=== PATIENT | male | born 1950 | race Caucasian/White ===

== ENCOUNTER → 2020-08-12 12:37 | Outpatient (BNVA) | payer MEDICARE, OTHER, SELFPAY | PROVIDERS: PCP Internal Medicine; Referring Provider Internal Medicine; Visit Provider Orthopaedic Surgery | DX: M17.11 Unilateral primary osteoarthritis, right knee (principal) | CPT/HCPCS: 99212 ==

== ENCOUNTER → 2020-08-18 10:51 | Outpatient (BNVA) | payer MEDICARE, OTHER, SELFPAY | PROVIDERS: PCP Internal Medicine; Referring Provider Internal Medicine; Visit Provider Hospitalist | DX: J44.9 Chronic obstructive pulmonary disease, unspecified (principal); J96.10 Chronic respiratory failure, unspecified whether with hypoxia or hypercapnia; R40.0 Somnolence; Z79.52 Long term (current) use of systemic steroids; Z99.81 Dependence on supplemental oxygen | CPT/HCPCS: 99212 ==

== ENCOUNTER → 2020-09-29 12:21 | Outpatient (BNVA) | payer MEDICARE, OTHER, SELFPAY | PROVIDERS: Visit Provider Orthopaedic Surgery | DX: M17.11 Unilateral primary osteoarthritis, right knee (principal) | CPT/HCPCS: 20610; 99212; J1040 ==

== ENCOUNTER → 2020-12-01 11:37 | Outpatient (BNVA) | payer MEDICARE, OTHER, SELFPAY | PROVIDERS: PCP Internal Medicine; Visit Provider Urology | CPT/HCPCS: Q3014 ==

== ENCOUNTER → 2020-12-10 10:34 | Outpatient (BNVA) | payer MEDICARE, OTHER, SELFPAY | PROVIDERS: PCP Internal Medicine; Visit Provider Hospitalist | DX: J41.8 Mixed simple and mucopurulent chronic bronchitis (principal); J96.11 Chronic respiratory failure with hypoxia; J98.11 Atelectasis; F17.200 Nicotine dependence, unspecified, uncomplicated; Z79.899 Other long term (current) drug therapy; Z71.6 Tobacco abuse counseling | CPT/HCPCS: 99212 ==

== ENCOUNTER → 2021-01-26 12:37 | Outpatient (BNVA) | payer MEDICARE, OTHER, SELFPAY | PROVIDERS: Visit Provider Orthopaedic Surgery | DX: M17.11 Unilateral primary osteoarthritis, right knee (principal) | CPT/HCPCS: 20610; 99212; J1040 ==

== ENCOUNTER → 2021-01-28 08:45 | Outpatient (BNVA) | payer MEDICARE, OTHER, SELFPAY | PROVIDERS: PCP Internal Medicine; Visit Provider Urology | DX: C61 Malignant neoplasm of prostate (principal) | CPT/HCPCS: 51798; 81002; 99212 ==

== ENCOUNTER → 2021-03-30 12:41 | Outpatient (BNVA) | payer MEDICARE, OTHER, SELFPAY | PROVIDERS: PCP Internal Medicine; Visit Provider Dietitian, Registered | DX: J41.8 Mixed simple and mucopurulent chronic bronchitis (principal); J96.11 Chronic respiratory failure with hypoxia; J98.11 Atelectasis; E11.9 Type 2 diabetes mellitus without complications | CPT/HCPCS: 97802; 99212 ==

== ENCOUNTER → 2021-06-01 10:06 | Outpatient (BNVA) | payer MEDICARE, OTHER, SELFPAY | PROVIDERS: PCP Internal Medicine; Visit Provider Urology | DX: N40.1 Benign prostatic hyperplasia with lower urinary tract symptoms (principal); N13.8 Other obstructive and reflux uropathy; C61 Malignant neoplasm of prostate | CPT/HCPCS: Q3014 ==

== ENCOUNTER → 2021-06-10 10:53 | Outpatient (BNVA) | payer MEDICARE, OTHER, SELFPAY | PROVIDERS: PCP Internal Medicine; Visit Provider Orthopaedic Surgery | DX: M17.11 Unilateral primary osteoarthritis, right knee (principal) | CPT/HCPCS: 20610; 99212; J1100 ==

== ENCOUNTER → 2021-06-30 10:47 | Outpatient (BNVA) | payer MEDICARE, OTHER, SELFPAY | PROVIDERS: PCP Internal Medicine; Visit Provider Hospitalist | DX: J41.8 Mixed simple and mucopurulent chronic bronchitis (principal); J96.11 Chronic respiratory failure with hypoxia; J98.11 Atelectasis; I48.91 Unspecified atrial fibrillation | CPT/HCPCS: 99212 ==

== ENCOUNTER → 2021-08-31 10:58 | Outpatient (BNVA) | payer MEDICARE, OTHER, SELFPAY | PROVIDERS: PCP Internal Medicine; Visit Provider Urology | CPT/HCPCS: Q3014 ==

== ENCOUNTER → 2021-12-29 10:46 | Outpatient (BNVA) | payer MEDICARE, OTHER, SELFPAY | PROVIDERS: PCP Internal Medicine; Visit Provider Hospitalist | DX: J41.8 Mixed simple and mucopurulent chronic bronchitis (principal); J96.11 Chronic respiratory failure with hypoxia; J98.11 Atelectasis; I48.91 Unspecified atrial fibrillation | CPT/HCPCS: 99212 ==

== ENCOUNTER → 2022-03-16 10:30 | Outpatient (BNVA) | payer MEDICARE, OTHER, SELFPAY | PROVIDERS: PCP Internal Medicine; Visit Provider Urology | DX: R79.89 Other specified abnormal findings of blood chemistry (principal) | CPT/HCPCS: 99212 ==

== ENCOUNTER → 2022-04-01 13:26 | Outpatient (BNVA) | payer MEDICARE, OTHER, SELFPAY | PROVIDERS: PCP Internal Medicine; Visit Provider Urology | DX: E34.9 Endocrine disorder, unspecified (principal); C61 Malignant neoplasm of prostate; R79.89 Other specified abnormal findings of blood chemistry | CPT/HCPCS: Q3014 ==

== ENCOUNTER → 2022-04-21 13:39 | Outpatient (BNVA) | payer MEDICARE, OTHER, SELFPAY | PROVIDERS: PCP Internal Medicine; Visit Provider Urology | DX: D35.2 Benign neoplasm of pituitary gland (principal); E22.8 Other hyperfunction of pituitary gland; Z85.46 Personal history of malignant neoplasm of prostate | CPT/HCPCS: Q3014 ==

== ENCOUNTER → 2022-05-04 10:46 | Outpatient (BNVA) | payer MEDICARE, OTHER, SELFPAY | PROVIDERS: PCP Internal Medicine; Visit Provider Hospitalist | DX: J41.8 Mixed simple and mucopurulent chronic bronchitis (principal); J96.11 Chronic respiratory failure with hypoxia; J98.11 Atelectasis; I48.91 Unspecified atrial fibrillation; Z79.52 Long term (current) use of systemic steroids; Z79.899 Other long term (current) drug therapy | CPT/HCPCS: 99212 ==

== ENCOUNTER → 2022-09-30 15:12 | Outpatient (BNVA) | payer MEDICARE, OTHER, SELFPAY | PROVIDERS: PCP Internal Medicine; Visit Provider Hospitalist | DX: J41.8 Mixed simple and mucopurulent chronic bronchitis (principal); J96.11 Chronic respiratory failure with hypoxia; J96.12 Chronic respiratory failure with hypercapnia; J98.11 Atelectasis; I48.91 Unspecified atrial fibrillation | CPT/HCPCS: 99212 ==

== ENCOUNTER → 2022-11-23 11:08 | Outpatient (BNVA) | payer MEDICARE, OTHER, SELFPAY | PROVIDERS: PCP Internal Medicine; Visit Provider Hospitalist | DX: J41.8 Mixed simple and mucopurulent chronic bronchitis (principal); J96.11 Chronic respiratory failure with hypoxia; J96.12 Chronic respiratory failure with hypercapnia; J98.11 Atelectasis; I48.91 Unspecified atrial fibrillation | CPT/HCPCS: Q3014 ==

== ENCOUNTER → 2023-03-06 09:31 | Outpatient (BNVA) | payer MEDICARE, OTHER, SELFPAY | PROVIDERS: PCP Internal Medicine; Visit Provider Hospitalist | DX: J98.11 Atelectasis (principal); J96.11 Chronic respiratory failure with hypoxia; J96.12 Chronic respiratory failure with hypercapnia; J44.9 Chronic obstructive pulmonary disease, unspecified; I48.91 Unspecified atrial fibrillation; Z87.891 Personal history of nicotine dependence; Z99.81 Dependence on supplemental oxygen; Z79.899 Other long term (current) drug therapy | CPT/HCPCS: 99212 ==

== ENCOUNTER 2023-08-30 09:39 | Outpatient (AMB) | payer MEDICARE, OTHER, SELFPAY ==
--- NOTE | 2023-08-30 09:49 | A.OFFVIS_ITS ---
Intake Vital Signs 3 08/30/23 09:53 Height 6 ft 1 in Weight 185 lb BMI 24.4 BP 128/70 Blood Pressure Location Rt brachial Position Sitting Pulse 69 Pulse Oximetry (%) 99 Oxygen Delivery Method Room Air Comment 2.5 Liters Oxygen([facility]) Intake Visit Reasons: COPD Allergies finasteride Allergy (Intermediate, Verified 08/30/23 09:59) Rash and Hives levofloxacin [Levaquin] Allergy (Intermediate, Verified 08/30/23 09:59) Rash and Hives Sulfa (Sulfonamide Antibiotics) Allergy (Intermediate, Verified 08/30/23 09:59) Rash and Hives Biaxin Allergy (Intermediate, Uncoded 08/30/23 09:59) Rash and Hives ivp contrast Allergy (Intermediate, Uncoded 08/30/23 09:59) Rash and Hives FLU Vaccine Adverse Reaction (Severe, Uncoded 08/30/23 09:59) Anaphylaxis HPI HPI Comments 2 History of Present Illness0 Details The patient is a 73-year-old gentleman with known chronic bronchitis, COPD, oxygen dependent. He was in his usual state health until for the last couple weeks when he started developing worsening respiratory symptoms. He started developing increasing wheezing which is audible to his family. Moderate in severity. Also complaining of worsening cough which was congested. However, difficult to expectorate. He has been using Mucinex. Due to his worsening symptoms he was restarted on prednisone. His symptoms did improve in the prednisone was slowly decreased to 2.5 mg. He is still having ongoing respiratory complaints. 09/30/2022 [facility] The patient is currently in halfway. He has had multiple hospitalizations at [facility]. He developed significant respiratory failure requiring BiPAP. His ABG at baseline demonstrated an elevated pCO2 of 51 mmHg consistent with chronic hypercarbic respiratory failure due to his COPD. Patient also had issues with heart required a pacemaker for atrial fibrillation with rapid ventricular response not responsive to medications. He continues uses respiratory medications. Continues to have shortness of breath. His oxygen requirements had gone up to 4 L. The patient is felt that when he is pillow that sometimes he has episodes of shortness of breath and hypoxia. We did decrease the oxygen in the office up to 2 L maintaining a pulse ox above 92%. I did recommend the patient can not decrease the oxygen during the daytime but continue the oxygen at 4 L at nighttime in the meantime. The patient does have hypercarbic respiratory failure due to COPD and therefore carries a poor prognosis for poor outcome in addition to high risk for readmissions to the hospital. For this reason the patient needs to start noninvasive ventilator to improve his gas exchange to improve his prognosis and to decrease hospitalizations. Will go ahead and start the process of getting him an astral noninvasive ventilator for him to use as a trial in a halfway and hopefully soon after that at home. Once the patient starts in the astral we can adjust his oxygen while sleeping. 11/23/2022 the patient is has a telephone visit today. He has been home now for about a week after leaving the halfway. Overall he is doing okay. His is doing over time trying to help him. She did end up with fluid his brother also has been helping him. He is still extremely weak. He cannot walk without any assistance. He is using a walker. He is having issues with taking water pills. The patient has been on diuretics. The patient has been reluctant to use it since he has has to be PN a lot and he has a hard time getting around. He did have a chest x-ray prior to him leaving the halfway and demonstrated increased cardiac size and also some cephalization little mild vascular congestion. Therefore I emphasized to the family that he should be using his Lasix in order to avoid heart failure needing to go back to the hospital. They to come monitor closely for any neck swelling. Also be improved important to monitor his weight. In the meantime the prescription for Lasix was 20 mg 3 times a week. She should consider starting the specially if he looks edematous. The patient also consider taking half the dose if he is concerned about his voiding and also his over diuresis. I did emphasize to the patient and also to the family that taking the diuretics will be important in order for him to continue to stay home safely and avoid congestive heart failure. 03/06/2023 the patient is here for a pulmonary follow-up visit. He is now living at home with his . Still weak she and currently on a wheelchair. He is looking for to starting his to regular physical therapy and strength training. Clinically from a respiratory status the patient is doing better. His cough is improved in his respiratory status is a little bit less labored. Still though he does require the oxygen. Typically requires between 2-3 L of oxygen. Sometimes though, he does increase the oxygen when he feels short of breath even though it may not be related to his oxygen. He does feel like it helps his work of breathing to increase the flow. I advised him not to do so. The meantime she will continue with 2 L at rest and 3 L with activity and sleep. Regarding the prednisone currently on 4 mg of prednisone. He was going to start physical therapy once the patient is doing well he can decrease down to 3 mg daily if possible. He was switched over from Stiolto to Spiriva and CBC needs to be tolerating that well. So therefore continue Spiriva for now. Because of the atrial fibrillation the tremulousness and palpitations he does need to be on Xopenex. [facility]. 08/30/2023 the patient is here for a pulm onary follow-up visit. The patient overall has been doing a little better. He has had a very vent for few months. Multiple hospitalizations at [facility] work heart failure. He has also has had issues with anemia and therefore he was taken off the Eliquis. He is currently being evaluated from a GI point of view. In addition to that he recently did get a flu shot in had a severe reaction where he went to the ER and treated. He has not gotten the RSV vaccine nor day new COVID booster because he is concerned about his recent reaction. I am agreeing with him that he needs to be careful specially as he just had a severe reaction. He is mass cannot were where he goes which is reassuring. He does continue to have wheezing on examination. Needs to increase the budesonide to twice a day. He did have a CT scan of the chest at [facility] back in July and was done to assess his aorta and also to assess for any pulmonary emboli. No evidence of any pulmonary emboli noted although the patient was noted to have 3 pulmonary nodules in the right middle lobe right lower lobe fissure measuring largest nodule at 7 mm. Therefore, will have him get a repeat CT scan in 4 months and a follow-up then. The patient prefers to do this at [facility] since he typically goes to [facility] for his care. [facility] Medical History Atelectasis Chondrocalcinosis of right knee Chronic respiratory failure COPD (chronic obstructive pulmonary disease) Diabetes Elevated PSA Hypertension ROLA (obstructive sleep apnea) Primary osteoarthritis of right knee Prostate cancer Social History Patient Tobacco Use Status: Former Tobacco user Tobacco use type: Cigarette Years Smoked: 20 years Current occupational status: retired Current occupation: Right Handed Review of Systems Const Denies night sweats ENT Denies change in voice, Denies lip swelling, Denies mouth pain, Reports nasal congestion, Reports nasal discharge and Denies tongue swelling Card Denies chest pain and Reports dyspnea on exertion Resp Denies chest congestion, Reports cough, Denies hemoptysis and Reports dyspnea on exertion GI Denies abdominal pain Reports genital pain and Reports flank pain Musc Reports abnormal gait, Reports arthralgias, Reports joint swelling and Reports muscle weakness Neuro Denies Neuro-related abnormal movements and Reports abnormal gait Psych Denies no additional complaints Fabián/Lymph Denies easy bleeding and Denies lymphadenopathy Aller/Immun Denies lip swelling and Denies tongue swelling Physical Exam Vital Signs: Last Vital Signs Pulse 69 08/30/23 09:53 BP 128/70 08/30/23 09:53 Pulse Ox 99 08/30/23 09:53 Oxygen Delivery Method Room Air 08/30/23 09:53 BMI result Body Mass Index 24.4 Const General: cooperative and alert Orientation/consciousness: patient oriented x3 Limitations: physical limitations HEENT Head: Yes normal to inspection Ears: hearing grossly normal bilaterally Eyes General: appearance normal, both eyes and all related structures Neck Neck: Yes normal visual inspection Chest Chest palpation & inspection: normal inspection of the chest Resp Effort & Inspection: normal respiratory effort and able to speak in complete sentences Auscultation: no crackles, no rales, wheezes and diminished lung sounds Cardio Rate: tachycardic Rhythm: abnormal rhythm Heart sounds: S1 normal heart sound present and S2 normal heart sound present GI Palpation (GI): Soft to palpation and nontender Auscultation: normal bowel sounds Skin General skin exam: rashes and/or lesions noted Neuro General: patient oriented x3 Results Reviewed Results Reviewed: Assessment & Plan Assessment & Plan (1) COPD (chronic obstructive pulmonary disease): Code(s): J44.9 - Chronic obstructive pulmonary disease, unspecified Qualifiers: COPD type: chronic bronchitis Chronic bronchitis type: mixed simple and mucopurulent Qualified Code(s): J41.8 - Mixed simple and mucopurulent chronic bronchitis (2) Chronic respiratory failure: Code(s): J96.10 - Chronic respiratory failure, unspecified whether with hypoxia or hypercapnia (3) Atelectasis: Code(s): J98.11 - Atelectasis Plan continue Duoneb QID Budesonide BID MIGUEL as needed, can only tolerate Xopenex due to tachycardia and tremors consider NIV to improve gas exchange, improve prognosis and decrease hospitalizations. not ready at this time continue prednisone 3-4mg daily continue Daliresp 250 mcg daily stopped Stiolto daily continue Spiriva oxygen supplementation 2L at rest, 3L with activity Follow-up 4 months Orders: Orders 2 CT chest wo IV con 4 Months R91.1 - Solitary pulmonary nodule Coding Level of Care Code Est Pt Level 4 (48569) Diagnoses Mixed simple and mucopurulent chronic bronchitis J41.8 COPD type: chronic bronchitis Chronic bronchitis type: mixed simple and mucopurulent Chronic respiratory failure J96.10 Atelectasis J98.11 Time Spent (min) 17
[2023-08-30 09:53] VITALS: BP 128/70; PULSE 69; O2SAT 99; BMI 24.4
== END 2023-08-30 10:14 | disposition home or self-care (01) ==
PROVIDERS: PCP Internal Medicine; Visit Provider Hospitalist
DX: J41.8 Mixed simple and mucopurulent chronic bronchitis (principal); J96.10 Chronic respiratory failure, unspecified whether with hypoxia or hypercapnia; J98.11 Atelectasis
CPT/HCPCS: 99214

== ENCOUNTER → 2023-08-30 09:39 | Outpatient (BNVA) | payer MEDICARE, OTHER, SELFPAY | PROVIDERS: PCP Internal Medicine; Visit Provider Hospitalist | DX: J41.8 Mixed simple and mucopurulent chronic bronchitis (principal); J96.10 Chronic respiratory failure, unspecified whether with hypoxia or hypercapnia; J98.11 Atelectasis | CPT/HCPCS: 99212 ==

== ENCOUNTER 2024-01-22 10:38 | Outpatient (AMB) | payer MEDICARE, OTHER, SELFPAY ==
--- NOTE | 2024-01-22 10:48 | A.OFFVIS_ITS ---
Vital Signs 01/22/24 10:49 Height 6 ft 1 in Weight 187 lb 6.287 oz BMI 24.7 BP 126/62 Blood Pressure Location Rt brachial Position Sitting Pulse 71 Pulse Source Pulse Oximeter Pulse Oximetry (%) 99 Oxygen Delivery Method Room Air Intake Visit Reasons: COPD [employer] Professor Required: No Decal Decorator: Decal Decorator offered & declined Allergies finasteride Allergy (Intermediate, Verified 01/22/24 10:53) Rash and Hives levofloxacin [Levaquin] Allergy (Intermediate, Verified 01/22/24 10:53) Rash and Hives Sulfa (Sulfonamide Antibiotics) Allergy (Intermediate, Verified 01/22/24 10:53) Rash and Hives Biaxin Allergy (Intermediate, Uncoded 01/22/24 10:53) Rash and Hives ivp contrast Allergy (Intermediate, Uncoded 01/22/24 10:53) Rash and Hives flu shot (senior) Allergy (Uncoded 01/22/24 10:53) hives FLU Vaccine Adverse Reaction (Severe, Uncoded 01/22/24 10:53) Anaphylaxis Medication List - Last Reconciled 01/22/24 by Andra Lomeli LPN budesonide (Pulmicort) 0.5 mg (2 mL) inhalation DAILY 90 days carisoprodol (Soma) 350 mg PO BEDTIME cholecalciferol (vitamin D3) 25 mcg PO DAILY cyanocobalamin (vitamin B-12) 1,000 mcg PO DAILY dutasteride (Avodart) 0.5 mg PO DAILY 90 days ferrous sulfate 325 mg PO DAILY furosemide 20 mg PO DAILY gabapentin mg PO hydrocortisone 2.5% appl topical insulin glargine (Lantus U-100 Insulin) 26 units subcut QPM levalbuterol HCl 1.25 mg (3 mL) inhalation BID 90 days levalbuterol tartrate 45 mcg/actuation (Xopenex HFA) 2 puffs inhalation Q6H PRN 30 days magnesium 250 mg PO DAILY metformin 500 mg PO DAILY montelukast 10 mg PO DAILY 90 days nebulizers As directed oxycodone mg PO oxycodone-acetaminophen 10-325 mg (Endocet) 1 tab PO TID PRN Oxygen Home Use As directed pantoprazole 40 mg PO QAM prednisone 4 mg (4 x 1 mg) PO DAILY 90 days roflumilast (Daliresp) 250 mcg PO DAILY 30 days sennosides (senna) 8.6 mg PO DAILY tamsulosin 0.4 mg PO DAILY 90 days tiotropium bromide 2.5 mcg/actuation (Spiriva Respimat) 2 puffs inhalation DAILY 90 days HPI Comments Details: The patient is a 73-year-old gentleman with known chronic bronchitis, COPD, oxygen dependent. He was in his usual state health until for the last couple weeks when he started developing worsening respiratory symptoms. He started developing increasing wheezing which is audible to his family. Moderate in severity. Also complaining of worsening cough which was congested. However, difficult to expectorate. He has been using Mucinex. Due to his worsening symptoms he was restarted on prednisone. His symptoms did improve in the prednisone was slowly decreased to 2.5 mg. He is still having ongoing respirato ry complaints. 09/30/2022 the patient is here for hospital follow-up visit. The patient is currently in [facility]. He has had multiple hospitalizations at [facility]. He developed significant respiratory failure requiring BiPAP. His ABG at baseline demonstrated an elevated pCO2 of 51 mmHg consistent with chronic hypercarbic respiratory failure due to his COPD. Patient also had issues with heart required a pacemaker for atrial fibrillation with rapid ventricular response not responsive to medications. He continues uses respiratory medications. Continues to have shortness of breath. His oxygen requirements had gone up to 4 L. The patient is felt that when he is pillow that sometimes he has episodes of shortness of breath and hypoxia. We did decrease the oxygen in the office up to 2 L maintaining a pulse ox above 92%. I did recommend the patient can not decrease the oxygen during the daytime but continue the oxygen at 4 L at nighttime in the meantime. The patient does have hypercarbic respiratory failure due to COPD and therefore carries a poor prognosis for poor outcome in addition to high risk for readmissions to the hospital. For this reason the patient needs to start noninvasive ventilator to improve his gas exchange to improve his prognosis and to decrease hospitalizations. Will go ahead and start the process of getting him an astral noninvasive ventilator for him to use as a trial in a [facility] and hopefully soon after that at home. Once the patient starts in the astral we can adjust his oxygen while sleeping. 11/23/2022 the patient is has a telephone visit today. He has been home now for about a week after leaving the [facility]. Overall he is doing okay. His is doing over time trying to help him. She did end up with fluid his brother also has been helping him. He is still extremely weak. He cannot walk without any assistance. He is using a walker. He is having issues with taking water pills. The patient has been on diuretics. The patient has been reluctant to use it since he has has to be PN a lot and he has a hard time getting around. He did have a chest x-ray prior to him leaving the [facility] and demonstrated increased cardiac size and also some cephalization little mild vascular congestion. Therefore I emphasized to the family that he should be using his Lasix in order to avoid heart failure needing to go back to the hospital. They to come monitor closely for any neck swelling. Also be improved important to monitor his weight. In the meantime the prescription for Lasix was 20 mg 3 times a week. She should consider starting the specially if he looks edematous. The patient also consider taking half the dose if he is concerned about his voiding and also his over diuresis. I did emphasize to the patient and also to the family that taking the diuretics will be important in order for him to continue to stay home safely and avoid congestive heart failure. 03/06/2023 the patient is here for a pulmonary follow-up visit. He is now living at home with his . Still weak she and currently on a wheelchair. He is looking for to starting his to regular physical therapy and strength training. Clinically from a respiratory status the patient is doing better. His cough is improved in his respiratory status is a little bit less labored. Still though he does require the oxygen. Typically requires between 2-3 L of oxygen. Sometimes though, he does increase the oxygen when he feels short of breath even though it may not be related to his oxygen. He does feel like it helps his work of breathing to increase the flow. I advised him not to do so. The meantime she will continue with 2 L at rest and 3 L with activity and sleep. Regarding the prednisone currently on 4 mg of prednisone. He was going to start physical therapy once the patient is doing well he can decrease down to 3 mg daily if possible. He was switched over from Stiolto to Spiriva and CBC nee ds to be tolerating that well. So therefore continue Spiriva for now. Because of the atrial fibrillation the tremulousness and palpitations he does need to be on Xopenex. [facility]. 08/30/2023 the patient is here for a pulmonary follow-up visit. The patient overall has been doing a little better. He has had a very vent for few months. Multiple hospitalizations at [facility] work heart failure. He has also has had issues with anemia and therefore he was taken off the Eliquis. He is currently being evaluated from a GI point of view. In addition to that he recently did get a flu shot in had a severe reaction where he went to the ER and treated. He has not gotten the RSV vaccine nor day new COVID booster because he is concerne d about his recent reaction. I am agreeing with him that he needs to be careful specially as he just had a severe reaction. He is mass cannot were where he goes which is reassuring. He does continue to have wheezing on examination. Needs to increase the budesonide to twice a day. He did have a CT scan of the chest at [facility] back in July and was done to assess his aorta and also to assess for any pulmonary emboli. No evidence of any pulmonary emboli noted although the patient was noted to have 3 pulmonary nodules in the right middle lobe right lower lobe fissure measuring largest nodule at 7 mm. Therefore, will have him get a repeat CT scan in 4 months and a follow-up then. The patient prefers to do this at [facility] since he typically goes to [facility] for his care. 01/22/2024 the patient is here for a pulmonary follow-up visit. Overall the patient has been doing fairly well. Unfortunately he did developed COVID-19 and had to be admitted to the hospital [facility] briefly. He was able to be discharged and has been doing well on the same amount of oxygen. He continues to have issues with his weight however. Has lost about 100 lb. We did talk about weaning him off the Daliresp to see if this will help with his weight gain. He also had a CT scan of the chest at [facility] which I personally reviewed myself with the patient and his . It appears that the 9 mm pulmonary nodule that was concerning has resolved which is reassuring. He has other pulmonary nodules that appear to be stable. He still has the persistent elevation of the left hemidiaphragm due to atelectasis. He is wondering about a portable oxygen concentrator. He is going to have a [facility]xim[facility] in the coming months. [facility] Medical History Atelectasis Chondrocalcinosis of right knee Chronic respiratory failure COPD (chronic obstructive pulmonary disease) Diabetes Elevated PSA Hypertension ROLA (obstructive sleep apnea) Primary osteoarthritis of right knee Prostate cancer Social History (Updated 01/22/24 @ 10:55 by Adnra Lomeli LPN) Patient Tobacco Use Status: Former Tobacco user Tobacco use type: Cigarette Years Smoked: 20 years Current occupational status: retired Current occupation: Right Handed Review of Systems Const Denies night sweats and Reports weight loss ENT Denies change in voice, Denies lip swelling, Denies mouth pain, Reports nasal congestion, Reports nasal discharge and Denies tongue swelling Card Denies chest pain and Reports dyspnea on exertion Resp Denies chest congestion, Reports cough, Denies hemoptysis and Reports dyspnea on exertion GI Denies abdominal pain Reports genital pain and Reports flank pain Musc Reports abnormal gait, Reports arthralgias, Reports joint swelling and Reports muscle weakness Neuro Denies Neuro-related abnormal movements and Reports abnormal gait Psych Denies no additional complaints Fabián/Lymph Denies easy bleeding and Denies lymphadenopathy Aller/Immun Denies lip swelling and Denies tongue swelling Physical Exam Vital Signs: Last Vital Signs Pulse 71 01/22/24 10:49 BP 126/62 01/22/24 10:49 Pulse Ox 99 01/22/24 10:49 Oxygen Delivery Method Room Air 01/22/24 10:49 BMI result Body Mass Index 24.7 Const General: cooperative and alert Orientation/consciousness: patient oriented x3 Limitations: physical limitations HEENT Head: Yes normal to inspection Ears: hearing grossly normal bilaterally Eyes General: appearance normal, both eyes and all related structures Neck Neck: Yes normal visual inspection Chest Chest palpation & inspection: normal inspection of the chest Resp Effort & Inspection: normal respiratory effort Auscultation: no crackles, no rales, no wheezes and diminished lung sounds Cardio Rate: tachycardic Rhythm: abnormal rhythm Heart sounds: S1 normal heart sound present and S2 normal heart sound present GI Palpation (GI): Soft to palpation and nontender Auscultation: normal bowel sounds Skin General skin exam: rashes and/or lesions noted Neuro General: patient oriented x3 Assessment & Plan Assessment & Plan (1) COPD (chronic obstructive pulmonary disease): Code(s): J44.9 - Chronic obstructive pulmonary disease, unspecified Category: Medical Qualifiers: COPD type: chronic bronchitis Chronic bronchitis type: mixed simple and mucopurulent Qualified Code(s): J41.8 - Mixed simple and mucopurulent chronic bronchitis (2) Chronic respiratory failure: Code(s): J96.10 - Chronic respiratory failure, unspecified whether with hypoxia or hypercapnia Category: Medical Qualifiers: Respiratory failure complication: hypoxia and hypercapnia Qualified Code(s): J96.11 - Chronic respiratory failure with hypoxia; J96.12 - Chronic respiratory failure with hypercapnia; J96.12 - Chronic respiratory failure with hypercapnia (3) Atelectasis: Code(s): J98.11 - Atelectasis Category: Medical Plan continue Duoneb QID Budesonide BID MIGUEL as needed, can only tolerate Xopenex due to tachycardia and tremors continue prednisone 3-4mg daily continue Daliresp 250 mcg daily stopped Stiolto daily continue Spiriva oxygen supplementation 2L at rest, 3L with activity. conserving device [facility] Follow-up 6 months Medications: Refilled prednisone 4 mg (4 x 1 mg) PO DAILY 360 tabs 3RF 90 days tiotropium bromide 2.5 mcg/actuation (Spiriva Respimat) 2 puffs inhalation DAILY 3 ea 3RF 90 days levalbuterol HCl 1.25 mg (3 mL) inhalation BID 540 mL 3RF 90 days J44.9 - Chronic obstructive pulmonary disease, unspecified budesonide (Pulmicort) 0.5 mg (2 mL) inhalation DAILY 180 mL 3RF 90 days J41.8 - Mixed simple and mucopurulent chronic bronchitis Coding Level of Care Code Est Pt Level 4 (38617) Diagnoses Mixed simple and mucopurulent chronic bronchitis J41.8 COPD type: chronic bronchitis Chronic bronchitis type: mixed simple and mucopurulent Chronic respiratory failure with hypoxia and hypercapnia J96.11; J96.12; J96.12 Respiratory failure complication: hypoxia and hypercapnia Atelectasis J98.11 Time Spent (min) 18
[2024-01-22 10:49] VITALS: BP 126/62; PULSE 71; O2SAT 99; BMI 24.7
== END 2024-01-22 11:14 | disposition home or self-care (01) ==
PROVIDERS: PCP Internal Medicine; Visit Provider Hospitalist
DX: J41.8 Mixed simple and mucopurulent chronic bronchitis (principal); J96.11 Chronic respiratory failure with hypoxia; J96.12 Chronic respiratory failure with hypercapnia; J98.11 Atelectasis
CPT/HCPCS: 99214

== ENCOUNTER → 2024-01-22 10:38 | Outpatient (BNVA) | payer MEDICARE, OTHER, SELFPAY | PROVIDERS: PCP Internal Medicine; Visit Provider Hospitalist | DX: J41.8 Mixed simple and mucopurulent chronic bronchitis (principal); J96.11 Chronic respiratory failure with hypoxia; J96.12 Chronic respiratory failure with hypercapnia; J98.11 Atelectasis; Z79.899 Other long term (current) drug therapy | CPT/HCPCS: 99212 ==

== ENCOUNTER 2024-06-12 10:39 | Outpatient (AMB) | payer MEDICARE, OTHER, SELFPAY ==
--- NOTE | 2024-06-12 10:52 | MHC.OFFVIS ---
Vital Signs 06/12/24 10:56 Height 6 ft 1 in Weight 183 lb BMI 24.1 BP 124/70 Blood Pressure Location Lt brachial Position Sitting Pulse 69 Pulse Source Pulse Oximeter Pulse Oximetry (%) 98 Oxygen Delivery Method Room Air Comment 1-2 Liters Oxygen(Community) Intake Visit Reasons: COPD Marketing Compliance Manager Required: No Allergies finasteride Allergy (Intermediate, Verified 06/12/24 11:00) Rash and Hives levofloxacin [Levaquin] Allergy (Intermediate, Verified 06/12/24 11:00) Rash and Hives Sulfa (Sulfonamide Antibiotics) Allergy (Intermediate, Verified 06/12/24 11:00) Rash and Hives Biaxin Allergy (Intermediate, Uncoded 06/12/24 11:00) Rash and Hives ivp contrast Allergy (Intermediate, Uncoded 06/12/24 11:00) Rash and Hives flu shot (senior) Allergy (Uncoded 06/12/24 11:00) hives FLU Vaccine Adverse Reaction (Severe, Uncoded 06/12/24 11:00) Anaphylaxis HPI Comments Details: The patient is a 74-year-old gentleman with known chronic bronchitis, COPD, oxygen dependent. He was in his usual state health until for the last couple weeks when he started developing worsening respiratory symptoms. He started developing increasing wheezing which is audible to his family. Moderate in severity. Also complaining of worsening cough which was congested. However, difficult to expectorate. He has been using Mucinex. Due to his worsening symptoms he was restarted on prednisone. His symptoms did improve in the prednisone was slowly decreased to 2.5 mg. He is still having ongoing respiratory complaints. 09/30/2022 the patient is here for hospital follow-up visit. The patient is currently in half-way. He has had multiple hospitalizations at [facility]. He developed significant respiratory failure requiring BiPAP. His ABG at baseline demonstrated an elevated pCO2 of 51 mmHg consistent with chronic hypercarbic respiratory failure due to his COPD. Patient also had issues with heart required a pacemaker for atrial fibrillation with rapid ventricular response not responsive to medications. He continues uses respiratory medications. Continues to have shortness of breath. His oxygen requirements had gone up to 4 L. The patient is felt that when he is pillow that sometimes he has episodes of shortness of breath and hypoxia. We did decrease the oxygen in the office up to 2 L maintaining a pulse ox above 92%. I did recommend the patient can not decrease the oxygen during the daytime but continue the oxygen at 4 L at nighttime in the meantime. The patient does have hypercarbic respiratory failure due to COPD and therefore carries a poor prognosis for poor outcome in addition to high risk for readmissions to the hospital. For this reason the patient needs to start noninvasive ventilator to improve his gas exchange to improve his prognosis and to decrease hospitalizations. Will go ahead and start the process of getting him an astral noninvasive ventilator for him to use as a trial in a half-way and hopefully soon after that at home. Once the patient starts in the astral we can adjust his oxygen while sleeping. 11/23/2022 the patient is has a telephone visit today. He has been home now for about a week after leaving the half-way. Overall he is doing okay. His is doing over time trying to help him. She did end up with fluid his brother also has been helping him. He is still extremely weak. He cannot walk without any assistance. He is using a walker. He is having issues with taking water pills. The patient has been on diuretics. The patient has been reluctant to use it since he has has to be PN a lot and he has a hard time getting around. He did have a chest x-ray prior to him leaving the half-way and demonstrated increased cardiac size and also some cephalization little mild vascular congestion. Therefore I emphasized to the family that he should be using his Lasix in order to avoid heart failure needing to go back to the hospital. They to come monitor closely for any neck swelling. Also be improved important to monitor his weight. In the meantime the prescription for Lasix was 20 mg 3 times a week. She should consider starting the specially if he looks edematous. The patient also consider taking half the dose if he is concerned about his voiding and also his over diuresis. I did emphasize to the patient and also to the family that taking the diuretics will be important in order for him to continue to stay home safely and avoid congestive heart failure. 03/06/2023 the patient is here for a pulmonary follow-up visit. He is now living at home with his . Still weak she and currently on a wheelchair. He is looking for to starting his to regular physical therapy and strength training. Clinically from a respiratory status the patient is doing better. His cough is improved in his respiratory status is a little bit less labored. Still though he does require the oxygen. Typically requires between 2-3 L of oxygen. Sometimes though, he does increase the oxygen when he feels short of breath even though it may not be related to his oxygen. He does feel like it helps his work of breathing to increase the flow. I advised him not to do so. The meantime she will continue with 2 L at rest and 3 L with activity and sleep. Regarding the prednisone currently on 4 mg of prednisone. He was going to start physical therapy once the patient is doing well he can decrease down to 3 mg daily if possible. He was switched over from Stiolto to Spiriva and CBC needs to be tolerating that well. So therefore continue Spiriva for now. Because of the atrial fibrillation the tremulousness and palpitations he does need to be on Xopenex. [facility]. 08/30/2023 the patient is here for a pulmonary follow-up visit. The patient overall has been doing a little better. He has had a very vent for few months. Multiple hospitalizations at [facility] work heart failure. He has also has had issues with anemia and therefore he was taken off the Eliquis. He is currently being evaluated from a GI point of view. In addition to that he recently did get a flu shot in had a severe reaction where he went to the ER and treated. He has not gotten the RSV vaccine nor day new COVID booster because he is concerned about his recent reaction. I am agreeing with him that he needs to be careful specially as he just had a severe reaction. He is mass cannot were where he goes which is reassuring. He does continue to have wheezing on examination. Needs to increase the budesonide to twice a day. He did have a CT scan of the chest at [facility] back in July and was done to assess his aorta and also to assess for any pulmonary emboli. No evidence of any pulmonary emboli noted although the patient was noted to have 3 pulmonary nodules in the right middle lobe right lower lobe fissure measuring largest nodule at 7 mm. Therefore, will have him get a repeat CT scan in 4 months and a follow-up then. The patient prefers to do this at [facility] since he typically goes to [facility] for his care. 01/22/2024 the patient is here for a pulmonary follow-up visit. Overall the patient has been doing fairly well. Unfortunately he did developed COVID-19 and had to be admitted to the hospital [facility] briefly. He was able to be discharged and has been doing well on the same amount of oxygen. He continues to have issues with his weight however. Has lost about 100 lb. We did talk about weaning him off the Daliresp to see if this will help with his weight gain. He also had a CT scan of the chest at [facility] which I personally reviewed myself with the patient and his . It appears that the 9 mm pulmonary nodule that was concerning has resolved which is reassuring. He has other pulmonary nodules that appear to be stable. He still has the persistent elevation of the left hemidiaphragm due to atelectasis. He is wondering about a portable oxygen concentrator. He is going to have a [facility] in the coming months. 06/12/2024 the patient is here for a pulmonary follow-up visit. He continues to have issues with chest congestion and cough. He has also had more wheezing. We did go over his Medication is not using them as prescribed. Therefore we did had taken. If the patient continues to have wheezing shortness of breath and congestion afterwards will go ahead and start him on some doxycycline. In the meantime he also has some hoarseness. He does have an ENT appointment. He is taking budesonide and that can ultimately resulting hoarseness. Right now we decrease it to once a day. He is wondering about a bronchoscopy for therapeutic cleaning. Although with his cardiac history would be safe to undergo any elective semi invasive procedures at this time. [facility] Medical History Atelectasis Chondrocalcinosis of right knee Chronic respiratory failure COPD (chronic obstructive pulmonary disease) Diabetes Elevated PSA Hypertension ROLA (obstructive sleep apnea) Primary osteoarthritis of right knee Prostate cancer Social History (Updated 01/22/24 @ 10:55 by Andra Lomeli LPN) Patient Tobacco Use Status: Former Tobacco user Tobacco use type: Cigarette Years Smoked: 20 years Current occupational status: retired Current occupation: Right Handed Review of Systems Const Denies night sweats and Reports weight loss ENT Denies change in voice, Denies lip swelling, Denies mouth pain, Reports nasal congestion, Reports nasal discharge and Denies tongue swelling Card Denies chest pain and Reports dyspnea on exertion Resp Denies chest congestion, Reports cough, Denies hemoptysis and Reports dyspnea on exertion GI Denies abdominal pain Reports genital pain and Reports flank pain Musc Reports abnormal gait, Reports arthralgias, Reports joint swelling and Reports muscle weakness Neuro Denies Neuro-related abnormal movements and Reports abnormal gait Psych Denies no additional complaints Fabián/Lymph Denies easy bleeding and Denies lymphadenopathy Aller/Immun Denies lip swelling and Denies tongue swelling Physical Exam Vital Signs: Last Vital Signs Pulse 69 06/12/24 10:56 BP 124/70 06/12/24 10:56 Pulse Ox 98 06/12/24 10:56 Oxygen Delivery Method Room Air 06/12/24 10:56 BMI result Body Mass Index 24.1 Const General: cooperative and alert Orientation/consciousness: patient oriented x3 Limitations: physical limitations HEENT Head: Yes normal to inspection Ears: hearing grossly normal bilaterally Eyes General: appearance normal, both eyes and all related structures Neck Neck: Yes normal visual inspection Chest Chest palpation & inspection: normal inspection of the chest Resp Effort & Inspection: normal respiratory effort Auscultation: no crackles, no rales, no wheezes and diminished lung sounds Cardio Rate: tachycardic Rhythm: abnormal rhythm Heart sounds: S1 normal heart sound present and S2 normal heart sound present GI Palpation (GI): Soft to palpation and nontender Auscultation: normal bowel sounds Skin General skin exam: rashes and/or lesions noted Neuro General: patient oriented x3 Assessment & Plan Assessment & Plan (1) COPD (chronic obstructive pulmonary disease): Code(s): J44.9 - Chronic obstructive pulmonary disease, unspecified Category: Medical Qualifiers: COPD type: chronic bronchitis Chronic bronchitis type: mixed simple and mucopurulent Qualified Code(s): J41.8 - Mixed simple and mucopurulent chronic bronchitis (2) Chronic respiratory failure: Code(s): J96.10 - Chronic respiratory failure, unspecified whether with hypoxia or hypercapnia Category: Medical Qualifiers: Respiratory failure complication: hypoxia and hypercapnia Qualified Code(s): J96.11 - Chronic respiratory failure with hypoxia; J96.12 - Chronic respiratory failure with hypercapnia; J96.12 - Chronic respiratory failure with hypercapnia (3) Atelectasis: Code(s): J98.11 - Atelectasis Category: Medical Plan stopped Duoneb QID Xopenex neb BID Budesonide daily MIGUEL as needed, can only tolerate Xopenex due to tachycardia and tremors continue prednisone 3-4mg daily continue Daliresp 250 mcg daily continue Spiriva continue singulair oxygen supplementation 2L at rest, 3L with activity. conserving device [facility] Follow[facility] 6 months Medications: New doxycycline hyclate 100 mg PO BID 28 caps 0RF 14 days Refilled montelukast 10 mg PO DAILY 90 tabs 3RF 90 days Coding Level of Care Code Est Pt Level 4 (00037) Complex EM visit Add On G2211 Diagnoses Mixed simple and mucopurulent chronic bronchitis J41.8 COPD type: chronic bronchitis Chronic bronchitis type: mixed simple and mucopurulent Chronic respiratory failure with hypoxia and hypercapnia J96.11; J96.12; J96.12 Respiratory failure complication: hypoxia and hypercapnia Atelectasis J98.11 Time Spent (min) 20
[2024-06-12 10:56] VITALS: BP 124/70; PULSE 69; O2SAT 98; BMI 24.1
== END 2024-06-12 11:29 | disposition home or self-care (01) ==
PROVIDERS: PCP Internal Medicine; Visit Provider Hospitalist
DX: J41.8 Mixed simple and mucopurulent chronic bronchitis (principal); J96.11 Chronic respiratory failure with hypoxia; J96.12 Chronic respiratory failure with hypercapnia; J98.11 Atelectasis
CPT/HCPCS: 99214; G2211

== ENCOUNTER → 2024-06-12 10:39 | Outpatient (BNVA) | payer MEDICARE, OTHER, SELFPAY | PROVIDERS: PCP Internal Medicine; Visit Provider Hospitalist | DX: J41.8 Mixed simple and mucopurulent chronic bronchitis (principal); J98.11 Atelectasis; J96.11 Chronic respiratory failure with hypoxia; J96.12 Chronic respiratory failure with hypercapnia; Z99.81 Dependence on supplemental oxygen | CPT/HCPCS: 99212 ==

== ENCOUNTER 2024-06-28 10:59 | Outpatient (AMB) | payer MEDICARE, OTHER, SELFPAY ==
--- NOTE | 2024-06-28 11:32 | A.OFFVIS_ITS ---
Intake Visit Reasons: Prostate Ca-PSA(Elevated)last seen 2021 Intake Note: Patient is Present for Follow Up PSA Urology Medication: Tamsulosin, Dutasteride Antibiotic Allergies: Sulfa, Levofloxacin, Blood Thinners: None Recent PSA: 04/29/2024- 22.9 Sample Maker Required: No Accompanied by: Self / Same As Patient Allergies finasteride Allergy (Intermediate, Verified 06/28/24 11:34) Rash and Hives levofloxacin [Levaquin] Allergy (Intermediate, Verified 06/28/24 11:34) Rash and Hives Sulfa (Sulfonamide Antibiotics) Allergy (Intermediate, Verified 06/28/24 11:34) Rash and Hives Biaxin Allergy (Intermediate, Uncoded 06/28/24 11:34) Rash and Hives ivp contrast Allergy (Intermediate, Uncoded 06/28/24 11:34) Rash and Hives flu shot (senior) Allergy (Uncoded 06/28/24 11:34) hives FLU Vaccine Adverse Reaction (Severe, Uncoded 06/28/24 11:34) Anaphylaxis HPI Comments Details: Mr Gunter is a very pleasant . They are a patient of Dr Collins. They are seen in the office today for the following urologic conditions. - prostate cancer - BPH with nocturia Combination dutasteride and tamsulosin PSA 05/18 22.9 Persistent high FSH and high testosterone MRI shows no joanne mass Gonadotroph adenoma is known to be difficult to recognize because they do not cause clinical syndrome and have variable expression - recommend guideline is for LH, FSH, alpha and beta subunit testing. LH beta subunit testing not available at [facility] Referred to Endocrinology Department at [facility] - Dr Avila Prostate cancer: Second biopsy negative Prostate cancer was diagnosed 05/[address] Gomes. Diagnosis was reached by needle biopsy, for elevated PSA, PSA at diagnosis 6.6 , size at TRUS 45cc Feb 2018 , needle biopsy, for elevated PSA, PSA at diagnosis 16.5. The Poli grade is 3+3 = 6 1/12 cores 10% - February 2018 HGPIN 1/12 cores - no cancer on directed cores - May 2020 - no cancer seen TNM Classification of Malignant Tumours (TNM) T1c. The D'Heidy (NCCN) risk category is Low Risk (PSA< 10, Gl < 7, T1c). Initial therapy included Primary treatment, Observation, 5AR - Side effect with finasteride - sore testicles - tolerates dutasteride Recent labs included a PSA (prostate-specific antigen) April 2011 3.3, August 2012 5.4, January 2013 5.5, January 2014 6.9, June 2016 12.9 (unsure if on 5AR), Sep 2016 13.28 February 2017 13.5 on 5AR 01/10 , a PSA (prostate-specific antigen) 16.2, 09/11 16 02/10 18.4, 04/12 20.6, 09/12 28.3 04/13 28 - 11/15 27.8, 05/15 33, 09/14 27, 03/16 35 T 800, 04/15 T 750 FSH 18 Recent imaging included an MRI (magnetic resonance imaging) April 2015 prostate volume 36 cc, area of hypointensity and peripheral zone of the left base without abnormal enhancement kinetics. No evidence of capsular invasion or lymphadenopathy 04/10 MRI (magnetic resonance imaging) prostate volume 34 cc. Peripheral zone left basal focal region Pi-RADS 3. No definitive change since 2014. 03/13 Bone Scan negative 09/12 MRI (magnetic resonance imaging) 2.5cm left anterior transition at base - increase in size - 09/14 Bone Scan NAD [facility] Medical History Diabetes Chronic respiratory failure COPD (chronic obstructive pulmonary disease) Hypertension Chondrocalcinosis of right knee Primary osteoarthritis of right knee ROLA (obstructive sleep apnea) Atelectasis Prostate cancer Elevated PSA Social History Patient Tobacco Use Status: Former Tobacco user Tobacco use type: Cigarette Years Smoked: 20 years Current occupational status: retired Current occupation: Right Handed Review of Systems Const Denies chills and Denies fever(s) Card Reports no additional complaints and Denies syncope Resp Denies cough GI Denies abdominal pain and Denies heartburn Reports as per HPI and Denies change in libido Neuro Denies syncope Psych Denies change in libido Endo Denies change in libido Physical Exam Const General: cooperative, healthy appearing, comfortable and no acute distress Orientation/consciousness: patient oriented x3 HEENT Face and sinus: Yes normal facial exam Mouth: moist mucous membranes Neck Neck: Yes normal visual inspection, Yes full ROM and Yes trachea midline Chest Chest palpation & inspection: normal inspection of the chest Resp Effort & Inspection: normal respiratory effort, able to speak in complete se ntences and no respiratory distress GI Inspection: Yes normal to inspection Back/Spine/Pelvis Cervical Spine: normal cervical lordosis Thoracic/Lumbar Spine: thoracic and lumbar spine normal to inspection Skin General skin exam: no rashes or lesions noted Neuro General: patient oriented x3, gait normal, tone normal and moves all extremities Extrem General: Yes normal to inspection and Yes capillary refill normal Assessment & Plan Assessment & Plan (1) Prostate cancer: Comment: low volume, high PSA Code(s): C61 - Malignant neoplasm of prostate Category: Medical (2) BPH w urinary obs/LUTS: Code(s): N40.1 - Benign prostatic hyperplasia with lower urinary tract symptoms; N13.8 - Other obstructive and reflux uropathy Category: Medical (3) Weak urinary stream: Code(s): R39.12 - Poor urinary stream Category: Medical Plan Trial dutasteride Medications: Refilled dutasteride (Avodart) 0.5 mg PO DAILY 90 caps 3RF 90 days C61 - Malignant neoplasm of prostate tamsulosin 0.4 mg PO DAILY 90 caps 3RF 90 days N40.1 - Benign prostatic hyperplasia with lower urinary tract symptoms, N13.8 - Other obstructive and reflux uropathy Patient Instructions: Imaging studies, laboratory and physical exam results were discussed and reviewed in detail. No major barriers to patient understanding were identified. An opportunity to ask questions regarding the treatment plan was provided. All questions were answered. The patient expressed understanding and agreement with the above treatment plan. The patient is aware they should contact our office by phone for worsening of their current condition or the appearance of new urologic symptoms. Compliance is encouraged with any medications and followup testing that is ordered. It is a privilege to participate in the urologic care of your patient. If you have any questions or concerns regarding treatment for the above conditions, or other urologic issues, please do not hesitate to contact me. The office telephone contact is [phone]. This note is constructed using voice recognition software. While every effort has been made to ensure accuracy funeral pre arrangement specialist errors may have been included. Yours sincerely, Dr Rommel Gomes MD, [facility] - Urology Providers of Expert, Compassionate Care for the Genitourinary System Coding Level of Care Code Est Pt Level 3 (62505) Diagnoses Prostate cancer C61 BPH w urinary obs/LUTS N40.1; N13.8 Weak urinary stream R39.12
== END 2024-06-28 12:50 | disposition home or self-care (01) ==
PROVIDERS: PCP Internal Medicine; Visit Provider Urology
DX: C61 Malignant neoplasm of prostate (principal); N40.1 Benign prostatic hyperplasia with lower urinary tract symptoms; N13.8 Other obstructive and reflux uropathy; R39.12 Poor urinary stream
CPT/HCPCS: 99213

== ENCOUNTER → 2024-06-28 10:59 | Outpatient (BNVA) | payer MEDICARE, OTHER, SELFPAY | PROVIDERS: PCP Internal Medicine; Visit Provider Urology | DX: N40.1 Benign prostatic hyperplasia with lower urinary tract symptoms (principal); R35.1 Nocturia; Z85.46 Personal history of malignant neoplasm of prostate; Z79.899 Other long term (current) drug therapy | CPT/HCPCS: 99212 ==

== ENCOUNTER 2024-12-13 11:37 | Outpatient (AMB) | payer MEDICARE, OTHER, SELFPAY ==
--- NOTE | 2024-12-13 11:38 | A.OFFVIS_ITS ---
Vital Signs 12/13/24 11:39 Height 6 ft 1 in Weight 184 lb 1.376 oz BMI 24.3 BP 100/62 Blood Pressure Location Lt brachial Position Standing Pulse 70 Pulse Source Pulse Oximeter Pulse Oximetry (%) 99 Oxygen Delivery Method Nasal Cannula Oxygen Flow Rate 2 Intake Visit Reasons: COPD Allergies finasteride Allergy (Intermediate, Verified 06/28/24 11:34) Rash and Hives levofloxacin [Levaquin] Allergy (Intermediate, Verified 06/28/24 11:34) Rash and Hives Sulfa (Sulfonamide Antibiotics) Allergy (Intermediate, Verified 06/28/24 11:34) Rash and Hives Biaxin Allergy (Intermediate, Uncoded 06/28/24 11:34) Rash and Hives ivp contrast Allergy (Intermediate, Uncoded 06/28/24 11:34) Rash and Hives flu shot (senior) Allergy (Uncoded 06/28/24 11:34) hives FLU Vaccine Adverse Reaction (Severe, Uncoded 06/28/24 11:34) Anaphylaxis HPI Comments Details: The patient is a 74-year-old gentleman with known chronic bronchitis, COPD, oxygen dependent. He was in his usual state health until for the last couple weeks when he started developing worsening respiratory symptoms. He started developing increasing wheezing which is audible to his family. Moderate in severity. Also complaining of worsening cough which was congested. However, difficult to expectorate. He has been using Mucinex. Due to his worsening symptoms he was restarted on prednisone. His symptoms did improve in the prednisone was slowly decreased to 2.5 mg. He is still having ongoing respiratory complaints. 09/30/2022 the patient is here for hospital follow-up visit. The patient is currently in senior care. He has had multiple hospitalizations at [facility]. He developed significant respiratory failure requiring BiPAP. His ABG at baseline demonstrated an elevated pCO2 of 51 mmHg consistent with chronic hypercarbic respiratory failure due to his COPD. Patient also had issues with heart required a pacemaker for atrial fibrillation with rapid ventricular response not responsive to medications. He continues uses respiratory medications. Continues to have shortness of breath. His oxygen requirements had gone up to 4 L. The patient is felt that when he is pillow that sometimes he has episodes of shortness of breath and hypoxia. We did decrease the oxygen in the office up to 2 L maintaining a pulse ox above 92%. I did recommend the patient can not decrease the oxygen during the daytime but continue the oxygen at 4 L at nighttime in the meantime. The patient does have hypercarbic respiratory failure due to COPD and therefore carries a poor prognosis for poor outcome in addition to high risk for readmissions to the hospital. For this reason the patient needs to start noninvasive ventilator to improve his gas exchange to improve his prognosis and to decrease hospitalizations. Will go ahead and start the process of getting him an astral noninvasive ventilator for him to use as a trial in a senior care and hopefully soon after that at home. Once the patient starts in the astral we can adjust his oxygen while sleeping. 11/23/2022 the patient is has a telephone visit today. He has been home now for about a week after leaving the senior care. Overall he is doing okay. His is doing over time trying to help him. She did end up with fluid his brother also has been helping him. He is still extremely weak. He cannot walk without any assistance. He is using a walker. He is having issues with taking water pills. The patient has been on diuretics. The patient has been reluctant to use it since he has has to be PN a lot and he has a hard time getting around. He did have a chest x-ray prior to him leaving the senior care and demonstrated increased cardiac size and also some cephalization little mild vascular congestion. Therefore I emphasized to the family that he should be using his Lasix in order to avoid heart failure needing to go [facility]. They to come monitor closely for any neck swelling. Also be improved important to monitor his weight. In the meantime the prescription for Lasix was 20 mg 3 times a week. She should consider starting the specially if he looks edematous. The patient also consider taking half the dose if he is concerned about his voiding and also his over diuresis. I did emphasize to the patient and also to the family that taking the diuretics will be important in order for him to continue to stay home safely and avoid congestive heart failure. 03/06/2023 the patient is here for a pulmonary follow-up visit. He is now living at home with his . Still weak she and currently on a wheelchair. He is looking for to starting his to regular physical therapy and strength training. Clinically from a respiratory status the patient is doing better. His cough is improved in his respiratory status is a little bit less labored. Still though he does require the oxygen. Typically requires between 2-3 L of oxygen. Sometimes though, he does increase the oxygen when he feels short of breath even though it may not be related to his oxygen. He does feel like it helps his work of breathing to increase the flow. I advised him not to do so. The meantime she will continue with 2 L at rest and 3 L with activity and sleep. Regarding the prednisone currently on 4 mg of prednisone. He was going to start physical therapy once the patient is doing well he can decrease down to 3 mg daily if possible. He was switched over from Stiolto to Spiriva and CBC needs to be tolerating that well. So therefore continue Spiriva for now. Because of the atrial fibrillation the tremulousness and palpitations he does need to be on Xopenex. [facility]. 08/30/2023 the patient is here for a pulmonary follow-up visit. The patient overall has been doing a little better. He has had a very vent for few months. Multiple hospitalizations at [facility] work heart failure. He has also has had issues with anemia and therefore he was taken off the Eliquis. He is currently being evaluated from a GI point of view. In addition to that he recently did get a flu shot in had a severe reaction where he went to the ER and treated. He has not gotten the RSV vaccine nor day new COVID booster because he is concerned about his recent reaction. I am agreeing with him that he needs to be careful specially as he just had a severe reaction. He is mass cannot were where he goes which is reassuring. He does continue to have wheezing on examination. Needs to increase the budesonide to twice a day. He did have a CT scan of the chest at [facility] back in July and was done to assess his aorta and also to assess for any pulmonary emboli. No evidence of any pulmonary emboli noted although the patient was noted to have 3 pulmonary nodules in the right middle lobe right lower lobe fissure measuring largest nodule at 7 mm. Therefore, will have him get a repeat CT scan in 4 months and a follow-up then. The patient prefers to do this at [facility] since he typically goes to [facility] for his care. 01/22/2024 the patient is here for a pulmonary follow-up visit. Overall the patient has been doing fairly well. Unfortunately he did developed COVID-19 and had to be admitted to the [facility] briefly. He was able to be di scharged and has been doing well on the same amount of oxygen. He continues to have issues with his weight however. Has lost about 100 lb. We did talk about weaning him off the Daliresp to see if this will help with his weight gain. He also had a CT scan of the chest at [facility] which I personally reviewed myself with the patient and his . It appears that the 9 mm pulmonary nodule that was concerning has resolved which is reassuring. He has other pulmonary nodules that appear to be stable. He still has the persistent elevation of the left hemidiaphragm due to atelectasis. He is wondering about a portable oxygen concentrator. He is going to have a [facility] in the coming months. 06/12/2024 the patient is here for a pulmonary follow-up visit. He continues to have issues with chest congestion and cough. He has also had more wheezing. We did go over his Medication is not using them as prescribed. Therefore we did had taken. If the patient continues to have wheezing shortness of breath and congestion afterwards will go ahead and start him on some doxycycline. In the meantime he also has some hoarseness. He does have an ENT appointment. He is taking budesonide and that can ultimately resulting hoarseness. Right now we decrease it to once a day. He is wondering about a bronchoscopy for therapeutic cleaning. Although with his cardiac history would be safe to undergo any elective semi invasive procedures at this time. 12/13/2024 the patient is here for a pulmonary follow-up visit. Overall he is doing well. Continues on 3 mg of prednisone. The patient also complains about his hoarseness. He did follow-up with ENT and was felt to be related to his decreased muscle strength and expiratory effort as decrease in therefore not getting enough vibrations of the vocal cords. Patient was given incentive spirometry to work on his deep breathing exercises. He may also benefit from pulmonary rehabilitation but is also did difficult because of the travel and also his overall muscle weakness. He has had significant weight loss. In the meantime he continues with respiratory therapy with good effect. He is wonderin g about a bronchoscopy but at this point I do not believe that is going to be beneficial for him. Will plan to repeat the CT scan of the chest. He has had pulmonary nodules in his last CT scan was done at [facility]. He prefers to do it there which will go ahead and request. His last CT scan we did personally review he does have some atelectasis and some pulmonary nodules. Although the largest nodule that was being followed of 9 mm did subside. Will follow-up with the other smaller nodules. The patient will return in 3-4 months if he has any issues prior to that he will call for an earlier assessment. He is going to try to wean down the prednisone down to 2 mg by then. [facility] Medical History (Updated 12/13/24 @ 12:04 by Jason Collazo MD) Pulmonary nodules Diabetes Chronic respiratory failure COPD (chronic obstructive pulmonary disease) Hypertension Chondrocalcinosis of right knee Primary osteoarthritis of right knee ROLA (obstructive sleep apnea) Atelectasis Prostate cancer Elevated PSA Social History Patient Tobacco Use Status: Former Tobacco user Tobacco use type: Cigarette Years Smoked: 20 years Current occupational status: retired Current occupation: Right Handed Review of Systems Const Denies night sweats and Reports weight loss ENT Denies change in voice, Denies lip swelling, Denies mouth pain, Reports nasal congestion, Reports nasal discharge and Denies tongue swelling Card Denies chest pain and Reports dyspnea on exertion Resp Denies chest congestion, Reports cough, Denies hemoptysis and Reports dyspnea on exertion GI Denies abdominal pain Reports genital pain and Reports flank pain Musc Reports abnormal gait, Reports arthralgias, Reports joint swelling and Reports muscle weakness Neuro Denies Neuro-related abnormal movements and Reports abnormal gait Psych Denies no additional complaints Fabián/Lymph Denies easy bleeding and Denies lymphadenopathy Aller/Immun Denies lip swelling and Denies tongue swelling Physical Exam Vital Signs: Last Vital Signs Pulse 70 12/13/24 11:39 BP 100/62 12/13/24 11:39 Pulse Ox 99 12/13/24 11:39 Oxygen Delivery Method Nasal Cannula 12/13/24 11:39 Oxygen Flow Rate 2 12/13/24 11:39 BMI result Body Mass Index 24.3 Const General: cooperative and alert Orientation/consciousness: patient oriented x3 Limitations: physical limitations HEENT Head: Yes normal to inspection Ears: hearing grossly normal bilaterally Eyes General: appearance normal, both eyes and all related structures Neck Neck: Yes normal visual inspection Chest Chest palpation & inspection: normal inspection of the chest Resp Effort & Inspection: normal respiratory effort Auscultation: no crackles, no rales, no wheezes and diminished lung sounds Cardio Rate: tachycardic Rhythm: abnormal rhythm Heart sounds: S1 normal heart sound present and S2 normal heart sound present GI Palpation (GI): Soft to palpation and nontender Auscultation: normal bowel sounds Skin General skin exam: rashes and/or lesions noted Neuro General: patient oriented x3 Assessment & Plan Assessment & Plan (1) Pulmonary nodules: Code(s): R91.8 - Other nonspecific abnormal finding of lung field Category: Medical (2) COPD (chronic obstructive pulmonary disease): Code(s): J44.9 - Chronic obstructive pulmonary disease, unspecified Category: Medical Qualifiers: COPD type: chronic bronchitis Chronic bronchitis type: mixed simple and mucopurulent Qualified Code(s): J41.8 - Mixed simple and mucopurulent chronic bronchitis (3) Chronic respiratory failure: Code(s): J96.10 - Chronic respiratory failure, unspecified whether with hypoxia or hypercapnia Category: Medical Qualifiers: Respiratory failure complication: hypoxia and hypercapnia Qualified Code(s): J96.11 - Chronic respiratory failure with hypoxia; J96.12 - Chronic respiratory failure with hypercapnia; J96.12 - Chronic respiratory failure with hypercapnia (4) Atelectasis: Code(s): J98.11 - Atelectasis Category: Medical Plan Xopenex neb BID Budesonide daily MIGUEL as needed, can only tolerate Xopenex due to tachycardia and tremors continue prednisone 3-4mg daily continue Daliresp 250 mcg daily continue Spiriva continue singulair oxygen supplementation 2L at rest, 3L with activity. conserving device [facility] with acapella valve and ISS CT chest Follow-up 3-4 months Orders: Orders CT chest wo IV con 4 Weeks R91.8 - Other nonspecific abnormal finding of lung field Coding Level of Care Code Est Pt Level 4 (17677) Complex EM visit Add On G2211 Diagnoses Pulmonary nodules R91.8 Mixed simple and mucopurulent chronic bronchitis J41.8 COPD type: chronic bronchitis Chronic bronchitis type: mixed simple and mucopurulent Chronic respiratory failure with hypoxia and hypercapnia J96.11; J96.12; J96.12 Respiratory failure complication: hypoxia and hypercapnia Atelectasis J98.11 Time Spent (min) 18
[2024-12-13 11:39] VITALS: BP 100/62; PULSE 70; O2SAT 99; BMI 24.3
--- OUTSIDE RECORDS SUMMARY | 2024-12-13 14:14 | XMS_ITS | Encounter Summary ---
Author Organization [employer] Address [address] [facility] [address] [place] [address] Care Team Providers Care Dispute Coordinator Name Role Phone Shweta Collins MD Primary Care Provider [phone] Encounter Details Date Type Department Care Team (Late st Contact Info) Description 10/13/2023 Orders Only [facility] MEDICAL [address] [place] [address] Shweta Collins MD [address] [place] [address] Iron deficiency anemia, unspecified iron deficiency anemia type; Hyponatremia Social History Tobacco Use Types Packs/Day Years Used Date Smoking Tobacco: Never Assessed Housing Stability Answer Date Recorded What is your housing situation today? I have [place] 07/14/[address] you li ve. Do you have problems with any of the following? None of the above 07/14/2023 Food Insecurity Answer Date Recorded Within the past 12 months, y ou worried that your food would run out before you got money to buy more: Never True 07/14/2023 Within the past 12 months,th e food you bought just didn't last and you didn't have enough money to get more: Never True Transportation Answer Date Recorded In the past 12 months, has l ack of transportation kept you from medical appts, meetings, work or from getting things needed for daily living? No 07/14/2023 Utilities Answer Date Recorded In the past 12 months, has t he electric, gas, oil or water company threatened to shut off services in your home? No 07/14/2023 Sex and Gender Information Value Date Recorded Sex Assigned at Male 11/25/2022 12:48 PM EST Legal Sex Male 8:36 PM EDT Gender Identity Male 11/25/2022 12:48 PM EST Sexual Orientation Straight 11/25/2022 12 :48 PM EST documented as of this encounter Plan of Treatment Upcoming Encounters Date Type Department Care Team (Late st Contact Info) Description 02/11/2025 12:00 PM EDT Office Visit [facility] MEDICAL [address] [place] [address] Shweta Collins MD [address] [place] [address] documented as of this encounter Visit Diagnoses Diagnosis Iron deficiency anemia, unspecified iron deficiency anemia type Hyponatremia Hyposmolality and/or hyponatremia documented in this encounter Care Teams Dispute Coordinator Relationship Specialty Start Date End Date Shweta Collins MD [address] [place] [address] PCP - General Internal Medicine 11/30/22December Debo Registered Nurse Case Management 07/17/23 documented as of this encounter
--- OUTSIDE RECORDS SUMMARY | 2024-12-13 14:14 | XMS_ITS | Encounter Summary ---
Author Organization [employer] Address [address] [facility] [address] [place] [address] Care Team Providers Care Commercial Loan Specialist Name Role Phone Shweta Collins MD Primary Care Provider [phone] Encounter Details Date Type Department Care Team (Late st Contact Info) Description 08/18/2023 Orders Only [facility] MEDICAL [address] [place] [address] Shweta Collins MD [address] [place] [address] Iron deficiency anemia, unspecified iron deficiency anemia [...] Description 02/11/2025 12:00 PM EDT Office Visit [facility] MEDICAL [address] [place] [address] Shweta Collins MD [address] [place] [address] documented as of this encounter Visit Diagnoses Diagnosis Iron deficiency anemia, unspecified iron deficiency anemia type Hyponatremia Hyposmolality and/or hyponatremia documented in this encounter Care Teams Commercial Loan Specialist Relationship Specialty Start Date End Date Shweta Collins MD [address] [place] [address] PCP - General Internal Medicine 11/30/22December Debo Registered Nurse Case Management 07/17/23 documented as of this encounter
--- OUTSIDE RECORDS SUMMARY | 2024-12-13 14:14 | XMS_ITS | Encounter Summary ---
Author Organization [employer] Address [address] [facility] [address] [place] [address] Care Team Providers Care Assistant Food Service Director Name Role Phone Shweta Collins MD Primary Care Provider [phone] Encounter Details Date Type Department Care Team (Late st Contact Info) Description 09/15/2023 Orders Only [facility] MEDICAL [address] [place] [address] Shweta Collins MD [address] [place] [address] Iron deficiency anemia, unspecified iron deficiency anemia [...] 02/11/2025 12:00 PM EDT Office Visit [facility] MEDICAL [address] [place] [address] Shweta Collins MD [address] [place] [address] documented as of this encounter Visit Diagnoses Diagnosis Iron deficiency anemia, unspecified iron deficiency anemia type Hyponatremia Hyposmolality and/or hyponatremia documented in this encounter Care Teams Assistant Food Service Director Relationship Specialty Start Date End Date Shweta Collins MD [address] [place] [address] PCP - General Internal Medicine 11/30/22December Debo Registered Nurse Case Management 07/17/23 documented as of this encounter
--- OUTSIDE RECORDS SUMMARY | 2024-12-13 14:14 | XMS_ITS | Encounter Summary ---
Author Organization [facility] Address [address] [place] [address] Care Team Providers Care Avionics Repair Technician Name Role Phone Shweta Collins MD Primary Care Provider [phone] Encounter Details Date Type Department Care Team (Late st Contact Info) Description 12/04/2024 8:05 AM EDT Ancillary Procedure [facility] Cardiology [facility] [address] [facility] [address] [place] [id number] Social History Tobacco Use Types Packs/Day Years Used Date Smoking Tobacco: Former Smokeless Tobacco: Never Alcohol Use Standard Drinks/Week Comments Not Currently 0 (1 standard drink = 0.6 oz pur e alcohol) Sex and Gender Information Value Date Recorded Sex Assigned at Not on file Legal Sex Male 7:19 AM EST Gender Identity Not on file Sexual Orientation Not on file documented as of this encounter Plan of Treatment Upcoming Encounters Date Type Department Care Team (Late st Contact Info) Description 01/17/2025 10:20 AM EDT Office Visit [facility] Cardiology [facility] [address] [place] [address] [address] [place] [address] Bridger Farooq MD [address] [place] [address] [address] [place] [address] 09/22/2025 11:00 AM EST Ancillary Procedure [facility] Cardiology [facility] [address] [facility] [address] [place] [address] documented as of this encounter Procedures Procedure Name Priority Date/Time Associated Diagnosis Comments CARDIAC DEVICE CHECK- REMOTE- MURJ Routine 12/04/2024 8:03 AM EDT documented in this encounter Results * Cardiac device check - Remote- MURJ (12/04/2024 8:03 AM EDT) Date Time Interrogation Session [id number] CV DEVICE CHECK Type Interrogation Session RemoteScheduled CV DEVICE CHECK Implantable Pulse Generator Soft Work Wrapper Layer And Examiner BIO CV DEVICE CHECK Implantable Pulse Generator Type IPG CV DEVICE CHECK Implantable Pulse Generator Model Edora 8 SR-T CV DEVICE CHECK Implantable Pulse Generator Serial Number [id number] CV DEVICE CHECK Implantable Pulse Generator Implant Date 20220728 CV DEVICE CHECK Battery Remaining Percentage 75.00 CV DEVICE CHECK Battery Status Middle of Service CV DEVICE CHECK Alvarez Statistic RV Percent Paced 100.00 CV DEVICE CHECK Lead Channel Sensing Intrinsic Amplitude 10.300 CV DEVICE CHECK Lead Channel Impedance Value 390 CV DEVICE CHECK Lead Channel Pacing Threshold Amplitude 0.800 CV DEVICE CHECK Lead Channel Pacing Threshold Pulse Width 0.4 CV DEVICE CHECK Lead Channel RV Pacing Threshold Date 2024-11-28 CV DEVICE CHECK Lead Channel Setting Pacing Amplitude 2.000 CV DEVICE CHECK Lead Channel Setting Pacing Pulse Width 0.4 CV DEVICE CHECK Alvarez Setting Mode (NBG Code) VVIR CV DEVICE CHECK Alvarez Setting Lower Rate Limit 70 CV DEVICE CHECK Alvarez Setting Maximum Sensor Rate 120 CV DEVICE CHECK Date of Service 2024-12-09 CV DEVICE CHECK Anatomical Region Laterality Modality Device Interroga tion 11/28/2024 12:2 5 AM EST Impressions 12/04/2024 8:00 AM EDT Normal Remote: No Events * Normal Device Function * Alerts or events: None * Battery: Battery is at 75%, * Sensing, impedance and thresholds reviewed * Programmed parameters reviewed * Presenting rhythm SOFTWARE CONFIGURATION ANALYST 60's * Heart Rate Histograms reviewed * No significant changes noted Narrative Procedure Note Emil Bee MD - 12/04/2024 IMPRESSION: Normal Remote: No Events * Normal Device Function * Alerts or events: None * Battery: Battery is at 75%, * Sensing, impedance and thresholds reviewed * Programmed parameters reviewed * Presenting rhythm SOFTWARE CONFIGURATION ANALYST 60's * Heart Rate Histograms reviewed * No significant changes noted Emil Bee MD CV IMPLANTABLE CARDIAC DEV ICE PROCEDURES Final Result documented in this encounter Visit Diagnoses Not on filedocumented in this encounter Care Teams Avionics Repair Technician Relationship Specialty Start Date End Date Shweta Collins MD [address] [place] [address] PCP - General Internal Medicine 09/05/17 documented as of this encounter
--- OUTSIDE RECORDS SUMMARY | 2024-12-13 14:14 | XMS_ITS | Encounter Summary ---
Author Organization [employer] Address [address] [place] [address] Care Team Providers Care Hostel Manager Name Role Phone Shweta Collins MD Primary Care Provider [phone] Encounter Details Date Type Department Care Team (Late st Contact Info) Description 08/10/2023 Orders Only [facility] MEDICAL [address] [place] [address] Provider, MD Juwan Social History Tobacco Use Types Packs/Day Years [...] Description 02/11/2025 12:00 PM EDT Office Visit [facility] MEDICAL [address] [place] [address] Shweta Collins MD [address] [place] [address] documented as of this encounter Procedures Procedure Name Priority Date/Time Associated Diagnosis Comments B TYPE NATRIURETIC PEPTIDE (BNP) Routine 08/07/2023 documented in this encounter Results * B Type Natriuretic Peptide (BNP) (08/07/2023) Blood Venous blood specimen / Unknown us Historical Provider LAB BLOOD ORDERABLES Cynthia l Result documented in this encounter Visit Diagnoses Not on filedocumented in this encounter Care Teams Hostel Manager Relationship Specialty Start Date End Date Shweta Collins MD [address] [place] [address] PCP - General Internal Medicine 11/30/22December Debo Registered Nurse Case Management 07/17/23 documented as of this encounter
--- OUTSIDE RECORDS SUMMARY | 2024-12-13 14:14 | XMS_ITS | Encounter Summary ---
Author Organization [employer] Address [address] [facility] [address]t [place] [address] Care Team Providers Care Manager Behavior Name Role Phone Shweta Collins MD Primary Care Provider Encounter Details Date Type Department Care Team (Late st Contact Info) Description 09/01/[address] [facility] MEDICAL [address] [place] [address] Shweta Collins MD [address] [place] [address] Iron deficiency anemia, unspecified iron deficiency anemia [...] PM EDT Office Visit [facility] MEDICAL [address] [place] [address] Shweta Collins MD [address] [place] [address] documented as of this encounter Procedures Procedure Name Priority Date/Time Associated Diagnosis Comments CBC Routine 09/01/2023 11:25 AM EST Iron deficiency anemia, unspecified iron deficiency anemia type BASIC METABOLIC PANEL Routine 09/01/2023 11:25 AM EST Iron deficiency anemia, unspecified iron deficiency anemia type documented in this encounter Results * (ABNORMAL) Basic Metabolic Panel (09/01/2023 11:25 AM EST) Glucose 208(H) (70-99) MG/DL [facility] BUN 6(L) (8-23) MG/DL [facility] Creatinine, Serum 0.4(L) (0.7-1.2) MG/DL [facility] Sodium 133 (133-145) MMOL/L [facility] Potassium 4.1 (3.6-5.2) MMOL/L [facility] Chloride 93(L) (98-107) MMOL/L [facility] Bicarbonate 31(H) (22-29) MMOL/L [facility] Anion Gap 9 (4-17) [facility] Calcium 9.7 (8.6-10.5) MG/DL [facility] eGFR Creatinine 111 ML/MIN/1.7 3 M2 [facility] Comment: Creatinine based estimated glomerular filtration (eGFR) in adults is calculated using the [employer] recommended 2020 CKD-EPI equation. Estimates GFR from serum creatinine, age and sex. Testing performed or reported by [facility], a Service of [facility], [address] [place] [address] Luis Ayers MD, Railcar Switchman [facility]# [id number] 09/01/2023 11:2 5 AM EST 09/01/2023 11:35 AM EST Shweta Collins MD LAB BLOOD ORDERABLES Final Resul t [facility] [address] [place] [address] * (ABNORMAL) CBC (09/01/2023 11:25 AM EST) WBC 8.5 (4.0-11.0) K/MM3 [facility] RBC 4.04(L) (4.70-6.10 ) M/MM3 [facility] HGB 9.3(L) (13.7-17.1 ) GM/DL [facility] HCT 30.9(L) (40.5-50.0 ) % [facility] MCV 76.5(L) (80.0-94.0 ) FL [facility] MCH 23.0(L) (27.0-34.0 ) PG [facility] McHC 30.1(L) (33.0-37.0 ) g/dL [facility] PLT 402 (150-460) K/MM3 [facility] RDW-SD 47.6(H) (<47.0) FL [facility] MPV 10.0 (9.4-12.4) FL [facility] Automated NRBC 0.0 #/100 WBC'S [facility] ABS NRBC 0.0 K/MM3 [facility] Comment: Testing performed or reported by [facility], a Service of [facility], [address] [place] [address] Luis Ayers MD, Rail[employer] Switchman [facility]# [id number] 09/01/2023 11:2 5 AM EST 09/01/2023 11:35 AM EST Shweta Collins MD LAB BLOOD ORDERABLES Final Resul t [facility] [address] [place], [place] [id number] documented in this encounter Visit Diagnoses Diagnosis Iron deficiency anemia, unspecified iron deficiency anemia type Hyponatremia Hyposmolality and/or hyponatremia documented in this encounter Care Teams Manager Behavior Relationship Specialty Start Date End Date Shweta Collins MD [address] [place] [address] PCP - General Internal Medicine 11/30/22December Debo Registered Nurse Case Management 07/17/23 documented as of this encounter
--- OUTSIDE RECORDS SUMMARY | 2024-12-13 14:14 | XMS_ITS | Encounter Summary ---
Author Organization [employer] Address [address] [facility] [address]t [place] [address] Care Team Providers Care Brownfield Redevelopment Specialist Name Role Phone Shweta Collins MD Primary Care Provider [phone] Encounter Details Date Type Department Care Team (Late st Contact Info) Description 09/29/2023 Orders Only [facility] MEDICAL [address] [place] [address] Shweta Collins MD [address] [place] [address] Iron deficiency anemia, unspecified iron deficiency anemia [...] Description 02/11/2025 12:00 PM EDT Office Visit [facility] MEDICAL [address] [place] [address] Shweta Collins MD [address] [place] [address] documented as of this encounter Visit Diagnoses Diagnosis Iron deficiency anemia, unspecified iron deficiency anemia type Hyponatremia Hyposmolality and/or hyponatremia documented in this encounter Care Teams [employer] Redevelopment Specialist Relationship Specialty Start Date End Date Shweta Collins MD [address] [place] [address] PCP - General Internal Medicine 11/30/22December Debo Registered Nurse Case Management 07/17/23 documented as of this encounter
--- OUTSIDE RECORDS SUMMARY | 2024-12-13 14:15 | XMS_ITS | Encounter Summary ---
Author Organization [employer] [facility] Address [address] [place] [address] 7t [place] [address] Care Team Providers Care Horse Doctor Name Role Phone Shweta Collins MD Primary Care Provider [phone] Reason for Visit * Reason Onset Date Comments Med Refill 11/18/2024 CSA RX REFILLS O N OXY, OXY-APAP Encounter Details Date Type Department Care Team (Late st Contact Info) Description 11/18/2024 Refill [place] [facility] MEDICAL [address] [place] [address] Shweta Collins MD [address] [place] [address] Radicular syndrome of upper limbs Social History Tobacco Use Types Packs/Day Years [...] off services in your home? No 07/14/2023 Depression Answer Date Recorded Patient Health Questionnaire-2 Score 0 10/27/2023 Sex and Gender Information Value Date Recorded Sex Assigned at Male 11/25/2022 12:48 PM EST Legal Sex Male 8:36 PM EDT Gender Identity Male 11/25/2022 12:48 PM EST Sexual Orientation Straight 11/25/2022 12 :48 PM EST documented as of this encounter Miscellaneous Notes * Telephone Encounter - JIMY Armstrong - 11/18/2024 8:20 AM EST [facility] Last fill Date: 10/25/24 [facility] sold Date: 10/28/24 Last OV: 10/21/24 Next OV: 11/18/24 Last UTOX: 02/02/24 CSA Date: 02/02/24 DNF Date: REFILL DUE DATE 11/25/24 documented in this encounter Plan of Treatment Upcoming Encounters Date Type Department Care Team (Late st Contact Info) Description 02/11/2025 12:00 PM EDT Office Visit [facility] MEDICAL [address] [place] [address] Shweta Collins MD [address] [place] [address] documented as of this encounter Visit Diagnoses Diagnosis Radicular syndrome of upper limbs Brachial neuritis or radiculitis nos documented in this encounter Care Teams Horse Doctor Relationship Specialty Start Date End Date Shweta Collins MD [address] [place] [address] PCP - General Internal Medicine 11/30/22December Debo Registered Nurse Case Management 07/17/23 documented as of this encounter
--- OUTSIDE RECORDS SUMMARY | 2024-12-13 14:15 | XMS_ITS | Encounter Summary ---
Author Organization [employer] Address [address] [facility] [address]t [place] [address] Care Team Providers Care Rock Room Worker Name Role Phone Shweta Collins MD Primary Care Provider [phone] Encounter Details Date Type Department Care Team (Late st Contact Info) Description 12/08/2023 Orders Only [facility] MEDICAL [address] [place] [address] Shweta Collins MD [address] [place] [address] Iron deficiency anemia, unspecified iron deficiency anemia [...] Description 02/11/2025 12:00 PM EDT Office Visit [facility] MEDICAL [address] [place] [address] Shweta Collins MD [address] [place] [address] documented as of this encounter Visit Diagnoses Diagnosis Iron deficiency anemia, unspecified iron deficiency anemia type Hyponatremia Hyposmolality and/or hyponatremia documented in this encounter Care Teams Rock Room Worker Relationship Specialty Start Date End Date Shweta Collins MD [address] [place] [address] PCP - General Internal Medicine 11/30/22December Debo Registered Nurse Case Management 07/17/23 documented as of this encounter
--- OUTSIDE RECORDS SUMMARY | 2024-12-13 14:15 | XMS_ITS | Clinical Summary ---
Author Organization [employer] Address [address] [place] [address] [address] [place] [address] Care Team Providers Care Development Mgr Name Role Phone Shweta Collins MD Primary Care Provider [phone] Allergies Active Allergy Reactions Criticality Noted Date Comments Clarithromycin Rash Low 10/18/2016 Other reaction(s): hives Finasteride Other 10/21/2016 Other reaction(s): scrodum pain Abdominal pain Other reaction(s): severe scrotum pain Influenza Vaccines Hives 08/08/2023 Other reaction(s): urticaria No angioedema, resolved with IV steroids High dose Iodine 09/14/2021 Levofloxacin 10/18/2016 Other reaction(s): Other (See Comments), weakness in limbs numbness Sulfamethoxazole-Trimethoprim Swelling 2016 Other reaction(s): leg cramps Trimethoprim 09/14/2021 Medications predniSONE (Deltasone) 0.5 mg split tablet 4 mg in the morning. Active budesonide (Pulmicort) 0.5 MG/2ML nebulizer solution Inhale 0.5 mg in the morning. Active magnesium 250 MG tablet 2-3 tablets daily Active betamethasone dipropionate 0.05 % cream Apply topically. 02/09/20 13 Active cholecalciferol (Vitamin D-3) 25 MCG (1000 UT) tablet Take by mouth. 06/27/20 22 Active doxycycline (Monodox) 100 MG capsule PRN 12/21/19 23 Active fluocinonide (Lidex) 0.05 % cream as directed Externally once daily to affected area 02/09/20 13 Active levalbuterol (Xopenex) 1.25 MG/0.5ML nebulizer solution as directed Inhalation 12/07/19 19 Active montelukast (Singulair) 10 MG tablet Take 10 mg by mouth at bedtime. Active nystatin (Mycostatin) 823261 UNIT/ML suspension Place 600,000 Units into mouth between cheek and gum. 08/25/20 22 Active sennosides (Senokot) 8.6 MG tablet 2 tablets in the morning. 11/14/19 18 Active Sertaconazole Nitrate (Ertaczo) 2 % cream 1 application in the morning and 1 application in the evening. 09/02/20 16 Active Cyanocobalamin (Vitamin B 12) 100 MCG lozenge Take 1,000 mcg by mouth. PRN Active levalbuterol (Xopenex) 45 MCG/ACT inhaler Inhale. Acti ve tiotropium (Spiriva Respimat) 2.5 MCG/ACT inhaler Inhale 2 puffs at bedtime. Active Syringe, Disposable, 1 ML misc as directed, with lantus, nightly 02/23/20 12 Active hydrocortisone 2.5 % cream Apply 1 application topically in the morning. 450 g 2 04/25/20 23 Active ketoconazole (NIZOral) 2 % creamIndication s:Pressure injury of skin of buttock, unspecified injury stage, unspecified laterality Apply 1 application topically 2 times daily. 60 g 1 08/22/20 23 Active ammonium lactate (Lac-Hydrin) 12 % lotion APPLY SMALL AMOUNT TOPICALLY AT BEDTIME FOR DRY IRRITATED SKIN 01/15/20 24 Active tamsulosin (Flomax) 0.4 MG 24 hr capsule Take 1 capsule (0.4 mg) by mouth Once per day. 90 capsule 3 02/02/20 24 2024 Active dutasteride (Avodart) 0.5 MG capsule Take 1 capsule (0.5 mg) by mouth Once per day. At bedtime 90 capsule 3 02/02/20 24 2024 Active furosemide (Lasix) 20 MG tablet Take 1 tablet (20 mg) by mouth Once per day. 90 tablet 3 02/02/20 24 2024 Active levalbuterol (Xopenex) 0.31 MG/3ML nebulizer solution Inhale. 05/03/20 24 Active ferrous sulfate 325 (65 Fe) MG tablet Take 325 mg by mouth Once per day. Active lidocaine (Lidoderm) 5 % patch 03/11/20 Active insulin glargine (Lantus) 100 UNIT/ML injection Inject 10 Units under the skin at bedtime. 10 mL 3 03/25/20 24 2024 Active pantoprazole (ProtoNix) 40 MG EC tabletIndicatio ns:Type 2 diabetes mellitus treated without insulin ([facility]) Take 1 tablet (40 mg) by mouth before breakfast. Do not crush, chew, or split. 90 tablet 3 05/17/20 24 2024 Active lactulose (Chronulac) 10 GM/15ML solutionIndicat ions:Drug-induc ed constipation Take 15 mL (10 g) by mouth if needed in the morning and at bedtime (constipation) . 480 mL 08/19/20 24 2024 Active metFORMIN (Glucophage) 500 MG tabletIndicatio ns:Type 2 diabetes mellitus treated without insulin ([facility]) Take 1 tablet (500 mg) by mouth 2 times daily. 180 tablet 3 08/19/20 24 2024 Active silver sulfADIAZINE (Silvadene) 1 % creamIndication s:Open wound of scalp, unspecified open wound type, subsequent encounter Apply topically Once per day. 60 g 2 08/19/20 Active Accu-Chek FastClix Lancets miscIndications :Type 2 diabetes mellitus treated without insulin ([facility]) 1 Lancet 3 times daily. 100 each 08/20/20 24 2024 Active glucose blood test stripIndication s:Type 2 diabetes mellitus treated without insulin ([facility]) 1 each by Other route 3 times daily. 100 each 08/20/20 24 2024 Active Insulin Aspart (NovoLOG) 100 UNIT/ML solutionIndicat ions:Type 2 diabetes mellitus treated without insulin ([facility]) Inject 0.1 mL (10 Units) as directed 3 times daily. 300 mL 11 09/05/20 Active gabapentin (Neurontin) 600 MG tabletIndicatio ns:Chronic pain following surgery or procedure Take 1 tablet (600 mg) by mouth 4 times daily. 120 tablet 3 10/21/19 Active carisoprodol (Soma) 350 MG tabletIndicatio ns:Chronic pain following surgery or procedure Take 1 tablet (350 mg) by mouth if needed in the morning, at noon, and at bedtime for muscle spasms. 90 tablet 3 10/21/19 25 2024 Active oxyCODONE (Roxicodone) 15 MG immediate release tabletIndicatio ns:Radicular syndrome of upper limbs Take 1 tablet (15 mg) by mouth 2 times daily. 60 tablet 11/24/19 25 2024 Active oxyCODONE-aceta minophen (Percocet) 10-325 MG tabletIndicatio ns:Radicular syndrome of upper limbs Take 1 tablet by mouth every 8 (eight) hours if needed for severe pain. 90 tablet 11/24/19 25 2024 Active oxyCODONE (Roxicodone) 15 MG immediate release tabletIndicatio ns:Radicular syndrome of upper limbs Take 1 tablet (15 mg) by mouth 2 times daily. 60 tablet 10/22/19 25 2024 Discontinued(R eorder (will not trigger notification to Pharmacy)) oxyCODONE-aceta minophen (Percocet) 10-325 MG tabletIndicatio ns:Radicular syndrome of upper limbs Take 1 tablet by mouth every 8 (eight) hours if needed for severe pain. 90 tablet 10/22/19 25 2024 Discontinued(R eorder (will not trigger notification to Pharmacy)) Active Problems Problem Noted Date Diagnosed Date Chronic hypoxemic respiratory failure 03/25/2024 Chronic systolic congestive heart failure 2023 Type 2 diabetes mellitus wit h diabetic peripheral angiopathy without gangrene, with long-term current use of insulin 03/25/2024 Asthma 11/28/2022 PTSD (post-traumatic stress disorder) 11/28/2022 Pressure injury of left buttock, stage 1 023 Primary insomnia 11/28/2022 Prostate cancer 11/28/2022 Radicular syndrome of upper limbs 11/28/2022 Spinal stenosis 11/28/2022 Squamous cell carcinoma in situ 11/28/2022 S/P placement of cardiac pacemaker 09/07/2022 Overview (11/28/2022): Last Assessment & Plan: Patient will continue with routine device checks in the device clinic. Type 2 diabetes mellitus treated without insulin 08/08/2022 Chronic pain following surgery or procedure 07/26 Overview (08/07/2023): Failed back surgery Side effects to oxycontin Stabilized at [facility], then weaned down from 160 morphine equivalents to current dosing Hyperlipidemia 09/14/2021 Overview (11/28/2022): Last Assessment & Plan: Continue with pravastatin. I have reviewed with the patient the importance of a heart healthy lifestyle which includes eating a low-fat low-salt diet, getting regular exercise, maintaining a healthy weight, not smoking, and following up with routine medical care. Paroxysmal atrial fibrillation 09/14/2021 Overview (11/28/2022): Last Assessment & Plan: Patient has a history of paroxysmal atrial fibrillation status post pacemaker. Continue on Eliquis as prescribed. Denies bleeding or prolonged bruising. Currently he is not on any rate controlling medical therapies. We will continue to monitor his device and if necessary we will consider adding medical therapy for rate control. Hypersensitivity pneumonitis 08/29/2018 Restrictive lung disease 08/29/2018 Hypertension 08/19/2017 Overview (11/28/2022): Last Assessment & Plan: Pressure is well controlled with reading of 102/66 today. Per report patient has been discontinued on lisinopril and diltiazem due to low blood pressures at rehab. He has a follow-up appointment with nephrology next month. Lung nodule 08/19/2017 Psoriasis 08/19/2017 Asbestosis 07/17/2017 Chronic obstructive pulmonary disease 07/17/2017 Encounters Date Type Department Care Team Description 12/06/2024 Population Health Risk Score [facility] (C3) Department [address] [id number] Provider, Population Health [facility] 11/18/2024 12:00 PM EST Telemedicine [address] [address] Shweta Collins MD Chronic pain following surgery or procedure (Primary Dx); Spinal stenosis, unspecified spinal region; Radicular syndrome of upper limbs; Type 2 diabetes mellitus with diabetic peripheral angiopathy without gangrene, with long-term current use of insulin ([facility]); Physical deconditioning; Severe persistent asthma, unspecified whether complicated; Diabetic polyneuropathy associated with type 2 diabetes mellitus ([facility]) 11/18/2024 Travel 11/18/[address] [address] Shweta Collins MD Radicular syndrome of upper limbs 10/21/2024 10:00 AM EST [address] [address] Shweta Collins MD Type 2 diabetes mellitus treated without insulin ([facility]) (Primary Dx); Chronic pain following surgery or procedure; Primary hypertension; Vitamin D deficiency 10/21/[address] [address] Shweta Collins MD Radicular syndrome of upper limbs 09/17/[address] [address] Shweta Collins MD Radicular syndrome of upper limbs from Last 3 Months Immunizations Name Administration Dates Next Due Influenza High-dose Quadriva lent Preservative Free 06/17/2020 Influenza Quadrivalent Adjuvanted 07/28/2023,,06/09/2021 Influenza, IIV3, injectable 06/09/2022,0 06/09/2021,06/17/2020,07/18,08/01/2017,08/04/2016,07/03/2015 ,06/25/2015,07/04/2013 Influenza, Split (incl. celestine fied surface antigen) 08/09/2012,06/27/2011,07/15/2010 Influenza, Unspecified 08/04/2016,06/25/2015 Influenza, trivalent, adjuvanted 07/29/2019,06/26 Moderna Covid-19 Vaccine 12+ 11/23/2020,10/25/19 21 Pneumococcal Conjugate PCV 13 06/20/2016 Pneumococcal Polysaccharide PPSV23 08/12/2019,,08/07/2008 SARS-CoV-2, Unspecified 06/24/2022 TD (adult), 2 Lf tetanus tox oid, preservative free, adsorbed 01/21/2021 Td (adult), unspecified 09/25/2014,09/25/2013 Tdap 08/07/2008 Zoster, Recombinant 05/05/2020,08/30/2019 Zoster, live 08/25/2015,03/17/2015 Social History Tobacco Use Types Packs/Day Years Used Date Smoking Tobacco: Never Assessed Housing Stability Answer Date Recorded What is your housing situation today? I have kwan vines 07/14/[address] you [...] Orientation Straight 11/25/2022 12 :48 PM EST Last Filed Vital Signs Vital Sign Reading Time Taken Comments Blood Pressure 116/88 05/17/2024 11:40 AM EDT Pulse 72 05/17/2024 11:40 AM EDT Temperature 36.6 ??C (97.9 ??F) 05/17/2024 11:40 AM E DT Respiratory Rate 16 05/17/2024 11:40 AM EDT Oxygen Saturation 98% 05/17/2024 11:40 AM EDT Inhaled Oxygen Concentration - - Weight 84.4 kg (186 lb) 05/17/2024 11:40 AM EDT Height 185.4 cm (6' 1 ) 02/02/2024 11:22 AM EDT Body Mass Index 24.54 02/02/2024 11:22 AM EDT Plan of Treatment Upcoming Encounters Date Type Department Care Team (Late st Contact Info) Description 02/11/2025 12:00 PM EDT Office Visit [facility] [address] [place] [address] Shweta Collins MD [address] [place], [place] [id number] Health Maintenance Due Date Last Done Comments Diabetes: Foot Exam 1958 Eye Exam 1958 Alcohol/Substance Use Screening 1960 Tobacco Screening 1960 Hepatitis C Screening 1966 Diabetes: Urine Protein Screening 02/15/2023 02/15/2022, 03/19/2020 Lipid Panel 02/15/2023 02/15/2022, 01/24, 05/08/2021, Additional history exists RSV Patients and Patients Aged 60 years or older (1 - 1-dose 75+ series) 2023 COVID-19 Vaccine ( season) 2024 06/24/2022, 07/02/2021, 11/23/2020, Additional history exists Influenza Vaccine (#1) 2024 3, 06/09/2022, 06/09/2022, Additional history exists Depression Screening 10/27/2024 10/27/2023, 10/27/19 24 SDOH Screening 10/27/2024 10/27/2023 Diabetes: Hemoglobin A1C 02/17/2025 025, 06/26/2024, 05/17/2024, Additional history exists DTaP/Tdap/Td Vaccines (5 - Td or Tdap) 01/21/2031 01/21/2021, 09/25/2014, 09/25/2013, Additional history exists Colonoscopy Discontinued 07/15/2009 Colorectal Cancer Screening Discontinued Pneumococcal Vaccine: 50+ Years Completed 08/12/2019, 06/20/2016, 07/04/2013, Additional history exists Zoster Vaccines Completed 05/05/2020, 02/2019, 08/25/2015, Additional history exists CT Colonography Discontinued FIT DNA/Cologuard Discontinued FIT Discontinued FOBT Discontinued HIB Vaccines Aged Out No longer eligi ble based on patient's age to complete this topic HPV Vaccines Aged Out No longer eligi ble based on patient's age to complete this topic Hepatitis A Vaccines Aged Out No long er eligible based on patient's age to complete this topic Hepatitis B Vaccines Aged Out No long er eligible based on patient's age to complete this topic IPV Vaccines Aged Out No longer eligi ble based on patient's age to complete this topic Meningococcal Vaccine Aged Out No jordon janet eligible based on patient's age to complete this topic RSV under 20 months Aged Out No longe r eligible based on patient's age to complete this topic Rotavirus Vaccines Aged Out No longer eligible based on patient's age to complete this topic Sigmoidoscopy Discontinued Procedures Procedure Name Priority Date/Time Associated Diagnosis Comments CBC WITH AUTO DIFFERENTIAL Routine 11/20/2024 10:44 AM EST HEMOGLOBIN A1C Routine 11/20/2024 10:44 AM EST Type 2 diabetes mellitus treated without insulin ([facility]) MAGNESIUM Routine 11/20/2024 10:44 AM EST Type 2 diabetes mellitus treated without insulin (CMS/HCC) VITAMIN B12 Routine 11/20/2024 10:44 AM EST Type 2 diabetes mellitus treated without insulin ([facility]) VITAMIN D 25 HYDROXY Routine 11/20/2024 10:44 AM EST Type 2 diabetes mellitus treated without insulin ([facility]) Vitamin D deficiency ALBUMIN, RANDOM URINE W/CREATININE Routine 02/15/2022 10:28 AM EDT LIPID PANEL, STANDARD Routine 02/15/2022 COLONOSCOPY Routine 07/15/2009 12:00 AM EDT from Last 3 Months or Most Recently Relevant to Health Maintenance Results * (ABNORMAL) CBC auto differential (11/20/2024 10:44 AM EST) Pathologist [facility] White Blood Cell Count 11.4(H) 3.4 - 10.8 x10E3/uL [facility] Red Blood Cell Count 4.48 4.14 - 5.80 x10E6/uL [facility] Hemoglobin 12.8(L) 13.0 - 17.7 g/dL [facility] Hematocrit 39.5 37.5 - 51.0 % [facility] 1 MCV 88 79 - 97 fL [facility] MCH 28.6 26.6 - 33.0 pg [facility] 1 MCHC 32.4 31.5 - 35.7 g/dL [facility] 1 RDW 13.7 11.6 - 15.4 % [facility] 1 Platelet Count 350 150 - 450 x10E3/uL [facility] 1 Neutrophils 66 Not Estab. % [facility] 1 Lymphocytes 19 Not Estab. % [facility] 1 Monocytes 13 Not Estab. % [facility] 1 Eosinophils 1 Not Estab. % [facility] 1 Basophils 0 Not Estab. % [facility] 1 Absolute Neutrophils 7.5(H) 1.4 - 7.0 x10E3/uL [facility] 1 Absolute Lymphocytes 2.2 0.7 - 3.1 x10E3/uL [facility] 1 Absolute Monocytes 1.5(H) 0.1 - 0.9 x10E3/uL [facility] 1 Absolute Eosinophils 0.1 0.0 - 0.4 x10E3/uL [facility] 1 Absolute Basophils 0.1 0.0 - 0.2 x10E3/uL [facility] 1 Immature Granulocytes 1 Not Estab. % [facility] 1 Immature Grans (Abs) 0.1 0.0 - 0.1 x10E3/uL [facility] 1 11/20/2024 10:4 4 AM EST 11/20/2024 Narrative [facility] - 11/21/2024 6:05 AM EST Performed at: ??01 - [facility] [address] ??[id number] Flute Teacher: Doris Michelle MD, Phone: ??[phone] Shweta Collins MD LAB BLOOD ORDERABLES Final Resul t Performing Organization Address [facility] de Phone Number [facility] * Vitamin D 25 hydroxy [id number] (11/20/2024 10:44 AM EST) Vitamin D, 25-OH, Total 46.0 30.0 - 100.0 ng/mL [facility] Comment: Vitamin D deficiency has been defined by the [place] of Medicine and an Endocrine Society practice guideline as a level of serum 25-OH vitamin D less than 20 ng/mL (1,2). The Endocrine Society went on to further define vitamin D insufficiency as a level between 21 and 29 ng/mL (2). 1. IOM ([place] of [employer]). 2010. Dietary reference ?? intakes for calcium and D. [place]: The ?? National Academies Press. 2. Lou MF, [place], Jaspreet STOKES, et al. ?? Evaluation, treatment, and prevention of vitamin D ?? deficiency: an Endocrine Society clinical practice ?? guideline. JCEM. 2010; 96(7):1911-30. Blood Venous blood specimen / Unknown 11/20/2024 10:44 AM EST 11/20/2024 Narrative [facility] - 11/21/2024 6:05 AM EST Performed at: ??01 - [facility] [address] ??[id number] Flute Teacher: Doris Michelle MD, Phone: ??[phone] Shweta Collins MD LAB BLOOD ORDERABLES Final Resul t Performing Organization Address [facility] Co de Phone Number [facility] * Magnesium (11/20/2024 10:44 AM EST) Magnesium 1.6 1.6 - 2.3 mg/dL [facility] Blood Venous blood specimen / Unknown 11/20/2024 10:44 AM EST 11/20/2024 Narrative [facility] 1 - 11/21/2024 8:06 AM EST Performed at: ??01 - [facility] [address] ??[id number] Flute Teacher: Doris Michelle MD, Phone: ??[phone] Shweta Collins MD LAB BLOOD ORDERABLES Final Resul t Performing Organization Address [facility] de Phone Number [facility] * (ABNORMAL) Hemoglobin A1c (11/20/2024 10:44 AM EST) Hemoglobin A1c 7.4(H) 4.8 - 5.6 % [facility] Comment: ? Prediabetes: 5.7 - 6.4 ? Diabetes: >6.4 ? Glycemic control for adults with diabetes: <7.0 Blood Venous blood specimen / Unknown 11/20/2024 10:44 AM EST 11/20/2024 Narrative [facility] - 11/21/2024 6:05 AM EST Performed at: ??01 - [facility] [address] ??[id number] Flute Teacher: Doris Michelle MD, Phone: ??[phone] Shweta Collins MD LAB BLOOD ORDERABLES Final Resul t Performing Organization Address [facility] de Phone Number [facility] * Vitamin B12 (11/20/2024 10:44 AM EST) Vitamin B12 708 232 - 1,245 pg/mL [facility] 1 Blood Venous blood specimen / Unknown 11/20/2024 10:44 AM EST 11/20/2024 Narrative [facility] 1 - 11/21/2024 6:05 AM EST Performed at: ??01 - [facility] [address] ??[id number] Flute Teacher: Doris Michelle MD, Phone: ??[phone] Shweta Collins MD LAB BLOOD ORDERABLES Final Resul t Performing Organization Address City/[facility]/ZIP Co de Phone Number [facility] * -Microalbumin, Urine (02/15/2022 10:28 AM EDT) Microalbumin Urine <12.0 (<20) MG/L [facility] Comment: The urine microalbumin test is designed to monitor renal function. When screening for Bence Baig proteinuria, urine electrophoresis is recommended. Microalb/Creat Ratio Unable to calculate (0-20) [facility] Creatinine, Urine 28.6 MG/DL [facility] 02/15/2022 10:2 8 AM EDT Shweta Collins MD LAB URINE ORDERABLES Final Resul t Performing Organization Address [facility] Co de Phone Number [facility] [address] * Lipid Panel, Standard (02/15/2022) Triglycerides 75 40 - 160 mg/dL Cholesterol 149 0 - 200 mg/dL HDL Cholesterol 52 35 - 70 mg/dL LDL Cholesterol 82 mg/dL Blood Venous blood specimen / Unknown Historical Provider LAB BLOOD ORDERABLES Cynthia l Result * COLONOSCOPY: JARED FRANCO MD (07/15/2009 12:00 AM EDT) Anatomical Region Laterality Modality Endoscopy 07/15/2009 Narrative 07/15/2009 12:00 AM EDT Refer to [facility]ove[facility] for result details [facility] Procedure: COLONOSCOPY: JARED FRANCO MD Procedure Note Provider, MD Juwan - 01/19/2023 Refer to [facility] for result details [facility] Procedure: COLONOSCOPY: JARED FRANCO MD Historical Provider ENDOSCOPY PROCEDURE ORDER LINDY Final Result from Last 3 Months or Most Recently Relevant to Health Maintenance Insurance MEDICARE [facility] Care Teams Development Mgr Relationship Specialty Start Date End Date Shweta Collins MD [address] [place] [id number] PCP - General Internal Medicine 11/30/22December Debo Registered Nurse Case Management 07/17/23
--- OUTSIDE RECORDS SUMMARY | 2024-12-13 14:15 | XMS_ITS | Clinical Summary ---
Author Organization [address] [place] [address] Address [address] [place] [address] Phone Care Team Providers Care Personal Care Aide Name Role Phone Shweta Collins MD Primary Care Provider [phone] Allergies Active Allergy Reactions Criticality Noted Date Comments Clarithromycin 10/18/2016 Finasteride 10/21/2016 Influenza Virus Vaccines Hives 08/08/2023 High dose Iodine 09/14/2021 Levofloxacin 10/18/2016 Sulfamethoxazole-Trimethoprim 2016 Trimethoprim 09/14/2021 Medications budesonide (PULMICORT) 0.5 mg/2 mL nebulizer solution Take 0.5 mg by nebulization daily. Active carisoprodoL (SOMA) 350 mg tablet Take 1 Tablet by mouth 2 times daily. Active dutasteride (AVODART) 0.5 mg capsule Take 0.5 mg by mouth daily. Active ferrous sulfate 325 mg (65 mg elemental iron) tablet Take 1 Tablet by mouth daily. Active furosemide (LASIX) 20 mg tablet Take 1 Tablet by mouth daily. Active gabapentin (NEURONTIN) 600 mg tablet Take 1 Tablet by mouth 2 times daily. Active insulin aspart (NovoLOG U-100 Insulin aspart) 100 unit/mL injection Inject into the skin 3 times daily (before meals). Sliding scale Active insulin glargine (LANTUS) 100 unit/mL injection Inject 10 Units into the skin at bedtime. Sliding scale Active levalbuterol (XOPENEX) 1.25 mg/3 mL nebulizer solution Take 1 Ampule by nebulization every 4 hours as needed for Wheezing or Shortness of Breath for up to 30 days. 9 Active LEVALBUTEROL HCL INHL Inhale 40 mcg into the lungs daily as needed. Active magnesium 250 mg tablet 2-3 tablets daily Active metFORMIN (GLUCOPHAGE) 500 mg tablet Take 500 mg by mouth 2 times daily (with meals). Active montelukast (SINGULAIR) 10 mg tablet Take 10 mg by mouth at bedtime. Active oxyCODONE (ROXICODONE) 15 mg immediate release tablet Take 15 mg by mouth every 4 hours as needed. Active oxyCODONE-aceta minophen (PERCOCET) 10-325 mg per tablet Take 1 Tablet by mouth every 4 hours as needed. Active pantoprazole (PROTONIX) 20 mg EC tablet Take 2 Tablets by mouth daily. Active predniSONE (DELTASONE) 1 mg tablet Take 3 Tablets by mouth daily. Active roflumilast (DALIRESP) 500 mcg tablet 250 mcg every other day. Active senna (SENOKOT) 8.6 mg tablet Take by mouth 2 times daily. 8 Active tamsulosin (FLOMAX) 0.4 mg 24 hr capsule Take 0.4 mg by mouth daily. Take 30 mins after same meal every day. Active tiotropium-olod ateroL (STIOLTO RESPIMAT) 2.5-2.5 mcg/actuation mist inhaler Inhale 2 Puffs into the lungs daily Active cholecalciferol (VITAMIN D-3) 25 mcg (1,000 unit) capsule Take by mouth daily as needed. Active mupirocin (BACTROBAN) 2 % ointmentIndicat ions:wounds Apply topically 3 (three) times a day. 60 g 1 4 Active Active Problems Problem Noted Date Diagnosed Date Diabetes with ulcer of leg 09/04/2024 Venous ulcer of right leg 09/04/2024 Venous ulcer of left leg 09/04/2024 Open scalp wound 09/04/2024 Chronic hypoxemic respiratory failure 08/03/2023 Diastolic heart failure 03/13/2023 Overview (08/08/2024): Last Assessment & Plan: Patient has history of CHF in the past and has required IV diuretics for CHF exacerbations during hospitalizations over the past year. At this time he remains stable on furosemide 20 mg once a day. He denies any clinical symptoms of worsening heart failure and he appears euvolemic. His last echocardiogram showed LVEF of 60 to 70%. Patient advised to seek emergency medical attention by calling 911 if they were to develop severe dyspnea, chest pain that did not resolve with rest or nitroglycerin, or if they were to faint. I've asked the patient to call if they develop worsening symptoms of heart failure such as increased shortness of breath, new or worsening cough, increased swelling in the legs or ankles, or weight gain of more than 2 pounds in one day or 4 pounds in one week. Orthostatic hypotension 09/07/2022 Overview (08/08/2024): Last Assessment & Plan: Has history of orthostatic hypotension in the past. He has been stable on his present dose of midodrine. He is no longer complaining of lightheadedness or dizziness. Hyperlipidemia 09/14/2021 Overview (08/08/2024): Last Assessment & Plan: Patient was on statin in the past however this was discontinued due to elevated liver function testing. He remains off of statin at this time. Paroxysmal atrial fibrillation 09/14/2021 Overview (08/08/2024): Last Assessment & Plan: Patient is history of paroxysmal atrial fibrillation status post AV sakina ablation and pacemaker placement. He was on Eliquis in the past for anticoagulation however he developed significant anemia requiring blood transfusions. He underwent evaluation with gastroenterology and no obvious bleeding was ever identified. He was started on iron supplementation and his most recent hemoglobin and hematocrit have improved slightly to 10.8 and 35.2. Patient was taken off of anticoagulation because of these issues. We once again had a long discussion regarding anticoagulation and reducing risk of stroke versus introducing a risk of possible recurrent bleeding. Ultimately we discussed that since he is stable now we should keep him off of Eliquis as this may reintroduce issues with bleeding again. Patient[facility] provider felt the same way and has stopped prescribing Eliquis for the patient. We will continue to monitor him closely and reevaluate at each office visit. Hypersensitivity pneumonitis 08/29/2018 Restrictive lung disease 08/29/2018 Depression 08/19/2017 Diabetes mellitus type 2, uncomplicated 08/19/20 17 Hypertension 08/19/2017 Overview (08/08/2024): Last Assessment & Plan: Patient's blood pressure is well-controlled with a reading today 138/70. Lung nodule 08/19/2017 Psoriasis 08/19/2017 Asbestosis 07/17/2017 Chronic obstructive pulmonary disease 07/17/2017 Encounters Date Type Department Care Team Description 12/04/2024 8:05 AM EDT Ancillary Procedure [facility] [address] [place] [address] 09/24/2024 10:15 AM EST Office Visit [facility] [address] [place] [id number] Devika Corea, SAFETY AND OCCUPATIONAL HEALTH MANAGER Open wound of scalp, unspecified open wound type, subsequent encounter (Primary Dx); Venous ulcer of right leg (CMS/HCC); Venous ulcer of left leg (CMS/HCC) from Last 3 Months Surgical History Surgery Date Site/Laterality Comments HERNIA REPAIR PROCEDURE: HISTORICAL HERNIA REPAIR/ING Medical History Medical History Date Comments Lung nodule 08/19/2017 DX:Lung nodule Depression 08/19/2017 DX:Depression Hypertension 08/19/2017 DX:Hypertension Diabetes mellitus type 2, uncomplicated 08/19/2017 DX:Diabetes mellitus type 2, uncomplicated (HCC) Psoriasis 08/19/2017 DX:Psoriasis History of gastric ulcer 08/19/2017 DX:Hist ory of gastric ulcer Asbestosis (CMS/HCC) 07/17/2017 DX:Asbestos is (HCC) Chronic obstructive pulmonar y disease (CMS/HCC) 07/17/2017 DX:Chronic obstructive pulmo nary disease (HCC) Hypokalemia DX:Hypokalemia Hypomagnesemia DX:Hypomagnesemi a Chronic anemia DX:Chronic anemi a GERD without esophagitis DX:GERD without esophagitis Overactive bladder DX:Overactive bladder Social History Tobacco Use Types Packs/Day Years Used Date Smoking Tobacco: Former Smokeless Tobacco: Never Alcohol Use Standard Drinks/Week Comments Not Currently 0 (1 standard drink = 0.6 oz pur e alcohol) Sex and Gender Information Value Date Recorded Sex Assigned at Not on file Legal Sex Male 7:19 AM EST Gender Identity Not on file Sexual Orientation Not on file Obstetrics History Last Filed Vital Signs Vital Sign Reading Time Taken Comments Blood Pressure 124/63 09/24/2024 10:33 AM EST Pulse 69 09/24/2024 10:33 AM EST Temperature 36.8 ??C (98.3 ??F) 09/24/2024 10:[address] Respiratory Rate 16 09/24/2024 10:33 AM EST Oxygen Saturation 96% 09/24/2024 10:33 AM EST Inhaled Oxygen Concentration - - Weight 82.3 kg (181 lb 8 oz) 09/04/2024 9:35 AM EST Height 182.9 cm (6') 09/04/2024 9:35 AM EST Body Mass Index 24.62 09/04/2024 9:35 AM EST Plan of Treatment Upcoming Encounters Date Type Department Care Team (Late st Contact Info) Description 01/17/2025 10:20 AM EDT Office Visit [facility] [address] [place] [phone] Bridger Farooq MD [address] [place] [address] [address]IVE [address] [place] [address] 09/22/2025 11:00 AM EST Ancillary Procedure [facility] [address] [facility] [address] [place] [id number] Health Maintenance Due Date Last Done Comments Diabetes: Annual Foot Exam 1960 Diabetes: Annual Retina Eye Exam 1960 Diabetes: Annual GFR (Glomerular Filtration Rate) 11/03/2018 11/03/2017, 11/02/2017, 11/01/2017, Additional history exists Depression Screening 09/03/2022 Hepatitis C Screening 09/03/2022 Medicare Annual Wellness Visit 09/03/2022 Social Influencers of Health Screening 09/03/2022 Hypertension/CHF/CAD Annual BMP Blood Test 09/04/2022 11/03/2017, 11/02/2017, 11/01/2017, Additional history exists Diabetes: Annual Urine Albumin-Creatinine Ratio (uACR) 09/07/2022 RSV Immunization Patients 60+ Years Old (1 - 1-dose 75+ series) 2023 COVID-19 Vaccine ( season) 2024 06/24/2022, 07/02/2021, 11/23/2020, Additional history exists Influenza Vaccine (#1) 2024 , 06/09/2022, 06/09/2021, Additional history exists Diabetes: Blood Sugar Control Test (HGBA1C) 05/20/2025 11/20/2024, 06/26/2024, 05/17/2024 Falls Risk Assessment 09/11/2025 09/11/2024 Cholesterol Screening (Lipid Panel) 02/15/2027 02/15/2022 DTaP,Tdap,and Td Vaccines (5 - Td or Tdap) 01/21/2031 01/21/2021, 09/25/2014, 09/25/2013, Additional history exists Pneumococcal Vaccine: 50+ Years Completed 08/12/2019, 06/20/2016, 07/04/2013, Additional history exists Zoster Vaccines Completed 05/05/2020, 02/2019, 08/25/2015, Additional history exists HIB Vaccines Aged Out No longer eligi [...] on patient's age to complete this topic MMR Vaccines Aged Out No longer eligi ble based on patient's age to complete this topic Meningococcal ACWY Vaccine Aged Out N o longer eligible based on patient's age to complete this topic Meningococcal B Vacine Aged Out No lo nger eligible based on patient's age to complete this topic RSV Immunization Patients Under 20 months Aged Out No longer eligible based on patient's age to complete this topic Varicella Vaccines Aged Out No longer eligible based on patient's age to complete this topic Medical Devices Implanted Type Area Waiter/Waitress Device Identifier Shelf Expiration Date Model / Serial / Lot [id number] Cris 8 Sr-T [id number] Implanted:11/2021 (Quantity not on file) Cardiac Pacemaker [employer] EDORA 8 SR-T / [id number] / Procedures Procedure Name Priority Date/Time Associated Diagnosis Comments CARDIAC DEVICE CHECK- REMOTE- MURJ Routine 12/04/2024 8:03 AM EDT from Last 3 Months Results * Cardiac device check - Remote- MURJ (12/04/2024 8:03 AM EDT) Date Time Interrogation Session [id number] CV DEVICE CHECK Type Interrogation Session RemoteScheduled CV DEVICE CHECK Implantable Pulse Generator Waiter/Waitress BIO CV DEVICE CHECK Implantable Pulse Generator Type IPG CV DEVICE CHECK Implantable Pulse Generator Model Edora 8 SR-T CV DEVICE CHECK Implantable Pulse Generator Serial Number [id number] CV DEVICE CHECK Implantable Pulse Generator Implant [...] * Programmed parameters reviewed * Presenting rhythm ANTHROPOLOGY DEPARTMENT CHAIR 60's * Heart Rate Histograms reviewed * No significant changes noted Narrative Procedure Note Emil Bee MD - 12/04/2024 IMPRESSION: Normal Remote: No Events * Normal Device Function * Alerts or events: None * Battery: Battery is at 75%, * Sensing, impedance and thresholds reviewed * Programmed parameters reviewed * Presenting rhythm ANTHROPOLOGY DEPARTMENT CHAIR 60's * Heart Rate Histograms reviewed * No significant changes noted Emil Bee MD CV IMPLANTABLE CARDIAC DEV ICE PROCEDURES Final Result from Last 3 Months Insurance MEDICARE [facility] Care Teams Personal Care Aide Relationship Specialty Start Date End Date Shweta Collins MD [address] [place] [address] PCP - General Internal Medicine 09/05/17
--- OUTSIDE RECORDS SUMMARY | 2024-12-13 14:15 | XMS_ITS | Continuity of Care Document ---
Author Organization [facility] Address [address] [place] [address] Phone [phone] Care Team Providers Care Inspector Timers Name Role Phone Shweta Collins M.D. Care Team Information Receive r [phone] Problems Active Problems Provider Date Essential hypertension Zeb Akins M.D. O nset: 04/26/2023 Carcinoma of prostate Zeb Akins M.D. On set: 04/26/2023 Diabetes mellitus Zeb Akins M.D. Onset: 04/26/2023 Asbestosis eZb Akins M.D. Onset: 0 04/26/2023 Social History Type Date Description Comments Sex Unknown Lives With Spouse ETOH Use Occasionally consumes alcoho l Tobacco Use Start: Unknown End: Unknown Patient is a former smoker Quit 1988 Smoking Status Reviewed: 04/26/23 Patient is a former smoker Quit 1988 Allergies and adverse reactions Active Allergies Criticality Reaction Severity Comments Date Biaxin Unable to assess criticality 06/27/2022 Levaquin Unable to assess criticality 06/27/2022 Bactrim Unable to assess criticality 06/27/2022 Finasteride Unable to assess criticality 06/27/2022 Medications Active Medications SIG Qnty Indications Order ing Provider Date Bfxytt295Xfzn/ML Solution inject 15 units subcutaneously once daily Zeb Akins M.D. 04/26/2023 Dfanfnwz511abr Tablets 1 tab by mouth every day Zeb Akins M.D. 04/26/2023 Vitamin [id number] Tablets 1 by mouth every day Zeb Akins M.D. 04/26/2023 Albuterol Sulfate2.5mg/0.5ML Nebulizer Zeb Akins M.D. 04/26/2023 Spiriva Respimat2.5mcg/Act Aerosol take 1 puff daily as needed Zeb Akins M.D. 04/26/2023 Budesonide0.5mg/2M L Suspension inhale contents of 1 vial daily via nebulizer Zeb Akins M.D. 04/26/2023 Aoysflj117Ozih/ML Solution use sliding scale as directed 70ml Zeb Akins M.D. 04/26/2023 Tamsulosin HCL0.4mg Capsules 1 cap by mouth every night 90caps Zeb Akins M.D. 06/27/2022 Vitamin D (Cholecalciferol)2 5mcg (1000 Ut) Tablets 1 by mouth every day Zeb Akins M.D. 06/27/2022 Vpfx498wv Tablets 1 tab two-three daily Zeb Akins M.D. 06/27/2022 Gpnphhnf62-259zi Tablets 3 tabs per day 300tabs Zeb Akins M.D. 06/27/2022 Oxycodone QTF26ov Tablets take 2 tablets daily 280tabs Zeb Akins M.D. 06/27/2022 Avodart0.5mg Capsules 1 tab by mouth every night Zeb Akins M.D. 06/27/2022 Tsxtyslscx4cu Tablets 4 tabs by mouth every day Zeb Akins M.D. 06/27/2022 Giaqjbh1qd Tablets 1 by mouth twice a day Zeb Akins M.D. 06/27/2022 Rzeenircdq706mk Tablets 2-3 tablets daily Zeb Akins M.D. 06/27/2022 Metformin WEZ873ey Tablets take 1 tablet by mouth twice a day Zeb Akins M.D. 06/27/2022 Gdacivvga09bh Tablets 1 by mouth every day Zeb Akins M.D. 06/27/2022 Pravastatin Ychpxp41ic Tablets 1 tab daily Zeb Akins M.D. 06/27/2022 Yoxdoibujn87mm Tablets Take 1 Tablet By Mouth Every Day In The Morning Shweta Collins M.D. Vital Signs Date Vital Result Comment 04/26/2023 11:06am Height 73 inches 6'1 Weight 196.00 lb BMI (Body Mass Index) 25.9 kg/m2 Results Test Acquired Date Facility Test Result H/L Range Note Free Testosterone 04/26/[address] [facility] Testosterone, Total, LC/MS 697.4 1 Percent Free Testosterone 1.41 Low 2 Free Testosterone, Equilibrium 9.83 3 Testosterone 04/26/[address] [facility] Testosterone 771 ng/dL (280-800 ) SHBG 04/26/[address] [facility] SHBG 149.0 nmol/L High (19-76) FSH 04/26/[address] [facility] FSH 37.3 MIU/ML High (1.5-12. 4) 4 LH 04/26/[address] [facility] LH 17.9 MIU/ML High (1.5-12. 4) 5 Prolactin 04/26/[address] [facility] Prolactin 26.0 NG/ML High (4.0-15. 2) Complete Abc With Diff 04/26/[address] [facility] WBC 8.0 K/MM3 (4.0-11. 0) RBC 3.84 M/MM3 Low (4.70-6. 10) HGB 8.3 GM/DL Low (13.7-17 .1) HCT 28.2 % Low (40.5-50 .0) MCV 73.4 FL Low (80.0-94 .0) MCH 21.6 pg Low (27.0-34 .0) MCHC 29.4 g/dL Low (33.0-37 .0) PLT 335 K/MM3 (150-460 ) RDW-SD 50.6 FL High (<47.0) MPV 10.3 FL (9.4-12. 4) Automated NRBC 0.0 #/100WBC'S Abs. NRBC 0.0 K/MM3 Neut # 5.0 K/MM3 (1.3-7.0 ) Lymph # 1.4 K/MM3 (0.8-3.1 ) [place]# 1.4 K/MM3 High (0.4-1.3 ) Eo # 0.1 K/MM3 (0.0-0.4 ) Baso # 0.1 K/MM3 (0.0-0.1 ) Abs. Imm Gran 0.0 K/MM3 Neut 62.1 % (44-76) Lymph 17.9 % (15-43) Monocyte 17.7 % High (4.5-10. 5) Eo 1.5 % (0-6) Baso 0.6 % (0-2) Imm Gran 0.2 % Free T4 06/27/[address] [facility] Free T4 1.41 ng/dL (0.70-1. 80) TSH 06/27/[address] [facility] TSH 3.98 uIU/mL (0.4-4.2 ) Prolactin 06/27/[address] [facility] Prolactin 30.4 NG/ML High (4.0-15. 2) FSH 06/27/[address] [facility] FSH 18.8 MIU/ML High (1.5-12. 4) 6 LH 06/27/[address] [facility] LH 9.4 MIU/ML (1.5-12. 4) 7 Testosterone,[place] e & Total (Males > 15Yr) 06/27/[address] [facility] Testosterone 1056 ng/dL High (280-800 ) SHBG 122.0 nmol/L High (19-76) Free Testosterone, Estimated 8.96 ng/dL (3.7-14. 7) [place] C 06/27/[address] [facility] [place] C 66 NG/ML 8 Z Score SEE COMMENT 9 1 Reference range: 264 .0 to 916.0 Unit: ng/dL (NOTE) This [facility] LC/MS-MS method is currently certified by the CDC Hormone Standardization Program (HoSt). Adult male reference interval is based on a population of healthy nonobese males (BMI <30) between 19 and 39 years old. Antonieta et.al. JCEM 2017,102;9170-3658. PMID: 88685039. This test was developed and its performance characteristics determined by [facility]. It has not been cleared or approved by the Food and Drug Administration. 2 Reference range: 1.5 0 to 4.20 Unit: % 3 Reference range: 5.0 0 to 21.00 Unit: ng/dL Test performed at [address] [address] 4 Reference Range: Follicular: 3.5-12.5 mIU/mL Ovulation: 4.7-21.5 mIU/mL Luteal: 1.7-7.7 mIU/mL Postmenopausal: 25.8-134.8 mIU/mL 5 Reference Range: Follicular: 2.4-12.6 mIU/mL Ovulation: 14.0-95.6 mIU/mL Luteal: 1.0-11.4 mIU/mL Postmenopausal: 7.7-58.5 mIU/mL 6 Reference Range: Follicular: 3.5-12.5 mIU/mL Ovulation: 4.7-21.5 mIU/mL Luteal: 1.7-7.7 mIU/mL Postmenopausal: 25.8-134.8 mIU/mL 7 Reference Range: Follicular: 2.4-12.6 mIU/mL Ovulation: 14.0-95.6 mIU/mL Luteal: 1.0-11.4 mIU/mL Postmenopausal: 7.7-58.5 mIU/mL 8 Reference range: 53 to 222 9 Reference range: NEG 2.0 to +2.0 Unit: S.D. (NOTE) RESULT:-1.5 Test performed at [address] [address] Medical Devices Description No Information Available Encounters Type Date Location Provider Dx Diagnosis Office Visit 04/26/2023 10:45a Main Office Zeb Akins M.D. R89.1 Abnormal level of hormones in specimens from oth org/tiss C61 Malignant neoplasm o f prostate I10 Essential (primary) hypertension Assessments Date Code Description Provider 04/26/2023 R89.1 Abnormal level o f hormones in specimens from other organs, systems and tissues Zeb Akins M.D. 04/26/2023 C61 Malignant neoplasm of prosta te Zeb Akins M.D. 04/26/2023 I10 Essential (primary) hyperten maura Zeb Akins M.D. Plan of Treatment 04/26/2023 - Zeb Akins M.D.* R89.1 Abnormal level of hormones in specimens from other organs, systems and tissues * C61 Malignant neoplasm of prostate * I10 Essential (primary) hypertension * Functional Status Description No Information Available Mental Status Description No Information Available Referrals Description No Information Available
--- OUTSIDE RECORDS SUMMARY | 2024-12-13 14:15 | XMS_ITS | Encounter Summary ---
Author Organization [employer] Address [address] [facility] [address] [place] [address] Care Team Providers Care Gravure Press Operator Name Role Phone Shweta Collins MD Primary Care Provider [phone] Encounter Details Date Type Department Care Team (Late st Contact Info) Description 01/05/2024 Orders Only [facility] MED[facility] [address] [place] [address] Shweta Collins MD [address] [place] [address] Iron deficiency anemia, unspecified iron deficiency anemia [...] PM EDT Office Visit [facility] [address] [place] [address] Shweta Collins MD [address] [place] [address] documented as of this encounter Visit Diagnoses Diagnosis Iron deficiency anemia, unspecified iron deficiency anemia type Hyponatremia Hyposmolality and/or hyponatremia documented in this encounter Care Teams Gravure Press Operator Relationship Specialty Start Date End Date Shweta Collins MD [address] [place] [address] PCP - General Internal Medicine 11/30/22December [place] Registered Nurse Case Management 07/17/23 documented as of this encounter
--- OUTSIDE RECORDS SUMMARY | 2024-12-13 14:15 | XMS_ITS | Encounter Summary ---
Author Organization [employer] Address [address] [facility] [address] [place] [address] Care Team Providers Care Field Underwriter Name Role Phone Shweta Collins MD Primary Care Provider [phone] Encounter Details Date Type Department Care Team (Late st Contact Info) Description 11/24/2023 Orders Only [facility] MED[facility] [address] [place], [place] [phone] Shweta Collins MD [address] [place] [address] Iron deficiency anemia, unspecified iron deficiency anemia type Social History Tobacco Use Types Packs/Day Years [...] Office Visit [facility] [address] [place] [address] Shweta Collins MD [address] [place] [address] documented as of this encounter Visit Diagnoses Diagnosis Iron deficiency anemia, unspecified iron deficiency anemia type documented in this encounter Care Teams Field Underwriter Relationship Specialty Start Date End Date Shweta Collins MD [address] [place] [address] PCP - General Internal Medicine 11/30/22December Debo Registered Nurse Case Management 07/17/23 documented as of this encounter
--- OUTSIDE RECORDS SUMMARY | 2024-12-13 14:15 | XMS_ITS | Encounter Summary ---
Author Organization [employer] Address [address] [facility] 7 [place] [address] Care Team Providers Care Payroll Lead Name Role Phone Shweta Collins MD Primary Care Provider [phone] Encounter Details Date Type Department Care Team (Latest Contact Info) Description 11/18/2024 12:00 PM EST Telemedicine [facility] MEDICAL [address] [place] [address] Shweta Collins MD [address] [place] [address] Chronic pain following surgery or procedure (Primary Dx); Spinal stenosis, unspecified spinal region; Radicular syndrome of upper limbs; Type 2 diabetes mellitus with diabetic peripheral angiopathy without gangrene, with long-term current use of insulin (CMS/[facility]); Physical deconditioning; Severe persistent asthma, unspecified whether complicated; Diabetic polyneuropathy associated with type 2 diabetes mellitus ([facility]/HCC) Social History Tobacco Use Types Packs/Day Years [...] PM EST documented as of this encounter Progress Notes * Shweta Collins MD - 11/18/2024 12:00 PM EST Subjective Patient ID: Nicky Gunter is a 74 y.o. male who presents for No chief complaint on file.. HPI --back pain: continues on percocet/oxycodone which he finds helpful; denies side effects to medications. Will be seeing Dr. Monk to get shots in the SI joint. Seeing Uriel for PT still for back; uriele is having him see a corporate trainer as well. neck. Is walking much better, getting strength back. did just get another injection in his cervicalspine, the shot helped. Never had numbess or weakness, but just had agonizing pain in his neck. Just got a shot this morning. Has had prior neck surgery. Got an SI injection that really really helped. Needs a walk-in shower, cannot get in the tub anymore. Can't get in even with help; seeing occupational therapist and she agrees he is unable to get into the tub for a shower. Toilet has bars already. Has tried a transfer bench but unable to do it in current bathroom. Has neruopathy, weakness. Just able to do sponge baths right now. Review of Systems Kiln Labourer: seeing her for lesion on scalp, it is pre-cancerous Objective Patient is alert and oriented, lying in bed, oxygen in place, appears chronically ill Head normo-cephalic, face symmetric Speech clear, no audible wheezing No respiratory distress, speaking full sentences Affect normal Assessment/Plan Diagnoses and all orders for this visit: Chronic pain following surgery or procedure Comments: letter written, pt would defintiely benefit from a walk-in shower. Spinal stenosis, unspecified spinal region Radicular syndrome of upper limbs Type 2 diabetes mellitus with diabetic peripheral angiopathy without gangrene, with long-term current use of insulin (CMS/HCC) Physical deconditioning Severe persistent asthma, unspecified whether complicated Diabetic polyneuropathy associated with type 2 diabetes mellitus (CMS/HCC) documented in this encounter Plan of Treatment Upcoming Encounters Date Type Department Care Team (Late st Contact Info) Description 02/11/2025 12:00 PM EDT Office Visit [facility] MEDICAL [address] [place] [address] Shweta Collins MD [address] [place] [address] documented as of this encounter Visit Diagnoses Diagnosis Chronic pain following surgery or procedure- Primary Other chronic postoperative pain Spinal stenosis, unspecified spinal region Radicular syndrome of upper limbs Brachial neuritis or radiculitis nos Type 2 diabetes mellitus with diabetic peripheral angiopathy without gangrene, with long-term current use of insulin (CMS/HCC) Physical deconditioning Muscular wasting and disuse atrophy, not elsewhere classified Severe persistent asthma, unspecified whether complicated Diabetic polyneuropathy associated with type 2 diabetes mellitus (CMS/HCC) documented in this encounter Care Teams Payroll Lead Relationship Specialty Start Date End Date Shweta Collins MD [address] [place] [address] PCP - General Internal Medicine 11/30/22December Debo Registered Nurse Case Management 07/17/23 documented as of this encounter
--- OUTSIDE RECORDS SUMMARY | 2024-12-13 14:15 | XMS_ITS | Clinical Summary ---
Author Organization [facility] Address [address] [place] [address] Phone Care Team Providers Care Airfield Operations Specialist Name Role Phone Unavailable Primary Care Provider Unavailabl e Social History Tobacco Use Types Packs/Day Years Used Date Smoking Tobacco: Never Assessed Sex and Gender Information Value Date Recorded Sex Assigned at Not on file Legal Sex Male 8:58 AM EDT Gender Identity Not on file Sexual Orientation Not on file Plan of Treatment Health Maintenance Due Date Last Done Comments Diabetes: Hemoglobin A1C 07/28/2022 Diabetes: Ophthalmology Exam 07/28/2022 Diabetes: Pedal Pulse Checked 07/28/2022 Diabetes: Sensory Foot Exam 07/28/2022 Diabetes: Visual Foot Exam 07/28/2022 Influenza Vaccine (#1) 2024 2, 06/09/2021, 07/29/2019, Additional history exists Pneumococcal Vaccine: 65+ Years Completed 08/12/2019, 06/20/2016 Hepatitis B Vaccine Aged Out No longe r eligible based on patient's age to complete this topic Insurance MEDICARE [facility] [place] [address] MEDICARE [facility]
--- OUTSIDE RECORDS SUMMARY | 2024-12-13 14:15 | XMS_ITS ---
Author Name [facility] Organization Unknown History of Medication Use Medication Directions Dispensed Refills Start Date End Date [facility] insulin aspart (NovoLOG U-100 Insulin aspart) 100 unit/mL injection Inject into the skin 3 times daily (before meals). Sliding scale active pantoprazole (PROTONIX) 20 mg EC tablet Take 2 Tablets by mouth daily. active metFORMIN (GLUCOPHAGE) 500 mg tablet Take 500 mg by mouth 2 times daily (with meals). active carisoprodoL (SOMA) 350 mg tablet Take 1 Tablet by mouth 2 times daily. active ferrous sulfate 325 mg (65 mg elemental iron) tablet Take 1 Tablet by mouth daily. active cholecalciferol (VITAMIN D-3) 25 mcg (1,000 unit) capsule Take by mouth daily as needed. active montelukast (SINGULAIR) 10 mg tablet Take 10 mg by mouth at bedtime. active Problems Problem Status Onset Date Problem Type Date of Resolution Source Hypersensitivity pneumonitis active 2018-08-29 [facility] [facility] Lung nodule active 2017-08-[address] [facility] [facility] Open wound of scalp, unspecified open wound type, subsequent encounter active EncounterDiagnosisAct [facility] Chronic hypoxemic respiratory failure active 2023-08-03 ProblemAct [facility] Venous ulcer of left leg active 2024-09-04 ProblemAct [facility] Chronic obstructive pulmonary disease active 2017-07-17 [facility] Restrictive lung disease active 2018-08-29 ProblemAct [facility] Venous ulcer of right leg active 2024-09-04 ProblemAct [facility] Encounter for adjustment or management of cardiac device active EncounterDiagnosisAct [facility] Diabetes with ulcer of leg active 2024-09-04 ProblemAct [facility] Paroxysmal atrial fibrillation active 2021-09-14 ProblemAct [facility] Diabetes mellitus type 2, uncomplicated active 2017-08-19 [facility]Act [facility] Depression active 2017-08-19 [facility]Act [facility] Open scalp wound active 2024-09-04 ProblemAct [facility] Asbestosis active 2017-07-17 [facility]Act [facility] Hyperlipidemia active 2021-09-14 [facility]Act [facility] Psoriasis active 2017-08-19 ProblemAct [facility] Diastolic heart failure active 2023-03-13 ProblemAct [facility] Hypertension active 2017-08-19 [facility]Act [facility] Orthostatic hypotension active 2022-09-07 ProblemAct [facility] Encounters Encounter Type Encounter Reason Primary Diagnosis Location Date Ambulatory Wound Care Unspecified open wound of scalp, subsequent encounter [facility] 09/24/2024 Ambulatory Wound Care Type 2 diabetes mellitus with other skin ulcer [facility] 09/11/2024 Ambulatory Wound Care Type 2 diabetes mellitus without complications [facility] 09/04/2024 Care Team Organization Name Specialty Phone Email Start Date End Da te [facility] 09/06/2024 [facility] 09/04/2024
--- OUTSIDE RECORDS SUMMARY | 2024-12-13 14:15 | XMS_ITS | Clinical Summary ---
Author Organization [facility] Address [address] [place] [address] Care Team Providers Care School Supervisor Name Role Phone Shweta Collins MD Primary Care Provider [phone] Allergies Active Allergy Reactions Criticality Noted Date Comments Sulfamethoxazole-Trimetho prim Swelling 02/10/2017 Clarithromycin Rash Low 02/10/2017 Finasteride Other (See Comments) 02/10/2017 Abdominal pain Levofloxacin Other (See Comments) 04/07/2017 numbness Medications Medication Sig Dispensed Refills Start Date End Date Status montelukast (SINGULAIR) 10 MG tablet Take 10 mg by mouth every night at bedtime. 0 Active metFORMIN (GLUCOPHAGE) tablet 500 mg Take 500 mg by mouth 2 (two) times a day with meals. 0 Active lisinopril (PRINIVIL,ZESTRIL) tablet 5 mg Take 5 mg by mouth daily. 0 Active tamsulosin (FLOMAX) 0.4 MG CAPS Take 0.4 mg by mouth daily. 0 Active gabapentin (NEURONTIN) 400 MG capsule Take 600 mg by mouth 4 (four) times a day. 0 Active dutasteride (AVODART) 0.5 MG capsule Take 0.5 mg by mouth daily. 0 Active Roflumilast (DALIRESP PO) Take 500 mg by mouth. 0 Active benzoyl peroxide 10 % gel Apply topically daily. 0 Active insulin glargine (LANTUS) injection 100 units/mL Inject 70 Units under the skin every night at bedtime. 0 Active Insulin Aspart (NOVOLOG FLEXPEN SC) Inject 10 Units under the skin 2 (two) times a day before breakfast and dinner. 0 Active albuterol (ACCUNEB) 1.25 MG/3ML nebulizer solution Take 2.5 ampules by nebulization 2 (two) times a day. 0 Active budesonide (RHINOCORT AQUA) 32 MCG/ACT nasal spray spray or apply 1 spray inside Nose daily. 0 Active budesonide (PULMICORT) 0.5 MG/2ML nebulizer solution Take 0.5 mg by nebulization daily. 0 Active Tiotropium Dresser-Olodaterol (STIOLTO RESPIMAT) 2.5-2.5 MCG/ACT AERS Inhale 2.5 mcg into the lungs every night at bedtime. 0 Active Magnesium 250 MG TABS Take 1 tablet by mouth daily. 0 Active calcium citrate-vitamin D (CITRACAL+D) 315-200 MG-UNIT per tablet Take 1 tablet by mouth daily. 0 Active betamethasone dipropionate (DIPROSONE) 0.05 % cream Apply 1 application topically daily as needed. 0 Active ketoconazole (NIZORAL) 2 % cream Apply 1 application topically daily. 0 Active fluocinonide (LIDEX) 0.05 % cream Apply topically 2 (two) times a day. 0 Active hydrocortisone 2.5 % cream Apply 1 application topically daily. 0 Active fentaNYL (DURAGESIC) 25 MCG/HR Place 1 patch onto the skin every third day. 5 patch 0 11/03/2017 Active oxyCODONE (ROXICODONE) 5 MG immediate release tablet Take 1-2 tablets (5-10 mg total) by mouth every 4 (four) hours as needed. 60 tablet 0 11/03/2017 Active methocarbamol (ROBAXIN) 750 MG tablet Take 1 tablet (750 mg total) by mouth 4 (four) times a day as needed. 45 tablet 0 11/03/2017 Active senna (SENOKOT) 8.6 MG tablet Take 1 tablet by mouth 2 (two) times a day. 60 tablet 0 11/03/2017 Active apixaban (ELIQUIS) 5 MG TABS tablet Take 1 tablet by mouth. 0 Active dilTIAZem (DILACOR XR) 120 MG 24 hr capsule Take 1 capsule by mouth. 0 Active Active Problems Problem Noted Date Diagnosed Date Status post cervical spinal fusion 11/16/2017 Social History Tobacco Use Types Packs/Day Years Used Date Smoking Tobacco: Former Cigarettes 0.3 20 Q uit: 1988 Smokeless Tobacco: Never Alcohol Use Standard Drinks/Week Comments No 0 (1 standard drink = 0.6 oz pur e alcohol) Sex and Gender Information Value Date Recorded Sex Assigned at Male 01/02/2019 11:36 AM EDT Gender Identity Not on file Sexual Orientation Not on file Job Start Date Occupation Industry Not on file Not on file Not on file Last Filed Vital Signs Vital Sign Reading Time Taken Comments Blood Pressure 125/63 09/23/2022 2:00 PM EST Pulse 69 09/23/2022 2:00 PM EST Temperature 36.1 ??C (96.9 ??F) 09/23/2022 2:00 PM ES T Respiratory Rate 16 09/23/2022 2:00 PM EST Oxygen Saturation 95% 11/03/2017 8:43 AM EST Inhaled Oxygen Concentration - - Weight 119.7 kg (264 lb) 01/04/2019 11:04 AM EDT Height 185.4 cm (6' 1 ) 11/16/2017 10:49 AM EST Body Mass Index 34.83 11/16/2017 10:49 AM EST Plan of Treatment Health Maintenance Due Date Last Done Comments Hepatitis C Screening 1950 COVID-19 Vaccine (#1) 1948 Depression Screening 1960 Preventative Health Evaluation 1966 DTap / Tdap / Td (1 - Tdap) 1967 Shingrix-Zoster Vaccine (1 of 2) 1998 Fall Risk Assessment 2013 Pneumococcal Vaccine (1 of 1 - PCV) 2013 RSV Adult > 60+ Yrs or Pregn ant (1 - 1-dose 75+ series) 2023 Influenza Vaccine (#1) 2024 Hepatitis B Vaccines Aged Out No long er eligible based on patient's age to complete this topic RSV Ped < 20 months Aged Out No longe r eligible based on patient's age to complete this topic Medical Devices Implanted Type Area Cleaning Machine Operator Device Identifier Shelf Expiration Date Model / Serial / Lot Sponge Surgiflo 8ml Hemostatic Matrix Absorbable Latex Free - [id number] - [id number] Implanted:Qty: 1 on 10/30/2017 by Saad Andujar MD at [facility] [place] [facility] Hemostatic Agent Anterior: Spine Cervical [employer] 03/24/2019 [id number] / / [id number] Sponge Surgiflo 8ml Hemostatic Matrix Absorbable Latex Free - [id number] - [id number] Implanted:Qty: 2 on 10/30/2017 by Saad Andujar MD at [facility] [place] and [facility] Hemostatic Agent Posterior: Spine Cervical [employer] 04/24/2019 2991 / / [id number] Spacer Cervical [employer] 9mm Cortical Cancellous Freeze [facility] - [id number] - [id number] Implanted:Qty: 1 on 10/30/2017 by Saad Andujar MD at [facility] [place] and [facility] Anterior: Spine Cervical [employer] 01/11/2021 [id number] / [id number] / Screw 14mm Self Drilling - [id number] - [id number] Implanted:Qty: 4 on 10/30/2017 by Saad Andujar MD at [facility] [place] and [facility] Anterior: Spine Cervical [employer] 161.014 / / Plate 20mm Xtend Bone [facility] - [id number] - [id number] Implanted:Qty: 1 on 10/30/2017 by Saad Andujar MD at [facility] [place] and [facility] Anterior: Spine Cervical [employer] 161.120 / / Plate Canopy Shelf 7mm - [id number] - [id number] Implanted:Qty: 3 on 10/30/2017 by Saad Andujar MD at [facility] [place] and [facility] Posterior: Spine Cervical [employer] 1102.401 / / Screw Self-Tapping Laminoplasty 2.6mmx6.0mm - [id number] - [id number] Implanted:Qty: 12 on 10/30/2017 by Saad Andujar MD at [facility] [place] and Med Posterior: Spine Cervical [employer] 136.706 / / Advance Directives For more information, please contact: [phone] Documents on File Type Date Recorded Patient Appeals Analyst Expl anation Advance Directive and Living Will 01/02/2019 11:32 AM Latest Code Status on File Code Status Date Activated Date Inactivated Comments Full Code 10/30/2017 4:01 PM 11/03/2017 10:56 PM This c ode status was ascertained in the following way: per living will or healthcare instructions . Care Teams School Supervisor Relationship Specialty Start Date End Date Shweta Collins MD [address] [place] [address] PCP - General Internal Medicine 02/10/17
--- OUTSIDE RECORDS SUMMARY | 2024-12-13 14:15 | XMS_ITS | Encounter Summary ---
Author Organization [employer] Address [address] [place] [address] Care Team Providers Care Paradi Tender Name Role Phone Shweta Collins MD Primary Care Provider Encounter Details Date Type Department Care Team (Latest Contact Info) Description 11/18/2024 Travel Social History Tobacco Use Types Packs/Day Years [...] Description 02/11/2025 12:00 PM EDT Office Visit [facility] MEDICAL [address] [place] [address] Shweta Collins MD [address] [place] [address] documented as of this encounter Visit Diagnoses Not on filedocumented in this encounter Care Teams Paradi Tender Relationship Specialty Start Date End Date Shweta Collins MD [address] [place] [address] PCP - General Internal Medicine 11/30/22December Debo Registered Nurse Case Management 07/17/23 documented as of this encounter
--- OUTSIDE RECORDS SUMMARY | 2024-12-13 14:15 | XMS_ITS | Encounter Summary ---
Author Organization [employer] Address [address] [facility] 7t [place] [address] Care Team Providers Care Circuit Tester Name Role Phone Shweta Collins MD Primary Care Provider [phone] Encounter Details Date Type Department Care Team ([facility] st Contact Info) Description 12/06/2024 Population Health Risk Score [facility] () Department [address] [id number] Provider, Population Health Generic Social History Tobacco Use Types Packs/Day Years [...] Description 02/11/2025 12:00 PM EDT Office Visit [facility] MEDICAL [address] [place] [address] Shweta Collins MD [address] [place] [address] documented as of this encounter Visit Diagnoses Not on filedocumented in this encounter Care Teams Circuit Tester Relationship Specialty Start Date End Date Shweta Collins MD [address] [place] [address] PCP - General Internal Medicine 11/30/22December Debo Registered Nurse Case Management 07/17/23 documented as of this encounter
--- OUTSIDE RECORDS SUMMARY | 2024-12-13 14:15 | XMS_ITS | Encounter Summary ---
Author Organization [employer] Address [address] [facility] 7t [place] [address] Care Team Providers Care Case Finishing Machine Adjuster Name Role Phone Shweta Collins MD Primary Care Provider [phone] Encounter Details Date Type Department Care Team (Late st Contact Info) Description 12/22/2023 Orders Only [facility] MEDICAL [address] [place] [address] Shweta Collins MD [address] [place] [address] Iron deficiency anemia, unspecified iron deficiency anemia [...] Description 02/11/2025 12:00 PM EDT Office Visit [facility] MEDICAL [address] [place] [address] Shweta Collins MD [address] [place] [address] documented as of this encounter Visit Diagnoses Diagnosis Iron deficiency anemia, unspecified iron deficiency anemia type Hyponatremia Hyposmolality and/or hyponatremia documented in this encounter Care Teams Case Finishing Machine Adjuster Relationship Specialty Start Date End Date Shweta Collins MD [address] [place] [address] PCP - General Internal Medicine 11/30/22December Debo Registered Nurse Case Management 07/17/23 documented as of this encounter
--- OUTSIDE RECORDS SUMMARY | 2024-12-13 14:15 | XMS_ITS | Encounter Summary ---
Author Organization [employer] Address [address] [facility] [address] [place] [address] Care Team Providers Care Pellet Press Operator Name Role Phone Shweta Collins MD Primary Care Provider [phone] Reason for Visit * Reason Onset Date Comments fever, change in MS 11/14/2023 Encounter Details Date Type Department Care Team (Late st Contact Info) Description 11/14/2023 Telephone [facility] MEDICAL [address] [place] [address] Guera Garcia RN fever, change in [place] Social History Tobacco Use Types Packs/Day Years [...] encounter Miscellaneous Notes * Telephone Encounter - Guera Garcia RN - 11/14/2023 12:11 PM EST returned from mammogram today to find pt with temp of 101.5, not responding to questions or prompts, lethargic. Yesterday had PT for pain in head and neck. Had tooth extraction 15 days ago. thinks pt may have over-taken pain meds. Advised ED via ambulance. said she will call for ambulance. Pt is going to [facility]. Facesheet, meds and problem list faxed to [facility] ED. Attempted to call expect in 3 times, no answer after lengthy holds. Pt's Brittany asked that PCP be informed urgently of event. Sending TE to PCP Dr. Collins. documented in this encounter Plan of Treatment Upcoming Encounters Date Type Department Care Team (Late st Contact Info) Description 02/11/2025 12:00 PM EDT Office Visit [facility] MEDICAL [address] [place] [address] Shweta Collins MD [address] [place] [address] documented as of this encounter Visit Diagnoses Not on filedocumented in this encounter Care Teams Pellet Press Operator Relationship Specialty Start Date End Date Shweta Collins MD [address] [place] [address] PCP - General Internal Medicine 11/30/22December Debo Registered Nurse Case Management 07/17/23 documented as of this encounter
--- OUTSIDE RECORDS SUMMARY | 2024-12-13 14:15 | XMS_ITS | Clinical Summary ---
Author Organization [facility] Address [address] [place] [address] Care Team Providers Care Gamma Operator Name Role Phone Unavailable Primary Care Provider Unavailabl e Source Comments Please note that some or all of the patient's information could have additional privacy protections. State laws allow health care providers to render certain types of treatment to minors without parental consent. Please do not assume that this information can be shared solely by obtaining just the consent of the patient's parent/guardian. Please determine if all or part of the patient's care was rendered without parent/guardian involvement. And, if so, obtain the minor's consent prior to disclosure.[facility] Social History Tobacco Use Types Packs/Day Years Used Date Smoking Tobacco: Never Assessed Sex and Gender Information Value Date Recorded Sex Assigned at Not on file Legal Sex Male 2:27 AM EST Gender Identity Not on file Sexual Orientation Not on file Plan of Treatment Not on file
--- OUTSIDE RECORDS SUMMARY | 2024-12-13 14:15 | XMS_ITS | Data Portability ---
Author Organization [place] - [facility], Allergy Address [address] [address] Assessment Encounter Date Assessment Date Assessment LastModified by Organization Details LastModified Time 10/02/2024 10/02/2024 Fiberoptic laryngoscopy shows a normal vocal cord movement with no paralysis. There are no polyps, nodules, tumors present. There is no evidence of thrush. Discussed I suspect his vocal changes are more related to his breath support which is weakened by his COPD. Offered referral to voice therapy which was declined at this time [email or web address] Not available 10/02/2024 11:01:12 Plan of Treatment Reminders Order Date Submit Date Provider Last Modified By Organization Details Last Modified Time Details Appointments None record ed. Lab None record ed. Referral None record ed. Procedures None record ed. Surgeries None record ed. Imaging None record ed. Medication Orders None record ed. Patient TargetsNo targets recorded. Patient InstructionsNo instructions recorded. Reason for Referral None Reported. 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; Note: Date Diagnosed : 06/15/2016 11:15 AM (J38.1) Not Available [facility] 4 02:43:54 Difficult y speaking Active 2015 Hoarsenes s; Note: Date Diagnosed : 6 5:17 PM (784.49) Not Available [facility] 4 02:43:56 Follow-up visit Active 2016 Medical surveilla nce following completed treatment ; Note: Date Diagnosed : 11/09/2016 11:43 AM (Z09) Not Available [facility] 4 02:43:48 Chronic obstructi ve pulmonary disease 66061433 Active 2015 Chronic obstructi ve pulmonary disease, unspecifi ed; Note: Date Diagnosed : 06/15/2016 11:15 AM (J44.9) Not Available [facility] 4 02:43:47 Chronic hoarsenes s 65463314765 05 Active 2024 ABDI SIMON MD [address] [place] [address], [place], [address] , [facility] 5 11:00:25 Problem Notes None recorded. Procedures Surgical History Date Name Laterality Status Provider Name and Address Organization Details Recorded Time 10/02/2024 FOL_DP completed BADI SIMON MD [address] [place] [address], [place], [address], [facility] 10/01/2024 13:14:56 Imaging Results None recorded. Procedure Notes None recorded. Medical Equipment None Reported. Allergies Allergen ID Allergen Name Allergen Category Reaction Reaction Severity Criticality Documentation Date Start Date Code Code System Note Provider Name and Address Organization Details Recorded Time 60360 dutasteri de Not available other Not available Not available 02/06/2024 89786 0 RxNorm React ion: unkno wn, unspe cifie d;; Not Available [facility] 4 00:54:40 70979 Bactrim medicatio n other Not available Not available 02/06/2024 14249 9 RxNorm React ion: unkno wn, unspe cifie d;; Not Available [facility] 4 00:54:41 44491 Biaxin medicatio n other Not available Not available 02/06/2024 35020 9 RxNorm React ion: unkno wn, unspe cifie d;; Not Available [facility] 4 00:54:44 02147 Levaquin medicatio n other Not available Not available 02/06/2024 55794 2 RxNorm React ion: unkno wn, unspe cifie d;; Not Available [facility] 00:54:47 Medications Name Sig Start Date Stop Date Status Note LastModified by Organization Details LastModified Time carisopro dol 350 mg tablet TAKE 1 TABLET BY MOUTH IF NEEDED IN THE MORNING, AT NOON, AND AT BEDTIME FOR MUSCLE SPASMS. active Not Available Not Available No t Available amoxicill in 500 mg capsule TAKE 4 CAPSULES (2,000 MG) BY MOUTH 1 TIME FOR 1 DOSE 1 HOUR PRIOR TO PROCEDUR E active Not Available Not Available No t Available budesonid e 32 mcg/actua tion nasal spray 10/02 completed Medicati on ID: [id number] B rand Name: budesoni de Send Method: E-Prescr ibed Sub s Allowed: subs OK Medic ationGen ericName : budesoni de Not Available Not Available Not Available metformin 500 mg tablet 2015 active Medicati on ID: [id number] D uration Value: 90 Brand Name: metformi n Send Method: E-Prescr ibed Sub s Allowed: subs OK Speci al Instruct ion: TAKE 1 TABLET BY MOUTH TWICE A DAY Medi cationGe nericNam e: metformi n Not Available Not Available Not Available prednison e 10 mg tablet 10/02 completed Not Available Not Available Not Available gabapenti n 600 mg tablet TAKE 1 TABLET BY MOUTH FOUR TIMES A DAY active Not Available Not Available No t Available doxycycli ne hyclate 100 mg capsule 10/02 completed Not Available Not Available Not Available oxycodone 15 mg tablet TAKE 1 TABLET BY MOUTH TWICE A DAY active Not Available Not Available No t Available tamsulosi n 0.4 mg capsule 2015 active Medicati on ID: [id number] B rand Name: tamsulos in Send Method: E-Prescr ibed Sub s Allowed: subs OK Medic ationGen ericName : tamsulos in Not Available Not Available Not Available prednison e 1 mg tablet active Not Available Not Available Not Available pantopraz ole 40 mg tablet,de layed release Take 1 tablet every day by oral route. active Not Available Not Available No t Available lisinopri l 10 mg tablet 10/02 completed Medicati on ID: [id number] D uration Value: 90 Brand Name: lisinopr il Send Method: E-Prescr ibed Sub s Allowed: subs OK Speci al Instruct ion: TAKE 1 TAB ONCE A DAY ORALLY 90 Medic atmarvaGen ericName : lisinopr il Not Available Not Available Not Available lidocaine 5 % topical patch APPLY 1 PATCH BY TOPICAL ROUTE ONCE DAILY (MAY WEAR UP TO 12HOURS. ) 10/02 completed Not Available Not Available Not Available oxycodone 5 mg capsule 1 capsule by mouth 10/02 completed Medicati on ID: [id number] D uration Value: 7 Brand Name: oxycodon e Send Method: E-Prescr ibed Sub s Allowed: subs OK Medic ationGen ericName : oxycodon e Not Available Not Available Not Available metoprolo l tartrate 50 mg tablet 10/02 completed Medicati on ID: [id number] D uration Value: 90 Brand Name: metoprol ol tartrate Send Method: E-Prescr ibed Sub s Allowed: subs OK Speci al Instruct ion: TAKE 1 TABLET BY MOUTH EVERY DAY Medi cationGe nericNam e: metoprol ol tartrate Not Available Not Available Not Available monteluka st 10 mg tablet Take 1 tablet every day by oral route. active Not Available Not Available No t Available mupirocin 2 % topical ointment 10/02 completed Not Available Not Available Not Available furosemid e 20 mg tablet Take 1 tablet every day by oral route. active Not Available Not Available No t Available oxycodone -acetamin ophen 5 mg-325 mg/5 mL oral solution 10/02 completed Medicati on ID: [id number] B rand Name: oxycodon e-acetam inophen Send Method: E-Prescr ibed Sub s Allowed: subs OK Medic ationGen ericName : oxycodon e-acetam inophen Not Available Not Available Not Available Novolog U-100 Insulin aspart 100 unit/mL subcutane ous solution 2015 active Medicati on ID: [id number] D uration Value: 90 Brand Name: Novolog Send Method: E-Prescr ibed Sub s Allowed: subs OK Speci al Instruct ion: DIRECTED , INJECT 10 UNITS 3 TIMES DAILY SUBCUTAN EOUS Med icationG enericNa me: Novolog Not Available Not Available Not Available dutasteri de 0.5 mg capsule Take 1 capsule every day by oral route. active Not Available Not Available No t Available Endocet 10 mg-325 mg tablet Take 1 tablet every 6 hours by oral route. active Not Available Not Available No t Available levalbute rol HFA 45 mcg/actua tion aerosol inhaler Inhale 2 puffs every 6 hours by inhalati on route. active Not Available Not Available No t Available albuterol 2 puff 10/02 completed Medicati on ID: [id number] D uration Value: 14 Brand Name: albutero l Send Method: E-Prescr ibed Sub s Allowed: subs OK Medic ationGen ericName : albutero l Not Available Not Available Not Available Soma 10/02 completed Medicati on ID: [id number] B rand Name: soma Sen d Method: E-Prescr ibed Sub s Allowed: subs OK Medic ationGen ericName : soma Not Available Not Available Not Available gabapenti n 10/02 completed Medicati on ID: [id number] B rand Name: gabapent in Send Method: E-Prescr ibed Sub s Allowed: subs OK Speci al Instruct ion: Take 1 tab TID for one week. Each week add an addition al 2 tabs per day until a dose of 2700mg daily (900mg TID) is reached. Medicat ionGener icName: gabapent in Not Available Not Available Not Available Brovana 15 mcg/2 mL solution for nebulizat ion 10/02 completed Medicati on ID: [id number] B rand Name: Brovana Send Method: E-Prescr ibed Sub s Allowed: subs OK Medic ationGen ericName : Brovana Not Available Not Available Not Available Lantus Solostar U-100 Insulin 100 unit/mL (3 mL) subcutane ous pen 2015 active Medicati on ID: [id number] B rand Name: Lantus Solostar Send Method: E-Prescr ibed Sub s Allowed: subs OK Medic ationGen ericName : Lant Solostar Not Available Not Available Not Available Daliresp 500 mcg tablet 2015 active Medicati on ID: [id number] B rand Name: Daliresp Send Method: E-Prescr ibed Sub s Allowed: subs OK Medic ationGen ericName : Daliresp Not Available Not Available Not Available Flonase Allergy Relief 50 mcg/actua tion nasal spray,shaun pension Lowman 2 spray into both nostrils once a day as directed 10/02 completed Medicati on ID: [id number] D uration Value: 30 Prescri bed By Name: Alen Espinoza MD Brand Name: Flonase Allergy Relief S end Method: E-Prescr ibed Sub s Allowed: subs OK Medic ationGen ericName : Flonase Allergy Relief Not Available Not Available Not Available Spiriva Respimat 1.25 mcg/actua tion solution for inhalatio n 2015 active Medicati on ID: [id number] B rand Name: Spiriva Respimat Send Method: E-Prescr ibed Sub s Allowed: subs OK Medic ationGen ericName : Spiriva Respimat Not Available Not Available Not Available ketoconaz ole (bulk) 100 % crystals 10/02 completed Medicati on ID: [id number] B rand Name: ketocona zole (bulk) S end Method: E-Prescr ibed Sub s Allowed: subs OK Medic ationGen ericName : ketocona zole (bulk) Not Available Not Available Not Available Vitals Date Recorded Body height Body mass index (BMI) Body weight Provider Name and Address Organization Details Last Updated DateTime 10/02/2024 185.42 cm 23.6 kg/m2 75074.03 g Rosaline Allen [place] - [facility] 10/02/2024 10:42:03 Social History None recorded. Functional Status None recorded. Mental Status None recorded. Family History Nothing Reported. Medical History Condition Response Cancer Y Anemia Y Migraines Y Arthritis Y Anxiety Y Depression Y Past Encounters Encounter ID Performer Location Encounter Start Date Encounter Closed Date Diagnosis/Indication Diagnosis SNOMED-CT Code Diagnosis ICD10 Code Diagnosis Note [id number] ABDI SIMON MD [facility] [address] [place] [address] 10/02/2024 10:14:25 10/02/2024 11:41:04 Chronic hoarseness 3420406801 105 R49.0 Chronic ob structive pulmonary disease 96732288 J44.9 Health Concerns Section Related Observation LastModified by Organization Detai ls LastModified Time None Recorded Concern Status LastModified by Organization Details LastModified Time None Recorded Advance Directives Directive None Recorded Payers Encounter Date Sequence Insurance Name Policy Number Policy Carrasco Covered Member ID Carrasco Member ID Guarantor Name 10/02/2024 2 [facility] IN[facility] - [facility] [id number] 2 Nicky Gunter [id number] Nicky Gunter 10/02/2024 1 MEDICARE [place]: [facility] [employer] Nicky Gunter [id number] Nicky Gunter Notes Date Note Type Note Provider Name and Address Organization Details Recorded Time 10/02/2024 text/html hoarseonset arou nd June recent CVAon breathing treatment daily - rinses mouth diligently pmhx - COPD, afib, pacemakercervical fusion, right anterior and posterior approach 10/07/2016 Espinoza - micro laryngoscopy with excision right vocal cord lesion, benign ABDI SIMON MD [address] [place] [address], [place], [address], [place] - [facility] 10/02/2024 11:01:40
--- OUTSIDE RECORDS SUMMARY | 2024-12-13 14:15 | XMS_ITS | Encounter Summary ---
Author Organization [employer] [facility] Address [address] [place] [address] 7 [place] [address] Care Team Providers Care Coagulating Bath Operator Name Role Phone Shweta Collins MD Primary Care Provider [phone] Encounter Details Date Type Department Care Team (Late st Contact Info) Description 12/30/2022 Orders Only [facility] MEDICAL [address] [place] [address] Provider, Historical, Social History Tobacco Use Types Packs/Day Years [...] 02/11/2025 12:00 PM EDT Office Visit [facility] MEDICAL [address] [place] [address] Shweta Collins MD [address] [place] [address] documented as of this encounter Procedures Procedure Name Priority Date/Time Associated Diagnosis Comments CBC AND DIFFERENTIAL - WAM A ND NON-WAM Routine 12/27/2022 documented in this encounter Results * CBC and differential (12/27/2022) Blood Venous blood specimen / Unknown us Historical Provider LAB BLOOD ORDERABLES Cynthia l Result documented in this encounter Visit Diagnoses Not on filedocumented in this encounter Care Teams Coagulating Bath Operator Relationship Specialty Start Date End Date Shweta Collins MD [address] [place] [address] PCP - General Internal Medicine 11/30/22December Debo Registered Nurse Case Management 07/17/23 documented as of this encounter
--- OUTSIDE RECORDS SUMMARY | 2024-12-13 14:15 | XMS_ITS | Encounter Summary ---
Author Organization [employer] Address [address] [facility] 7t [place] [address] Care Team Providers Care Stud Beef Cattle Farmer Name Role Phone Shweta Collins MD Primary Care Provider [phone] Encounter Details Date Type Department Care Team (Late st Contact Info) Description 11/10/2023 Orders Only [facility] MEDICAL [address] [place] [address] Shweta Collins MD [address] [place] [address] Iron deficiency anemia, unspecified iron deficiency anemia [...] [facility] MEDICAL [address] [place] [address] Shweta Collins MD [address] [place] [address] documented as of this encounter Visit Diagnoses Diagnosis Iron deficiency anemia, unspecified iron deficiency anemia type Hyponatremia Hyposmolality and/or hyponatremia documented in this encounter Care Teams Stud Beef Cattle Farmer Relationship Specialty Start Date End Date Shweta Collins MD [address] [place] [address] PCP - General Internal Medicine 11/30/22December Debo Registered Nurse Case Management 07/17/23 documented as of this encounter
--- OUTSIDE RECORDS SUMMARY | 2024-12-13 14:15 | XMS_ITS | Encounter Summary ---
Author Organization [employer] Address [address] [facility] 7t [place] [address] Care Team Providers Care Correctional Counselor Name Role Phone Shweta Collins MD Primary Care Provider Encounter Details Date Type Department Care Team (Late st Contact Info) Description 01/19/2024 Orders Only [facility] MEDICAL [address] [place] [address] Shweta Collins MD [address] [place] [address] Iron deficiency anemia, unspecified iron deficiency anemia [...] Description 02/11/2025 12:00 PM EDT Office Visit [facility] MEDICAL [address] [place] [address] Shweta Collins MD [address] [place] [address] documented as of this encounter Visit Diagnoses Diagnosis Iron deficiency anemia, unspecified iron deficiency anemia type Hyponatremia Hyposmolality and/or hyponatremia documented in this encounter Care Teams Correctional Counselor Relationship Specialty Start Date End Date Shweta Collins MD [address] [place] [address] PCP - General Internal Medicine 11/30/22December Debo Registered Nurse Case Management 07/17/23 documented as of this encounter
== END 2024-12-13 12:08 | disposition home or self-care (01) ==
LOC: HO.HPS 11:38
PROVIDERS: PCP Internal Medicine; Visit Provider Hospitalist
DX: R91.8 Other nonspecific abnormal finding of lung field (principal); J41.8 Mixed simple and mucopurulent chronic bronchitis; J96.11 Chronic respiratory failure with hypoxia; J96.12 Chronic respiratory failure with hypercapnia; J98.11 Atelectasis
CPT/HCPCS: 99214; G2211

== ENCOUNTER → 2024-12-13 11:37 | Outpatient (BNVA) | payer MEDICARE, OTHER, SELFPAY | PROVIDERS: PCP Internal Medicine; Visit Provider Hospitalist | DX: J41.8 Mixed simple and mucopurulent chronic bronchitis (principal); R91.8 Other nonspecific abnormal finding of lung field; J96.11 Chronic respiratory failure with hypoxia; J96.12 Chronic respiratory failure with hypercapnia; J98.11 Atelectasis | CPT/HCPCS: 99212 ==

== ENCOUNTER → 2024-12-31 10:29 | Outpatient (BNVA) | payer MEDICARE, OTHER, SELFPAY | PROVIDERS: PCP Internal Medicine; Visit Provider Urology | DX: N40.1 Benign prostatic hyperplasia with lower urinary tract symptoms (principal); N13.8 Other obstructive and reflux uropathy; C61 Malignant neoplasm of prostate | CPT/HCPCS: 99212 ==

== ENCOUNTER 2024-12-31 10:54 | Outpatient (AMB) | payer MEDICARE, OTHER, SELFPAY ==
--- NOTE | 2024-12-31 10:29 | MHC.OFFVIS ---
Intake Visit Reasons: 6 month follow up/ PSA(psa?) Intake Note: Patient is present for 6M/PSA Urology Medication:TAMSULOSIN,DUTASTERIDE Antibiotic Allergy:LEVOFLOXACIN,SULFA Blood Thinner:NONE Technical Support Assistant Required: No Allergies finasteride Allergy (Intermediate, Verified 12/31/24 10:31) Rash and Hives levofloxacin [Levaquin] Allergy (Intermediate, Verified 12/31/24 10:31) Rash and Hives Sulfa (Sulfonamide Antibiotics) Allergy (Intermediate, Verified 12/31/24 10:31) Rash and Hives Biaxin Allergy (Intermediate, Uncoded 12/31/24 10:31) Rash and Hives ivp contrast Allergy (Intermediate, Uncoded 12/31/24 10:31) Rash and Hives flu shot (senior) Allergy (Uncoded 12/31/24 10:31) hives FLU Vaccine Adverse Reaction (Severe, Uncoded 12/31/24 10:31) Anaphylaxis HPI Comments Details: Mr Gunter is a very pleasant . They are a patient of Dr Collins. They are seen in the office today for the following urologic conditions. - prostate cancer - BPH with nocturia PSA continuing to rise rapidly Combination dutasteride and tamsulosin PSA 05/18 22.9, 12/17 [address] scan in order to check for metastatic disease Persistent high FSH and high testosterone Prior MRI shows no joanne mass Prostate cancer: Second biopsy negative Prostate cancer was diagnosed 05/[address] Gomes. Diagnosis was reached by needle biopsy, for elevated PSA, PSA at diagnosis 6.6 , size at TRUS 45cc Feb 2018 , needle biopsy, for elevated PSA, PSA at diagnosis 16.5. The Poli grade is 3+3 = 6 1/12 cores 10% - February 2018 HGPIN /12 cores - no cancer on directed cores - May 2020 - no cancer seen TNM Classification of Malignant Tumours (TNM) T1c. The D'Heidy (NCCN) risk category is Low Risk (PSA< 10, Gl < 7, T1c). Initial therapy included Primary treatment, Observation, 5AR - Side effect with finasteride - sore testicles - tolerates dutasteride Recent labs included a PSA (prostate-specific antigen) April 2011 3.3, August 2012 5.4, January 2013 5.5, January 2014 6.9, June 2016 12.9 (unsure if on 5AR), Sep 2016 13.28 February 2017 13.5 on 5AR 01/10 , a PSA (prostate-specific antigen) 16.2, 09/11 16 02/10 18.4, 04/12 20.6, 09/12 28.3 04/13 28 - 11/15 27.8, 05/15 33, 09/14 27, 03/16 35 T 800, 04/15 T 750 FSH 18 Recent imaging included an MRI (magnetic resonance imaging) April 2015 prostate volume 36 cc, area of hypointensity and peripheral zone of the left base without abnormal enhancement kinetics. No evidence of capsular invasion or lymphadenopathy 04/10 MRI (magnetic resonance imaging) prostate volume 34 cc. Peripheral zone left basal focal region Pi-RADS 3. No definitive change since 2014. 03/13 Bone Scan negative 09/12 MRI (magnetic resonance imaging) 2.5cm left anterior transition at base - increase in size - 09/14 Bone Scan NAD [facility] Medical History (Updated 12/13/24 @ 12:04 by Jason Collazo MD) Pulmonary nodules Diabetes Chronic respiratory failure COPD (chronic obstructive pulmonary disease) Hypertension Chondrocalcinosis of right knee Primary osteoarthritis of right knee ROLA (obstructive sleep apnea) Atelectasis Prostate cancer Elevated PSA Social History Patient Tobacco Use Status: Former Tobacco user Tobacco use type: Cigarette Years Smoked: 20 years Current occupational status: retired Current occupation: Right Handed Review of Systems Const Denies chills and Denies fever(s) Card Reports no additional complaints and Denies syncope Resp Denies cough GI Denies abdominal pain and Denies heartburn Reports as per HPI and Denies change in libido Neuro Denies syncope Psych Denies change in libido Endo Denies change in libido Physical Exam Const General: cooperative, healthy appearing, comfortable and no acute distress Orientation/consciousness: patient oriented x3 HEENT Face and sinus: Yes normal facial exam Mouth: moist mucous membranes Neck Neck: Yes normal visual inspection, Yes full ROM and Yes trachea midline Chest Chest palpation & inspection: normal inspection of the chest Resp Effort & Inspection: normal respiratory effort, able to speak in complete sentences and no respiratory distress GI Inspection: Yes normal to inspection Back/Spine/Pelvis Cervical Spine: normal cervical lordosis Thoracic/Lumbar Spine: thoracic and lumbar spine normal to inspection Skin General skin exam: no rashes or lesions noted Neuro General: patient oriented x3, gait normal, tone normal and moves all extremities Extrem General: Yes normal to inspection and Yes capillary refill normal Assessment & Plan Assessment & Plan (1) Prostate cancer: Comment: low volume, high PSA Code(s): C61 - Malignant neoplasm of prostate Category: Medical (2) BPH w urinary obs/LUTS: Code(s): N40.1 - Benign prostatic hyperplasia with lower urinary tract symptoms; N13.8 - Other obstructive and reflux uropathy Category: Medical Plan Total body imaging PET-CT Orders: Orders PET CT fusion skull to thigh 12/31/24 C61 - Malignant neoplasm of prostate Patient Instructions: This note is constructed using voice recognition software. While every effort has been made to ensure accuracy threading machine operator errors may have been included. Imaging studies, laboratory and physical exam results were discussed and reviewed in detail. No major barriers to patient understanding were identified. An opportunity to ask questions regarding the treatment plan was provided. All questions were answered. The patient expressed understanding and agreement with the above treatment plan. The patient is aware they should contact our office by phone for worsening of their current condition or the appearance of new urologic symptoms. Compliance is encouraged with any medications and followup testing that is ordered. It is a privilege to participate in the urologic care of your patient. If you have any questions or concerns regarding treatment for the above conditions, or other urologic issues, please do not hesitate to contact me. The office telephone contact is [phone]. Sincerely, Dr Rommel Gomes MD, [facility] - Urology Compassionate Specialist Care for the Genitourinary System Coding Level of Care Code Est Pt Level 4 (22022) Complex EM visit Add On G2211 Diagnoses Prostate cancer C61 BPH w urinary obs/LUTS N40.1; N13.8
--- OUTSIDE RECORDS SUMMARY | 2024-12-31 12:32 | XMS_ITS | Encounter Summary ---
Author Organization [employer] Address [address] [facility] 7t [place] [address] Care Team Providers Care Bee Robber Name Role Phone Shweta Collins MD Primary Care Provider [phone] Encounter Details Date Type Department Care Team (Late st Contact Info) Description 09/29/2023 Orders Only [facility] MEDICAL [address] [place], [place] [id number] Shweta Collins MD [address] [place] [address] Iron deficiency anemia, unspecified iron deficiency anemia [...] Description 02/11/2025 12:00 PM EDT Office Visit [facility] MEDICAL [address] [place] [address] Shweta Collins MD [address] [place] [address] documented as of this encounter Visit Diagnoses Diagnosis Iron deficiency anemia, unspecified iron deficiency anemia type Hyponatremia Hyposmolality and/or hyponatremia documented in this encounter Care Teams Bee Robber Relationship Specialty Start Date End Date Shweta Collins MD [address] [place] [address] PCP - General Internal Medicine 11/30/22December Debo Registered Nurse Case Management 07/17/23 documented as of this encounter
--- OUTSIDE RECORDS SUMMARY | 2024-12-31 12:32 | XMS_ITS | Encounter Summary ---
Author Organization [facility] Address [address] [place] [address] Care Team Providers Care Echo Vascular Technologist Name Role Phone Shweta Collins MD Primary Care Provider Unavailab Brenden Bay MD Unavailable Unavailable Collette Jones NP Unavailable [phone] Encounter Details Date Type Department Care Team Description 06/22/[facility] [address] [place] [address] Social History Tobacco Use Types Packs/Day Years Used Date Smoking Tobacco: Former Smokeless Tobacco: Never Alcohol Use Standard Drinks/Week Comments Not Currently 0 (1 standard drink = 0.6 oz pur e alcohol) Sex Assigned at Date Recorded Not on file Job Start Date Occupation Industry Not on file Not on file Not on file documented as of this encounter Plan of Treatment Not on file documented as of this encounter Procedures Procedure Name Priority Date/Time Associated Diagnosis Comments OUTSIDE PLAIN FILM Routine 06/22/2023 documented in this encounter Results * OUTSIDE PLAIN FILM (06/22/2023) Provider Abstract RADIOLOGY documented in this encounter Visit Diagnoses Not on filedocumented in this encounter Care Teams Echo Vascular Technologist Relationship Specialty Start Date End Date Shweta Collins MD PCP - General Internal Medicine 09/05/17 Brenden Curry MD Director Cpg Cardiovascular Disease 04/05/21 Collette Jones NP Nurse Practitioner Cardiology 04/05/21 documented as of this encounter
--- OUTSIDE RECORDS SUMMARY | 2024-12-31 12:32 | XMS_ITS | Encounter Summary ---
Author Organization [employer] Address [address] [facility] 7t [place] [address] Care Team Providers Care Gear Shaver Set Up Operator Name Role Phone Shweta Collins MD Primary Care Provider Encounter Details Date Type Department Care Team (Late st Contact Info) Description 08/18/2023 Orders Only [facility] MEDICAL [address] [place] [address] Shweta Collins MD [address] [place] [address] Iron deficiency anemia, unspecified iron deficiency anemia [...] Description 02/11/2025 12:00 PM EDT Office Visit [facility] MEDICAL [address] [place] [address] Shweta Collins MD [address] [place] [address] documented as of this encounter Visit Diagnoses Diagnosis Iron deficiency anemia, unspecified iron deficiency anemia type Hyponatremia Hyposmolality and/or hyponatremia documented in this encounter Care Teams Gear Shaver Set Up Operator Relationship Specialty Start Date End Date Shweta Collins MD [address] [place] [address] PCP - General Internal Medicine 11/30/22December Debo Registered Nurse Case Management 07/17/23 documented as of this encounter
--- OUTSIDE RECORDS SUMMARY | 2024-12-31 12:32 | XMS_ITS | Encounter Summary ---
Author Organization [employer] Address [address] [facility] [address] 7[address] [place] [address] Care Team Providers Care Tooling Supervisor Name Role Phone Shweta Collins MD Primary Care Provider Encounter Details Date Type Department Care Team (Late st Contact Info) Description 08/10/[address] [facility] MEDICAL [address] [place] [address] Provider, MD Juwan Social History Tobacco Use [...] 02/11/2025 12:00 PM EDT Office Visit [facility] MEDICAL [address] [place] [address] Shweta Collins MD [address] [place] [address] documented as of this encounter Procedures Procedure Name Priority Date/Time Associated Diagnosis Comments B TYPE NATRIURETIC PEPTIDE (BNP) Routine 08/07/2023 documented in this encounter Results * B Type Natriuretic Peptide (BNP) (08/07/2023) Blood Venous blood specimen / Unknown us Historical Provider LAB BLOOD ORDERABLES Cynthia l Result documented in this encounter Visit Diagnoses Not on filedocumented in this encounter Care Teams Tooling Supervisor Relationship Specialty Start Date End Date Shweta Collins MD [address] [place] [address] PCP - General Internal Medicine 11/30/22December Debo Registered Nurse Case Management 07/17/23 documented as of this encounter
--- OUTSIDE RECORDS SUMMARY | 2024-12-31 12:32 | XMS_ITS | Encounter Summary ---
Author Organization [employer] Address [address] [facility] 7t [place] [address] Care Team Providers Care Personal Lines Sales Rep Name Role Phone Shweta Collins MD Primary Care Provider [phone] Encounter Details Date Type Department Care Team (Late st Contact Info) Description 10/13/[address] [facility] MEDICAL [address] [place] [address] Shweta Collins MD [address] [place] [address] Iron deficiency anemia, unspecified iron deficiency anemia [...] 12:00 PM EDT Office Visit [facility] MEDICAL [address] [place] [address] Shweta Collins MD [address] [place] [address] documented as of this encounter Visit Diagnoses Diagnosis Iron deficiency anemia, unspecified iron deficiency anemia type Hyponatremia Hyposmolality and/or hyponatremia documented in this encounter Care Teams Personal Lines Sales Rep Relationship Specialty Start Date End Date Shweta Collins MD [address] [place] [address] PCP - General Internal Medicine 11/30/22December Debo Registered Nurse Case Management 07/17/23 documented as of this encounter
--- OUTSIDE RECORDS SUMMARY | 2024-12-31 12:32 | XMS_ITS | Encounter Summary ---
Author Organization [employer] Address [address] [facility] 7t [place] [address] Care Team Providers Care Precast Concrete Ironworker Name Role Phone Shweta Collins MD Primary Care Provider Encounter Details Date Type Department Care Team (Late st Contact Info) Description 09/01/2023 Orders Only [facility] MEDICAL [address] [place] [address] Shweta Collins MD [address] [place] [address] Iron deficiency anemia, unspecified iron deficiency anemia [...] 02/11/2025 12:00 PM EDT Office Visit Nay[facility] MEDICAL [address] [place] [address] Shweta Collins MD [address] [place] [address] documented as of this encounter Procedures Procedure Name Priority Date/Time Associated Diagnosis Comments CBC Routine 09/01/2023 11:25 AM EST Iron deficiency anemia, unspecified iron deficiency anemia type BASIC METABOLIC PANEL Routine 09/01/2023 11:25 AM EST Iron deficiency anemia, unspecified iron deficiency anemia type documented in this encounter Results * (ABNORMAL) Basic Metabolic Panel (09/01/2023 11:25 AM EST) Glucose 208(H) (70-99) MG/DL [facility] BUN 6(L) (8-23) MG/DL [facility] Creatinine, Serum 0.4(L) (0.7-1.2) MG/DL [facility] Sodium 133 (133-145) MMOL/L [facility] Potassium 4.1 (3.6-5.2) MMOL/L [facility] Chloride 93(L) (98-107) MMOL/L [facility] Bicarbonate 31(H) (22-29) MMOL/L [facility] Anion Gap 9 (4-17) [facility] Calcium 9.7 (8.6-10.5) MG/DL [facility] eGFR Creatinine 111 ML/MIN/1.7 3 M2 [facility] Comment: Creatinine based estimated glomerular filtration (eGFR) in adults is calculated using the National Kid[employer] recommended 2020 CKD-EPI equation. Estimates GFR from serum creatinine, age and sex. Testing performed or reported by [facility], a Service of [facility], [address] [place] [address] Luis Ayers MD, Senior Software Qa Analyst [facility]# [id number] 09/01/2023 11:2 5 AM EST 09/01/2023 11:35 AM EST Shweta Collins MD LAB BLOOD ORDERABLES Final Resul t [facility] [address] [place] [address] * (ABNORMAL) CBC (09/01/2023 11:25 AM EST) WBC 8.5 (4.0-11.0) K/MM3 [facility] RBC 4.04(L) (4.70-6.10 ) M/MM3 [facility] HGB 9.3(L) (13.7-17.1 ) GM/DL [facility] HCT 30.9(L) (40.5-50.0 ) % [facility] MCV 76.5(L) (80.0-94.0 ) FL [facility] MCH 23.0(L) (27.0-34.0 ) PG [facility] McHC 30.1(L) (33.0-37.0 ) g/dL [facility] PLT 402 (150-460) K/MM3 [facility] RDW-SD 47.6(H) (<47.0) FL [facility] MPV 10.0 (9.4-12.4) FL [facility] Automated NRBC 0.0 #/100 WBC'S [facility] ABS NRBC 0.0 K/MM3 [facility] Comment: Testing performed or reported by [facility], a Service of [facility], [address] [place] [address] Luis Ayers MD, Senior Software Qa Analyst [facility]# [id number] 09/01/2023 11:2 5 AM EST 09/01/2023 11:35 AM EST Shweta Collins MD LAB BLOOD ORDERABLES Final Resul t [facility] [address] [place], [place] [id number] documented in this encounter Visit Diagnoses Diagnosis Iron deficiency anemia, unspecified iron deficiency anemia type Hyponatremia Hyposmolality and/or hyponatremia documented in this encounter Care Teams Precast Concrete Ironworker Relationship Specialty Start Date End Date Shweta Collins MD [address] [place] [address] PCP - General Internal Medicine 11/30/22December Debo Registered Nurse Case Management 07/17/23 documented as of this encounter
--- OUTSIDE RECORDS SUMMARY | 2024-12-31 12:32 | XMS_ITS | Encounter Summary ---
Author Organization [facility] Address [address] [place] [address] Care Team Providers Care Counseling Program Leader Name Role Phone Shweta Collins MD Primary Care Provider Unavailab Brenden Bay MD Unavailable Unavailable Collette Jones NP Unavailable [phone] Encounter Details Date Type Department Care Team Description 11/14/2022 [facility] Medical Records [address] [place] [address] Elder, [place] Social History Tobacco Use Types Packs/Day Years Used Date Smoking Tobacco: Former Smokeless Tobacco: Never Alcohol Use Standard Drinks/Week Comments Not Currently 0 (1 standard drink = 0.6 oz pur e alcohol) rarely Sex Assigned at Date Recorded Not on file Job Start Date Occupation Industry Not on file Not on file Not on file documented as of this encounter Plan of Treatment Not on file documented as of this encounter Procedures Procedure Name Priority Date/Time Associated Diagnosis Comments OUTSIDE LAB Routine 11/14/2022 OUTSIDE LAB Routine 11/14/2022 documented in this encounter Results * OUTSIDE LAB (11/14/2022) Provider Abstract LAB * OUTSIDE LAB (11/14/2022) Provider Abstract LAB documented in this encounter Visit Diagnoses Not on filedocumented in this encounter Care Teams Counseling Program Leader Relationship Specialty Start Date End Date Shweta Collins MD PCP - General Internal Medicine 09/05/17 Brenden Curry MD Dentist Cardiovascular Disease 04/05/21 Collette oJnes NP Nurse Practitioner Cardiology 04/05/21 documented as of this encounter
--- OUTSIDE RECORDS SUMMARY | 2024-12-31 12:32 | XMS_ITS | Encounter Summary ---
Author Organization [email or web address] Address [address] [facility] 7t [place] [address] Care Team Providers Care Wheel Setter Name Role Phone Shweta Collins MD Primary Care Provider [phone] Encounter Details Date Type Department Care Team (Late st Contact Info) Description 09/15/[address] [facility] MEDICAL [address] [place] [address] Shweta Collins MD [address] [place] [address] Iron deficiency anemia, unspecified iron deficiency anemia [...] 12:00 PM EDT Office Visit [facility] MEDICAL [address] [place] [address] Shweta Collins MD [address] [place] [address] documented as of this encounter Visit Diagnoses Diagnosis Iron deficiency anemia, unspecified iron deficiency anemia type Hyponatremia Hyposmolality and/or hyponatremia documented in this encounter Care Teams Wheel Setter Relationship Specialty Start Date End Date Shweta Collins MD [address] [place] [address] PCP - General Internal Medicine 11/30/22December Debo Registered Nurse Case Management 07/17/23 documented as of this encounter
--- OUTSIDE RECORDS SUMMARY | 2024-12-31 12:33 | XMS_ITS | Encounter Summary ---
Author Organization [employer] Address [address] [facility] 7t [place] [address] Care Team Providers Care Access Services Assistant Name Role Phone Shweta Collins MD Primary Care Provider [phone] Encounter Details Date Type Department Care Team (Late st Contact Info) Description 01/19/2024 Orders Only [facility] MEDICAL [address] [place], [place] [id number] Shweta Collins MD [address] [place] [address] Iron deficiency anemia, unspecified iron deficiency anemia [...] Description 02/11/2025 12:00 PM EDT Office Visit [facility] MEDICAL [address] [place] [address] Shweta Collins MD [address] [place] [address] documented as of this encounter Visit Diagnoses Diagnosis Iron deficiency anemia, unspecified iron deficiency anemia type Hyponatremia Hyposmolality and/or hyponatremia documented in this encounter Care Teams Access Services Assistant Relationship Specialty Start Date End Date Shweta Collins MD [address] [place] [address] PCP - General Internal Medicine 11/30/22December Debo Registered Nurse Case Management 07/17/23 documented as of this encounter
--- OUTSIDE RECORDS SUMMARY | 2024-12-31 12:33 | XMS_ITS | Encounter Summary ---
Author Organization [facility] Address [address] [place] [address] Care Team Providers Care Vamper Name Role Phone Shweta Collins MD Primary Care Provider Unavailab Brenden Bay MD Unavailable Unavailable Collette Jones NP Unavailable [phone] Reason for Visit * Reason Onset Date Comments medication problems 04/22/2019 prednisone Encounter Details Date Type Department Care Team Description 04/22/2019 Telephone Pulmonology - [address] [place] [address] Jason Collazo MD medication problems (prednisone) Social History Tobacco Use Types Packs/Day Years Used Date Smoking Tobacco: Former Smokeless Tobacco: Never Alcohol Use Standard Drinks/Week Comments No 0 (1 standard drink = 0.6 oz pur e alcohol) Sex Assigned at Date Recorded Not on file Job Start Date Occupation Industry Not on file Not on file Not on file documented as of this encounter Miscellaneous Notes * Telephone Encounter - Yu Graff M.A. - 04/23/2019 9:49 AM EDT Please advise. * Telephone Encounter - Darya Santa - 04/23/2019 9:31 AM EDT Patient will be in the area this morning and would like to diamond picker the script for the Prednisone 5 mg See note below * Telephone Encounter - Kath Claire M.A. - 04/22/2019 2:41 PM EDT Pt's states because the Rx for Prednisone 5mg states 2 daily for 30 days, they filled it as Prednisone 10mg once daily. She is requesting a new rx be made with the tapering schedule because per Dr Jackson, the pt should be weaning off. documented in this encounter Plan of Treatment Not on file documented as of this encounter Visit Diagnoses Not on filedocumented in this encounter Care Teams Vamper Relationship Specialty Start Date End Date Shweta Collins MD PCP - General Internal Medicine 09/05/17 Brenden Curry MD Terminal Operator Cardiovascular Disease 04/05/21 Collette Jones NP Nurse Practitioner Cardiology 04/05/21 documented as of this encounter
--- OUTSIDE RECORDS SUMMARY | 2024-12-31 12:33 | XMS_ITS | Encounter Summary ---
Author Organization [employer] Address [address] [facility] 7t [place] [address] Care Team Providers Care Bus Inspector Name Role Phone Shweta Collins MD Primary Care Provider [phone] Encounter Details Date Type Department Care Team (Late st Contact Info) Description 12/08/2023 Orders Only [facility] MEDICAL [address] [place], [place] [phone] Shweta Collins MD [address] [place] [address] Iron deficiency anemia, unspecified iron deficiency anemia [...] Description 02/11/2025 12:00 PM EDT Office Visit [facility] MEDICAL [address] [place] [address] Shweta Collins MD [address] [place] [address] documented as of this encounter Visit Diagnoses Diagnosis Iron deficiency anemia, unspecified iron deficiency anemia type Hyponatremia Hyposmolality and/or hyponatremia documented in this encounter Care Teams Bus Inspector Relationship Specialty Start Date End Date Shweta Collins MD [address] [place] [address] PCP - General Internal Medicine 11/30/22December Debo Registered Nurse Case Management 07/17/23 documented as of this encounter
--- OUTSIDE RECORDS SUMMARY | 2024-12-31 12:33 | XMS_ITS | Clinical Summary ---
Author Organization [facility] Address [address] [place] [address] Phone Care Team Providers Care Molecular Biologist Name Role Phone Unavailable Primary Care Provider [...] Diabetes: Visual Foot Exam 07/28/2022 Influenza Vaccine (Season Ended) 2025 06/09/2022, 06/09/2021, 07/29/2019, Additional history exists Pneumococcal Vaccine: 65+ Years Completed 08/12/2019, 06/20/2016 Hepatitis B Vaccine Aged Out No longe r eligible based on patient's age to complete this topic Insurance MEDICARE [facility] [place] [id number] MEDICARE [facility]
--- OUTSIDE RECORDS SUMMARY | 2024-12-31 12:33 | XMS_ITS | Encounter Summary ---
Author Organization [facility] Address [address] [place] [address] Care Team Providers Care Management Coordinator Name Role Phone Shweta Collins MD Primary Care Provider Unavailab Brenden Bay MD Unavailable Unavailable Collette Jones NP Unavailable [phone] Reason for Visit * Reason Onset Date Comments other 09/27/2023 Capsule endoscoo y Encounter Details Date Type Department Care Team Description 09/27/2023 Telephone Cardio PVC [facility] [address] [place] [address] Brenden Curry MD other (Capsule endoscooy ) Social History Tobacco Use Types Packs/Day Years [...] encounter Miscellaneous Notes * Telephone Encounter - Felicity Jj - 09/27/2023 12:17 PM EST Called [facility] and was told very low likelihood for interference so it is safe for patient to have this test. Called Brittany and advised. * Telephone Encounter - Aric Marcum - 09/27/2023 11:15 AM EST Brittany pt`s spouse called. Nicky is having a capsule endoscopy On 09/28/2022 with 'Dr. Wallis . Will this interfere the pacer that Nicky has ? With the signals? Please call Brittany at Or [phone] aricdoulgas documented in this encounter Plan of Treatment Not on file documented as of this encounter Visit Diagnoses Not on filedocumented in this encounter Care Teams Management Coordinator Relationship Specialty Start Date End Date Shweta Collins MD PCP - General Internal Medicine 09/05/17 Brenden Curry MD Entrepreneurial Finance Professor Cardiovascular Disease 04/05/21 Collette Jones NP Nurse Practitioner Cardiology 04/05/21 documented as of this encounter
--- OUTSIDE RECORDS SUMMARY | 2024-12-31 12:33 | XMS_ITS | Encounter Summary ---
Author Organization [facility] Address [address] [place] [address] Care Team Providers Care Finished Yarn Examiner Name Role Phone Shweta Collins MD Primary Care Provider Unavailab Brenden Bay MD Unavailable Unavailable Collette Jones CONDOMINIUM MANAGER Unavailable Reason for Visit * Reason Comments Remote Device Check Encounter Details Date Type Department Care Team Description 09/08/2022 Remote Device Check Cardio PVC POC [address] [facility] [address] [place] [address] Emil Bee MD [address] [place] [address] Social History Tobacco Use Types Packs/Day Years Used Date Smoking Tobacco: Former Smokeless Tobacco: Never Alcohol Use Standard Drinks/Week Comments Not Currently 0 (1 standard drink = 0.6 oz pur e alcohol) rarely Sex Assigned at Date Recorded Not on file Job Start Date Occupation Industry Not on file Not on file Not on file COVID-19 Exposure Response Date Recorded In the last 10 days, have yo u been in contact with someone who was confirmed or suspected to have Coronavirus/COVID-19? No / Unsure 09/07/2022 1:29 PM EST documented as of this encounter Plan of Treatment Not on file documented as of this encounter Visit Diagnoses Not on filedocumented in this encounter Care Teams Finished Yarn Examiner Relationship Specialty Start Date End Date Shweta Collins MD PCP - General Internal Medicine 09/05/17 Brenden Curry MD Furniture Cleaner Cardiovascular Disease 04/05/21 Collette Jones NP Nurse Practitioner Cardiology 04/05/21 documented as of this encounter
--- OUTSIDE RECORDS SUMMARY | 2024-12-31 12:33 | XMS_ITS | Clinical Summary ---
Author Organization [address] [place] [address] Address [address] [place] [address] Phone Care Team Providers Care Airline Pilot/First Officer Name Role Phone Shweta Collins MD Primary Care Provider [phone] Allergies Active Allergy Reactions Criticality Noted Date [...] Encounters Date Type Department Care Team Description 12/27/2024 8:40 PM EDT Ancillary Procedure [facility] [address] [place] [address] 12/04/2024 8:05 AM EDT Ancillary Procedure [facility] - [address] [place] [address] from Last 3 Months Surgical History Surgery Date Site/Laterality Comments HERNIA REPAIR PROCEDURE: HISTORICAL HERNIA REPAIR/ING Medical History Medical History Date Comments Lung nodule 08/19/2017 DX:Lung nodule Depression 08/19/2017 DX:Depression Hypertension 08/19/2017 DX:Hypertension Diabetes mellitus type 2, uncomplicated 08/19/2017 DX:Diabetes mellitus type 2, uncomplicated (HCC) Psoriasis 08/19/2017 DX:Psoriasis History of gastric ulcer 08/19/2017 DX:Hist ory of gastric ulcer Asbestosis ([facility]/HCC) 07/17/2017 DX:Asbestos is (HCC) Chronic obstructive pulmonar y disease ([facility]/HCC) 07/17/2017 DX:Chronic obstructive pulmo nary disease (HCC) [...] Description 01/17/2025 10:20 AM EDT Office Visit [facility] - [facility] [address] [place] [address] Dr [address] [place] [phone] Bridger Farooq MD [address] [place] [address] [address] [place] [address] 09/22/2025 11:00 AM EST Ancillary Procedure [facility] [address] [facility] [address] [place] [phone] Health Maintenance Due Date Last Done Comments [...] Urine Albumin-Creatinine Ratio (uACR) 09/07/2022 RSV Immunization Adult Patients (1 - 1-dose 75+ series) 2023 COVID-19 Vaccine ( season) 2024 06/24/2022, 07/02/2021, 11/23/2020, Additional history exists Diabetes: Blood Sugar Control Test (HGBA1C) 05/20/2025 11/20/2024, 06/26/2024, 05/17/2024 Influenza Vaccine (Season Ended) 2025 07/28/2023, 06/09/2022, 06/09/2021, Additional history exists Falls Risk Assessment 09/11/2025 09/11/2024 Cholesterol Screening [...] age to complete this topic Meningococcal B Vaccine Aged Out No l onger eligible based on patient's age to complete this topic RSV Immunization Patients Under 20 months Aged Out No longer eligible based on patient's age to complete this topic Varicella Vaccines Aged Out No longer eligible based on patient's age to complete this topic Medical Devices Implanted Type Area Population Geneticist Device Identifier Shelf Expiration Date Model / Serial / Lot Christelle-Venkatesh Edora 8 Sr-T [id number] Implanted:11/2021 (Quantity not on file) Cardiac Pacemaker [employer] EDORA 8 SR-T / [id number] / Procedures Procedure Name Priority Date/Time Associated Diagnosis Comments CARDIAC DEVICE CHECK- REMOTE- MURJ Routine 12/27/2024 8:38 PM EDT CARDIAC DEVICE CHECK- REMOTE- MURJ Routine 12/04/2024 8:03 AM EDT from Last 3 Months Results * Cardiac device check - Remote- MURJ (12/27/2024 8:38 PM EDT) Only the most recent of2 resultswithin the time period is included. Date Time Interrogation Session [id number] CV DEVICE CHECK Type Interrogation Session RemoteScheduled CV DEVICE CHECK Implantable Pulse Generator Population Geneticist BIO CV DEVICE CHECK Implantable Pulse Generator Type IPG CV DEVICE CHECK Implantable Pulse Generator Model Edora 8 SR-T CV DEVICE CHECK Implantable Pulse Generator Serial Number [id number] CV DEVICE CHECK Implantable Pulse Generator Implant Date [id number] CV DEVICE CHECK Battery Remaining Percentage 80.00 CV DEVICE CHECK Battery Status Middle of Service CV DEVICE CHECK Alvarez Statistic RV Percent Paced 100.00 CV DEVICE CHECK Lead Channel Sensing Intrinsic Amplitude 9.300 CV DEVICE CHECK Lead Channel Impedance Value 332 CV DEVICE CHECK Lead Channel RV Pacing Threshold Date 2024-05-30 CV DEVICE CHECK Lead Channel Setting Pacing Amplitude 3.000 CV DEVICE CHECK Lead Channel Setting Pacing Pulse Width 0.4 CV DEVICE CHECK Alvarez Setting Mode (NBG Code) VVIR CV DEVICE CHECK Alvarez Setting Lower Rate Limit 70 CV DEVICE CHECK Alvarez Setting Maximum Sensor Rate 120 CV DEVICE CHECK Date of Service 2024-06-09 CV DEVICE CHECK Anatomical Region Laterality Modality Device Interroga tion 05/30/2024 12:1 4 AM EDT Impressions 06/04/2024 3:38 PM EDT Normal Remote: No Events * Normal Device Function * Alerts or events: None * Battery: Battery is at 80%, * Sensing, impedance and thresholds reviewed * Programmed parameters reviewed * Presenting rhythm reviewed * Heart Rate Histograms reviewed * No significant changes noted Narrative Procedure Note Emil Bee MD - 12/27/2024 IMPRESSION: Normal Remote: No Events * Normal Device Function * Alerts or events: None * Battery: Battery is at 80%, * Sensing, impedance and thresholds reviewed * Programmed parameters reviewed * Presenting rhythm reviewed * Heart Rate Histograms reviewed * No significant changes noted us Emil Bee MD CV IMPLANTABLE CARDIAC DEV ICE PROCEDURES Final Result from Last 3 Months Insurance MEDICARE [facility] Care Teams Airline Pilot/First Officer Relationship Specialty Start Date End Date Shweta Collins MD [address] [place] [address] PCP - General Internal Medicine 09/05/17
--- OUTSIDE RECORDS SUMMARY | 2024-12-31 12:33 | XMS_ITS | Encounter Summary ---
Author Organization [facility] Address [address] [place] [address] Care Team Providers Care Tiler Name Role Phone Shweta Collins MD Primary Care Provider Unavailab Brenden Bay MD Unavailable Unavailable Collette Jones NP Unavailable [phone] Encounter Details Date Type Department Care Team Description 12/11/2018 Rn Discharge Report Medical Records [address] [place] [address] Brenden Curry MD Social History Tobacco Use Types Packs/Day Years [...] on filedocumented in this encounter Care Teams Tiler Relationship Specialty Start Date End Date Shweta Collins MD PCP - General Internal Medicine 09/05/17 Brenden Curry MD Oil And Gas Recruiter Cardiovascular Disease 04/05/21 Collette Jones NP Nurse Practitioner Cardiology 04/05/21 documented as of this encounter
--- OUTSIDE RECORDS SUMMARY | 2024-12-31 12:33 | XMS_ITS | Encounter Summary ---
Author Organization [facility] Address [address] [place] [address] Care Team Providers Care Cosmetician Apprentice Name Role Phone Shweta Collins MD Primary Care Provider Unavailab Brenden Bay MD Unavailable Unavailable Collette Jones NP Unavailable [phone] Encounter Details Date Type Department Care Team Description 08/08/2023 Release of Information Medical Records [address] [place] [id number] [place] [address] Social History Tobacco Use Types Packs/Day Years [...] suspected to have Coronavirus/COVID-19? No / Unsure 08/08/2023 9:22 AM EST documented as of this encounter Plan of Treatment Not on file documented as of this encounter Visit Diagnoses Not on filedocumented in this encounter Care Teams Cosmetician Apprentice Relationship Specialty Start Date End Date Shweta Collins MD PCP - General Internal Medicine 09/05/17 Brenden Curry MD Lumber Cutter Cardiovascular Disease 04/05/21 Collette Jones NP Nurse Practitioner Cardiology 04/05/21 documented as of this encounter
--- OUTSIDE RECORDS SUMMARY | 2024-12-31 12:33 | XMS_ITS | Encounter Summary ---
Author Organization [employer] Address [address] [facility] 7[address] [place] [address] Care Team Providers Care Staff Therapist Name Role Phone Shweta Collins MD Primary Care Provider [phone] Encounter Details Date Type Department Care Team (Late st Contact Info) Description 12/22/2023 Orders Only [facility] [address] [place], [place] [phone] Shweta Collins MD [address] [place] [address] Iron deficiency anemia, unspecified iron deficiency anemia [...] 02/11/2025 12:00 PM EDT Office Visit [facility] [address] [place] [address] Shweta Collins MD [address] [place] [address] documented as of this encounter Visit Diagnoses Diagnosis Iron deficiency anemia, unspecified iron deficiency anemia type Hyponatremia Hyposmolality and/or hyponatremia documented in this encounter Care Teams Staff Therapist Relationship Specialty Start Date End Date Shweta Collins MD [address] [place] [address] PCP - General Internal Medicine 11/30/22December Debo Registered Nurse Case Management 07/17/23 documented as of this encounter
--- OUTSIDE RECORDS SUMMARY | 2024-12-31 12:33 | XMS_ITS | Encounter Summary ---
Author Organization [facility] Address [address] [place] [address] Care Team Providers Care Control Equipment Electrician Name Role Phone Shweta Collins MD Primary Care Provider Unavailab Brenden Bay MD Unavailable Unavailable Collette Jones NP Unavailable [phone] Encounter Details Date Type Department Care Team Description 09/12/2017 Release of Information Medical Records [address] [place] [address] Abstract, Provider Social History Tobacco Use Types Packs/Day Years Used Date Smoking Tobacco: Former Sex Assigned at Date Recorded Not on file Job Start Date Occupation Industry Not on file Not on file Not on file documented as of this encounter Plan of Treatment Not on file documented as of this encounter Visit Diagnoses Not on filedocumented in this encounter Care Teams Control Equipment Electrician Relationship Specialty Start Date End Date Shweta Collins MD PCP - General Internal Medicine 09/05/17 Brenden Curry MD De Icer Installer Cardiovascular Disease 04/05/21 Collette Jones NP Nurse Practitioner Cardiology 04/05/21 documented as of this encounter
--- OUTSIDE RECORDS SUMMARY | 2024-12-31 12:33 | XMS_ITS | Encounter Summary ---
Author Organization [facility] Address [address] [place] [address] Care Team Providers Care Alarm Operator Name Role Phone Shweta Collins MD Primary Care Provider Unavailab Brenden Bay MD Unavailable Unavailable Collette Jones NP Unavailable [phone] Encounter Details Date Type Department Care Team Description 04/23/2019 Orders Only Pulmonology - [address] [place] [address] Jason Collazo MD Social History Tobacco Use Types Packs/Day [...] on filedocumented in this encounter Care Teams Alarm Operator Relationship Specialty Start Date End Date Shweta Collins MD PCP - General Internal Medicine 09/05/17 Brenden Curry MD Browning Processor Cardiovascular Disease 04/05/21 Collette Jones NP Nurse Practitioner Cardiology 04/05/21 documented as of this encounter
--- OUTSIDE RECORDS SUMMARY | 2024-12-31 12:33 | XMS_ITS | Encounter Summary ---
Author Organization [facility] Address [address] [place] [address] Care Team Providers Care Wall Attendant Name Role Phone Shweta Collins MD Primary Care Provider Unavailab Brenden Bay MD Unavailable Unavailable Collette Jones NP Unavailable [phone] Encounter Details Date Type Department Care Team Description 08/30/2022 Fastener Sewing Machine Operator Report Medical Records [address] [place] [address] Keshia Sepulveda Social History Tobacco Use Types Packs/Day Years Used Date Smoking Tobacco: Former Smokeless Tobacco: Never Alcohol Use Standard Drinks/Week Comments Yes 0 (1 standard drink = 0.6 oz pur e alcohol) rarely Sex Assigned at Date Recorded Not on file Job Start Date Occupation Industry Not on file Not on file Not on file COVID-19 Exposure Response Date Recorded In the last 10 days, have yo u been in contact with someone who was confirmed or suspected to have Coronavirus/COVID-19? No / Unsure 09/02/2022 10:05 AM EST documented as of this encounter Plan of Treatment Not on file documented as of this encounter Visit Diagnoses Not on filedocumented in this encounter Care Teams Wall Attendant Relationship Specialty Start Date End Date Shweta Collins MD PCP - General Internal Medicine 09/05/17 Brenden Curry MD Assembler Trim Cardiovascular Disease 04/05/21 Collette Jones NP Nurse Practitioner Cardiology 04/05/21 documented as of this encounter
--- OUTSIDE RECORDS SUMMARY | 2024-12-31 12:33 | XMS_ITS | Clinical Summary ---
Author Organization [facility] Address [address] [place] [address] Care Team Providers Care Trailer Chief Name Role Phone Unavailable Primary Care Provider [...] so, obtain the minor's consent prior to disclosure.[facility] Social History Tobacco Use Types Packs/Day Years Used Date Smoking Tobacco: Never Assessed Sex and Gender Information Value Date Recorded Sex Assigned at Not on file Legal Sex Male 2:27 AM EST Gender Identity Not on file Sexual Orientation Not on file Plan of Treatment Not on file
--- OUTSIDE RECORDS SUMMARY | 2024-12-31 12:33 | XMS_ITS | Encounter Summary ---
Author Organization [facility] Address [address] [place] [address] Care Team Providers Care [place] Guide Name Role Phone Shweta Collins MD Primary Care Provider Unavailab Brenden Bay MD Unavailable Unavailable Collette Jones NP Unavailable [phone] Reason for Visit * Reason Onset Date Comments Medication 12/04/2018 Encounter Details Date Type Department Care Team Description 12/04/2018 Telephone Pulmonology - [address] [place] [address] Jason Collazo MD Medication Social History Tobacco Use Types Packs/Day Years [...] Telephone Encounter - Yu Graff M.A. - 12/10/2018 1:48 PM EDT Faxed [place] * Telephone Encounter - Jason Collazo MD - 12/10/2018 12:52 PM EDT The message was from the [place], should be faxed to the [place]. Please see below message * Telephone Encounter - Yu Graff M.A. - 12/10/2018 12:10 PM EDT Medication and oV note faxed to [facility]. * Telephone Encounter - Jason Collazo MD - 12/09/2018 7:35 PM EDT Ok printed, please fax * Telephone Encounter - Kath Claire M.A. - 12/07/2018 1:28 PM EDT L[place]am from the [place] is calling to check on status. She needs a new rx for the Albuterol Nebulizer solution instead of the Xopenex because that is not available at there pharm. If it is ok please fax to: [phone]. If any questions please call: [phone] * Telephone Encounter - Jason Collazo MD - 12/04/2018 4:37 PM EDT ok * Telephone Encounter - Yu Graff M.A. - 12/04/2018 3:23 PM EDT See below * Telephone Encounter - Lorena Nieto - 12/04/2018 2:36 PM EDT Patient was prescribed Xopenex and the pharmacy does not have this. They said they can give him Albuterol solution. documented in this encounter Plan of Treatment Not on file documented as of this encounter Visit Diagnoses Not on filedocumented in this encounter Care Teams [place] Guide Relationship Specialty Start Date End Date Shweta Collins MD PCP - General Internal Medicine 09/05/17 Brenden Curry MD Electrical Power Station Technician Cardiovascular Disease 04/05/21 Collette Jones NP Nurse Practitioner Cardiology 04/05/21 documented as of this encounter
--- OUTSIDE RECORDS SUMMARY | 2024-12-31 12:33 | XMS_ITS | Clinical Summary ---
Author Organization [facility] Address [address] [place] [address] Care Team Providers Care Compilation Clerk Name Role Phone Shweta Collins MD Primary Care Provider Allergies Active Allergy Reactions Criticality Noted Date [...] mg by nebulization daily. 0 Active Tiotropium [place]-Olodaterol (STIOLTO RESPIMAT) 2.5-2.5 MCG/ACT AERS Inhale 2.5 [...] this topic Medical Devices Implanted Type Area Job Recruiter Device Identifier Shelf Expiration Date Model / Serial / Lot Sponge Surgiflo 8ml Hemostatic Matrix Absorbable Latex Free - [id number] - [id number] Implanted:Qty: 1 on 10/30/2017 by Saad Andujar MD at [facility] Hemostatic Agent Anterior: Spine Cervical [employer] 03/24/2019 2991 / / [id number] Sponge Surgiflo 8ml Hemostatic Matrix Absorbable Latex Free - [id number] - [id number] Implanted:Qty: 2 on 10/30/2017 by Saad Andujar MD at [facility] and [facility] Hemostatic Agent Posterior: Spine Cervical [employer] 04/24/2019 2991 / / [id number] Spacer Cervical Allofuse 9mm Cortical Cancellous Freeze [facility] - [id number] - [id number] Implanted:Qty: 1 on 10/30/2017 by Saad Andujar MD at [facility] and [facility] Anterior: Spine Cervical [employer] 01/11/2021 [id number] / [id number] / Screw 14mm Self Drilling - 964114 - [id number] Implanted:Qty: 4 on 10/30/2017 by Saad Andujar MD at [facility] and [facility] Anterior: Spine Cervical [employer] 161.014 / / Plate 20mm Xtend Bone [facility] - [id number] - [id number] Implanted:Qty: 1 on 10/30/2017 by Saad Andujar MD at [facility] and [facility] Anterior: Spine Cervical [employer] 161.120 / / Plate Canopy Shelf 7mm - 869693 - [id number] Implanted:Qty: 3 on 10/30/2017 by Saad Andujar MD at [facility] and [facility] Posterior: Spine Cervical [employer] 1102.401 / / Screw Self-Tapping Laminoplasty 2.6mmx6.0mm - [id number] - [id number] Implanted:Qty: 12 on 10/30/2017 by Saad Andujar MD at [facility] Posterior: Spine Cervical [employer] 136.706 / / Advance Directives For more information, please contact: [phone] Documents on File Type Date Recorded Patient Sausage Grinder Expl anation Advance Directive and Living Will 01/02/2019 11:32 AM Latest Code Status on File Code Status Date Activated Date Inactivated Comments Full Code 10/30/2017 4:01 PM 11/03/2017 10:56 PM This c ode status was ascertained in the following way: per living will or healthcare instructions . Care Teams Compilation Clerk Relationship Specialty Start Date End Date Shweta Collins MD [address] [place] [address] PCP - General Internal Medicine 02/10/17
--- OUTSIDE RECORDS SUMMARY | 2024-12-31 12:33 | XMS_ITS | Encounter Summary ---
Author Organization [employer] Address [address] [facility] [address] 7[address] [place] [address] Care Team Providers Care Internet Marketing Director Name Role Phone Shweta Collins MD Primary Care Provider Reason for Visit * Reason Onset Date Comments fever, change in MS 11/14/2023 Encounter Details Date Type Department Care Team (Late st Contact Info) Description 11/14/2023 Telephone [facility] [address] [place] [address] Guera Garcia RN fever, change in MS [...] call for ambulance. Pt is going to [facility]. Facesheet, meds and problem list faxed to [facility] ED. Attempted to call expect in 3 times, no answer after lengthy holds. Pt's Brittany asked that PCP be informed urgently of event. Sending TE to PCP Dr. Collins. documented in this encounter Plan of Treatment Upcoming Encounters Date Type Department Care Team (Late st Contact Info) Description 02/11/2025 12:00 PM EDT Office Visit [facility] MEDICAL [address] [place] [address] Shweta Collins MD [address] [place] [address] documented as of this encounter Visit Diagnoses Not on filedocumented in this encounter Care Teams Internet Marketing Director Relationship Specialty Start Date End Date Shweta Collins MD [address] [place] [address] PCP - General Internal Medicine 11/30/22December Debo Registered Nurse Case Management 07/17/23 documented as of this encounter
--- OUTSIDE RECORDS SUMMARY | 2024-12-31 12:33 | XMS_ITS | Encounter Summary ---
Author Organization [employer] Address [address] [facility] 7t [place] [address] Care Team Providers Care Recreational Facilities Motel Manager Name Role Phone Shweta Collins MD Primary Care Provider [phone] Encounter Details Date Type Department Care Team (Late st Contact Info) Description 11/10/2023 Orders Only [facility] MEDICAL [address] [place] [address] Shweta Collins MD [address] [place] [address] Iron deficiency anemia, unspecified iron deficiency anemia [...] Description 02/11/2025 12:00 PM EDT Office Visit [facility] MEDICAL [address] [place] [address] Shweta Collins MD [address] [place] [address] documented as of this encounter Visit Diagnoses Diagnosis Iron deficiency anemia, unspecified iron deficiency anemia type Hyponatremia Hyposmolality and/or hyponatremia documented in this encounter Care Teams Recreational Facilities Motel Manager Relationship Specialty Start Date End Date Shweta Collins MD [address] [place] [address] PCP - General Internal Medicine 11/30/22December Debo Registered Nurse Case Management 07/17/23 documented as of this encounter
--- OUTSIDE RECORDS SUMMARY | 2024-12-31 12:33 | XMS_ITS | Encounter Summary ---
Author Organization [employer] Address [address] [facility] 7t [place] [address] Care Team Providers Care Vehicle Detailer Name Role Phone Shweta Collins MD Primary Care Provider Encounter Details Date Type Department Care Team (Late st Contact Info) Description 11/24/2023 Orders Only [facility] [address] [place], [place] [phone] Shweta Collins MD [address] [place] [address] Iron deficiency anemia, unspecified iron deficiency anemia [...] 02/11/2025 12:00 PM EDT Office Visit [facility] MED[facility] [address] [place] [address] Shweta Collins MD [address] [place] [address] documented as of this encounter Visit Diagnoses Diagnosis Iron deficiency anemia, unspecified iron deficiency anemia type documented in this encounter Care Teams Vehicle Detailer Relationship Specialty Start Date End Date Shweta Collins MD [address] [place] [address] PCP - General Internal Medicine 11/30/22December Debo Registered Nurse Case Management 07/17/23 documented as of this encounter
--- OUTSIDE RECORDS SUMMARY | 2024-12-31 12:33 | XMS_ITS | Clinical Summary ---
Author Organization [facility] Address [address] [place] [address] Care Team Providers Care Wind Field Manager Name Role Phone Shweta Collins MD Primary Care Provider Unavailab Brenden Bay MD Unavailable Unavailable Collette Jones NP Unavailable [phone] Allergies Active Allergy Reactions Severity Noted Date Comments Na Wyrhbbtr-Yjhxzohjnhdrjfdm-Yfuugfgnqzx m 08/08/2023 Clarithromycin 10/18/2016 Finasteride 10/21/2016 Influenza Vaccines Hives/Urticaria 08/08/2023 High dose Iodine 09/14/2021 Levofloxacin 10/18/2016 Sulfamethoxazole-Trimethoprim 2016 Trimethoprim 09/14/2021 Medications Medication Sig Dispensed Refills Start Date End Date Status dutasteride (AVODART) 0.5 MG capsule Take 0.5 mg by mouth daily. 0 Active budesonide (PULMICORT) 0.5 MG/2ML nebulizer solution Take 0.5 mg by nebulization daily. 0 Active Roflumilast 500 MCG Tab 250 mcg every other day. 0 Active tamsulosin (FLOMAX) 0.4 MG 24 hr capsule Take 0.4 mg by mouth daily. Take 30 mins after same meal every day. 0 Active gabapentin (NEURONTIN) 600 MG tablet Take 1 Tablet by mouth 2 times daily. 0 Active insulin glargine (LANTUS) 100 UNIT/ML injection Inject 10 Units into the skin at bedtime. Sliding scale 0 Active metformin (GLUCOPHAGE) 500 MG tablet Take 500 mg by mouth 2 times daily (with meals). 0 Active insulin aspart (NOVOLOG) 100 UNIT/ML injection Inject into the skin 3 times daily (before meals). Sliding scale 0 Active oxycodone (ROXICODONE) 15 MG immediate release tablet Take 15 mg by mouth every 4 hours as needed. 0 Active montelukast (SINGULAIR) 10 MG tablet Take 10 mg by mouth at bedtime. 0 Active carisoprodol (SOMA) 350 MG tablet Take 1 Tablet by mouth 2 times daily. 0 Active Vitamin D, Cholecalciferol, 1000 UNITS Tab Take by mouth daily as needed. 0 Active levalbuterol (XOPENEX) 1.25 MG/3ML nebulizer solution Take 1 Ampule by nebulization every 4 hours as needed for Wheezing or Shortness of Breath for up to 30 days. 100 Ampule 11 11/28/2018 Active predniSONE (DELTASONE) 1 MG tablet Take 3 Tablets by mouth daily. 0 Active Sennosides (Senna) 8.6 MG Tab Take by mouth 2 times daily. 0 Active Magnesium 250 MG Tab 2-3 tablets daily 0 Active oxycodone-acetamin ophen (PERCOCET) 10-325 MG per tablet Take 1 Tablet by mouth every 4 hours as needed. 0 Active Oxygen Historical (HISTORICAL OXYGEN) Inhale into the lungs. 4 liters cont 0 Active furosemide (LASIX) 20 MG tablet Take 1 Tablet by mouth daily. 0 Active ferrous sulfate 325 (65 Fe) MG tablet Take 1 Tablet by mouth daily. 0 Active Tiotropium [place] Monohydrate 2.5 MCG/ACT Aero Soln Inhale 2 Puffs into the lungs daily. 0 Active LEVALBUTEROL HCL IN Inhale 40 mcg into the lungs daily as needed. 0 Active pantoprazole (PROTONIX) 20 MG tablet Take 2 Tablets by mouth daily. 0 Active Active Problems Problem Noted Date Chronic hypoxemic respiratory failure Diastolic heart failure 03/13/2023 Last Assessment & Plan: Patient has history [...] pounds in one week. Orthostatic hypotension 09/07/2022 Last Assessment & Plan: Has history of orthostatic hypotension in the past. He has been stable on his present dose of midodrine. He is no longer complaining of lightheadedness or dizziness. S/P placement of cardiac pacemaker 09/07 Last Assessment & Plan: We will continue with remote monitoring and routine visits to our device clinic. Hyperlipidemia 09/14/2021 Last Assessment & Plan: Patient was on statin in the past however this was discontinued due to elevated liver function testing. He remains off of statin at this time. Paroxysmal atrial fibrillation Last Assessment & Plan: Patient is history [...] closely and reevaluate at each office visit. Restrictive lung disease 08/29/2018 Hypersensitivity pneumonitis 08/29/2018 Lung nodule 08/19/2017 Depression 08/19/2017 Hypertension 08/19/2017 Last Assessment & Plan: Patient's blood pressure is well-controlled with a reading today 138/70. Diabetes mellitus type 2, uncomplicated 08/19/2017 Psoriasis 08/19/2017 History of gastric ulcer 08/19/2017 Asbestosis 07/17/2017 Chronic obstructive pulmonary disease Social History Tobacco Use Types Packs/Day Years Used Date Smoking Tobacco: Former Smokeless Tobacco: Never Tobacco Cessation:Counseling Given: No Alcohol Use Standard Drinks/Week Comments Not Currently 0 (1 standard drink = 0.6 oz pur e alcohol) Sex Assigned at Date Recorded Not on file Job Start Date Occupation Industry Not on file Not on file Not on file Last Filed Vital Signs Vital Sign Reading Time Taken Comments Blood Pressure 138/70 02/14/2024 1:57 PM EDT Pulse 70 02/14/2024 1:57 PM EDT Temperature - - Respiratory Rate 16 04/12/2019 10:59 AM EDT Oxygen Saturation 98% 02/14/2024 1:57 PM EDT 2 liter of O@ Inhaled Oxygen Concentration - - Weight 85.3 kg (188 lb) 02/14/2024 1:57 PM EDT Height 185.4 cm (6' 1 ) 02/14/2024 1:57 PM EDT Body Mass Index 24.8 02/14/2024 1:57 PM EDT Plan of Treatment Health Maintenance Due Date Last Done Comments DEPRESSION SCREEN 1960 DIABETES/HEART DISEASE: DEVIN AL CHOLESTEROL (LDL) 1966 DIABETES: ANNUAL EYE EXAM 1966 DIABETES: ANNUAL FOOT EXAM 1966 DIABETES: ANNUAL URINE PROTE IN TEST (MICROALBUMIN) 1966 DIABETES: BLOOD SUGAR CONTRO L TEST (HGBA1C) 1966 HEPATITIS C SCREENING 1966 DTAP/TDAP/TD (1 - Tdap) 1967 SHINGLES VACCINE (1 of 2) 1998 FALL RISK ASSESSMENT 2013 Covid-19 Vaccine ( season) 2024 07/02/2021, 11/23/2020, 10/25/2020 INFLUENZA (Season Ended) 2025 PNEUMOCOCCAL VACCINE Completed 08/12/2019, 06/20/20 16 Care Teams Wind Field Manager Relationship Specialty Start Date End Date Shweta Collins MD PCP - General Internal Medicine 09/05/17 Brenden Curry MD Science Instructor Cardiovascular Disease 04/05/21 Collette Jones NP Nurse Practitioner Cardiology 04/05/21
--- OUTSIDE RECORDS SUMMARY | 2024-12-31 12:33 | XMS_ITS | Continuity of Care Document ---
Author Organization [facility] Address [address] [place] [address] Phone [phone] Care Team Providers Care Application Security Consultant Name Role Phone Shweta Collins M.D. Care Team Information Receive r [phone] Problems Active Problems Provider Date Essential hypertension Zeb Akins M.D. O nset: 04/26/2023 Carcinoma of prostate Zeb Akins M.D. On set: 04/26/2023 Diabetes mellitus Zeb Akins M.D. Onset: 04/26/2023 Asbestosis Zeb Akins M.D. Onset: 0 04/26/2023 Social History [...] SIG Qnty Indications Order ing Provider Date Lpinrr021Oecd/ML Solution inject 15 units subcutaneously once daily Zeb Akins M.D. 04/26/2023 [id number] Tablets 1 tab by mouth every day Zeb Akins M.D. 04/26/2023 Vitamin [id number]-[id number] Tablets 1 by mouth every day Zeb Akins M.D. 04/26/2023 Albuterol Sulfate2.5mg/0.5ML Nebulizer Zeb Akins M.D. 04/26/2023 Spiriva Respimat2.5mcg/Act Aerosol take 1 puff daily as needed Zeb Akins M.D. 04/26/2023 Budesonide0.5mg/2M L Suspension inhale contents of 1 vial daily via nebulizer Zeb Akins M.D. 04/26/2023 Wagynqo858Mcrc/ML Solution use sliding scale as directed 70ml Zeb Akins M.D. 04/26/2023 Tamsulosin HCL0.4mg Capsules 1 cap by mouth every night 90caps Zeb Akins M.D. 06/27/2022 Vitamin D (Cholecalciferol)2 5mcg (1000 Ut) Tablets 1 by mouth every day Zeb Akins M.D. 06/27/2022 Xlju668fh Tablets 1 tab two-three daily Zeb Akins M.D. 06/27/2022 Fiueipko02-509pf Tablets 3 tabs per day 300tabs Zeb Akins M.D. 06/27/2022 Oxycodone YQJ69tw Tablets take 2 tablets daily 280tabs Zeb Akins M.D. 06/27/2022 Avodart0.5mg Capsules 1 tab by mouth every night Zeb Akins M.D. 06/27/2022 Immhmyolmt5ih Tablets 4 tabs by mouth every day Zeb Akins M.D. 06/27/2022 Mmjdxzn3kd Tablets 1 by mouth twice a day Zeb Akins M.D. 06/27/2022 Kcrubsvvay725zh Tablets 2-3 tablets daily Zeb Akins M.D. 06/27/2022 Metformin INP880uu Tablets take 1 tablet by mouth twice a day Zeb Akins M.D. 06/27/2022 Dccsazlix66jp Tablets 1 by mouth every day Zeb Akins M.D. 06/27/2022 Pravastatin Yyvxdc08vh Tablets 1 tab daily Zeb Akins M.D. 06/27/2022 Rkvucuuoat10sn Tablets Take 1 Tablet By Mouth Every Day In The Morning Shweta Collins M.D. Vital Signs Date Vital Result Comment 04/26/2023 11:06am Height 73 inches 6'1 Weight 196.00 lb BMI (Body Mass Index) 25.9 kg/m2 Results Test Acquired Date Facility Test Result H/L Range Note Free Testosterone 04/26/2023 [facility] Testosterone, Total, LC/MS 697.4 1 Percent Free Testosterone 1.41 Low 2 Free Testosterone, Equilibrium 9.83 3 Testosterone 04/26/2023 [facility] Testosterone 771 ng/dL (280-800 ) SHBG 04/26/2023 [facility] SHBG 149.0 nmol/L High (19-76) FSH 04/26/2023 [facility] FSH 37.3 MIU/ML High (1.5-12. 4) 4 LH 04/26/2023 [facility] LH 17.9 MIU/ML High (1.5-12. 4) 5 Prolactin 04/26/2023 [facility] Prolactin 26.0 NG/ML High (4.0-15. 2) Complete Abc With Diff 04/26/2023 [facility] WBC 8.0 K/MM3 (4.0-11. 0) [...] ) Lymph # 1.4 K/MM3 (0.8-3.1 ) [place]# 1.4 K/MM3 High (0.4-1.3 ) Eo # 0.1 K/MM3 (0.0-0.4 ) Baso # 0.1 K/MM3 (0.0-0.1 ) Abs. Imm Gran 0.0 K/MM3 Neut 62.1 % (44-76) Lymph 17.9 % (15-43) Monocyte 17.7 % High (4.5-10. 5) Eo 1.5 % (0-6) Baso 0.6 % (0-2) Imm Gran 0.2 % Free T4 06/27/2022 [facility] Free T4 1.41 ng/dL (0.70-1. 80) TSH 06/27/2022 [facility] TSH 3.98 uIU/mL (0.4-4.2 ) Prolactin 06/27/2022 [facility] Prolactin 30.4 NG/ML High (4.0-15. 2) FSH 06/27/2022 [facility] FSH 18.8 MIU/ML High (1.5-12. 4) 6 LH 06/27/2022 [facility] LH 9.4 MIU/ML (1.5-12. 4) 7 Testosterone,[place] e & Total (Males > 15Yr) 06/27/2022 [facility] Testosterone 1056 ng/dL High (280-800 ) SHBG 122.0 nmol/L High (19-76) Free Testosterone, Estimated 8.96 ng/dL (3.7-14. 7) [place] C 06/27/2022 [facility] [place] C 66 NG/ML 8 Z Score SEE COMMENT 9 1 Reference range: 264 .0 to 916.0 Unit: ng/dL (NOTE) This [facility] LC/MS-MS method is currently certified by the CDC Hormone Standardization Program (HoSt). Adult male reference interval is based on a population of healthy nonobese males (BMI <30) between 19 and 39 years old. Antonieta et.al. JCEM 2017,102;5016-4845. PMID: 96041756. This test was developed and its performance characteristics determined by [facility]. It has not been cleared or approved by the Food and Drug Administration. 2 Reference range: 1.5 0 to 4.20 Unit: % 3 Reference range: 5.0 0 to 21.00 Unit: ng/dL Test performed at [address] [address] 4 Reference Range: Follicular: 3.5-12.5 mIU/mL Ovulation: [...] Unit: S.D. (NOTE) RESULT:-1.5 Test performed at [address] [address] Medical Devices Description No Information Available Encounters [...]
--- OUTSIDE RECORDS SUMMARY | 2024-12-31 12:33 | XMS_ITS | Encounter Summary ---
Author Organization [facility] Address [address] [place] [address] Care Team Providers Care Sparmaker Name Role Phone Shweta Collins MD Primary Care Provider Unavailab Brenden Bay MD Unavailable Unavailable Collette Jones NP Unavailable [phone] Encounter Details Date Type Department Care Team Description 01/03/2024 [facility] Medical Records [address] [place] [id number] Abstract, Provider Social History Tobacco Use Types [...] Date/Time Associated Diagnosis Comments OUTSIDE LAB Routine 01/03/2024 documented in this encounter Results * OUTSIDE LAB (01/03/2024) Provider Default LAB documented in this encounter Visit Diagnoses Not on filedocumented in this encounter Care Teams Sparmaker Relationship Specialty Start Date End Date Shweta Collins MD PCP - General Internal Medicine 09/05/17 Brenden Curry MD Flight Surveyor Cardiovascular Disease 04/05/21 Collette Jones NP Nurse Practitioner Cardiology 04/05/21 documented as of this encounter
--- OUTSIDE RECORDS SUMMARY | 2024-12-31 12:33 | XMS_ITS | Encounter Summary ---
Author Organization [facility] Address [address] [place] [address] Care Team Providers Care Document Management Technician Name Role Phone Shweta Collins MD Primary Care Provider [phone] Encounter Details Date Type Department Care Team (Late st Contact Info) Description 12/27/2024 8:40 PM EDT Ancillary Procedure [facility] Cardiology [facility] [address] [facility] [address] [place] [id number] Social History Tobacco Use Types Packs/Day Years [...] Description 01/17/2025 10:20 AM EDT Office Visit [facility] Cardiology [facility] [address] [place] [address] [address] [place] [address] Bridger Farooq MD [address] [place] [address] [address]IVE [address] [place] [address] 09/22/2025 11:00 AM EST Ancillary Procedure [facility] Cardiology [facility] [address] [facility] [address] [place] [address] documented as of this encounter Procedures Procedure Name Priority Date/Time Associated Diagnosis Comments CARDIAC DEVICE CHECK- REMOTE- MURJ Routine 12/27/2024 8:38 PM EDT documented in this encounter Results * Cardiac device check - Remote- MURJ (12/27/2024 8:38 PM EDT) Date Time Interrogation Session [id number] CV DEVICE CHECK Type Interrogation Session RemoteScheduled CV DEVICE CHECK Implantable Pulse Generator Student Development Advisor BIO CV DEVICE CHECK Implantable Pulse Generator Type IPG CV DEVICE CHECK Implantable Pulse Generator Model Edora 8 SR-T CV DEVICE CHECK Implantable Pulse Generator Serial Number [id number] CV DEVICE CHECK Implantable Pulse Generator Implant [...] Lower Rate Limit 70 CV DEVICE CHECK Avlarez Setting Maximum Sensor Rate 120 CV DEVICE [...] on filedocumented in this encounter Care Teams Document Management Technician Relationship Specialty Start Date End Date Shweta Collins MD [address] [place] [address] PCP - General Internal Medicine 09/05/17 documented as of this encounter
--- OUTSIDE RECORDS SUMMARY | 2024-12-31 12:33 | XMS_ITS | Encounter Summary ---
Author Organization [facility] Address [address] [place] [address] Care Team Providers Care Subway Train Driver Name Role Phone Shweta Collins MD Primary Care Provider Unavailab Brenden Bay MD Unavailable Unavailable Collette Jones NP Unavailable [phone] Encounter Details Date Type Department Care Team Description 09/02/2022 [facility] Medical Records [address] [place] [id number] Abstract, Provider Social History Tobacco Use Types [...] Recorded In the last 10 days, have archana u been in contact with someone who was confirmed or suspected to have Coronavirus/COVID-19? No / Unsure 09/02/2022 10:05 AM EST documented as of this encounter Plan of Treatment Not on file documented as of this encounter Procedures Procedure Name Priority Date/Time Associated Diagnosis Comments OUTSIDE LAB Routine 09/02/2022 documented in this encounter Results * OUTSIDE LAB (09/02/2022) Provider Default LAB documented in this encounter Visit Diagnoses Not on filedocumented in this encounter Care Teams Subway Train Driver Relationship Specialty Start Date End Date Shweta Collins MD PCP - General Internal Medicine 09/05/17 Brenden Curry MD Sand [employer] Gravel Plant Operator Cardiovascular Disease 04/05/21 Collette Jones NP Nurse Practitioner Cardiology 04/05/21 documented as of this encounter
--- OUTSIDE RECORDS SUMMARY | 2024-12-31 12:33 | XMS_ITS | Encounter Summary ---
Author Organization [employer] Address [address] [place] [address] Care Team Providers Care Associate Professor Of Biblical Studies Name Role Phone Shweta Collins MD Primary Care Provider [phone] Encounter Details Date Type Department Care Team (Late st Contact Info) Description 01/05/2024 Orders Only [facility] MEDICAL [address] [place], [place] [id number] Shweta Collins MD [address] [place] [address] Iron deficiency anemia, unspecified iron deficiency anemia [...] Description 02/11/2025 12:00 PM EDT Office Visit [facility] MED[facility] [address] [place] [address] Shweta Collins MD [address] [place] [address] documented as of this encounter Visit Diagnoses Diagnosis Iron deficiency anemia, unspecified iron deficiency anemia type Hyponatremia Hyposmolality and/or hyponatremia documented in this encounter Care Teams Associate Professor Of Biblical Studies Relationship Specialty Start Date End Date Shweta Collins MD [address] [place] [address] PCP - General Internal Medicine 11/30/22December Debo Registered Nurse Case Management 07/17/23 documented as of this encounter
--- OUTSIDE RECORDS SUMMARY | 2024-12-31 12:33 | XMS_ITS | Encounter Summary ---
Author Organization [facility] Address [address] [place] [address] Care Team Providers Care Glue Mixer Name Role Phone Shweta Collins MD Primary Care Provider Unavailab Brenden Bay MD Unavailable Unavailable Collette Jones NP Unavailable [phone] Encounter Details Date Type Department Care Team Description 12/10/2018 [facility] Medical Records [address] [place] [address] Abstract, Provider Social History Tobacco Use Types [...] Name Priority Date/Time Associated Diagnosis Comments OUTSIDE EKG Routine 12/10/2018 documented in this encounter Results * OUTSIDE EKG (12/10/2018) Provider Abstract CARDIOLOGY documented in this encounter Visit Diagnoses Not on filedocumented in this encounter Care Teams Glue Mixer Relationship Specialty Start Date End Date Shweta Collins MD PCP - General Internal Medicine 09/05/17 Brenden Curry MD Tribal Council Member Cardiovascular Disease 04/05/21 Collette Jones NP Nurse Practitioner Cardiology 04/05/21 documented as of this encounter
--- OUTSIDE RECORDS SUMMARY | 2024-12-31 12:34 | XMS_ITS | Clinical Summary ---
Author Organization [employer] Address [address] [place] [address] 7[address] [place] [address] Care Team Providers Care Reading Assistant Name Role Phone Shweta Collins MD Primary Care Provider [phone] Allergies Active Allergy Reactions Criticality Noted Date [...] by mouth at bedtime. Active nystatin (Mycostatin) 593788 UNIT/ML suspension Place 600,000 Units into mouth [...] ns:Type 2 diabetes mellitus treated without insulin ([facility]) Take 1 tablet (40 mg) by mouth [...] ns:Type 2 diabetes mellitus treated without insulin ([facility]) Take 1 tablet (500 mg) by mouth 2 times daily. 180 tablet 3 08/19/20 24 2024 Active silver sulfADIAZINE (Silvadene) 1 % creamIndication s:Open wound of scalp, unspecified open wound type, subsequent encounter Apply topically Once per day. 60 g 2 08/19/20 Active Accu-Chek FastClix Lancets miscIndications :Type 2 diabetes mellitus treated without insulin ([facility]) 1 Lancet 3 times daily. 100 each 08/20/20 24 2024 Active glucose blood test stripIndication s:Type 2 diabetes mellitus treated without insulin ([facility]) 1 each by Other route 3 times daily. 100 each 08/20/20 24 2024 Active Insulin Aspart (NovoLOG) 100 UNIT/ML solutionIndicat ions:Type 2 diabetes mellitus treated without insulin ([facility]) Inject 0.1 mL (10 Units) as directed [...] by mouth 2 times daily. 60 tablet 12/21/19 25 2024 Active oxyCODONE-aceta minophen (Percocet) 10-325 MG tabletIndicatio ns:Radicular syndrome of upper limbs Take 1 tablet by mouth every 8 (eight) hours if needed for severe pain. 90 tablet 12/21/19 25 2024 Active oxyCODONE (Roxicodone) 15 MG immediate release tabletIndicatio ns:Radicular syndrome of upper limbs Take 1 tablet (15 mg) by mouth 2 times daily. 60 tablet 11/24/19 25 2024 Discontinued(R eorder (will not trigger notification to Pharmacy)) oxyCODONE-aceta minophen (Percocet) 10-325 MG tabletIndicatio ns:Radicular syndrome of upper limbs Take 1 tablet by mouth every 8 (eight) hours if needed for severe pain. 90 tablet 11/24/19 25 2024 Discontinued(R eorder (will not trigger [...] surgery Side effects to oxycontin Stabilized at [facility], then weaned down from 160 morphine [...] Encounters Date Type Department Care Team Description 12/16/2024 Han Tyler [facility] [address] [place] [address] Shweta Collins MD Radicular syndrome of upper limbs 12/06/2024 Population Health Risk Score [facility] () Department [address] [place] [id number] Provider, Population Health Generic 11/18/2024 12:00 PM EST Telemedicine [facility] MED[facility] [address] [place] [address] Shweta Collins MD Chronic pain following surgery or procedure (Primary Dx); Spinal stenosis, unspecified spinal region; Radicular syndrome of upper limbs; Type 2 diabetes mellitus with diabetic peripheral angiopathy without gangrene, with long-term current use of insulin ([facility]); Physical deconditioning; Severe persistent asthma, unspecified whether complicated; Diabetic polyneuropathy associated with type 2 diabetes mellitus (CMS/HCC) 11/18/2024 Travel 11/18/[address] [address] Shweta Collins MD Radicular syndrome of upper limbs 10/21/2024 10:00 AM EST Telemedicine [address] [address] Shweta Collins MD Type 2 diabetes mellitus treated without insulin ([facility]) (Primary Dx); Chronic pain following surgery or procedure; Primary hypertension; Vitamin D deficiency 10/21/[address] [address] Shweta Collins MD Radicular syndrome of upper [...] 02/11/2025 12:00 PM EDT Office Visit Nayeli [facility] [address] [place] [address] Shweta Collins MD [address] [place], [place] [id number] Health Maintenance Due Date Last Done Comments [...] Type 2 diabetes mellitus treated without insulin ([facility]/HCC) MAGNESIUM Routine 11/20/2024 10:44 AM EST Type 2 diabetes mellitus treated without insulin (CMS/HCC) VITAMIN B12 Routine 11/20/2024 10:44 AM EST Type 2 diabetes mellitus treated without insulin ([facility]) VITAMIN D 25 HYDROXY Routine 11/20/2024 10:44 AM EST Type 2 diabetes mellitus treated without insulin ([facility]) Vitamin D deficiency ALBUMIN, RANDOM URINE W/CREATININE Routine 02/15/2022 10:28 AM EDT LIPID PANEL, STANDARD Routine 02/15/2022 COLONOSCOPY Routine 07/15/2009 12:00 AM EDT from Last 3 Months or Most Recently Relevant to Health Maintenance Results * (ABNORMAL) CBC auto differential (11/20/2024 10:44 AM EST) Pathologist [facility] White Blood Cell Count 11.4(H) 3.4 - [...] AM EST Performed at: ??01 - [facility] [address] ??[id number] Enterprise Infrastructure Architect: Doris Michelle MD, Phone: ??[phone] Shweta Collins MD LAB BLOOD ORDERABLES Final Resul t Performing Organization Address [facility] de Phone Number [facility] 1 * Vitamin D 25 hydroxy 528226 (11/20/2024 10:44 AM EST) Vitamin D, 25-OH, Total 46.0 30.0 - 100.0 ng/mL [facility] 1 Comment: Vitamin D deficiency has been defined by the [place] of Medicine and an Endocrine Society practice guideline as a level of serum 25-OH vitamin D less than 20 ng/mL (1,2). The Endocrine Society went on to further define vitamin D insufficiency as a level between 21 and 29 ng/mL (2). 1. IOM ([place] of Medicine). 2010. Dietary reference ?? intakes for calcium and D. [place]: The ?? National Academies Press. 2. Lou MF, [place], Jaspreet STOKES, et al. ?? Evaluation, treatment, and prevention of vitamin D ?? deficiency: an Endocrine Society clinical practice ?? guideline. JCEM. 2010; 96(7):1911-30. Blood Venous blood specimen / Unknown 11/20/2024 10:44 AM EST 11/20/2024 Narrative [facility] 1 - 11/21/2024 6:05 AM EST Performed at: ??01 - [facility] [address] ??[id number] Enterprise Infrastructure Architect: Doris Michelle MD, Phone: ??[phone] Shweta Collins MD LAB BLOOD ORDERABLES Final Resul t Performing Organization Address [facility] Co de Phone Number [facility] 1 * Magnesium (11/20/2024 10:44 AM EST) Magnesium 1.6 1.6 - 2.3 mg/dL [facility] 1 Blood Venous blood specimen / Unknown 11/20/2024 10:44 AM EST 11/20/2024 Narrative [facility] 1 - 11/21/2024 8:06 AM EST Performed at: ??01 - [facility] [address] ??[id number] Enterprise Infrastructure Architect: Doris Michelle MD, Phone: ??[phone] Shweta Collins MD LAB BLOOD ORDERABLES Final Resul t Performing Organization Address [facility] de Phone Number [facility] 1 * (ABNORMAL) Hemoglobin A1c (11/20/2024 10:44 AM EST) Hemoglobin A1c 7.4(H) 4.8 - 5.6 % [facility] 1 Comment: ? Prediabetes: 5.7 - 6.4 ? Diabetes: >6.4 ? Glycemic control for adults with diabetes: <7.0 Blood Venous blood specimen / Unknown 11/20/2024 10:44 AM EST 11/20/2024 Narrative [facility] 1 - 11/21/2024 6:05 AM EST Performed at: ??01 - [facility] [address] ??[id number] Enterprise Infrastructure Architect: Doris Michelle MD, Phone: ??[phone] Shweta Collins MD LAB BLOOD ORDERABLES Final Resul t Performing Organization Address [facility] de Phone Number [facility] 1 * Vitamin B12 (11/20/2024 10:44 AM EST) Vitamin B12 708 232 - 1,245 pg/mL [facility] 1 Blood Venous blood specimen / Unknown 11/20/2024 10:44 AM EST 11/20/2024 Narrative [facility] 1 - 11/21/2024 6:05 AM EST Performed at: ??01 - [facility] [address] ??[id number] Enterprise Infrastructure Architect: Doris Michelle MD, Phone: ??[phone] Shweta Collins MD LAB BLOOD ORDERABLES Final Resul t Performing Organization Address City/[facility]/ZIP Co de Phone Number [facility] 1 * -Microalbumin, Urine (02/15/2022 10:28 AM EDT) Microalbumin Urine <12.0 (<20) MG/L [facility] Comment: The urine microalbumin test is designed to monitor renal function. When screening for Bence Baig proteinuria, urine electrophoresis is recommended. Microalb/Creat Ratio Unable to calculate (0-20) [facility] Creatinine, Urine 28.6 MG/DL [facility] 02/15/2022 10:2 8 AM EDT Shweta Collins MD LAB URINE ORDERABLES Final Resul t Performing Organization Address [facility] Co de Phone Number [facility] [address] * Lipid Panel, Standard (02/15/2022) Triglycerides [...] Recently Relevant to Health Maintenance Insurance [place] [id number] [facility] Care Teams Reading Assistant Relationship Specialty Start Date End Date Shweta Collins MD [address] [place] [address] PCP - General Internal Medicine 11/30/22December [place]bo Registered Nurse Case Management 07/17/23
--- OUTSIDE RECORDS SUMMARY | 2024-12-31 12:34 | XMS_ITS | Encounter Summary ---
Author Organization [employer] [facility] Address [address] [place] [address] 7 [place] [address] Care Team Providers Care Solar Sales Manager Name Role Phone Shweta Collins MD Primary Care Provider [phone] Encounter Details Date Type Department Care Team (Late st Contact Info) Description 12/30/2022 Orders Only [facility] MED[facility] [address] [place] [address] Provider, Historical, Social History Tobacco Use Types [...] Description 02/11/2025 12:00 PM EDT Office Visit [facility] [address] [place] [address] Shweta Colilns MD [address] [place] [address] documented as of this encounter Procedures Procedure Name Priority Date/Time Associated Diagnosis Comments CBC AND DIFFERENTIAL - WAM A ND NON-WAM Routine 12/27/2022 documented in this encounter Results * CBC and differential (12/27/2022) Blood Venous blood specimen / Unknown us Historical Provider LAB BLOOD ORDERABLES Cynthia l Result documented in this encounter Visit Diagnoses Not on filedocumented in this encounter Care Teams Solar Sales Manager Relationship Specialty Start Date End Date Shweta Collins MD [address] [place] [address] PCP - General Internal Medicine 11/30/22December Debo Registered Nurse Case Management 07/17/23 documented as of this encounter
--- OUTSIDE RECORDS SUMMARY | 2024-12-31 12:34 | XMS_ITS | Data Portability ---
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; Note: Date Diagnosed : 06/15/2016 11:15 AM (J38.1) Not Available [facility] 4 02:43:54 Difficult y speaking Active 2015 Hoarsenes s; Note: Date Diagnosed : 6 5:17 PM (784.49) Not Available [facility] 4 02:43:56 Follow-up visit Active 2016 Medical surveilla nce following completed treatment ; Note: Date Diagnosed : 11/09/2016 11:43 AM (Z09) Not Available [facility] 4 02:43:48 Chronic obstructi ve pulmonary disease 57162304 Active 2015 Chronic obstructi ve pulmonary disease, unspecifi ed; Note: Date Diagnosed : 06/15/2016 11:15 AM (J44.9) Not Available [facility] 4 02:43:47 Chronic hoarsenes s 89489800221 05 Active 2024 ABDI SIMON MD [address] [place] [address], [place], [address] , [facility] 5 11:00:25 Problem Notes None recorded. Procedures Surgical History Date Name Laterality Status Provider Name and Address Organization Details Recorded Time 10/02/2024 FOL_DP completed ABDI SIMON MD [address] [place] [address], [place], [address], [facility] 10/01/2024 13:14:56 Imaging Results None recorded. Procedure Notes None recorded. Medical Equipment None Reported. Allergies Allergen ID Allergen Name Allergen Category Reaction Reaction Severity Criticality Documentation Date Start Date Code Code System Note Provider Name and Address Organization Details Recorded Time 07338 dutasteri de Not available other Not available Not available 02/06/2024 63414 0 RxNorm React ion: unkno wn, unspe cifie d;; Not Available [facility] 4 00:54:40 99653 Bactrim medicatio n other Not available Not available 02/06/2024 84215 9 RxNorm React ion: unkno wn, unspe cifie d;; Not Available [facility] 4 00:54:41 08840 Biaxin medicatio n other Not available Not available 02/06/2024 58035 9 RxNorm React ion: unkno wn, unspe cifie d;; Not Available [facility] 4 00:54:44 91460 Levaquin medicatio n other Not available Not available 02/06/2024 32993 2 RxNorm React ion: unkno wn, unspe cifie d;; Not Available [facility] 00:54:47 Medications Name Sig Start Date Stop [...] nasal spray 10/02 completed Medicati on ID: [id number] B rand Name: budesoni de Send Method: E-Prescr ibed Sub s Allowed: subs OK Medic ationGen ericName : budesoni de Not Available Not Available Not Available metformin 500 mg tablet 2015 active Medicati on ID: 638334 D uration Value: 90 Brand Name: metformi [...] mg capsule 2015 active Medicati on ID: 009512 B rand Name: tamsulos in Send Method: [...] mg tablet 10/02 completed Medicati on ID: 959218 D uration Value: 90 Brand Name: lisinopr [...] by mouth 10/02 completed Medicati on ID: 913160 D uration Value: 7 Brand Name: oxycodon e Send Method: E-Prescr ibed Sub s Allowed: subs OK Medic ationGen ericName : oxycodon e Not Available Not Available Not Available metoprolo l tartrate 50 mg tablet 10/02 completed Medicati on ID: 508903 D uration Value: 90 Brand Name: metoprol [...] oral solution 10/02 completed Medicati on ID: [id number] B rand Name: oxycodon e-acetam inophen Send Method: E-Prescr ibed Sub s Allowed: subs OK Medic ationGen ericName : oxycodon e-acetam inophen Not Available Not Available Not Available Novolog U-100 Insulin aspart 100 unit/mL subcutane ous solution 2015 active Medicati on ID: [id number] D uration Value: 90 Brand Name: Novolog [...] 2 puff 10/02 completed Medicati on ID: [id number] D uration Value: 14 Brand Name: albutero l Send Method: E-Prescr ibed Sub s Allowed: subs OK Medic ationGen ericName : albutero l Not Available Not Available Not Available Soma 10/02 completed Medicati on ID: 192550 B rand Name: soma Sen d Method: E-Prescr ibed Sub s Allowed: subs OK Medic ationGen ericName : soma Not Available Not Available Not Available gabapenti n 10/02 completed Medicati on ID: 765731 B rand Name: gabapent in Send Method: [...] nebulizat ion 10/02 completed Medicati on ID: 215919 B rand Name: Brovana Send Method: E-Prescr ibed Sub s Allowed: subs OK Medic ationGen ericName : Brovana Not Available Not Available Not Available Lantus Solostar U-100 Insulin 100 unit/mL (3 mL) subcutane ous pen 2015 active Medicati on ID: [id number] B rand Name: Lantus Solostar Send Method: E-Prescr ibed Sub s Allowed: subs OK Medic ationGen ericName : Lant Solostar Not Available Not Available Not Available Daliresp 500 mcg tablet 2015 active Medicati on ID: 413375 B rand Name: Daliresp Send Method: E-Prescr ibed Sub s Allowed: subs OK Medic ationGen ericName : Daliresp Not Available Not Available Not Available Flonase Allergy Relief 50 mcg/actua tion nasal spray,shaun pension [place] 2 spray into both nostrils once a day as directed 10/02 completed Medicati on ID: [id number] D uration Value: 30 Prescri bed By Name: Alen Espinoza MD Brand Name: Flonase Allergy Relief S end Method: E-Prescr ibed Sub s Allowed: subs OK Medic ationGen ericName : Flonase Allergy Relief Not Available Not Available Not Available Spiriva Respimat 1.25 mcg/actua tion solution for inhalatio n 2015 active Medicati on ID: [id number] B rand Name: Spiriva Respimat Send Method: E-Prescr ibed Sub s Allowed: subs OK Medic ationGen ericName : Spiriva Respimat Not Available Not Available Not Available ketoconaz ole (bulk) 100 % crystals 10/02 completed Medicati on ID: [id number] B rand Name: ketocona zole (bulk) S end Method: E-Prescr ibed Sub s Allowed: subs OK Medic ationGen ericName : ketocona zole (bulk) Not Available Not Available Not Available Vitals Date Recorded Body height Body mass index (BMI) Body weight Provider Name and Address Organization Details Last Updated DateTime 10/02/2024 185.42 cm 23.6 kg/m2 60980.03 g Rosaline Allen [place] [facility] 10/02/2024 10:42:03 Social History None recorded. Functional Status None recorded. Mental Status None recorded. Family History Nothing Reported. Medical History Condition Response Cancer Y Anemia Y Migraines Y Arthritis Y Anxiety Y Depression Y Past Encounters Encounter ID Performer Location Encounter Start Date Encounter Closed Date Diagnosis/Indication Diagnosis SNOMED-CT Code Diagnosis ICD10 Code Diagnosis Note [id number] ABDI SIMON MD [facility] [address] [place] [address] 10/02/2024 10:14:25 10/02/2024 11:41:04 Chronic hoarseness 2799348228 105 R49.0 Chronic ob structive pulmonary disease 00007579 J44.9 Health Concerns Section Related Observation LastModified by Organization Detai ls LastModified Time None Recorded Concern Status LastModified by Organization Details LastModified Time None Recorded Advance Directives Directive None Recorded Payers Encounter Date Sequence Insurance Name Policy Number Policy Carrasco Covered Member ID Carrasco Member ID Guarantor Name 10/02/2024 2 [facility] [employer] [facility] [id number] 2 Nicky Gunter [id number] Nicky Gunter 10/02/2024 1 MEDICARE B-LA: [facility] Nicky Gunter [id number] Nicky Gunter Notes Date Note Type Note Provider Name and Address Organization Details Recorded Time 10/02/2024 text/html hoarseonset arou nd June recent CVAon breathing treatment daily - rinses mouth diligently pmhx - COPD, afib, pacemakercervical fusion, right anterior and posterior approach 10/07/2016 Espionza - micro laryngoscopy with excision right vocal cord lesion, benign ABDI SIMON MD [address] [place] [address], [place], [address], [place] [facility] 10/02/2024 11:01:40
--- OUTSIDE RECORDS SUMMARY | 2024-12-31 13:15 | XMS_ITS | Encounter Summary ---
Author Organization [facility] Address [address] [place] [address] Care Team Providers Care Black Powder Glazing Operator Name Role Phone Shweta Collins MD Primary Care Provider Unavailab Brenden Bay MD Unavailable Unavailable Collette Jones NP Unavailable [phone] Encounter Details Date Type Department Care Team Description 06/22/2023 [facility] Medical Records [address] [place] [id number] Social History Tobacco Use Types Packs/Day Years [...] on filedocumented in this encounter Care Teams Black Powder Glazing Operator Relationship Specialty Start Date End Date Shweta Collins MD PCP - General Internal Medicine 09/05/17 Brenden Curry MD Business And Marketing Teacher Cardiovascular Disease 04/05/21 Clolette Jones NP Nurse Practitioner Cardiology 04/05/21 documented as of this encounter
--- OUTSIDE RECORDS SUMMARY | 2024-12-31 13:15 | XMS_ITS | Encounter Summary ---
Author Organization [employer] Address [address] [facility] 7t [place] [address] Care Team Providers Care Summer Clerk Name Role Phone Shweta Collins MD Primary Care Provider [phone] Encounter Details Date Type Department Care Team (Late st Contact Info) Description 09/01/2023 Orders Only [facility] MEDICAL [address] [place] [address] Shweta Collins MD [address] [place] [address] Iron deficiency anemia, unspecified iron deficiency anemia [...] 02/11/2025 12:00 PM EDT Office Visit Nayeli [facility] MED[facility] [address] [place] [address] Shweta Collins MD [address] [place] [address] documented as of this encounter Procedures Procedure Name Priority Date/Time Associated Diagnosis Comments CBC Routine 09/01/2023 11:25 AM EST Iron deficiency anemia, unspecified iron deficiency anemia type BASIC METABOLIC PANEL Routine 09/01/2023 11:25 AM EST Iron deficiency anemia, unspecified iron deficiency anemia type documented in this encounter Results * (ABNORMAL) Basic Metabolic Panel (09/01/2023 11:25 AM EST) Glucose 208(H) (70-99) MG/DL [facility] BUN 6(L) (8-23) MG/DL [facility] Creatinine, Serum 0.4(L) (0.7-1.2) MG/DL [facility] Sodium 133 (133-145) MMOL/L [facility] Potassium 4.1 (3.6-5.2) MMOL/L [facility] Chloride 93(L) (98-107) MMOL/L [facility] Bicarbonate 31(H) (22-29) MMOL/L [facility] Anion Gap 9 (4-17) [facility] Calcium 9.7 (8.6-10.5) MG/DL [facility] eGFR Creatinine 111 ML/MIN/1.7 3 M2 [facility] Comment: Creatinine based estimated glomerular filtration (eGFR) in adults is calculated using the National Kidney Foundation recommended 2020 CKD-EPI equation. Estimates GFR from serum creatinine, age and sex. Testing performed or reported by [facility], a Service of [facility], [address] [place] [address] Luis Ayers MD, Waste And Batting Waste Chopper [facility]# [id number] 09/01/2023 11:2 5 AM EST 09/01/2023 11:35 AM EST Shweta Collins MD LAB BLOOD ORDERABLES Final Resul t [facility] [address] [place] [address] * (ABNORMAL) CBC (09/01/2023 11:25 AM EST) WBC 8.5 (4.0-11.0) K/MM3 [facility] RBC 4.04(L) (4.70-6.10 ) M/MM3 [facility] HGB 9.3(L) (13.7-17.1 ) GM/DL [facility] HCT 30.9(L) (40.5-50.0 ) % [facility] MCV 76.5(L) (80.0-94.0 ) FL [facility] MCH 23.0(L) (27.0-34.0 ) PG [facility] McHC 30.1(L) (33.0-37.0 ) g/dL [facility] PLT 402 (150-460) K/MM3 [facility] RDW-SD 47.6(H) (<47.0) FL [facility] MPV 10.0 (9.4-12.4) FL [facility] Automated NRBC 0.0 #/100 WBC'S [facility] ABS NRBC 0.0 K/MM3 [facility] Comment: Testing performed or reported by [facility], a Service of [facility], [address] [place] [address] Luis Ayers MD, Waste And Batting Waste Chopper [facility]# [id number] 09/01/2023 11:2 5 AM EST 09/01/2023 11:35 AM EST Shweta Collins MD LAB BLOOD ORDERABLES Final Resul t [facility] [address] [place], [place] [id number] documented in this encounter Visit Diagnoses Diagnosis Iron deficiency anemia, unspecified iron deficiency anemia type Hyponatremia Hyposmolality and/or hyponatremia documented in this encounter Care Teams Summer Clerk Relationship Specialty Start Date End Date Shweta Collins MD [address] [place] [address] PCP - General Internal Medicine 11/30/22December Debo Registered Nurse Case Management 07/17/23 documented as of this encounter
--- OUTSIDE RECORDS SUMMARY | 2024-12-31 13:15 | XMS_ITS | Encounter Summary ---
Author Organization [facility] Address [address] [place] [address] Care Team Providers Care Sweatband Flanger Name Role Phone Shweta Collins MD Primary Care Provider Unavailab Brenden Bay MD Unavailable Unavailable Collette Jones NP Unavailable [phone] Encounter Details Date Type Department Care Team Description 07/31/2023 Hospital Medical Records [address] [place] [address] Social History Tobacco Use Types Packs/Day Years [...] Date/Time Associated Diagnosis Comments OUTSIDE LAB Routine 08/01/2023 OUTSIDE EKG Routine 07/31/[address] Routine 07/31/[address] Routine 07/31/2023 OUTSIDE PLAIN FILM Routine 07/31/2023 documented in this encounter Results * OUTSIDE LAB (08/01/2023) Provider Abstract LAB * OUTSIDE CT (07/31/2023) Provider Abstract RADIOLOGY * OUTSIDE PLAIN FILM (07/31/2023) Provider Abstract RADIOLOGY * OUTSIDE CT (07/31/2023) Provider Abstract RADIOLOGY * OUTSIDE EKG (07/31/2023) Provider Abstract CARDIOLOGY documented in this encounter Visit Diagnoses Not on filedocumented in this encounter Care Teams Sweatband Flanger Relationship Specialty Start Date End Date Shweta Collins MD PCP - General Internal Medicine 09/05/17 Brenden Curry MD Hand Heel Seat Fitter Cardiovascular Disease 04/05/21 Collette Jones NP Nurse Practitioner Cardiology 04/05/21 documented as of this encounter
--- OUTSIDE RECORDS SUMMARY | 2024-12-31 13:16 | XMS_ITS | Encounter Summary ---
Author Organization [employer] Address 75 [facility] 7t [place] [address] Care Team Providers Care Supervisor Keymodule Assembly Name Role Phone Shweta Collins MD Primary Care Provider [phone] Encounter Details Date Type Department Care Team (Late st Contact Info) Description 09/15/2023 Orders Only [facility] MEDICAL [address] [place] [address] Shweta Collins MD [address] [place] [address] Iron deficiency anemia, unspecified iron deficiency anemia type; Hyponatremia Social History Tobacco Use Types Packs/Day Years Used Date Smoking Tobacco: Never Assessed Housing Stability Answer Date Recorded What is your housing situation today? I have [place] 07/14/[address] you [...] Visit [facility] MEDICAL [address] [place] [address] Shweta Collins MD [address] [place] [address] documented as of this encounter Visit Diagnoses Diagnosis Iron deficiency anemia, unspecified iron deficiency anemia type Hyponatremia Hyposmolality and/or hyponatremia documented in this encounter Care Teams Supervisor Keymodule Assembly Relationship Specialty Start Date End Date Shweta Collins MD [address] [place] [address] PCP - General Internal Medicine 11/30/22December Debo Registered Nurse Case Management 07/17/23 documented as of this encounter
--- OUTSIDE RECORDS SUMMARY | 2024-12-31 13:16 | XMS_ITS | Encounter Summary ---
Author Organization [employer] Address [address] [facility] 7t [place] [address] Care Team Providers Care Software Licensing Analyst Name Role Phone Shweta Collins MD Primary Care Provider [phone] Encounter Details Date Type Department Care Team (Late st Contact Info) Description 08/18/2023 Orders Only [facility] MEDICAL [address] [place] [address] Shweta Collins MD [address] [place] [address] Iron deficiency anemia, unspecified iron deficiency anemia [...] Description 02/11/2025 12:00 PM EDT Office Visit [facility] MEDICAL [address] [place] [address] Shweta Collins MD [address] [place] [address] documented as of this encounter Visit Diagnoses Diagnosis Iron deficiency anemia, unspecified iron deficiency anemia type Hyponatremia Hyposmolality and/or hyponatremia documented in this encounter Care Teams Software Licensing Analyst Relationship Specialty Start Date End Date Shweta Collins MD [address] [place] [address] PCP - General Internal Medicine 11/30/22December Debo Registered Nurse Case Management 07/17/23 documented as of this encounter
--- OUTSIDE RECORDS SUMMARY | 2024-12-31 13:16 | XMS_ITS | Encounter Summary ---
Author Organization [facility] Address [address] [place] [address] Care Team Providers Care Customer Engagement Analyst Name Role Phone Community, Pcp Primary Care Provider Shweta Goddard MD Primary Care Provider Brenden Reese MD Unavailable Unavailable Collette Jones NP Unavailable [phone] Encounter Details Date Type Department Care Team Description 08/15/2017 Transfer Records Medical Records [address] [place] [address] Abstract, Provider Social History Tobacco Use Types Packs/Day Years Used Date Smoking Tobacco: Never Assessed Sex Assigned at Date Recorded Not on file Job Start Date Occupation Industry Not on file Not on file Not on file documented as of this encounter Plan of Treatment Not on file documented as of this encounter Visit Diagnoses Not on filedocumented in this encounter Care Teams Customer Engagement Analyst Relationship Specialty Start Date End Date [facility], Pcp PCP - General Internal Medicine 08/30/17 09/04/17 Shweta Collins MD PCP - General Internal Medicine 09/05/17 Brenden Curry MD Semiconductor Wafers Etcher Stripper Cardiovascular Disease 04/05/21 Collette Jones NP Nurse Practitioner Cardiology 04/05/21 documented as of this encounter
--- OUTSIDE RECORDS SUMMARY | 2024-12-31 13:16 | XMS_ITS | Encounter Summary ---
Author Organization [facility] Address [address] [place] [address] Care Team Providers Care Associate Professor Of Art Name Role Phone Shweta Collins MD Primary Care Provider Unavailab Brenden Bay MD Unavailable Unavailable Collette Jones NP Unavailable [phone] Encounter Details Date Type Department Care Team Description 12/13/2022 [facility] Medical Records [address] [place] [address] Social History Tobacco Use Types Packs/Day Years [...] Date/Time Associated Diagnosis Comments OUTSIDE LAB Routine 12/21/2022 OUTSIDE VASCULAR STUDY Routine 12/13/2022 OUTSIDE EKG Routine 12/13/2022 OUTSIDE PLAIN FILM Routine 12/13/2022 documented in this encounter Results * OUTSIDE LAB (12/21/2022) Provider Abstract LAB * OUTSIDE PLAIN FILM (12/13/2022) Provider Abstract RADIOLOGY * OUTSIDE VASCULAR STUDY (12/13/2022) Provider Abstract CARDIOLOGY * OUTSIDE EKG (12/13/2022) Provider Abstract CARDIOLOGY documented in this encounter Visit Diagnoses Not on filedocumented in this encounter Care Teams Associate Professor Of Art Relationship Specialty Start Date End Date Shweta Collins MD PCP - General Internal Medicine 09/05/17 Brenden Curry MD Underwriting Specialist Cardiovascular Disease 04/05/21 Collette Jones NP Nurse Practitioner Cardiology 04/05/21 documented as of this encounter
--- OUTSIDE RECORDS SUMMARY | 2024-12-31 13:16 | XMS_ITS | Encounter Summary ---
Author Organization [employer] Address [address] [facility] 7t [place] [address] Care Team Providers Care Capital Campaign Fundraiser Name Role Phone Shweta Collins MD Primary Care Provider [phone] Encounter Details Date Type Department Care Team (Late st Contact Info) Description 12/08/2023 Orders Only [facility] MEDICAL [address] [place], [place] [phone] Shweta Collins MD [address] [place] [address] Iron deficiency anemia, unspecified iron deficiency anemia [...] Description 02/11/2025 12:00 PM EDT Office Visit [facility] MEDICAL [address] [place] [address] Shweta Collins MD [address] [place] [address] documented as of this encounter Visit Diagnoses Diagnosis Iron deficiency anemia, unspecified iron deficiency anemia type Hyponatremia Hyposmolality and/or hyponatremia documented in this encounter Care Teams Capital Campaign Fundraiser Relationship Specialty Start Date End Date Shweta Collins MD [address] [place] [address] PCP - General Internal Medicine 11/30/22December Debo Registered Nurse Case Management 07/17/23 documented as of this encounter
--- OUTSIDE RECORDS SUMMARY | 2024-12-31 13:16 | XMS_ITS | Clinical Summary ---
Author Organization [facility] Address [address] [place] [address] Phone Care Team Providers Care Steam Gigger Name Role Phone Unavailable Primary Care Provider [...] complete this topic Insurance MEDICARE [facility] [place] [address] MEDICARE [facility]
--- OUTSIDE RECORDS SUMMARY | 2024-12-31 13:16 | XMS_ITS | Encounter Summary ---
Author Organization [facility] Address [address] [place] [address] Care Team Providers Care Jewel Setter Name Role Phone Shweta Collins MD Primary Care Provider [phone] Encounter Details Date Type Department Care Team (Late st Contact Info) Description 12/27/2024 8:40 PM EDT Ancillary Procedure [facility] Cardiology [facility] [address] [facility] [address] [place] [id number] Social History Tobacco Use Types Packs/Day Years [...] Description 01/17/2025 10:20 AM EDT Office Visit [facility] Cardiology [facility] [address] [place] [address] [address] [place] [address] Bridger Farooq MD [address] [place] [address] [address]IVE [address] [place] [address] 09/22/2025 11:00 AM EST Ancillary Procedure [facility] Cardiology [facility] [address] [facility] [address] [place] [address] documented as of this encounter Procedures Procedure Name Priority Date/Time Associated Diagnosis Comments CARDIAC DEVICE CHECK- REMOTE- MURJ Routine 12/27/2024 8:38 PM EDT documented in this encounter Results * Cardiac device check - Remote- MURJ (12/27/2024 8:38 PM EDT) Date Time Interrogation Session [id number] CV DEVICE CHECK Type Interrogation Session RemoteScheduled CV DEVICE CHECK Implantable Pulse Generator Director Global Sales BIO CV DEVICE CHECK Implantable Pulse Generator Type IPG CV DEVICE CHECK Implantable Pulse Generator Model Edora 8 SR-T CV DEVICE CHECK Implantable Pulse Generator Serial Number [id number] CV DEVICE CHECK Implantable Pulse Generator Implant [...] on filedocumented in this encounter Care Teams Jewel Setter Relationship Specialty Start Date End Date Shweta Collins MD [address] [place] [address] PCP - General Internal Medicine 09/05/17 documented as of this encounter
--- OUTSIDE RECORDS SUMMARY | 2024-12-31 13:16 | XMS_ITS | Encounter Summary ---
Author Organization [employer] Address 75 [facility] 7t [place] [address] Care Team Providers Care Chart Snatcher Name Role Phone Shweta Collins MD Primary Care Provider [phone] Encounter Details Date Type Department Care Team (Late st Contact Info) Description 11/24/2023 Orders Only [facility] MEDICAL [address] [place], [place] [phone] Shweta Collins MD [address] [place] [address] Iron deficiency anemia, unspecified iron deficiency anemia [...] PM EDT Office Visit [facility] MEDICAL [address] [place] [address] Shweta Collins MD [address] [place] [address] documented as of this encounter Visit Diagnoses Diagnosis Iron deficiency anemia, unspecified iron deficiency anemia type documented in this encounter Care Teams Chart Snatcher Relationship Specialty Start Date End Date Shweta Collins MD [address] [place] [address] PCP - General Internal Medicine 11/30/22December Debo Registered Nurse Case Management 07/17/23 documented as of this encounter
--- OUTSIDE RECORDS SUMMARY | 2024-12-31 13:16 | XMS_ITS | Encounter Summary ---
Author Organization [facility] Address [address] [place] [address] Care Team Providers Care Confectionery Laboratory Manager Name Role Phone Shweta Collins MD Primary Care Provider Unavailab Brenden Bay MD Unavailable Unavailable Collette Jones NP Unavailable Encounter Details Date Type Department Care Team Description 09/08/2017 Transfer Records Medical Records [address] [place] [address] Abstract, Provider Social History Tobacco Use Types Packs/Day Years Used Date Smoking Tobacco: Former Sex Assigned at Date Recorded Not on file Job Start Date Occupation Industry Not on file Not on file Not on file documented as of this encounter Plan of Treatment Not on file documented as of this encounter Visit Diagnoses Not on filedocumented in this encounter Care Teams Confectionery Laboratory Manager Relationship Specialty Start Date End Date Shweta Collins MD PCP - General Internal Medicine 09/05/17 Brenden Curry MD Kitchenwhere Maker Cardiovascular Disease 04/05/21 Collette Jones NP Nurse Practitioner Cardiology 04/05/21 documented as of this encounter
--- OUTSIDE RECORDS SUMMARY | 2024-12-31 13:16 | XMS_ITS | Encounter Summary ---
Author Organization [facility] Address [address] [place] [address] Care Team Providers Care Sericulture Teacher Name Role Phone Shweta Collins MD Primary Care Provider Unavailab Brenden Bay MD Unavailable Unavailable Collette Jones NP Unavailable [phone] Encounter Details Date Type Department Care Team Description 11/14/2022 [facility] Medical Records [address] [place] [address] Elder, [place] Social History Tobacco Use Types [...] on filedocumented in this encounter Care Teams Sericulture Teacher Relationship Specialty Start Date End Date Shweta Collins MD PCP - General Internal Medicine 09/05/17 Brenden Curry MD Special Education Science Teacher Cardiovascular Disease 04/05/21 Collette Jones NP Nurse Practitioner Cardiology 04/05/21 documented as of this encounter
--- OUTSIDE RECORDS SUMMARY | 2024-12-31 13:16 | XMS_ITS | Encounter Summary ---
Author Organization [employer] Address 75 [facility] 7t [place] [address] Care Team Providers Care Duralumin Metalworker Name Role Phone Shweta Collins MD Primary Care Provider [phone] Encounter Details Date Type Department Care Team (Late st Contact Info) Description 01/05/2024 Orders Only [facility] MEDICAL [address] [place], [place] [phone] Shweta Collins MD [address] [place] [address] Iron deficiency anemia, unspecified iron deficiency anemia [...] Description 02/11/2025 12:00 PM EDT Office Visit [facility] MEDICAL [address] [place] [address] Shweta Collins MD [address] [place] [address] documented as of this encounter Visit Diagnoses Diagnosis Iron deficiency anemia, unspecified iron deficiency anemia type Hyponatremia Hyposmolality and/or hyponatremia documented in this encounter Care Teams Duralumin Metalworker Relationship Specialty Start Date End Date Shweta Collins MD [address] [place] [address] PCP - General Internal Medicine 11/30/22December Debo Registered Nurse Case Management 07/17/23 documented as of this encounter
--- OUTSIDE RECORDS SUMMARY | 2024-12-31 13:16 | XMS_ITS | Encounter Summary ---
Author Organization [facility] Address [address] [place] [address] Care Team Providers Care Cardiac Cath Lab Technologist Name Role Phone Shweta Collins MD Primary Care Provider Unavailab Brenden Bay MD Unavailable Unavailable Collette Jones NP Unavailable [phone] Encounter Details Date Type Department Care Team Description 09/12/2017 Release of Information Medical Records [address] [place] [address] Abstract, Provider Social History Tobacco Use Types Packs/Day Years Used Date Smoking Tobacco: Former Sex Assigned at Date Recorded Not on file Job Start Date Occupation Industry Not on file Not on file Not on file documented as of this encounter Plan of Treatment Not on file documented as of this encounter Visit Diagnoses Not on filedocumented in this encounter Care Teams Cardiac Cath Lab Technologist Relationship Specialty Start Date End Date Shweta Collins MD PCP - General Internal Medicine 09/05/17 Brenden Curry MD Senior Hadoop Developer Cardiovascular Disease 04/05/21 Collette Jones NP Nurse Practitioner Cardiology 04/05/21 documented as of this encounter
--- OUTSIDE RECORDS SUMMARY | 2024-12-31 13:16 | XMS_ITS | Encounter Summary ---
Author Organization [facility] Address [address] [place] [address] Care Team Providers Care Contact Manager Name Role Phone Shweta Collins MD Primary Care Provider Unavailab Brenden Bay MD Unavailable Unavailable Collette Jones NP Unavailable [phone] Encounter Details Date Type Department Care Team Description 01/03/2024 [facility] Medical Records [address] [place] [address] Abstract, Provider Social History Tobacco Use Types [...] on filedocumented in this encounter Care Teams Contact Manager Relationship Specialty Start Date End Date Shweta Collins MD PCP - General Internal Medicine 09/05/17 Brenden Curry MD Strapper Operator Cardiovascular Disease 04/05/21 Collette Jones NP Nurse Practitioner Cardiology 04/05/21 documented as of this encounter
--- OUTSIDE RECORDS SUMMARY | 2024-12-31 13:16 | XMS_ITS | Encounter Summary ---
Author Organization [employer] Address [address] [facility] [address] 7t [place] [address] Care Team Providers Care Assistant Department Manager Name Role Phone Shweta Collins MD Primary Care Provider [phone] Encounter Details Date Type Department Care Team (Late st Contact Info) Description 08/10/[address] [facility] MEDICAL [address] [place] [address] Provider, MD Juwan Social History Tobacco Use [...] 02/11/2025 12:00 PM EDT Office Visit [facility] MEDICAL [address] [place] [address] Shweta Collins MD [address] [place] [address] documented as of this encounter Procedures Procedure Name Priority Date/Time Associated Diagnosis Comments B TYPE NATRIURETIC PEPTIDE (BNP) Routine 08/07/2023 documented in this encounter Results * B Type Natriuretic Peptide (BNP) (08/07/2023) Blood Venous blood specimen / Unknown us Historical Provider LAB BLOOD ORDERABLES Cynthia l Result documented in this encounter Visit Diagnoses Not on filedocumented in this encounter Care Teams Assistant Department Manager Relationship Specialty Start Date End Date Shweta Collins MD [address] [place] [address] PCP - General Internal Medicine 11/30/22December Debo Registered Nurse Case Management 07/17/23 documented as of this encounter
--- OUTSIDE RECORDS SUMMARY | 2024-12-31 13:16 | XMS_ITS | Encounter Summary ---
Author Organization [employer] Address [address] [facility] 7t [place] [address] Care Team Providers Care Aviation Program Manager Name Role Phone Shweta Collins MD Primary Care Provider [phone] Encounter Details Date Type Department Care Team (Late st Contact Info) Description 10/13/2023 Orders Only [facility] MEDICAL [address] [place] [address] Shweta Collins MD [address] [place] [address] Iron deficiency anemia, unspecified iron deficiency anemia [...] Description 02/11/2025 12:00 PM EDT Office Visit [facility] MEDICAL [address] [place] [address] Shweta Collins MD [address] [place] [address] documented as of this encounter Visit Diagnoses Diagnosis Iron deficiency anemia, unspecified iron deficiency anemia type Hyponatremia Hyposmolality and/or hyponatremia documented in this encounter Care Teams Aviation Program Manager Relationship Specialty Start Date End Date Shweta Collins MD [address] [place] [address] PCP - General Internal Medicine 11/30/22December Debo Registered Nurse Case Management 07/17/23 documented as of this encounter
--- OUTSIDE RECORDS SUMMARY | 2024-12-31 13:16 | XMS_ITS | Encounter Summary ---
Author Organization [employer] Address [address] [facility] 7t [place] [address] Care Team Providers Care Ornamental Iron Erector Name Role Phone Shweta Collins MD Primary Care Provider [phone] Encounter Details Date Type Department Care Team (Late st Contact Info) Description 12/22/2023 Orders Only [facility] MEDICAL [address] [place], [place] [phone] Shweta Collins MD [address] [place] [address] Iron deficiency anemia, unspecified iron deficiency anemia [...] [facility] MEDICAL [address] [place] [address] Shweta Collins MD [address] [place] [address] documented as of this encounter Visit Diagnoses Diagnosis Iron deficiency anemia, unspecified iron deficiency anemia type Hyponatremia Hyposmolality and/or hyponatremia documented in this encounter Care Teams Ornamental Iron Erector Relationship Specialty Start Date End Date Shweta Collins MD [address] [place] [address] PCP - General Internal Medicine 11/30/22December Debo Registered Nurse Case Management 07/17/23 documented as of this encounter
--- OUTSIDE RECORDS SUMMARY | 2024-12-31 13:16 | XMS_ITS | Encounter Summary ---
Author Organization [facility] Address [address] [place] [address] Care Team Providers Care Deputy Clerk Of Court Name Role Phone Shweta Collins MD Primary Care Provider Unavailab Brenden Bay MD Unavailable Unavailable Collette Jones NP Unavailable [phone] Reason for Visit * Reason Comments Remote Device Check Encounter Details Date Type Department Care Team Description 11/08/2022 Remote Device Check Cardio PVC POC [address] [facility] [address] [place] [address] Emil Bee MD [address] [place] [address] Social History Tobacco Use Types Packs/Day Years [...] on filedocumented in this encounter Care Teams Deputy Clerk Of Court Relationship Specialty Start Date End Date Shweta Collins MD PCP - General Internal Medicine 09/05/17 Brenden Curry MD Database Development Project Manager Cardiovascular Disease 04/05/21 Collette Jones NP Nurse Practitioner Cardiology 04/05/21 documented as of this encounter
--- OUTSIDE RECORDS SUMMARY | 2024-12-31 13:16 | XMS_ITS | Encounter Summary ---
Author Organization [employer] Address [address] [facility] [address] 7t [place] [address] Care Team Providers Care Carpet Cleaning Technician Name Role Phone Shweta Collins MD Primary Care Provider [phone] Reason for Visit * Reason Onset Date Comments fever, change in MS 11/14/2023 Encounter Details Date Type Department Care Team (Late st Contact Info) Description 11/14/2023 Telephone [place] [facility] MEDICAL [address] [place] [address] Guera Garcia RN fever, change in MS [...] call for ambulance. Pt is going to [facility]. Facesheet, meds and problem list faxed to [facility] ED. Attempted to call expect in 3 times, no answer after lengthy holds. Pt's Brittany asked that PCP be informed urgently of event. Sending TE to PCP Dr. Collins. documented in this encounter Plan of Treatment Upcoming Encounters Date Type Department Care Team (Late st Contact Info) Description 02/11/2025 12:00 PM EDT Office Visit [facility] MEDICAL [address] [place] [address] Shweta Collins MD [address] [place] [place] [address] documented as of this encounter Visit Diagnoses Not on filedocumented in this encounter Care Teams Carpet Cleaning Technician Relationship Specialty Start Date End Date Shweta Collins MD [address] [place] [place] [address] PCP - General Internal Medicine 11/30/22December Debo Registered Nurse Case Management 07/17/23 documented as of this encounter
--- OUTSIDE RECORDS SUMMARY | 2024-12-31 13:16 | XMS_ITS | Encounter Summary ---
Author Organization [facility] Address [address] [place] [address] Care Team Providers Care Marketing Rotation Associate Name Role Phone Shweta Collins MD Primary Care Provider Unavailab Brenden Bay MD Unavailable Unavailable Collette Jones NP Unavailable [phone] Reason for Visit * Reason Onset Date Comments other 09/27/2023 Capsule endoscoo y Encounter Details Date Type Department Care Team Description 09/27/2023 Telephone Cardio P[facility] [address] [place] [address] Brenden Curry MD other (Capsule [...] Jj - 09/27/2023 12:17 PM EST Called [employer] and was told very low likelihood for [...] the signals? Please call Brittany at [place] [phone] aricdouglas documented in this encounter Plan of Treatment Not on file documented as of this encounter Visit Diagnoses Not on filedocumented in this encounter Care Teams Marketing Rotation Associate Relationship Specialty Start Date End Date Shweta Collins MD PCP - General Internal Medicine 09/05/17 Brenden Curry MD Reconciling Clerk Cardiovascular Disease 04/05/21 Collette Jones NP Nurse Practitioner Cardiology 04/05/21 documented as of this encounter
--- OUTSIDE RECORDS SUMMARY | 2024-12-31 13:16 | XMS_ITS | Clinical Summary ---
Author Organization [address] [place] [address] Address [address] [place] [address] Phone Care Team Providers Care Well Reactivator Operator Name Role Phone Shweta Collins MD Primary Care Provider [phone] Allergies Active Allergy Reactions Criticality Noted Date [...] Description 12/27/2024 8:40 PM EDT Ancillary Procedure [facility] [address] [place] [address] 12/04/2024 8:05 AM EDT Ancillary Procedure [facility] - [address] [place] [address] from Last 3 Months Surgical History Surgery Date Site/Laterality Comments HERNIA REPAIR PROCEDURE: HISTORICAL HERNIA REPAIR/ING Medical History Medical History Date Comments Lung nodule 08/19/2017 DX:Lung nodule Depression 08/19/2017 DX:Depression Hypertension 08/19/2017 DX:Hypertension Diabetes mellitus type 2, uncomplicated 08/19/2017 DX:Diabetes mellitus type 2, uncomplicated (HCC) Psoriasis 08/19/2017 DX:Psoriasis History of gastric ulcer 08/19/2017 DX:Hist ory of gastric ulcer Asbestosis ([facility]/HCC) 07/17/2017 DX:Asbestos is (HCC) Chronic obstructive pulmonar y disease ([facility]/HCC) 07/17/2017 DX:Chronic obstructive pulmo nary disease (HCC) [...] Description 01/17/2025 10:20 AM EDT Office Visit [facility] [address] [place] [address] [address] [place] [address] Bridger Farooq MD [address] [place] [address] [address] [place] [address] 09/22/2025 11:00 AM EST Ancillary Procedure [facility] [address] [facility] [address] [place] [address] Health Maintenance Due Date Last Done Comments [...] this topic Medical Devices Implanted Type Area Tariff Inspector Device Identifier Shelf Expiration Date Model / Serial / Lot Christelle-Venkatesh Edora 8 Sr-T [id number] Implanted:11/2021 (Quantity not on file) Cardiac Pacemaker [employer] EDORA 8 SR-T / [id number] / Procedures Procedure Name Priority Date/Time Associated Diagnosis Comments CARDIAC DEVICE CHECK- REMOTE- MURJ Routine 12/27/2024 8:38 PM EDT CARDIAC DEVICE CHECK- REMOTE- MURJ Routine 12/04/2024 8:03 AM EDT from Last 3 Months Results * Cardiac device check - Remote- MURJ (12/27/2024 8:38 PM EDT) Only the most recent of2 resultswithin the time period is included. Date Time Interrogation Session [id number] CV DEVICE CHECK Type Interrogation Session RemoteScheduled CV DEVICE CHECK Implantable Pulse Generator Tariff Inspector BIO CV DEVICE CHECK Implantable Pulse Generator Type IPG CV DEVICE CHECK Implantable Pulse Generator Model Edora 8 SR-T CV DEVICE CHECK Implantable Pulse Generator Serial Number [id number] CV DEVICE CHECK Implantable Pulse Generator Implant [...] Result from Last 3 Months Insurance MEDICARE [facility] Care Teams Well Reactivator Operator Relationship Specialty Start Date End Date Shweta Collins MD [address] [place] [address] PCP - General Internal Medicine 09/05/17
--- OUTSIDE RECORDS SUMMARY | 2024-12-31 13:16 | XMS_ITS | Encounter Summary ---
Author Organization [employer] Address [address] [facility] 7t [place] [address] Care Team Providers Care Supervisor Malt House Name Role Phone Shweta Collins MD Primary Care Provider [phone] Encounter Details Date Type Department Care Team (Late st Contact Info) Description 11/10/2023 Orders Only [facility] MEDICAL [address] [place] [address] Shweta Collins MD [address] [place] [address] Iron deficiency anemia, unspecified iron deficiency anemia [...] EDT Office Visit [facility] MEDICAL [address] [place] [address] Shweta Collins MD [address] [place] [address] documented as of this encounter Visit Diagnoses Diagnosis Iron deficiency anemia, unspecified iron deficiency anemia type Hyponatremia Hyposmolality and/or hyponatremia documented in this encounter Care Teams Supervisor Malt House Relationship Specialty Start Date End Date Shweta Collins MD [address] [place] [address] PCP - General Internal Medicine 11/30/22December Debo Registered Nurse Case Management 07/17/23 documented as of this encounter
--- OUTSIDE RECORDS SUMMARY | 2024-12-31 13:16 | XMS_ITS | Clinical Summary ---
Author Organization [facility] Address [address] [place] [address] Care Team Providers Care Social Media Director Name Role Phone Unavailable Primary Care Provider [...] so, obtain the minor's consent prior to disclosure.[facility] Social History Tobacco Use Types Packs/Day Years Used Date Smoking Tobacco: Never Assessed Sex and Gender Information Value Date Recorded Sex Assigned at Not on file Legal Sex Male 2:27 AM EST Gender Identity Not on file Sexual Orientation Not on file Plan of Treatment Not on file
--- OUTSIDE RECORDS SUMMARY | 2024-12-31 13:16 | XMS_ITS | Continuity of Care Document ---
Author Organization [facility] Address [address] [facility] [address] [place] [address] Phone [phone] Care Team Providers Care Sleeping Car Porter Name Role Phone Shweta Collins M.D. Care Team Information Receive r [phone] Problems Active Problems Provider Date Essential hypertension [...] SIG Qnty Indications Order ing Provider Date Usvcrd347Axjq/ML Solution inject 15 units subcutaneously once daily Zeb Akins M.D. 04/26/2023 Lhcyldjv309uaw Tablets 1 tab by mouth every day Zeb Akins M.D. 04/26/2023 Vitamin B-452043ous Tablets 1 by mouth every day Zeb Akins M.D. 04/26/2023 Albuterol Sulfate2.5mg/0.5ML Nebulizer Zeb Akins M.D. 04/26/2023 Spiriva Respimat2.5mcg/Act Aerosol take 1 puff daily as needed Zeb Akins M.D. 04/26/2023 Budesonide0.5mg/2M L Suspension inhale contents of 1 vial daily via nebulizer Zeb Akins M.D. 04/26/2023 Pdzxyoh956Qkez/ML Solution use sliding scale as directed 70ml Zeb Akins M.D. 04/26/2023 Tamsulosin HCL0.4mg Capsules 1 cap by mouth every night 90caps Zeb Akins M.D. 06/27/2022 Vitamin D (Cholecalciferol)2 5mcg (1000 Ut) Tablets 1 by mouth every day Zeb Akins M.D. 06/27/2022 Jaau413ey Tablets 1 tab two-three daily Zeb Akins M.D. 06/27/2022 Sqptxtet80-379dl Tablets 3 tabs per day 300tabs Zeb Akins M.D. 06/27/2022 Oxycodone CJF58md Tablets take 2 tablets daily 280tabs Zeb Akins M.D. 06/27/2022 Avodart0.5mg Capsules 1 tab by mouth every night Zeb Akins M.D. 06/27/2022 Avtsbetdeq0yo Tablets 4 tabs by mouth every day Zeb Akins M.D. 06/27/2022 Pnplbuu8pb Tablets 1 by mouth twice a day Zeb Akins M.D. 06/27/2022 Bxfmrrebpj622xi Tablets 2-3 tablets daily Zeb Akins M.D. 06/27/2022 Metformin ZFZ177bq Tablets take 1 tablet by mouth twice a day Zeb Akins M.D. 06/27/2022 Adnpjqlpr81xq Tablets 1 by mouth every day Zeb Akins M.D. 06/27/2022 Pravastatin Othypu40om Tablets 1 tab daily Zeb Akins M.D. 06/27/2022 Rtefpccias69ll Tablets Take 1 Tablet By Mouth Every Day In The Morning Shweta Collins M.D. Vital Signs Date Vital Result Comment 04/26/2023 11:06am Height 73 inches 6'1 Weight 196.00 lb BMI (Body Mass Index) 25.9 kg/m2 Results Test Acquired Date Facility Test Result H/L Range Note Free Testosterone 04/26/2023 [facility] Testosterone, Total, LC/MS 697.4 1 Percent Free Testosterone 1.41 Low 2 Free Testosterone, Equilibrium 9.83 3 Testosterone 04/26/2023 [facility] Testosterone 771 ng/dL (280-800 ) SHBG 04/26/2023 [facility] SHBG 149.0 nmol/L High (19-76) FSH 04/26/2023 [facility] FSH 37.3 MIU/ML High (1.5-12. 4) 4 LH 04/26/2023 [facility] LH 17.9 MIU/ML High (1.5-12. 4) 5 Prolactin 04/26/2023 [facility] Prolactin 26.0 NG/ML High (4.0-15. 2) Complete Abc With Diff 04/26/2023 [facility] WBC 8.0 K/MM3 (4.0-11. [...] ) Lymph # 1.4 K/MM3 (0.8-3.1 ) Crenshaw# 1.4 K/MM3 High (0.4-1.3 ) Eo # 0.1 K/MM3 (0.0-0.4 ) Baso # 0.1 K/MM3 (0.0-0.1 ) Abs. Imm Gran 0.0 K/MM3 Neut 62.1 % (44-76) Lymph 17.9 % (15-43) Monocyte 17.7 % High (4.5-10. 5) Eo 1.5 % (0-6) Baso 0.6 % (0-2) Imm Gran 0.2 % Free T4 06/27/2022 [facility] Free T4 1.41 ng/dL (0.70-1. 80) TSH 06/27/2022 [facility] TSH 3.98 uIU/mL (0.4-4.2 ) Prolactin 06/27/2022 [facility] Prolactin 30.4 NG/ML High (4.0-15. 2) FSH 06/27/2022 [facility] FSH 18.8 MIU/ML High (1.5-12. 4) 6 LH 06/27/2022 [facility] LH 9.4 MIU/ML (1.5-12. 4) 7 Testosterone,[place] e & Total (Males > 15Yr) 06/27/2022 [facility] Testosterone 1056 ng/dL High (280-800 ) SHBG 122.0 nmol/L High (19-76) Free Testosterone, Estimated 8.96 ng/dL (3.7-14. 7) [place] C 06/27/2022 [facility] [place] C 66 NG/ML 8 Z Score SEE COMMENT 9 1 Reference range: 264 .0 to 916.0 Unit: ng/dL (NOTE) This [facility] LC/MS-MS method is currently certified by the CDC Hormone Standardization Program (HoSt). Adult male reference interval is based on a population of healthy nonobese males (BMI <30) between 19 and 39 years old. Antonieta et.al. JCEM 2017,102;7214-2487. PMID: 57897508. This test was developed and its performance characteristics determined by [facility]. It has not been cleared or approved by the Food and Drug Administration. 2 Reference range: 1.5 0 to 4.20 Unit: % 3 Reference range: 5.0 0 to 21.00 Unit: ng/dL Test performed at [address] [address] 4 Reference Range: Follicular: 3.5-12.5 mIU/mL Ovulation: [...] Unit: S.D. (NOTE) RESULT:-1.5 Test performed at [address] [address] Medical Devices Description No Information Available Encounters [...]
--- OUTSIDE RECORDS SUMMARY | 2024-12-31 13:16 | XMS_ITS | Encounter Summary ---
Author Organization [employer] Address [address] [facility] 7t [place] [address] Care Team Providers Care Field Contact Technician Name Role Phone Shweta Collins MD Primary Care Provider [phone] Encounter Details Date Type Department Care Team (Late st Contact Info) Description 09/29/2023 Orders Only [facility] MEDICAL [address] [place], [place] [phone] Shweta Collins MD [address] [place] [address] Iron deficiency anemia, unspecified iron deficiency anemia [...] Description 02/11/2025 12:00 PM EDT Office Visit [facility] MEDICAL [address] [place] [address] Shweta Collins MD [address] [place] [address] documented as of this encounter Visit Diagnoses Diagnosis Iron deficiency anemia, unspecified iron deficiency anemia type Hyponatremia Hyposmolality and/or hyponatremia documented in this encounter Care Teams Field Contact Technician Relationship Specialty Start Date End Date Shweta Collins MD [address] [place] [address] PCP - General Internal Medicine 11/30/22December Debo Registered Nurse Case Management 07/17/23 documented as of this encounter
--- OUTSIDE RECORDS SUMMARY | 2024-12-31 13:16 | XMS_ITS | Encounter Summary ---
Author Organization [employer] Address [address] [facility] 7t [place] [address] Care Team Providers Care Wheel Adjuster Name Role Phone Shweta Collins MD Primary Care Provider [phone] Encounter Details Date Type Department Care Team (Late st Contact Info) Description 01/19/2024 Orders Only [facility] MEDICAL [address] [place], [place] [phone] Shweta Collins MD [address] [place] [address] Iron deficiency anemia, unspecified iron deficiency anemia [...] 12:00 PM EDT Office Visit [facility] MEDICAL [address] [place] [address] Shweta Collins MD [address] [place] [address] documented as of this encounter Visit Diagnoses Diagnosis Iron deficiency anemia, unspecified iron deficiency anemia type Hyponatremia Hyposmolality and/or hyponatremia documented in this encounter Care Teams Wheel Adjuster Relationship Specialty Start Date End Date Shweta Collins MD [address] [place] [address] PCP - General Internal Medicine 11/30/22December Debo Registered Nurse Case Management 07/17/23 documented as of this encounter
--- OUTSIDE RECORDS SUMMARY | 2024-12-31 13:17 | XMS_ITS | Encounter Summary ---
Author Organization [facility] Address [address] [place] [address] Care Team Providers Care Flame Hardening Machine Setter Name Role Phone Shweta Collins MD Primary Care Provider Unavailab Brenden Bay MD Unavailable Unavailable Collette Jones NP Unavailable [phone] Encounter Details Date Type Department Care Team Description 04/19/2019 Release of Information Medical Records [address] [place] [address] Abstract, Provider Social History Tobacco Use Types [...] on filedocumented in this encounter Care Teams Flame Hardening Machine Setter Relationship Specialty Start Date End Date Shweta Collins MD PCP - General Internal Medicine 09/05/17 Brenden Curry MD Research And Development Technician Cardiovascular Disease 04/05/21 Collette Jones NP Nurse Practitioner Cardiology 04/05/21 documented as of this encounter
--- OUTSIDE RECORDS SUMMARY | 2024-12-31 13:17 | XMS_ITS | Encounter Summary ---
Author Organization [facility] Address [address] [place] [address] Care Team Providers Care Residential Designer Name Role Phone Shweta Collins MD Primary Care Provider Unavailab Brenden Bay MD Unavailable Unavailable Collette Jones NP Unavailable [phone] Encounter Details Date Type Department Care Team Description 08/26/2022 SCAN Medical Records [address] [place] [address] Abstract, Provider Social History Tobacco Use Types [...] Date/Time Associated Diagnosis Comments OUTSIDE LAB Routine 08/26/2022 documented in this encounter Results * OUTSIDE LAB (08/26/2022) Provider Default LAB documented in this encounter Visit Diagnoses Not on filedocumented in this encounter Care Teams Residential Designer Relationship Specialty Start Date End Date Shweta Collins MD PCP - General Internal Medicine 09/05/17 Brenden Curry MD Manager Club Cardiovascular Disease 04/05/21 Collette Jones NP Nurse Practitioner Cardiology 04/05/21 documented as of this encounter
--- OUTSIDE RECORDS SUMMARY | 2024-12-31 13:17 | XMS_ITS | Encounter Summary ---
Author Organization [facility] Address [address] [place] [address] Care Team Providers Care All Source Intelligence Name Role Phone Shweta Collins MD Primary Care Provider Unavailab Brenden Bay MD Unavailable Unavailable Collette Jones NP Unavailable [phone] Encounter Details Date Type Department Care Team Description 04/28/2020 Program Manager Slp Report Medical Records [address] [place] [address] Brenden Curry MD Social History Tobacco Use [...] on filedocumented in this encounter Care Teams All Source Intelligence Relationship Specialty Start Date End Date Shweta Collins MD PCP - General Internal Medicine 09/05/17 Brenden Curry MD Perforator Typist Cardiovascular Disease 04/05/21 Collette Jones NP Nurse Practitioner Cardiology 04/05/21 documented as of this encounter
--- OUTSIDE RECORDS SUMMARY | 2024-12-31 13:17 | XMS_ITS | Encounter Summary ---
Author Organization [facility] Address [address] [place] [address] Care Team Providers Care Testboard Operator Name Role Phone Shweta Collins MD Primary Care Provider Unavailab Brenden Bay MD Unavailable Unavailable Collette Jones NP Unavailable [phone] Encounter Details Date Type Department Care Team Description 08/15/2022 Hospital Medical Records [address] [place] [address] Social History Tobacco Use Types Packs/Day Years [...] Name Priority Date/Time Associated Diagnosis Comments OUTSIDE ECHO Routine 08/23/2022 OUTSIDE LAB Routine 08/22/2022 OUTSIDE PLAIN FILM Routine 08/21/[address] Routine 08/20/2022 documented in this encounter Results * OUTSIDE ECHO (08/23/2022) Provider Default CARDIOLOGY * OUTSIDE LAB (08/22/2022) Provider Default LAB * OUTSIDE PLAIN FILM (08/21/2022) Provider Default RADIOLOGY * OUTSIDE CT (08/20/2022) Provider Default RADIOLOGY documented in this encounter Visit Diagnoses Not on filedocumented in this encounter Care Teams Testboard Operator Relationship Specialty Start Date End Date Shweta Collins MD PCP - General Internal Medicine 09/05/17 Brenden Curry MD Environmental Science Technician Cardiovascular Disease 04/05/21 Collette Joens NP Nurse Practitioner Cardiology 04/05/21 documented as of this encounter
--- OUTSIDE RECORDS SUMMARY | 2024-12-31 13:17 | XMS_ITS | Clinical Summary ---
Author Organization [facility] Address [address] [place] [address] Care Team Providers Care Shed Hand Name Role Phone Shweta Collins MD Primary [...] mg by nebulization daily. 0 Active Tiotropium Macclenny-Olodaterol (STIOLTO RESPIMAT) 2.5-2.5 MCG/ACT AERS Inhale 2.5 [...] this topic Medical Devices Implanted Type Area Reading Recovery Teacher Device Identifier Shelf Expiration Date Model / Serial / Lot Sponge Surgiflo 8ml Hemostatic Matrix Absorbable Latex Free - [id number] - [id number] Implanted:Qty: 1 on 10/30/2017 by Saad Andujar MD at [facility] Hemostatic Agent Anterior: Spine Cervical [employer] 03/24/2019 2991 / / [id number] Sponge Surgiflo 8ml Hemostatic Matrix Absorbable Latex Free - [id number] - [id number] Implanted:Qty: 2 on 10/30/2017 by Saad Andujar MD at [facility] Hemostatic Agent Posterior: Spine Cervical [employer] 04/24/2019 2991 / / [id number] Spacer Cervical Allofuse 9mm Cortical Cancellous Freeze [facility] - [id number] - [id number] Implanted:Qty: 1 on 10/30/2017 by Saad Andujar MD at [facility] Anterior: Spine Cervical [employer] 01/11/2021 [id number] / [id number] / Screw 14mm Self Drilling - [id number] - [id number] Implanted:Qty: 4 on 10/30/2017 by Saad Andujar MD at [facility] Anterior: Spine Cervical [employer] 161.014 / / Plate 20mm [facility]tend [facility] - [id number] - [id number] Implanted:Qty: 1 on 10/30/2017 by Saad Andujar MD at [facility] Anterior: Spine Cervical [employer] 161.120 / / Plate Canopy Shelf 7mm - 633155 - [id number] Implanted:Qty: 3 on 10/30/2017 by Saad Andujar MD at [facility] Posterior: Spine Cervical [employer] 1102.401 / / Screw Self-Tapping Laminoplasty 2.6mmx6.0mm - [id number] - [id number] Implanted:Qty: 12 on 10/30/2017 by Saad Andujar MD at [facility] Posterior: Spine Cervical [employer] 136.706 / / Advance Directives For more information, please contact: [phone] Documents on File Type Date Recorded Patient National Sales Associate Expl anation Advance Directive and Living Will 01/02/2019 11:32 AM Latest Code Status on File Code Status Date Activated Date Inactivated Comments Full Code 10/30/2017 4:01 PM 11/03/2017 10:56 PM This c ode status was ascertained in the following way: per living will or healthcare instructions . Care Teams Shed Hand Relationship Specialty Start Date End Date Shweta Collins MD [address] [place] [address] PCP - General Internal Medicine 02/10/17
--- OUTSIDE RECORDS SUMMARY | 2024-12-31 13:17 | XMS_ITS | Encounter Summary ---
Author Organization [facility] Address [address] [place] [address] Care Team Providers Care Granite Polisher Name Role Phone Shweta Collins MD Primary Care Provider Unavailab Brenden Bay MD Unavailable Unavailable Collette Jones NP Unavailable [phone] Reason for Visit * Reason Onset Date Comments Medication 12/04/2018 Encounter Details Date Type Department Care Team Description 12/04/2018 Telephone Pulmonology - [address] [place] [address] Jason Collazo MD Medication Social [...] PM EDT [facility]ed to [facility] the [facility] * Telephone Encounter - Jason Collazo MD - 12/10/2018 12:52 PM EDT The message was from the [facility], should be faxed to the [facility]. Please see below message * Telephone Encounter - Yu Graff M.A. - 12/10/2018 12:10 PM EDT Medication and oV note faxed to [facility]. * Telephone Encounter - Jason Collazo MD - 12/09/2018 7:35 PM EDT Ok printed, please fax * Telephone Encounter - Kath Claire M.A. - 12/07/2018 1:28 PM EDT Lilliam from the [facility] is calling to check on status. She needs a new rx for the Albuterol Nebulizer solution instead of the Xopenex because that is not available at there pharm. If it is ok please fax to: [phone]. If any questions please call: [phone] * Telephone Encounter - Jason Collazo MD [...] on filedocumented in this encounter Care Teams Granite Polisher Relationship Specialty Start Date End Date Shweta Collins MD PCP - General Internal Medicine 09/05/17 Brenden Curry MD Bushel Girl Cardiovascular Disease 04/05/21 Collette Jones NP Nurse Practitioner Cardiology 04/05/21 documented as of this encounter
--- OUTSIDE RECORDS SUMMARY | 2024-12-31 13:17 | XMS_ITS | Clinical Summary ---
Author Organization [employer] Address [address] [place] [address] [address] [place] [address] Care Team Providers Care Vice President Process Name Role Phone Shweta Collins MD Primary Care Provider [phone] Allergies Active Allergy Reactions Criticality Noted Date [...] by mouth at bedtime. Active nystatin (Mycostatin) 859028 UNIT/ML suspension Place 600,000 Units into mouth [...] ns:Type 2 diabetes mellitus treated without insulin ([facility]) Take 1 tablet (40 mg) by mouth [...] ns:Type 2 diabetes mellitus treated without insulin ([facility]) Take 1 tablet (500 mg) by mouth 2 times daily. 180 tablet 3 08/19/20 24 2024 Active silver sulfADIAZINE (Silvadene) 1 % creamIndication s:Open wound of scalp, unspecified open wound type, subsequent encounter Apply topically Once per day. 60 g 2 08/19/20 Active Accu-Chek FastClix Lancets miscIndications :Type 2 diabetes mellitus treated without insulin ([facility]) 1 Lancet 3 times daily. 100 each 08/20/20 24 2024 Active glucose blood test stripIndication s:Type 2 diabetes mellitus treated without insulin ([facility]) 1 each by Other route 3 times daily. 100 each 08/20/20 24 2024 Active Insulin Aspart (NovoLOG) 100 UNIT/ML solutionIndicat ions:Type 2 diabetes mellitus treated without insulin ([facility]) Inject 0.1 mL (10 Units) as directed [...] surgery Side effects to oxycontin Stabilized at [facility], then weaned down from 160 morphine equivalents [...] 12/16/2024 [place] [facility] [address] [place] [address] Shweta Collins MD Radicular syndrome of upper limbs 12/06/2024 Population Health Risk Score [facility] () Department [address] [place] [id number] Provider, Population Health Generic 11/18/2024 12:00 PM EST Telemedicine [facility] MEDICAL [address] [place] [address] Shweta Collins MD Chronic pain following surgery or procedure (Primary Dx); Spinal stenosis, unspecified spinal region; Radicular syndrome of upper limbs; Type 2 diabetes mellitus with diabetic peripheral angiopathy without gangrene, with long-term current use of insulin ([facility]); Physical deconditioning; Severe persistent asthma, unspecified whether complicated; Diabetic polyneuropathy associated with type 2 diabetes mellitus (CMS/HCC) 11/18/2024 Travel 11/18/[address] [address] Shweta Collins MD Radicular syndrome of upper limbs 10/21/2024 10:00 AM EST Telemedicine [address] [address] Shweta Collins MD Type 2 diabetes mellitus treated without insulin ([facility]) (Primary Dx); Chronic pain following surgery or procedure; Primary hypertension; Vitamin D deficiency 10/21/[address] [address] Shweta Collins MD Radicular syndrome of upper [...] Visit Nayeli [facility] [address] [place] [address] Shweta Collins MD [address] [place], [place] [id number] Health Maintenance Due Date Last Done Comments [...] Type 2 diabetes mellitus treated without insulin ([facility]) MAGNESIUM Routine 11/20/2024 10:44 AM EST Type 2 diabetes mellitus treated without insulin (CMS/HCC) VITAMIN B12 Routine 11/20/2024 10:44 AM EST Type 2 diabetes mellitus treated without insulin ([facility]) VITAMIN D 25 HYDROXY Routine 11/20/2024 10:44 AM EST Type 2 diabetes mellitus treated without insulin ([facility]) Vitamin D deficiency ALBUMIN, RANDOM URINE W/CREATININE Routine 02/15/2022 10:28 AM EDT LIPID PANEL, STANDARD Routine 02/15/2022 COLONOSCOPY Routine 07/15/2009 12:00 AM EDT from Last 3 Months or Most Recently Relevant to Health Maintenance Results * (ABNORMAL) CBC auto differential (11/20/2024 10:44 AM EST) Pathologist [facility] White Blood Cell Count 11.4(H) 3.4 - [...] AM EST Performed at: ??01 - [facility] [address] ??[id number] Control Integration Engineer: Doris Michelle MD, Phone: ??[phone] Shweta Collins MD LAB BLOOD ORDERABLES Final Resul t Performing Organization Address [facility] de Phone Number [facility] 1 * Vitamin D 25 hydroxy 992060 (11/20/2024 10:44 AM EST) Vitamin D, 25-OH, Total 46.0 30.0 - 100.0 ng/mL [facility] 1 Comment: Vitamin D deficiency has been defined by the [place]oring of Medicine and an Endocrine Society practice guideline as a level of serum 25-OH vitamin D less than 20 ng/mL (1,2). The Endocrine Society went on to further define vitamin D insufficiency as a level between 21 and 29 ng/mL (2). 1. IOM ([place]oring of Medicine). 2010. Dietary reference ?? intakes [...] AM EST Performed at: ??01 - [facility] [address] ??[id number] Control Integration Engineer: Doris Michelle MD, Phone: ??[phone] Shweta Collins MD LAB BLOOD ORDERABLES Final Resul t Performing Organization Address [facility] Co de Phone Number [facility] 1 * Magnesium (11/20/2024 10:44 AM EST) Magnesium 1.6 1.6 - 2.3 mg/dL [facility] 1 Blood Venous blood specimen / Unknown 11/20/2024 10:44 AM EST 11/20/2024 Narrative [facility] 1 - 11/21/2024 8:06 AM EST Performed at: ??01 - [facility] [address] ??[id number] Control Integration Engineer: Doris Michelle MD, Phone: ??[phone] Shweta Collins MD LAB BLOOD ORDERABLES Final Resul t Performing Organization Address [facility] de Phone Number [facility] 1 * (ABNORMAL) Hemoglobin A1c (11/20/2024 10:44 AM EST) Hemoglobin A1c 7.4(H) 4.8 - 5.6 % [facility] 1 Comment: ? Prediabetes: 5.7 - 6.4 ? Diabetes: >6.4 ? Glycemic control for adults with diabetes: <7.0 Blood Venous blood specimen / Unknown 11/20/2024 10:44 AM EST 11/20/2024 Narrative [facility] 1 - 11/21/2024 6:05 AM EST Performed at: ??01 - [facility] [address] ??[id number] Control Integration Engineer: Doris Michelle MD, Phone: ??[phone] Shweta Collins MD LAB BLOOD ORDERABLES Final Resul t Performing Organization Address [facility] de Phone Number [facility] 1 * Vitamin B12 (11/20/2024 10:44 AM EST) Vitamin B12 708 232 - 1,245 pg/mL [facility] 1 Blood Venous blood specimen / Unknown 11/20/2024 10:44 AM EST 11/20/2024 Narrative [facility] 1 - 11/21/2024 6:05 AM EST Performed at: ??01 - [facility] [address] ??[id number] Control Integration Engineer: Doris Michelle MD, Phone: ??[phone] Shweta Collins MD LAB BLOOD ORDERABLES Final Resul t Performing Organization Address City/[facility]/ZIP Co de Phone Number [facility] 1 * -Microalbumin, Urine (02/15/2022 10:28 AM EDT) Microalbumin Urine <12.0 (<20) MG/L [facility] Comment: The urine microalbumin test is designed to monitor renal function. When screening for Bence Baig proteinuria, urine electrophoresis is recommended. Microalb/Creat Ratio Unable to calculate (0-20) [facility] Creatinine, Urine 28.6 MG/DL [facility] 02/15/2022 10:2 8 AM EDT Shweta Collins MD LAB URINE ORDERABLES Final Resul t Performing Organization Address [facility] Co de Phone Number [facility] [address] * Lipid Panel, Standard (02/15/2022) Triglycerides [...] Recently Relevant to Health Maintenance Insurance [place] [address] [id number] [facility] Care Teams Vice President Process Relationship Specialty Start Date End Date Shweta Collins MD [address] [place] [address] PCP - General Internal Medicine 11/30/22December Debo Registered Nurse Case Management 07/17/23
--- OUTSIDE RECORDS SUMMARY | 2024-12-31 13:17 | XMS_ITS | Encounter Summary ---
Author Organization [facility] Address [address] [place] [address] Care Team Providers Care Regional Facilities Manager Name Role Phone Shweta Collins MD Primary Care Provider Unavailab Brenden Bay MD Unavailable Unavailable Collette Jones NP Unavailable [phone] Encounter Details Date Type Department Care Team Description 12/11/2018 Curriculum Assistant Report Medical Records [address] [place] [address] Brenden Curry MD Social History Tobacco Use [...] on filedocumented in this encounter Care Teams Regional Facilities Manager Relationship Specialty Start Date End Date Shweta Collins MD PCP - General Internal Medicine 09/05/17 Brenden Curry MD Regional Facilities Manager Cardiovascular Disease 04/05/21 Collette Jones NP Nurse Practitioner Cardiology 04/05/21 documented as of this encounter
--- OUTSIDE RECORDS SUMMARY | 2024-12-31 13:17 | XMS_ITS | Encounter Summary ---
Author Organization [facility] Address [address] [place] [address] Care Team Providers Care Termite Control Representative Name Role Phone Shweta Collins MD Primary Care Provider Unavailab Brenden Bay MD Unavailable Unavailable Collette Jones NP Unavailable [phone] Reason for Visit * Reason Onset Date Comments Medication 09/08/2022 Lasix Encounter Details Date Type Department Care Team Description 09/08/2022 Telephone Cardio [facility] [address] [place] [address] [address] [place] [phone] Collette Jones, MORENO [address] [place] [address] [address] [place] [address] Medication (Lasix) Social History Tobacco Use Types Packs/Day Years [...] encounter Miscellaneous Notes * Telephone Encounter - Devika Pandey R.N. - 09/08/2022 9:19 AM EST Please see update from below. I added to med profile. * Telephone Encounter - Jesenia Tijerina Hermelindo - 09/08/2022 9:12 AM EST Patient's wanted to let the provider know that the patient is still taking Lasix 20 MG, one tablet by mouth per day. documented in this encounter Plan of Treatment Not on file documented as of this encounter Visit Diagnoses Not on filedocumented in this encounter Care Teams Termite Control Representative Relationship Specialty Start Date End Date Shweta Collins MD PCP - General Internal Medicine 09/05/17 Brenden Curry MD Rn Emergency Room Cardiovascular Disease 04/05/21 Collette Jones NP Nurse Practitioner Cardiology 04/05/21 documented as of this encounter
--- OUTSIDE RECORDS SUMMARY | 2024-12-31 13:17 | XMS_ITS | Encounter Summary ---
Author Organization [facility] Address [address] [place] [address] 7 [place] [address] Care Team Providers Care Elastic Cutter Name Role Phone Shweta Collins MD Primary Care Provider [phone] Encounter Details Date Type Department Care Team (Late st Contact Info) Description 12/30/2022 Orders Only [facility] MEDICAL [address] [place] [address] Provider, Historical, Social History Tobacco Use Types [...] Office Visit [facility] MEDICAL [address] [place] [address] Shweta Collins MD [address] [place] [address] documented as of this encounter Procedures Procedure Name Priority Date/Time Associated Diagnosis Comments CBC AND DIFFERENTIAL - WAM A ND NON-WAM Routine 12/27/2022 documented in this encounter Results * CBC and differential (12/27/2022) Blood Venous blood specimen / Unknown us Historical Provider LAB BLOOD ORDERABLES Cynthia l Result documented in this encounter Visit Diagnoses Not on filedocumented in this encounter Care Teams Elastic Cutter Relationship Specialty Start Date End Date Shweta Collins MD [address] [place] [address] PCP - General Internal Medicine 11/30/22December Debo Registered Nurse Case Management 07/17/23 documented as of this encounter
--- OUTSIDE RECORDS SUMMARY | 2024-12-31 13:17 | XMS_ITS | Encounter Summary ---
Author Organization [facility] Address [address] [place] [address] Care Team Providers Care Sales Intern Name Role Phone Shweta Collins MD Primary Care Provider Unavailab Brenden Bay MD Unavailable Unavailable Collette Jones NP Unavailable Encounter Details Date Type Department Care Team Description 07/18/2022 [facility] Medical Records [address] [place] [address] Social History Tobacco Use Types Packs/Day Years [...] Associated Diagnosis Comments OUTSIDE PLAIN FILM Routine 07/29/2022 OUTSIDE EKG Routine 07/26/2022 OUTSIDE ECHO Routine 07/26/2022 OUTSIDE EKG Routine 07/18/2022 documented in this encounter Results * OUTSIDE PLAIN FILM (07/29/2022) Provider Default RADIOLOGY * OUTSIDE EKG (07/26/2022) Provider Default CARDIOLOGY * OUTSIDE ECHO (07/26/2022) Provider Default CARDIOLOGY * OUTSIDE EKG (07/18/2022) Provider Default CARDIOLOGY documented in this encounter Visit Diagnoses Not on filedocumented in this encounter Care Teams Sales Intern Relationship Specialty Start Date End Date Shweta Collins MD PCP - General Internal Medicine 09/05/17 Brenden Curry MD Kindergarten Instructional Assistant Cardiovascular Disease 04/05/21 Collette Jones NP Nurse Practitioner Cardiology 04/05/21 documented as of this encounter
--- OUTSIDE RECORDS SUMMARY | 2024-12-31 13:17 | XMS_ITS | Encounter Summary ---
Author Organization [facility] Address [address] [place] [address] Care Team Providers Care Airport Skilled Maintenance Supervisor Name Role Phone Shweta Collins MD Primary Care Provider Unavailab Brenden Bay MD Unavailable Unavailable Collette Jones ENERGY SYSTEMS LABORATORY DIRECTOR Unavailable Reason for Visit * Reason Comments Remote Device Check Encounter Details Date Type Department Care Team Description 09/08/2022 Remote Device Check Cardio PVC POC [address] [facility] [address] [place] [address] Emil Bee MD [address] [place] [address] Social History Tobacco Use Types Packs/Day Years [...] on filedocumented in this encounter Care Teams Airport Skilled Maintenance Supervisor Relationship Specialty Start Date End Date Shweta Collins MD PCP - General Internal Medicine 09/05/17 Brenden Curry MD Regional Service Manager Cardiovascular Disease 04/05/21 Collette Jones NP Nurse Practitioner Cardiology 04/05/21 documented as of this encounter
--- OUTSIDE RECORDS SUMMARY | 2024-12-31 13:17 | XMS_ITS | Encounter Summary ---
Author Organization [facility] Address [address] [place] [address] Care Team Providers Care Booster Pump Operator Name Role Phone Shweta Collins MD Primary Care Provider Unavailab Brenden Bay MD Unavailable Unavailable Collette Jones NP Unavailable [phone] Reason for Visit * Reason Comments Remote Device Check Encounter Details Date Type Department Care Team Description 10/31/2022 Remote Device Check Cardio PVC POC 154 [address] [facility] [address] [place] [address] Emil Bee MD [address] [place] [address] Social History Tobacco Use Types Packs/Day Years [...] on filedocumented in this encounter Care Teams Booster Pump Operator Relationship Specialty Start Date End Date Shweta Collins MD PCP - General Internal Medicine 09/05/17 Brenden Curry MD Farmworker Field Crop Cardiovascular Disease 04/05/21 Collette Jones NP Nurse Practitioner Cardiology 04/05/21 documented as of this encounter
--- OUTSIDE RECORDS SUMMARY | 2024-12-31 13:17 | XMS_ITS | Encounter Summary ---
Author Organization [facility] Address [address] [place] [address] Care Team Providers Care Capper Machine Operator Name Role Phone Shweta Collins MD Primary Care Provider Unavailab Brenden Bay MD Unavailable Unavailable Collette Jones NP Unavailable [phone] Reason for Visit * Reason Onset Date Comments medication problems 04/22/2019 prednisone Encounter Details Date Type Department Care Team Description 04/22/2019 Telephone Pulmonology - [address] [place] [address] Jason Collazo MD medication problems [...] area this morning and would like to picking tech the script for the Prednisone 5 mg [...] on filedocumented in this encounter Care Teams Capper Machine Operator Relationship Specialty Start Date End Date Shweta Collins MD PCP - General Internal Medicine 09/05/17 Brenden Curry MD Well Servicing Rig Operator Cardiovascular Disease 04/05/21 Collette Jones NP Nurse Practitioner Cardiology 04/05/21 documented as of this encounter
--- OUTSIDE RECORDS SUMMARY | 2024-12-31 13:17 | XMS_ITS | Encounter Summary ---
Author Organization [facility] Address [address] [place] [address] Care Team Providers Care Hydrogen Plant Operations Manager Name Role Phone Shweta Collins MD Primary Care Provider Unavailab Brenden Bay MD Unavailable Unavailable Collette Jones NP Unavailable [phone] Encounter Details Date Type Department Care Team Description 09/02/2022 SCAN Medical Records [address] [place] [id number] Abstract, Provider Social History Tobacco Use Types [...] on filedocumented in this encounter Care Teams Hydrogen Plant Operations Manager Relationship Specialty Start Date End Date Shweta Collins MD PCP - General Internal Medicine 09/05/17 Brenden Curry MD Engineer/Conductor Cardiovascular Disease 04/05/21 Collette Jones NP Nurse Practitioner Cardiology 04/05/21 documented as of this encounter
== END 2024-12-31 11:31 | disposition home or self-care (01) ==
PROVIDERS: PCP Internal Medicine; Visit Provider Urology
DX: C61 Malignant neoplasm of prostate (principal); N40.1 Benign prostatic hyperplasia with lower urinary tract symptoms; N13.8 Other obstructive and reflux uropathy
CPT/HCPCS: 99214; G2211

== ENCOUNTER 2025-03-11 15:31 | Outpatient (AMB) | payer MEDICARE, OTHER, SELFPAY ==
--- NOTE | 2025-03-11 15:31 | A.OFFVIS_ITS ---
Intake Visit Reasons: 1m psma f/u Intake Note: Patient is present for 1M PSMA F/U Urology Medication:TAMSULOSIN,DUTASTERIDE Antibiotic Allergy:LEVOFLOXACIN,SULFA Blood Thinner:NONE Coal Dumping Equipment Operator Required: No Allergies finasteride Allergy (Intermediate, Verified 03/11/25 15:34) Rash and Hives levofloxacin (Levaquin) Allergy (Intermediate, Verified 03/11/25 15:34) Rash and Hives Sulfa (Sulfonamide Antibiotics) Allergy (Intermediate, Verified 03/11/25 15:34) Rash and Hives Biaxin Allergy (Intermediate, Uncoded 03/11/25 15:34) Rash and Hives ivp contrast Allergy (Intermediate, Uncoded 03/11/25 15:34) Rash and Hives flu shot (senior) Allergy (Uncoded 03/11/25 15:34) hives FLU Vaccine Adverse Reaction (Severe, Uncoded 03/11/25 15:34) Anaphylaxis HPI Comments Details: Mr Gunter is a very pleasant . They are a patient of Dr Collins. They are seen in the office today for the following urologic conditions. - prostate cancer - BPH with nocturia Telemedicine Evaluation 15 min Consultation Kirondo Baldomero Video Follow-up from PSMA PET scan Imaging shows activity avid within prostate No evidence of sakina or bony metastases Combination dutasteride and tamsulosin PSA 05/18 22.9, 12/17 29 Persistent high FSH and high testosterone Prior MRI shows no joanne mass Prostate cancer: Second biopsy negative Prostate cancer was diagnosed 05/[address] Gomes. Diagnosis was reached by needle biopsy, for elevated PSA, PSA at diagnosis 6.6 , size at TRUS 45cc Feb 2018 , needle biopsy, for elevated PSA, PSA at diagnosis 16.5. The [place] grade is 3+3 = 6 / cores 10% - February 2018 HGPIN / cores - no cancer on directed cores - May 2020 - no cancer seen TNM Classification of Malignant Tumours (TNM) T1c. The D'Heidy (NCCN) risk category is Low Risk (PSA< 10, Gl < 7, T1c). Initial therapy included Primary treatment, Observation, 5AR - Side effect with finasteride - sore testicles - tolerates dutasteride Recent labs included a PSA (prostate-specific antigen) April 2011 3.3, August 2012 5.4, January 2013 5.5, January 2014 6.9, June 2016 12.9 (unsure if on 5AR), Sep 2016 13.28 February 2017 13.5 on 5AR 01/10 , a PSA (prostate-specific antigen) 16.2, 09/11 16 02/10 18.4, 04/12 20.6, 09/12 28.3 04/13 28 - 11/15 27.8, 05/15 33, 09/14 27, 03/16 35 T 800, 04/15 T 750 FSH 18 Recent imaging included an MRI (magnetic resonance imaging) April 2015 prostate volume 36 cc, area of hypointensity and peripheral zone of the left base without abnormal enhancement kinetics. No evidence of capsular invasion or lymphadenopathy 04/10 MRI (magnetic resonance imaging) prostate volume 34 cc. Peripheral zone left basal focal region Pi-RADS 3. No definitive change since 2014. 03/13 Bone Scan negative 09/12 MRI (magnetic resonance imaging) 2.5cm left anterior transition at base - increase in size - 09/14 Bone Scan NAD [facility] Medical History (Updated 12/13/24 @ 12:04 by Jason Collazo MD) Pulmonary nodules Diabetes Chronic respiratory failure COPD (chronic obstructive pulmonary disease) Hypertension Chondrocalcinosis of right knee Primary osteoarthritis of right knee ROLA (obstructive sleep apnea) Atelectasis Prostate cancer Elevated PSA Social History Patient Tobacco Use Status: Former Tobacco user Tobacco use type: Cigarette Years Smoked: 20 years Current occupational status: retired Current occupation: Right Handed Review of Systems Const All systems reviewed & are unremarkable except as noted in HPI and below Reports no additional complaints Resp Reports no additional complaints GI Reports no additional complaints Reports as per HPI Musc Reports no additional complaints Physical Exam Telemedicine evaluation Appropriate responses Regular breathing rate and rhythm HEENT Head: Yes normal to inspection Ears: hearing grossly normal bilaterally Eyes General: appearance normal, both eyes and all related structures Neck Neck: Yes normal visual inspection Chest Chest palpation & inspection: normal inspection of the chest Resp Effort & Inspection: normal respiratory effort and able to speak in complete sentences Telehealth Telehealth Location of provider rendering services: practice address Location of patient: address on file Patient Identification confirmed using: Name, : Yes Telehealth method: voice only Patient verbally consented to treatment: Yes Patient verbally consented to billing insurance company: Yes Patient informed of any privacy concerns related to visit: Yes Minutes spent on Phone/Video with Pt.: 15 Assessment & Plan Assessment & Plan (1) Prostate cancer: Comment: low volume, high PSA Code(s): C61 - Malignant neoplasm of prostate Category: Medical (2) BPH w urinary obs/LUTS: Code(s): N40.1 - Benign prostatic hyperplasia with lower urinary tract symptoms; N13.8 - Other obstructive and reflux uropathy Category: Medical (3) Incomplete emptying of bladder due to benign prostatic hyperplasia: Code(s): N40.1 - Benign prostatic hyperplasia with lower urinary tract symptoms; R33.9 - Retention of urine, unspecified Category: Medical Plan Three-month follow-up office lab work as Plan Patient Instructions: This note is constructed using voice recognition software. While every effort has been made to ensure accuracy payroll clerk errors may have been included. Imaging studies, laboratory and physical exam results were discussed and reviewed in detail. No major barriers to patient understanding were identified. An opportunity to ask questions regarding the treatment plan was provided. All questions were answered. The patient expressed understanding and agreement with the above treatment plan. The patient is aware they should contact our office by phone for worsening of their current condition or the appearance of new urologic symptoms. Compliance is encouraged with any medications and followup testing that is ordered. It is a privilege to participate in the urologic care of your patient. If you have any questions or concerns regarding treatment for the above conditions, or other urologic issues, please do not hesitate to contact me. The office telephone contact is [phone]. Sincerely, Dr Rommel Gomes MD, [facility] - Urology Compassionate Specialist Care for the Genitourinary System Coding Level of Care Code Tele Est Pt Level 3 (74891) Complex EM visit Add On G2211 Diagnoses Prostate cancer C61 BPH w urinary obs/LUTS N40.1; N13.8 Incomplete emptying of bladder due to benign prostatic hyperplasia N40.1; R33.9
--- OUTSIDE RECORDS SUMMARY | 2025-03-11 18:01 | XMS_ITS | Encounter Summary ---
Author Organization [employer] Address [address] [place] [address] [address] [address] Care Team Providers Care Consumer Analyst Name Role Phone Shweta Collins MD Primary Care Provider [phone] Encounter Details Date Type Department Care Team (Late st Contact Info) Description 09/01/2023 Orders Only [facility] [address] [place] [address] Shweta Collins MD [address] [place] [address] Iron deficiency anemia, unspecified iron deficiency anemia [...] Care Team (Late st Contact Info) Description 05/13/2025 12:00 PM EDT Office Visit [facility] [address] [place] [address] Shweta Collins MD [address] [place] [address] documented as of this encounter Procedures Procedure Name Priority Date/Time Associated Diagnosis Comments CBC Routine 09/01/2023 11:25 AM EST Iron deficiency anemia, unspecified iron deficiency anemia type BASIC METABOLIC PANEL Routine 09/01/2023 11:25 AM EST Iron deficiency anemia, unspecified iron deficiency anemia type documented in this encounter Results * (ABNORMAL) Basic Metabolic Panel (09/01/2023 11:25 AM EST) Glucose 208(H) (70-99) MG/DL [facility] BUN 6(L) (8-23) MG/DL [facility] Creatinine, Serum 0.4(L) (0.7-1.2) MG/DL [facility] Sodium 133 (133-145) MMOL/L [facility] Potassium 4.1 (3.6-5.2) MMOL/L [facility] Chloride 93(L) (98-107) MMOL/L [facility] Bicarbonate 31(H) (22-29) MMOL/L [facility] Anion Gap 9 (4-17) [facility] Calcium 9.7 (8.6-10.5) MG/DL [facility] eGFR Creatinine 111 ML/MIN/1.7 3 M2 [facility] Comment: Creatinine based estimated glomerular filtration (eGFR) in adults is calculated using the National [employer] recommended 2020 CKD-EPI equation. Estimates GFR from serum creatinine, age and sex. Testing performed or reported by [facility], a Service of [facility], [address] [place] [id number] Luis Ayers MD, Line Dancer CLIA# [id number] 09/01/2023 11:2 5 AM EST 09/01/2023 11:35 AM EST Shweta Collins MD LAB BLOOD ORDERABLES Final Resul t [facility] [address] [place] [id number] * (ABNORMAL) CBC (09/01/2023 11:25 AM EST) WBC 8.5 (4.0-11.0) K/MM3 [facility] RBC 4.04(L) (4.70-6.10 ) M/MM3 [facility] HGB 9.3(L) (13.7-17.1 ) GM/DL [facility] HCT 30.9(L) (40.5-50.0 ) % [facility] MCV 76.5(L) (80.0-94.0 ) FL [facility] MCH 23.0(L) (27.0-34.0 ) PG [facility] McHC 30.1(L) (33.0-37.0 ) g/dL [facility] PLT 402 (150-460) K/MM3 [facility] RDW-SD 47.6(H) (<47.0) FL [facility] MPV 10.0 (9.4-12.4) FL [facility] Automated NRBC 0.0 #/100 WBC'S [facility] ABS NRBC 0.0 K/MM3 [facility] Comment: Testing performed or reported by [facility], a Service of [facility], [address] [place] [id number] Luis Ayers MD, Line Dancer YUDELKA# [id number] 09/01/2023 11:2 5 AM EST 09/01/2023 11:35 AM EST Shweta Collins MD LAB BLOOD ORDERABLES Final Resul t [facility] [address] [place], [place] [id number] documented in this encounter Visit Diagnoses Diagnosis Iron deficiency anemia, unspecified iron deficiency anemia type Hyponatremia Hyposmolality and/or hyponatremia documented in this encounter Care Teams Consumer Analyst Relationship Specialty Start Date End Date Shweta Collins MD [address] [place] [id number] PCP - General Internal Medicine 11/30/22December Debo Registered Nurse Case Management 07/17/23 documented as of this encounter
== END 2025-03-11 16:26 | disposition home or self-care (01) ==
LOC: HO.HUSH 15:31
PROVIDERS: PCP Internal Medicine; Visit Provider Urology
DX: C61 Malignant neoplasm of prostate (principal); N40.1 Benign prostatic hyperplasia with lower urinary tract symptoms; N13.8 Other obstructive and reflux uropathy; R33.9 Retention of urine, unspecified
CPT/HCPCS: 99213; G2211

== ENCOUNTER → 2025-03-11 15:31 | Outpatient (BNVA) | payer MEDICARE, OTHER, SELFPAY | PROVIDERS: PCP Internal Medicine; Visit Provider Urology | DX: Z13.89 Encounter for screening for other disorder (principal) ==

== ENCOUNTER 2025-03-25 11:05 | Outpatient (AMB) | payer MEDICARE, OTHER, SELFPAY ==
[2025-03-25 11:08] VITALS: BP 110/67; PULSE 70; O2SAT 98; BMI 23.3
--- NOTE | 2025-03-25 11:08 | MHC.OFFVIS ---
Vital Signs 03/25/25 11:08 Height 6 ft 1 in Weight 177 lb BMI 23.3 BP 110/67 Blood Pressure Location Rt brachial Position Sitting Pulse 70 Pulse Source Pulse Oximeter Pulse Oximetry (%) 98 Oxygen Delivery Method Nasal Cannula Oxygen Flow Rate 2 Intake Visit Reasons: COPD Allergies finasteride Allergy (Intermediate, Verified 03/25/25 11:15) Rash and Hives levofloxacin (Levaquin) Allergy (Intermediate, Verified 03/25/25 11:15) Rash and Hives Sulfa (Sulfonamide Antibiotics) Allergy (Intermediate, Verified 03/25/25 11:15) Rash and Hives Biaxin Allergy (Intermediate, Uncoded 03/11/25 15:34) Rash and Hives ivp contrast Allergy (Intermediate, Uncoded 03/11/25 15:34) Rash and Hives flu shot (senior) Allergy (Uncoded 03/11/25 15:34) hives FLU Vaccine Adverse Reaction (Severe, Uncoded 03/11/25 15:34) Anaphylaxis HPI Comments Details: The patient is a 74-year-old gentleman with known chronic bronchitis, COPD, oxygen dependent. He was in his usual state health until for the last couple weeks when he started developing worsening respiratory symptoms. He started developing increasing wheezing which is audible to his family. Moderate in severity. Also complaining of worsening cough which was congested. However, difficult to expectorate. He has been using Mucinex. Due to his worsening symptoms he was restarted on prednisone. His symptoms did improve in the prednisone was slowly decreased to 2.5 mg. He is still having ongoing respiratory complaints. 09/30/2022 the patient is here for hospital follow-up visit. The patient is currently in assisted. He has had multiple hospitalizations at [facility]. He developed significant respiratory failure requiring BiPAP. His ABG at baseline demonstrated an elevated pCO2 of 51 mmHg consistent with chronic hypercarbic respiratory failure due to his COPD. Patient also had issues with heart required a pacemaker for atrial fibrillation with rapid ventricular response not responsive to medications. He continues uses respiratory medications. Continues to have shortness of breath. His oxygen requirements had gone up to 4 L. The patient is felt that when he is pillow that sometimes he has episodes of shortness of breath and hypoxia. We did decrease the oxygen in the office up to 2 L maintaining a pulse ox above 92%. I did recommend the patient can not decrease the oxygen during the daytime but continue the oxygen at 4 L at nighttime in the meantime. The patient does have hypercarbic respiratory failure due to COPD and therefore carries a poor prognosis for poor outcome in addition to high risk for readmissions to the hospital. For this reason the patient needs to start noninvasive ventilator to improve his gas exchange to improve his prognosis and to decrease hospitalizations. Will go ahead and start the process of getting him an astral noninvasive ventilator for him to use as a trial in a assisted and hopefully soon after that at home. Once the patient starts in the astral we can adjust his oxygen while sleeping. 11/23/2022 the patient is has a telephone visit today. He has been home now for about a week after leaving the assisted. Overall he is doing okay. His is doing over time trying to help him. She did end up with fluid his brother also has been helping him. He is still extremely weak. He cannot walk without any assistance. He is using a walker. He is having issues with taking water pills. The patient has been on diuretics. The patient has been reluctant to use it since he has has to be PN a lot and he has a hard time getting around. He did have a chest x-ray prior to him leaving the assisted and demonstrated increased cardiac size and also some cephalization little mild vascular congestion. Therefore I emphasized to the family that he should be using his Lasix in order to avoid heart failure needing to go back to the hospital. They to come monitor closely for any neck swelling. Also be improved important to monitor his weight. In the meantime the prescription for Lasix was 20 mg 3 times a week. She should consider starting the specially if he looks edematous. The patient also consider taking half the dose if he is concerned about his voiding and also his over diuresis. I did emphasize to the patient and also to the family that taking the diuretics will be important in order for him to continue to stay home safely and avoid congestive heart failure. 03/06/2023 the patient is here for a pulmonary follow-up visit. He is now living at home with his . Still weak she and currently on a wheelchair. He is looking for to starting his to regular physical therapy and strength training. Clinically from a respiratory status the patient is doing better. His cough is improved in his respiratory status is a little bit less labored. Still though he does require the oxygen. Typically requires between 2-3 L of oxygen. Sometimes though, he does increase the oxygen when he feels short of breath even though it may not be related to his oxygen. He does feel like it helps his work of breathing to increase the flow. I advised him not to do so. The meantime she will continue with 2 L at rest and 3 L with activity and sleep. Regarding the prednisone currently on 4 mg of prednisone. He was going to start physical therapy once the patient is doing well he can decrease down to 3 mg daily if possible. He was switched over from Stiolto to Spiriva and CBC needs to be tolerating that well. So therefore continue Spiriva for now. Because of the atrial fibrillation the tremulousness and palpitations he does need to be on Xopenex. [facility]. 08/30/2023 the patient is here for a pulmonary follow-up visit. The patient overall has been doing a little better. He has had a very vent for few months. Multiple hospitalizations at [facility] work heart failure. He has also has had issues with anemia and therefore he was taken off the Eliquis. He is currently being evaluated from a GI point of view. In addition to that he recently did get a flu shot in had a severe reaction where he went to the ER and treated. He has not gotten the RSV vaccine nor day new COVID booster because he is concerned about his recent reaction. I am agreeing with him that he needs to be careful specially as he just had a severe reaction. He is mass cannot were where he goes which is reassuring. He does continue to have wheezing on examination. Needs to increase the budesonide to twice a day. He did have a CT scan of the chest at [facility] back in July and was done to assess his aorta and also to assess for any pulmonary emboli. No evidence of any pulmonary emboli noted although the patient was noted to have 3 pulmonary nodules in the right middle lobe right lower lobe fissure measuring largest nodule at 7 mm. Therefore, will have him get a repeat CT scan in 4 months and a follow-up then. The patient prefers to do this at [facility] since he typically goes to [facility] for his care. 01/22/2024 the patient is here for a pulmonary follow-up visit. Overall the patient has been doing fairly well. Unfortunately he did developed COVID-19 and had to be admitted to the hospital [facility] briefly. He was able to be discharged and has been doing well on the same amount of oxygen. He continues to have issues with his weight however. Has lost about 100 lb. We did talk about weaning him off the Daliresp to see if this will help with his weight gain. He also had a CT scan of the chest at [facility] which I personally reviewed myself with the patient and his . It appears that the 9 mm pulmonary nodule that was concerning has resolved which is reassuring. He has other pulmonary nodules that appear to be stable. He still has the persistent elevation of the left hemidiaphragm due to atelectasis. He is wondering about a portable oxygen concentrator. He is going to have a [facility] in the coming [facility]. 06/12/2024 the patient is here for a pulmonary follow-up visit. He continues to have issues with chest congestion and cough. He has also had more wheezing. We did go over his Medication is not using them as prescribed. Therefore we did had taken. If the patient continues to have wheezing shortness of breath and congestion afterwards will go ahead and start him on some doxycycline. In the meantime he also has some hoarseness. He does have an ENT appointment. He is taking budesonide and that can ultimately resulting hoarseness. Right now we decrease it to once a day. He is wondering about a bronchoscopy for therapeutic cleaning. Although with his cardiac history would be safe to undergo any elective semi invasive procedures at this time. 12/13/2024 the patient is here for a pulmonary follow-up visit. Overall he is doing well. Continues on 3 mg of prednisone. The patient also complains about his hoarseness. He did follow-up with ENT and was felt to be related to his decreased muscle strength and expiratory effort as decrease in therefore not getting enough vibrations of the vocal cords. Patient was given incentive spirometry to work on his deep breathing exercises. He may also benefit from pulmonary rehabilitation but is also did difficult because of the travel and also his overall muscle weakness. He has had significant weight loss. In the meantime he continues with respiratory therapy with good effect. He is wondering about a bronchoscopy but at this point I do not believe that is going to be beneficial for him. Will plan to repeat the CT scan of the chest. He has had pulmonary nodules in his last CT scan was done at [facility]. He prefers to do it there which will go ahead and request. His last CT scan we did personally review he does have some atelectasis and some pulmonary nodules. Although the largest nodule that was being followed of 9 mm did subside. Will follow-up with the other smaller nodules. The patient will return in 3-4 months if he has any issues prior to that he will call for an earlier assessment. He is going to try to wean down the prednisone down to 2 mg by then. 03/25/2025 the patient is here for pulmonary follow-up visit. He continues to decline to some degree. He has had significant amount of weight loss and he has also been sleeping more. The patient has been dealing with a new diagnosis of prostate cancer. He will be following up with the urologist soon regarding potential hormonal therapy. In the meantime he continues to deal with the heart failure. Continues to be on the cardioprotective medications. I did review the PET scan with the family and did review the images. Pulmonary nodules are not demonstrating a significant FDG activity. Actually had bilateral pleural effusions in the PET scan suggesting volume overload status. No significant FDG activity noted on the pulmonary nodule although he did have the FDG activity of the prostate. No evidence of any metastatic disease or local invasion of the prostate which is reassuring. He continues uses respiratory therapy again he continues on 2 mg of prednisone that seems to be tolerating well. He does have some wheezing on exam , but, minimal. If he does worsens he can always call we can consider additional therapies. He may be a good candidate for Ohtuvayre. But, will wait for him to start his hormonal therapy and make sure he is tolerating that well before any additional therapies at this time. The patient follow-up in 3-4 months. If he has any issues prior to this she will call for an earlier evaluation. [facility] Medical History (Updated 12/13/24 @ 12:04 by Jason Collazo MD) Pulmonary nodules Diabetes Chronic respiratory failure COPD (chronic obstructive pulmonary disease) Hypertension Chondrocalcinosis of right knee Primary osteoarthritis of right knee ROLA (obstructive sleep apnea) Atelectasis Prostate cancer Elevated PSA Social History Patient Tobacco Use Status: Former Tobacco user Tobacco use type: Cigarette Years Smoked: 20 years Current occupational status: retired Current occupation: Right Handed Review of Systems Const Denies night sweats, Reports weakness and Reports weight loss ENT Denies change in voice, Denies lip swelling, Denies mouth pain, Reports nasal congestion, Reports nasal discharge and Denies tongue swelling Card Denies chest pain and Reports dyspnea on exertion Resp Denies chest congestion, Reports cough, Denies hemoptysis and Reports dyspnea on exertion GI Denies abdominal pain Reports genital pain and Reports flank pain Musc Reports abnormal gait, Reports arthralgias, Reports joint swelling and Reports muscle weakness Neuro Denies Neuro-related abnormal movements, Reports abnormal gait and Reports weakness Psych Denies no additional complaints Fabián/Lymph Denies easy bleeding and Denies lymphadenopathy Aller/Immun Denies lip swelling and Denies tongue swelling Physical Exam Vital Signs: Last Vital Signs Pulse 70 03/25/25 11:08 BP 110/67 03/25/25 11:08 Pulse Ox 98 03/25/25 11:08 Oxygen Delivery Method Nasal Cannula 03/25/25 11:08 Oxygen Flow Rate 2 03/25/25 11:08 BMI result Body Mass Index 23.3 Const General: cooperative and alert Nutritional Appearance: thin and underweight Orientation/consciousness: patient oriented x3 Limitations: physical limitations HEENT Head: Yes normal to inspection Ears: hearing grossly normal bilaterally Eyes General: appearance normal, both eyes and all related structures Neck Neck: Yes normal visual inspection Chest Chest palpation & inspection: normal inspection of the chest Resp Effort & Inspection: normal respiratory effort Auscultation: no crackles, no rales, no wheezes and diminished lung sounds Cardio Rate: tachycardic Rhythm: abnormal rhythm Heart sounds: S1 normal heart sound present and S2 normal heart sound present GI Palpation (GI): Soft to palpation and nontender Auscultation: normal bowel sounds Skin General skin exam: rashes and/or lesions noted Neuro General: patient oriented x3 Assessment & Plan Assessment & Plan (1) Pulmonary nodules: Code(s): R91.8 - Other nonspecific abnormal finding of lung field Category: Medical (2) COPD (chronic obstructive pulmonary disease): Code(s): J44.9 - Chronic obstructive pulmonary disease, unspecified Category: Medical Qualifiers: COPD type: chronic bronchitis Chronic bronchitis type: mixed simple and mucopurulent Qualified Code(s): J41.8 - Mixed simple and mucopurulent chronic bronchitis (3) Chronic respiratory failure: Code(s): J96.10 - Chronic respiratory failure, unspecified whether with hypoxia or hypercapnia Category: Medical Qualifiers: Respiratory failure complication: hypoxia and hypercapnia Qualified Code(s): J96.11 - Chronic respiratory failure with hypoxia; J96.12 - Chronic respiratory failure with hypercapnia; J96.12 - Chronic respiratory failure with hypercapnia (4) Atelectasis: Code(s): J98.11 - Atelectasis Category: Medical Plan Xopenex neb BID Budesonide daily MIGUEL as needed, can only tolerate Xopenex due to tachycardia and tremors continue prednisone 2 mg daily continue Spiriva continue singulair oxygen supplementation 2L at rest, 3L with activity. conserving device trial to be done by [place] CPT with acapella valve and ISS PET scan reviewed, no FDG activity in the chest. We will monitor Follow-up 4-5 months Medications: Changed From levalbuterol tartrate 45 mcg/actuation (Xopenex HFA) 2 puffs inhalation Q6H 30 days PRN 15 grams 11RF shortness of breath or wheezing J45.909 - Unspecified asthma, uncomplicated To levalbuterol tartrate 45 mcg/actuation (Xopenex HFA) 2 puffs inhalation Q6H PRN 3 ea 3RF shortness of breath or wheezing 90 days J45.909 - Unspecified asthma, uncomplicated Refilled budesonide (Pulmicort) 0.5 mg (2 mL) inhalation DAILY 180 mL 3RF 90 days J41.8 - Mixed simple and mucopurulent chronic bronchitis levalbuterol HCl 1.25 mg (3 mL) inhalation BID 540 mL 3RF 90 days J44.9 - Chronic obstructive pulmonary disease, unspecified tiotropium bromide 2.5 mcg/actuation (Spiriva Respimat) 2 puffs inhalation DAILY 3 ea 3RF 90 days Coding Level of Care Code Est Pt Level 4 (69702) Complex EM visit Add On G2211 Diagnoses Pulmonary nodules R91.8 Mixed simple and mucopurulent chronic bronchitis J41.8 COPD type: chronic bronchitis Chronic bronchitis type: mixed simple and mucopurulent Chronic respiratory failure with hypoxia and hypercapnia J96.11; J96.12; J96.12 Respiratory failure complication: hypoxia and hypercapnia Atelectasis J98.11 Time Spent (min) 20
--- OUTSIDE RECORDS SUMMARY | 2025-03-25 12:20 | XMS_ITS | Clinical Summary ---
Author Organization [facility] Address [address] [place] [address] Phone Care Team Providers [facility] Membership Advisors Name Role Phone Unavailable Primary Care Provider [...] 06/09/2021, 07/29/2019, Additional history exists Pneumococcal Vaccine: 50+ Years Completed 08/12/2019, 06/20/2016 Hepatitis B Vaccine Aged Out No longe r eligible based on patient's age to complete this topic Insurance Medicare [place] [id number] Medicare [employer]
--- OUTSIDE RECORDS SUMMARY | 2025-03-25 12:21 | XMS_ITS ---
Care Plan Created on: March 25, 2025 Nicky Gunter : 1950 Sex: Male Author Organization [address] [facility] Address [address] [place] [address] Phone Care Team Providers Care [employer] Name Role Phone Shweta Collins MD Primary Care Provider [phone] Active Problems Problem Noted Date Diagnosed Date Venous insufficiency (chronic) (peripheral) 01/24 Chronic venous hypertension (idiopathic) with ulcer and inflammation of right lower extremity ([facility] V24, [facility] V28) 02/20/2025 Non-pressure chronic ulcer o f other part of right lower leg limited to breakdown of skin ([facility] V24, [facility] V28) 02/20/2025 Non-pressure chronic ulcer l eft lower leg, limited to breakdown skin ([facility] V24, [facility] V28) 02/20/2025 Diabetes mellitus with skin ulcer ([facility] V24, [facility] V28) 09/04/2024 Venous ulcer of right leg ([facility] V24, [facility] V28) 09/04/2024 Venous ulcer of left leg ([facility] V24, [facility] V 28) 09/04/2024 Open scalp wound 09/04/2024 Chronic hypoxemic respirator y failure ([facility] V24, [facility] V28) 08/03/2023 Diastolic heart failure ([facility] V24, [facility] V2 8) 03/13/2023 Overview (08/08/2024): Last Assessment & Plan: [...] statin at this time. Paroxysmal atrial fibrillation (CMS/HCC V24, CMS /HCC V28) 09/14/2021 Overview (08/08/2024): Last Assessment & Plan: [...] closely and reevaluate at each office visit. Assessment & Plan (01/17/2025 1:00 PM EDT): Patient is atrial fibrillation. AV sakina ablation with permanent pacemaker in place because of RVR. Patient is stable from a cardiac standpoint. We discussed the possibility of a Watchman device but he still concerned over even the use of aspirin therapy and GI bleed. He has no evidence of active bleed at this time. His A-fib seems to be rate controlled and asymptomatic. We discussed with him the Watchman device and how it might be protective of his stroke since his CHADS2 score is at least 3 but he does not want to take a chance with bleeding with dual antiplatelet therapy which would need to be started after the Watchman device was placed. Will bring this up again later during future visits and see if he is changed his mind Orders: ECG 12 lead Hypersensitivity pneumonitis ([facility] V24, [facility] V28) 08/29/2018 Restrictive lung disease 08/29/2018 Depression 08/19/2017 Diabetes mellitus type 2, un complicated ([facility] V24, [facility] V28) 08/19/2017 Hypertension 08/19/2017 Overview (08/08/2024): Last Assessment & Plan: Patient's blood pressure is well-controlled with a reading today 138/70. Lung nodule 08/19/2017 Psoriasis 08/19/2017 Asbestosis ([facility] V24, [facility] V28) 07/17/2017 Chronic obstructive pulmonar y disease ([facility] V24, [facility] V28) 07/17/2017 Additional Health Concerns Active Problems Noted Date Diagnosed Date Impaired Tissue 02/20/2025 Education needed on impact of smoking on wound 0 02/20/2025 Education needed related to ulceration/compromised skin integrity. 02/20/2025 Goals Goal Patient Goal Type Associated Problems Recent Progress Patient-Stated? Author Decrease Wound Volume by X% by date (in notes) Care Plan Impaired Tissue No Spenser Arroyo RN Patient and Caregiver Understand Wound Care Education Care Plan Impaired Tissue No Spenser Arroyo insole and heel stiffener volume breakdown reduced by X% by week 4 Care Plan Impaired Tissue No Spenser Arroyo insole and heel stiffener volume breakdown reduced by X% by week 8 Care Plan Impaired Tissue No Spenser Arroyo RN Wound volume breakdown reduced by X% by week 12 Care Plan Impaired Tissue On track( 025 10:53 AM EDT) Spenser Oneil RN Note: Wounds to heal 80% by week 12 Quit using tobacco (cigarettes, smokeless, etc) Care Plan Education needed on impact of smoking on wound No Spenser Arroyo RN Reduce tobacco use (cigarettes, smokeless, etc) Care Plan Education needed on impact of smoking on wound No Spenser Arroyo, RONAK Decrease Wound Volume by X% by date (in notes) Care Plan Education needed on impact of smoking on wound No Spenser Arroyo RN Patient and Caregiver Understand Wound Care Education Care Plan Education needed related to ulceration/compr omised skin integrity. No Spenser Arroyo RN Interventions Care Plan Interventions Intervention Entry Date Outcome Provide caregiver with wound care procedure information 02/20/2025 Educate caregiver on proper wound care procedures 02/20/2025 Give provider list of wound care supplies 02/20/2025 Refill wound care supplies 02/20/2025 Send Wound Care Supplies 02/20/2025 Give provider list of wound care supplies 02/20/2025 Refill wound care supplies 02/20/2025 Send Wound Care Supplies 02/20/2025 Provide caregiver with wound care procedure information 02/20/2025 Educate caregiver on proper wound care procedures 02/20/2025 Document patient eligibility for HBO 02/20/2025 Assess patient for HBO treatment 02/20/2025 Record wound depth 02/20/2025 Record total wound area 02/20/2025 Measure wound progress 02/20/2025 Create an action plan identifying patient strengths and supports 02/20/2025 Establish quit date with patient 02/20/2025 Discuss prior cessation attempts 02/20/2025 Discuss preferred method of cessation and plan 02/20/2025 Discuss barriers to smoking cessation 02/20/2025 Discuss smoking status with patient 02/20/2025 Create an action plan identifying patient strengths and supports 02/20/2025 Establish quit date with patient 02/20/2025 Discuss prior cessation attempts 02/20/2025 Discuss preferred method of cessation and plan 02/20/2025 Discuss barriers to smoking cessation 02/20/2025 Discuss smoking status with patient 02/20/2025 Document patient eligibility for HBO 02/20/2025 Assess patient for HBO treatment 02/20/2025 Record wound depth 02/20/2025 Record total wound area 02/20/2025 Provide caregiver with wound care procedure information 02/20/2025 Educate caregiver on proper wound care procedures 02/20/2025 Document patient eligibility for HBO 02/20/2025 Assess patient for HBO treatment 02/20/2025 Record wound depth 02/20/2025 Record total wound area 02/20/2025 Measure wound progress 02/20/2025 Provide caregiver with wound care procedure information 02/20/2025 Educate caregiver on proper wound care procedures 02/20/2025 Document patient eligibility for HBO 02/20/2025 Assess patient for HBO treatment 02/20/2025 Record wound depth 02/20/2025 Record total wound area 02/20/2025 Measure wound progress 02/20/2025 Provide caregiver with wound care procedure information 02/20/2025 Educate caregiver on proper wound care procedures 02/20/2025 Give provider list of wound care supplies 02/20/2025 Refill wound care supplies 02/20/2025 Send Wound Care Supplies 02/20/2025 Give provider list of wound care supplies 02/20/2025 Refill wound care supplies 02/20/2025 Send Wound Care Supplies 02/20/2025 Provide caregiver with wound care procedure information 02/20/2025 Educate caregiver on proper wound care procedures 02/20/2025 Document patient eligibility for HBO 02/20/2025 Assess patient for HBO treatment 02/20/2025 Record wound depth 02/20/2025 Record total wound area 02/20/2025 Measure wound progress 02/20/2025 Related Goals and Interventions Goal Associated Intervent ions Decrease Wound Volume by X% by date (in notes) Give provider list of wound care supplie s; Refill wound care supplies; Send Wound Care Supplies; Provide caregiver with wound care procedure information; Educate caregiver on proper wound care procedures; Document patient eligibility for HBO; Assess patient for HBO treatment; Record wound depth; Record total wound area; Measure wound progress Patient and Caregiver Unders tand Wound Care Education Provide caregiver with wound care proced ure information; Educate caregiver on proper wound care procedures; Give provider list of wound care supplies; Refill wound care supplies; Send Wound Care Supplies Wound volume breakdown reduc ed by X% by week 4 Provide caregiver with wound care proced ure information; Educate caregiver on proper wound care procedures; Document patient eligibility for HBO; Assess patient for HBO treatment; Record wound depth; Record total wound area; Measure wound progress Wound volume breakdown reduc ed by X% by week 8 Provide caregiver with wound care proced ure information; Educate caregiver on proper wound care procedures; Document patient eligibility for HBO; Assess patient for HBO treatment; Record wound depth; Record total wound area; Measure wound progress Wound volume breakdown reduc ed by X% by week 12 Document patient eligibility for HBO; Assess patient for HBO treatment; Record wound depth; Record total wound area Quit using tobacco (cigarett es, smokeless, etc) Create an action plan identifying patien t strengths and supports; Establish quit date with patient; Discuss prior cessation attempts; Discuss preferred method of cessation and plan; Discuss barriers to smoking cessation; Discuss smoking status with patient Reduce tobacco use (cigarett es, smokeless, etc) Create an action plan identifying patien t strengths and supports; Establish quit date with patient; Discuss prior cessation attempts; Discuss preferred method of cessation and plan; Discuss barriers to smoking cessation; Discuss smoking status with patient Decrease Wound Volume by X% by date (in notes) Give provider list of wound care supplie s; Refill wound care supplies; Send Wound Care Supplies; Provide caregiver with wound care procedure information; Educate caregiver on proper wound care procedures; Document patient eligibility for HBO; Assess patient for HBO treatment; Record wound depth; Record total wound area; Measure wound progress Patient and Caregiver Unders tand Wound Care Education Provide caregiver with wound care proced ure information; Educate caregiver on proper wound care procedures; Give provider list of wound care supplies; Refill wound care supplies; Send Wound Care Supplies
--- OUTSIDE RECORDS SUMMARY | 2025-03-25 12:21 | XMS_ITS | Data Portability ---
Author Organization [facility], [facility] Address [address] [place] [address] Assessment No assessment recorded. Plan of Treatment Reminders Order Date Submit Date Provider Last Modified By Organization Details Last Modified Time Details Appointments RECHECK 15 2024 10:15A M Fuentes Lira PA-C Not available Not available Not available Lab None recorded . Referral None recorded . Procedures None recorded . Surgeries None recorded . Imaging None recorded . Medication Orders None recorded . Patient TargetsNo targets recorded. Patient InstructionsNo instructions recorded. Reason for Referral None Reported. Problems Name Problem SNOMED Code Status Onset Date Resolution Date Notes Provider Name and Address Organization Details Recorded Time No complaints 619148324 Active Status : 'I'; Not Available [facility] 4 09:17:03 Acute congestive heart failure 63803035 Active 2022 Status : 'A'; Not Available [facility] 4 11:28:59 Problem Notes None recorded. Procedures Surgical History Date Name Laterality Status Provider Name and Address Organization Details Recorded Time 5 Knee Kenalog 1cc L/R completed Fuentes Lira PA-C [address], [place], [address], [facility] 01/15/2025 07:53:37 5 Knee Kenalog 1cc L/R completed Fuentes Lira PA-C [address], [place], [address], [facility] 10/16/2024 08:07:35 4 Sports Knee 4&1 completed Fuentes Lira PA-C [address], [place], [address], [facility] 07/03/2024 07:58:15 4 Sports Knee 4&1 completed Fuentes Lira PA-C [address], [place], [address], [facility] 04/04/2024 07:25:04 Imaging Results None recorded. Procedure Notes None recorded. Medical Equipment None Reported. Allergies Allergen ID Allergen Name Allergen Category Reaction Reaction Severity Criticality Documentation Date Start Date Code Code System Note Provider Name and Address Organization Details Recorded Time 52207 Levaquin medicatio n Not available Not available Not available 11/27/20232022 09239 2 RxNorm Not Available [facility] 12:57:42 52923 Bactrim medicatio n Not available Not available Not available 11/27/20232022 98982 9 RxNorm Not Available [facility] 12:57:42 Medications Name Sig Start Date Stop Date Status Note LastModified by Organization Details LastModified Time carisoprodo l 350 mg tablet TAKE 1 TABLET BY MOUTH IF NEEDED IN THE MORNING, AT NOON, AND AT BEDTIME FOR MUSCLE SPASMS. active Not Available Not Available No t Available amoxicillin 500 mg capsule TAKE 4 CAPSULES (2,000 MG) BY MOUTH 1 TIME FOR 1 DOSE 1 HOUR PRIOR TO PROCEDURE active Not Available Not Available No t Available silver sulfadiazin e 1 % topical cream active Not Available Not Available Not Available prednisone 10 mg tablet active Not Available Not Available Not Available gabapentin 600 mg tablet TAKE 1 TABLET BY MOUTH FOUR TIMES A DAY active Not Available Not Available No t Available doxycycline hyclate 100 mg capsule active Not Available Not Available N ot Available prednisone 20 mg tablet TAKE 2 TABLETS (40 MG) BY MOUTH EVERY DAY FOR 7 DAYS active Not Available Not Available No t Available oxycodone 15 mg tablet TAKE 1 TABLET BY MOUTH TWICE A DAY active Not Available Not Available No t Available oxycodone-a cetaminophe n 10 mg-325 mg tablet TAKE 1 TABLET BY MOUTH EVERY 8 HOURS NEEDED FOR SEVERE PAIN active Not Available Not Available No t Available prednisone 1 mg tablet active Not Available Not Available Not Available cephalexin 500 mg capsule TAKE 1 CAPSULE BY MOUTH FOUR TIMES A DAY UNTIL FINISHED active Not Available Not Available No t Available lidocaine 5 % topical patch APPLY 1 PATCH BY TOPICAL ROUTE ONCE DAILY (MAY WEAR UP TO 12HOURS.) active Not Available Not Available No t Available hydrocortis one 2.5 % topical cream active Not Available Not Available Not Available mupirocin 2 % topical ointment active Not Available Not Available Not Available furosemide 20 mg tablet TAKE 1 TABLET BY MOUTH TWO TIMES A DAY active Not Available Not Available No t Available ciclopirox 0.77 % topical cream active Not Available Not Available Not Available oxycodone HCl-oxycodo ne-ASA oxyCODONE HCl 5MG Tablet 09/15 completed Statu s: 'Disc ontin ued'; Not Available Not Available Not Available roflumilast 250 mcg tablet active Not Available Not Available Not Available Vitals Date Recorded Body height Provider Name an d Address Organization Details Last Updated DateTime 10/16/2024 185.42 cm ZAHIDA GAMING [facility] 10/16/2024 10:14:06 Date Recorded Body height Provider Name an d Address Organization Details Last Updated DateTime 01/15/2025 185.42 cm ZAHIDA GAMING [facility] 01/15/2025 09:38:32 Date Recorded Body height Body mass index (BMI) Body weight Provider Name and Address Organization Details Last Updated DateTime 04/03/2024 185.42 cm 24.4 kg/m2 41891.59 g Zahida Perdue [facility] 04/03/2024 14:32:50 Social History None recorded. Functional Status None recorded. Mental Status None recorded. Family History Nothing Reported. Medical History No medical history recorded. Past Encounters Encounter ID Performer Location Encounter Start Date Encounter Closed Date Diagnosis/Indication Diagnosis SNOMED-CT Code Diagnosis ICD10 Code Diagnosis Note [id number] JESSICA Garrido [address] [place] [address] 04/03/2024 13:45:31 04/23/2024 08:58:42 Osteoarthritis of right knee joint 0378230510 72830 M17.11 [id number] JESSICA Garrido [facility] [address] [place] [address] 07/03/2024 09:24:20 07/29/2024 10:44:57 Osteoarthritis of right knee joint 4216385600 41678 M17.11 [id number] JESSICA Garrido [facility] [address] [place] [address] 10/16/2024 09:59:06 10/28/2024 12:54:09 Osteoarthritis of right knee joint 4903057712 39413 M17.11 [id number] JESSICA Garr[facility] [address] [place] [address] 01/15/2025 09:28:21 01/23/2025 09:26:30 Osteoarthritis of right knee joint 2486209798 85568 M17.11 Health Concerns Section Related Observation LastModified by Organization Detai ls LastModified Time None Recorded Concern Status LastModified by Organization Details LastModified Time None Recorded Advance Directives Directive None Recorded Payers Insurance Date Sequence Insurance Name Policy Number Policy Carrasco Covered Member ID Carrasco Member ID Guarantor Name 01/23/2025 2 [facility] (MEDICARE SUPPLEMENT) [id number] 2 Nicky Gunter [id number] Nicky Gunter 01/15/2025 1 MEDICARE B-[place]: [facility] Nicky Gunter [id number] Nicky Gunter Notes Date Note Type Note Provider Name and Address Organization Details Recorded Time 04/03/2024 text/html I am seeing the patient today under the supervision of who was available but who did not see the patient. Chief Complaint The patient presents today for recheck of right knee osteoarthritis. Is known to have knee arthritis treated conservatively to this point with 3 months relief of symptoms. Presents today for recheck secondary to increased knee pain. Past Medical/Surgical History Reviewed today, otherwise unchanged per intake sheet. Physical Findings General Appearance: Well developed. In no acute distress. Musculoskeletal System: Knee: General/bilateral: No laxity of the knee. Right Knee: Medial aspect was tender on palpation. No erythema. No warmth. Left Knee: Medial aspect was tender on palpation. No erythema. No warmth. Musculoskeletal Scales: General/bilateral: Mild effusion noted. Neurological: Oriented to time, place, and person. Gait And Stance: Normal. Psychiatric: Mood was appropriate to the affect. Left knee 0-120 degrees of flexion with discomfort. Assessment Osteoarthritis of knee - Plan More than 50% of todays visit was spent on direct patient counseling regarding their knee condition and treatment options both operative with knee arthroplasty and non-operative, including oral medications and injection therapy. After discussion, my clinical decision was to go forth with an intra-articular cortisone injection. After explaining risks and benefits, under meticulous aseptic technique, the knee was injected with, 1cc of Kenalog 40mgs and 4 cc of Marcaine 1/4%. They tolerated the procedures well. Post injection precautions reviewed. Follow up with us in 3 months for further discussion of total knee replacement surgery versus continued conservative treatment. Fuentes Lira PA-C [address] [place] [address] [address], [place], [address], [facility] 04/04/2024 07:25:29 07/03/2024 text/html I am seeing the patient today under the supervision of who was available but who did not see the patient. Chief Complaint The patient presents today for recheck of right knee osteoarthritis. Is known to have knee arthritis treated conservatively to this point with 3 months relief of symptoms. Presents today for recheck secondary to increased knee pain. Past Medical/Surgical History Reviewed today, otherwise unchanged per intake sheet. Physical Findings General Appearance: Well developed. In no acute distress. Musculoskeletal System: Knee: General/bilateral: No laxity of the knee. Right Knee: Medial aspect was tender on palpation. No erythema. No warmth. Left Knee: Medial aspect was tender on palpation. No erythema. No warmth. Musculoskeletal Scales: General/bilateral: Mild effusion noted. Neurological: Oriented to time, place, and person. Gait And Stance: Normal. Psychiatric: Mood was appropriate to the affect. Left knee 0-120 degrees of flexion with discomfort. Assessment Osteoarthritis of knee - Plan More than 50% of todays visit was spent on direct patient counseling regarding their knee condition and treatment options both operative with knee arthroplasty and non-operative, including oral medications and injection therapy. After discussion, my clinical decision was to go forth with an intra-articular cortisone injection. After explaining risks and benefits, under meticulous aseptic technique, the knee was injected with, 1cc of Kenalog 40mgs and 4 cc of Marcaine 1/4%. They tolerated the procedures well. Post injection precautions reviewed. Follow up with us in 3 months for further discussion of total knee replacement surgery versus continued conservative treatment. Fuentes Lira PA-C [address], [place], [address], [facility] 07/03/2024 12:16:05 10/16/2024 text/html I am seeing the patient today under the supervision of who was available but who did not see the patient. Chief Complaint The patient presents today for recheck of right knee osteoarthritis. Is known to have knee arthritis treated conservatively to this point with 3 months relief of symptoms. Presents today for recheck secondary to increased knee pain. Past Medical/Surgical History Reviewed today, otherwise unchanged per intake sheet. Physical Findings General Appearance: Well developed. In no acute distress. Musculoskeletal System: Knee: General/bilateral: No laxity of the knee. Right Knee: Medial aspect was tender on palpation. No erythema. No warmth. Left Knee: Medial aspect was tender on palpation. No erythema. No warmth. Musculoskeletal Scales: General/bilateral: Mild effusion noted. Neurological: Oriented to time, place, and person. Gait And Stance: Normal. Psychiatric: Mood was appropriate to the affect. Left knee 0-120 degrees of flexion with discomfort. Assessment Osteoarthritis of knee - Plan More than 50% of todays visit was spent on direct patient counseling regarding their knee condition and treatment options both operative with knee arthroplasty and non-operative, including oral medications and injection therapy. After discussion, my clinical decision was to go forth with an intra-articular cortisone injection. After explaining risks and benefits, under meticulous aseptic technique, the knee was injected with, 1cc of Kenalog 40mgs and 4 cc of Marcaine 1/4%. They tolerated the procedures well. Post injection precautions reviewed. Follow up with us in 3 months for further discussion of total knee replacement surgery versus continued conservative treatment. Fuentes Lira PA-C [address], [place], [address], [facility] 10/16/2024 11:48:14 01/15/2025 text/html I am seeing the patient today under the supervision of who was available but who did not see the patient. Chief Complaint The patient presents today for recheck of right knee osteoarthritis. Is known to have knee arthritis treated conservatively to this point with 3 months relief of symptoms. Presents today for recheck secondary to increased knee pain. Past Medical/Surgical History Reviewed today, otherwise unchanged per intake sheet. Physical Findings General Appearance: Well developed. In no acute distress. Musculoskeletal System: Knee: General/bilateral: No laxity of the knee. Right Knee: Medial aspect was tender on palpation. No erythema. No warmth. Left Knee: Medial aspect was tender on palpation. No erythema. No warmth. Musculoskeletal Scales: General/bilateral: Mild effusion noted. Neurological: Oriented to time, place, and person. Gait And Stance: Normal. Psychiatric: Mood was appropriate to the affect. Left knee 0-120 degrees of flexion with discomfort. Assessment Osteoarthritis of knee - Plan More than 50% of todays visit was spent on direct patient counseling regarding their knee condition and treatment options both operative with knee arthroplasty and non-operative, including oral medications and injection therapy. After discussion, my clinical decision was to go forth with an intra-articular cortisone injection. After explaining risks and benefits, under meticulous aseptic technique, the knee was injected with, 1cc of Kenalog 40mgs and 4 cc of Marcaine 1/4%. They tolerated the procedures well. Post injection precautions reviewed. Follow up with us in 3 months for further discussion of total knee replacement surgery versus continued conservative treatment. Fuentes Lira PA-C [address] [facility] [address], [place], [address], [place] [facility] 01/16/2025 07:48:59
--- OUTSIDE RECORDS SUMMARY | 2025-03-25 12:21 | XMS_ITS | Clinical Summary ---
Author Organization [facility] Address [address] [place] [address] Care Team Providers Care Waredresser Name Role Phone Shweta Collins MD Primary Care Provider [phone] Allergies Active Allergy Reactions Criticality Noted Date [...] mg by nebulization daily. 0 Active Tiotropium Lincoln-Olodaterol (STIOLTO RESPIMAT) 2.5-2.5 MCG/ACT AERS Inhale 2.5 [...] 69 09/23/2022 2:00 PM EST Temperature 36.1 C (96.9 F) 09/23/2022 2:00 PM EST Respiratory Rate 16 09/23/2022 2:00 PM EST [...] - 1-dose 75+ series) 2023 Influenza Vaccine (Season Ended) 2025 Hepatitis B Vaccines Aged Out No long er eligible based on patient's age to complete this topic RSV Ped < 20 months Aged Out No longe r eligible based on patient's age to complete this topic Medical Devices Implanted Type Area Flexible Shaft Winder Device Identifier Shelf Expiration Date Model / Serial / Lot Sponge Surgiflo 8ml Hemostatic Matrix Absorbable Latex Free - [id number] - [id number] Implanted:Qty: 1 on 10/30/2017 by Saad Andujar MD at [facility] Hemostatic Agent Anterior: Spine Cervical [employer] 03/24/2019 2991 / / [id number] Sponge Surgiflo 8ml Hemostatic Matrix Absorbable Latex Free - [id number] - [id number] Implanted:Qty: 2 on 10/30/2017 by Saad Andujar MD at [facility] [facility] Hemostatic Agent Posterior: Spine Cervical [employer] 04/24/2019 2991 / / [id number] Spacer Cervical All[employer] 9mm Cortical Cancellous Freeze [facility] - [id number] - [id number] Implanted:Qty: 1 on 10/30/2017 by Saad Andujar MD at [facility] Anterior: Spine Cervical [employer] 01/11/2021 [id number] / [id number] / Screw 14mm Self Drilling - [id number] - [id number] Implanted:Qty: 4 on 10/30/2017 by Saad Andujar MD at [facility] Anterior: Spine Cervical [employer] 161.014 / / Plate 20mm Xtend Bone Spnl Strl - [id number] - [id number] Implanted:Qty: 1 on 10/30/2017 by Saad Andujar MD at [facility] Anterior: Spine Cervical [employer] 161.120 / / Plate Canopy Shelf 7mm - [id number] - [id number] Implanted:Qty: 3 on 10/30/2017 by Saad Andujar MD at [facility] [facility] Posterior: Spine Cervical [employer] 1102.401 / / Screw Self-Tapping Laminoplasty 2.6mmx6.0mm - [id number] - [id number] Implanted:Qty: 12 on 10/30/2017 by Saad Andujar MD at [facility] Posterior: Spine Cervical [employer] 136.706 / / Advance Directives For more information, please contact: [phone] Documents on File Type Date Recorded Patient Audio Tape Librarian Expl anation Advance Directive and Living Will 01/02/2019 11:32 AM Latest Code Status on File Code Status Date Activated Date Inactivated Comments Full Code 10/30/2017 4:01 PM 11/03/2017 10:56 PM This c ode status was ascertained in the following way: per living will or healthcare instructions . Care Teams Waredresser Relationship Specialty Start Date End Date Shweta Collins MD [address] [place] [address] PCP - General Internal Medicine 02/10/17
--- OUTSIDE RECORDS SUMMARY | 2025-03-25 12:21 | XMS_ITS ---
Author Name [facility] Organization Unknown History of Medication Use Medication Directions Dispensed Refills Start Date End Date Stat senna (SENOKOT) 8.6 mg tablet 1 tablet (8.6 mg total) 2 (two) times a day. 11/03/2017 active carisoprodoL (SOMA) 350 mg tablet Take 1 Tablet by mouth 2 times daily. active cholecalciferol (VITAMIN D-3) 25 mcg (1,000 unit) capsule Take by mouth daily as needed. active cholecalciferol (VITAMIN D-3) 25 mcg (1,000 unit) tablet Take 1 tablet (1,000 Units total) by mouth every other day. active ferrous sulfate 325 mg (65 mg elemental iron) tablet Take 1 Tablet by mouth daily. active ferrous sulfate 325 mg (65 mg elemental iron) tablet 1 tablet (325 mg total). 1 tablet 2 times a week active insulin aspart (NovoLOG U-100 Insulin aspart) 100 unit/mL injection Inject into the skin 3 times daily (before meals). Sliding scale active magnesium 250 mg tablet 2 tablets 1 (one ) time each day. active metFORMIN (GLUCOPHAGE) 500 mg tablet Take 500 mg by mouth 2 times daily (with meals). active montelukast (SINGULAIR) 10 mg tablet Take 10 mg by mouth at bedtime. active Oxygen Therapy (O2) gas Inhale 2 L/min continuously. via nasal canula active pantoprazole (PROTONIX) 20 mg EC tablet Take 2 Tablets by mouth daily. active pantoprazole (PROTONIX) 40 mg EC tablet Take 1 tablet (40 mg total) by mouth every other day. active predniSONE (DELTASONE) 1 mg tablet 2 tablets (2 mg total) 1 (one) time each day. active Problems Problem Status Onset Date Problem Type Date of Resolution Source Chronic hypoxemic respiratory failure (CMS/HCC V24, CMS/HCC V28) active 2023-08-03 ProblemAct [facility] Lung nodule active 2017-08-19 ProblemAct CT_THJ Non-pressure chronic ulcer of other part of right lower leg limited to breakdown of skin ([facility] [place] V24, [facility] V28) active 2025-02-20 ProblemAct [facility] Venous insufficiency (chronic) (peripheral) active 2025-02-20 ProblemAct [facility] Venous ulcer of right leg ([facility] V24, [facility] V28) active 2024-09-04 ProblemAct [facility] Non-pressure chronic ulcer left lower leg, limited to breakdown skin ([facility] V24, [facility] V28) active 2025-02-20 ProblemAct [facility] Orthostatic hypotension active 2022-09-07 ProblemAct CT_[facility] Chronic venous hypertension (idiopathic) with ulcer and inflammation of right lower extremity ([facility] V24, [facility] V28) active 2025-02-20 ProblemAct CT_[facility] Depression active 2017-08-19 ProblemAct CT_[facility]JM H Hypertension active 2017-08-19 ProblemAct [facility] Diabetes mellitus with skin ulcer ([facility] [place] V24, [facility] V28) active 2024-09-04 ProblemAct CT_[facility] Diabetes mellitus type 2, uncomplicated ([facility] [place] V24, [facility] V28) active 2017-08-19 ProblemAct [facility] Paroxysmal atrial fibrillation ([facility] [place] V24, [facility] V28) active 2021-09-14 ProblemAct CT_[facility] Venous ulcer of left leg ([facility] [place] V24, [facility] [place] V28) active 2024-09-04 ProblemAct [facility] Chronic obstructive pulmonary disease ([facility] [place] V24, [facility] V28) active 2017-07-17 ProblemAct CT_[facility] Restrictive lung disease active 2018-08-29 ProblemAct CT_[facility] Diastolic heart failure ([facility] [place] V24, [facility] V28) active 2023-03-13 ProblemAct CT_[facility] Asbestosis ([facility] [place] V24, [facility] V28) active 2017-07-17 ProblemAct [facility] Hyperlipidemia active 2021-09-14 ProblemAct CT_ [facility] Hypersensitivity pneumonitis ([facility] [place] V24, [facility] V28) active 2018-08-29 ProblemAct CT_[facility] Chronic venous hypertension (idiopathic) with ulcer and inflammation of left lower extremity (CMS/HCC V24, CMS/HCC V28) active EncounterDiagnosisAct C T_THJMH Encounter for adjustment or management of cardiac device active EncounterDiagnosisAct CT_THJ MH Psoriasis active 2017-08-19 ProblemAct CT_[facility] Open scalp wound active 2024-09-04 ProblemAct C T_THJMH Hypertension active 2017-08-19 ProblemAct CT_TH JMH Restrictive lung disease active 2018-08-29 ProblemAct CT_[facility] Non-pressure chronic ulcer left lower leg, limited to breakdown skin (CMS/HCC V24, CMS/HCC V28) active 2025-02-20 ProblemAct CT_[facility] Lung nodule active 2017-08-19 ProblemAct CT_THJ MH Orthostatic hypotension active 2022-09-07 ProblemAct CT_[facility] Psoriasis active 2017-08-19 ProblemAct CT_[facility] Chronic hypoxemic respiratory failure (CMS/HCC V24, CMS/HCC V28) active 2023-08-03 ProblemAct CT_[facility] Paroxysmal atrial fibrillation (CMS/HCC V24, CMS/HCC V28) active 2021-09-14 ProblemAct CT_[facility] Chronic venous hypertension (idiopathic) with ulcer and inflammation of right lower extremity (CMS/HCC V24, CMS/HCC V28) active 2025-02-20 ProblemAct CT_[facility] Venous ulcer of right leg (CMS/HCC V24, CMS/HCC V28) active 2024-09-04 ProblemAct CT_[facility] Depression active 2017-08-19 ProblemAct CT_THJM H Non-pressure chronic ulcer of other part of right lower leg limited to breakdown of skin (CMS/HCC V24, CMS/HCC V28) active 2025-02-20 ProblemAct CT_[facility] Venous ulcer of left leg (CMS/HCC V24, CMS/HCC V28) active 2024-09-04 ProblemAct CT_[facility] Open scalp wound active 2024-09-04 ProblemAct C T_THJMH Diabetes mellitus with skin ulcer (CMS/HCC V24, CMS/HCC V28) active 2024-09-04 ProblemAct CT_[facility] Chronic venous hypertension (idiopathic) with ulcer and inflammation of left lower extremity (CMS/HCC V24, [facility] [place] V28) active EncounterDiagnosisAct C T_THJ Diabetes mellitus type 2, uncomplicated ([facility] [place] V24, [facility] [place] V28) active 2017-08-19 ProblemAct CT_THJ Asbestosis ([facility] [place] V24, [facility] [place] V28) active 2017-07-17 ProblemAct CT_THJ Venous insufficiency (chronic) (peripheral) active 2025-02-20 ProblemAct CT_TH [facility] Diastolic heart failure ([facility] [place] V24, [facility] [place] V28) active 2023-03-13 ProblemAct CT_THJ Chronic obstructive pulmonary disease ([facility] [place] V24, [facility] [place] V28) active 2017-07-17 ProblemAct CT_THJ Encounter for adjustment or management of cardiac device active EncounterDiagnosisAct CT_THJ Hypersensitivity pneumonitis ([facility] [place] V24, [facility] [place] V28) active 2018-08-29 [facility] Hyperlipidemia active 2021-09-14 ProblemAct CT_ THJ Encounters Encounter Type Encounter Reason Primary Diagnosis Location Date Ambulatory Wound Care Wound Care [facility] 03/05/2025 Ambulatory Nurse Visit Nurse Visit [facility] 02/27/2025 Ambulatory Wound Care Venous insuffici ency (chronic) (peripheral) [facility] 02/20/2025 Ambulatory Wound Care Unspecified open wound of scalp, subsequent encounter [facility] 09/24/2024 Ambulatory Wound Care Type 2 diabetes mellitus with other skin ulcer [facility] 09/11/2024 Ambulatory Wound Care Type 2 diabetes mellitus without complications [facility] 09/04/2024 Care Team Organization Name Specialty Phone Email Start Date End Da te [facility] 09/06/2024 [facility] 09/04/2024
--- OUTSIDE RECORDS SUMMARY | 2025-03-25 12:21 | XMS_ITS | Encounter Summary ---
Author Organization [facility] Address [address] [place] [address] [address] [address] Care Team Providers Care Shark Biologist Name Role Phone Shweta Collins MD Primary Care Provider [phone] Encounter Details Date Type Department Care Team (Late st Contact Info) Description 09/01/2023 Orders Only [facility] [address] [place] [address] Shweta Collins MD [address] [place] [address] Iron deficiency anemia, unspecified iron deficiency anemia [...] 05/13/2025 12:00 PM EDT Office Visit Nay[facility] [address] [place] [address] Shweta Collins MD [address] [place] [address] documented as of this encounter Procedures Procedure Name Priority Date/Time Associated Diagnosis Comments CBC Routine 09/01/2023 11:25 AM EST Iron deficiency anemia, unspecified iron deficiency anemia type BASIC METABOLIC PANEL Routine 09/01/2023 11:25 AM EST Iron deficiency anemia, unspecified iron deficiency anemia type documented in this encounter Results * (ABNORMAL) Basic Metabolic Panel (09/01/2023 11:25 AM EST) Glucose 208(H) (70-99) MG/DL [facility] BUN 6(L) (8-23) MG/DL [facility] Creatinine, Serum 0.4(L) (0.7-1.2) MG/DL [facility] Sodium 133 (133-145) MMOL/L [facility] Potassium 4.1 (3.6-5.2) MMOL/L [facility] Chloride 93(L) (98-107) MMOL/L [facility] Bicarbonate 31(H) (22-29) MMOL/L [facility] Anion Gap 9 (4-17) [facility] Calcium 9.7 (8.6-10.5) MG/DL [facility] eGFR Creatinine 111 ML/MIN/1.7 3 M2 [facility] Comment: Creatinine based estimated glomerular filtration (eGFR) in adults is calculated using the National [employer] recommended 2020 CKD-EPI equation. Estimates GFR from serum creatinine, age and sex. Testing performed or reported by [facility], a Service of [facility], [address] [place] [id number] Luis Ayers MD, Stations Superintendent CLIA# [id number] 09/01/2023 11:2 5 AM EST 09/01/2023 11:35 AM EST Shweta Collins MD LAB BLOOD ORDERABLES Final Resul t [facility] [address] [place] [id number] * (ABNORMAL) CBC (09/01/2023 11:25 AM EST) WBC 8.5 (4.0-11.0) K/MM3 [facility] RBC 4.04(L) (4.70-6.10 ) M/MM3 [facility] HGB 9.3(L) (13.7-17.1 ) GM/DL [facility] HCT 30.9(L) (40.5-50.0 ) % [facility] MCV 76.5(L) (80.0-94.0 ) FL [facility] MCH 23.0(L) (27.0-34.0 ) PG [facility] McHC 30.1(L) (33.0-37.0 ) g/dL [facility] PLT 402 (150-460) K/MM3 [facility] RDW-SD 47.6(H) (<47.0) FL [facility] MPV 10.0 (9.4-12.4) [place] [facility] Automated NRBC 0.0 #/100 WBC'S [facility] ABS NRBC 0.0 K/MM3 [facility] Comment: Testing performed or reported by [facility], a Service of [facility], [address] [place] [address] Luis Ayers MD, Stations Superintendent YUDELKA# [id number] 09/01/2023 11:2 5 AM EST 09/01/2023 11:35 AM EST Shweta Collins MD LAB BLOOD ORDERABLES Final Resul t [facility] [address] [place], [place] [id number] documented in this encounter Visit Diagnoses Diagnosis Iron deficiency anemia, unspecified iron deficiency anemia type Hyponatremia Hyposmolality and/or hyponatremia documented in this encounter Care Teams Shark Biologist Relationship Specialty Start Date End Date Shweta Collins MD [address] [place] [id number] PCP - General Internal Medicine 11/30/22December Debo Registered Nurse Case Management 07/17/23 documented as of this encounter
--- OUTSIDE RECORDS SUMMARY | 2025-03-25 12:21 | XMS_ITS | Continuity of Care Document ---
Author Organization [facility] Address [address] [place] [address] Phone [phone] Care Team Providers Care Duplication Specialist Name Role Phone Shweta Collins M.D. Care Team Information Receive r [phone] Problems Active Problems Provider Date Essential hypertension Zeb Akins M.D. O nset: 04/26/2023 Carcinoma of prostate Zeb Akins M.D. On set: 04/26/2023 Diabetes mellitus Zeb Akins M.D. Onset: 04/26/2023 Asbestosis Zeb Akins M.D. Onset: 0 04/26/2023 Social History Type Date Description Comments Sex Male Sex Unknown Lives With Spouse ETOH Use [...] SIG Qnty Indications Order ing Provider Date [id number] Solution inject 15 units subcutaneously once daily Zeb Akins M.D. 04/26/2023 [id number] Tablets 1 tab by mouth every day Zeb Akins M.D. 04/26/2023 Vitamin [id number] Tablets 1 by mouth every day Zeb Akins M.D. 04/26/2023 Albuterol Sulfate2.5mg/0.5ML Nebulizer Zeb Akins M.D. 04/26/2023 Spiriva Respimat2.5mcg/Act Aerosol take 1 puff daily as needed Zeb Akins M.D. 04/26/2023 Budesonide0.5mg/2M L Suspension inhale contents of 1 vial daily via nebulizer Zeb Akins M.D. 04/26/2023 [id number]/ML Solution use sliding scale as directed 70ml Zeb Akins M.D. 04/26/2023 Tamsulosin HCL0.4mg Capsules 1 cap by mouth every night 90caps Zeb Akins M.D. 06/27/2022 Vitamin D (Cholecalciferol)2 5mcg (1000 Ut) Tablets 1 by mouth every day Zeb Akins M.D. 06/27/2022 [id number] Tablets 1 tab two-three daily Zeb Akins M.D. 06/27/2022 [id number] Tablets 3 tabs per day 300tabs Zeb Akins M.D. 06/27/2022 Oxycodone PTF18cx Tablets take 2 tablets daily 280tabs Zeb Akins M.D. 06/27/2022 Avodart0.5mg Capsules 1 tab by mouth every night Zeb Akins M.D. 06/27/2022 Jiorfrwyni0rr Tablets 4 tabs by mouth every day Zeb Akins M.D. 06/27/2022 Cjhbudh5um Tablets 1 by mouth twice a day Zeb Akins M.D. 06/27/2022 Yauafsedbj409sr Tablets 2-3 tablets daily Zeb Akins M.D. 06/27/2022 Metformin [id number] Tablets take 1 tablet by mouth twice a day Zeb Akins M.D. 06/27/2022 Hjauloklk89yp Tablets 1 by mouth every day Zeb Akins M.D. 06/27/2022 Pravastatin Xptnmn40gg Tablets 1 tab daily Zeb Akins M.D. 06/27/2022 Nzpgrienro61sl Tablets Take 1 Tablet By Mouth Every Day In The Morning Shweta Collins M.D. Vital Signs Date Vital Result Comment 04/26/2023 11:06am Height 73 inches 6'1 Weight 196.00 lb BMI (Body Mass Index) 25.9 kg/m2 Results Test Acquired Date Facility Test Result H/L Range Note Free Testosterone 04/26/2023 [facility] Testosterone, Total, LC/MS 697.4 1 Percent Free Testosterone 1.41 Low 2 Free Testosterone, Equilibrium 9.83 3 Testosterone 04/26/2023 [facility] Testosterone 771 ng/dL (280-800 ) SHBG 04/26/2023 [facility] SHBG 149.0 nmol/L High (19-76) FSH 04/26/2023 [facility] FSH 37.3 MIU/ML High (1.5-12. 4) 4 LH 04/26/2023 [facility] LH 17.9 MIU/ML High (1.5-12. 4) 5 Prolactin 04/26/2023 [facility] Prolactin 26.0 NG/ML High (4.0-15. 2) Complete Abc With Diff 04/26/2023 [facility] WBC 8.0 K/MM3 (4.0-11. [...] ) Lymph # 1.4 K/MM3 (0.8-3.1 ) [place]# 1.4 K/MM3 High (0.4-1.3 ) Eo # 0.1 K/MM3 (0.0-0.4 ) Baso # 0.1 K/MM3 (0.0-0.1 ) Abs. Imm Gran 0.0 K/MM3 Neut 62.1 % (44-76) Lymph 17.9 % (15-43) Monocyte 17.7 % High (4.5-10. 5) Eo 1.5 % (0-6) Baso 0.6 % (0-2) Imm Gran 0.2 % Free T4 06/27/2022 [facility] Free T4 1.41 ng/dL (0.70-1. 80) TSH 06/27/2022 [facility] TSH 3.98 uIU/mL (0.4-4.2 ) Prolactin 06/27/2022 [facility] Prolactin 30.4 NG/ML High (4.0-15. 2) FSH 06/27/2022 [facility] FSH 18.8 MIU/ML High (1.5-12. 4) 6 LH 06/27/2022 [facility] LH 9.4 MIU/ML (1.5-12. 4) 7 Testosterone,[place] e & Total (Males > 15Yr) 06/27/2022 [facility] Testosterone 1056 ng/dL High (280-800 ) SHBG 122.0 nmol/L High (19-76) Free Testosterone, Estimated 8.96 ng/dL (3.7-14. 7) [place] C 06/27/2022 [facility] [place] C 66 NG/ML 8 Z Score SEE COMMENT 9 1 Reference range: 264 .0 to 916.0 Unit: ng/dL (NOTE) This [facility] LC/MS-MS method is currently certified by the CDC Hormone Standardization Program (HoSt). Adult male reference interval is based on a population of healthy nonobese males (BMI <30) between 19 and 39 years old. Antonieta et.al. JCEM 2017,102;6092-7727. PMID: 25794888. This test was developed and its performance characteristics determined by [facility]. It has not been cleared or approved by the Food and Drug Administration. 2 Reference range: 1.5 0 to 4.20 Unit: % 3 Reference range: 5.0 0 to 21.00 Unit: ng/dL Test performed at [address] [address] 4 Reference Range: Follicular: 3.5-12.5 mIU/mL Ovulation: [...] Unit: S.D. (NOTE) RESULT:-1.5 Test performed at [address] [address] Medical Devices Description No Information Available Encounters [...]
== END 2025-03-25 11:49 | disposition home or self-care (01) ==
LOC: HO.HPS 11:06
PROVIDERS: PCP Internal Medicine; Visit Provider Hospitalist
DX: R91.8 Other nonspecific abnormal finding of lung field (principal); J41.8 Mixed simple and mucopurulent chronic bronchitis; J96.11 Chronic respiratory failure with hypoxia; J96.12 Chronic respiratory failure with hypercapnia; J98.11 Atelectasis
CPT/HCPCS: 99214; G2211

== ENCOUNTER → 2025-03-25 11:05 | Outpatient (BNVA) | payer MEDICARE, OTHER, SELFPAY | PROVIDERS: PCP Internal Medicine; Visit Provider Hospitalist | DX: J41.8 Mixed simple and mucopurulent chronic bronchitis (principal); J96.11 Chronic respiratory failure with hypoxia; J96.12 Chronic respiratory failure with hypercapnia; R91.8 Other nonspecific abnormal finding of lung field; Z99.81 Dependence on supplemental oxygen | CPT/HCPCS: 99212 ==

== ENCOUNTER 2025-04-30 09:31 | Outpatient (AMB) | payer MEDICARE, OTHER, SELFPAY ==
--- NOTE | 2025-04-30 09:31 | MHC.OFFVIS ---
Intake Visit Reasons: 2M follow up Intake Note: Patient is present for 2m follow up Urology Medication:TAMSULOSIN,DUTASTERIDE Antibiotic Allergy:LEVOFLOXACIN,SULFA Blood Thinner:NONE Mammalogy Teacher Required: No Allergies finasteride Allergy (Intermediate, Verified 04/30/25 09:33) Rash and Hives levofloxacin (Levaquin) Allergy (Intermediate, Verified 04/30/25 09:33) Rash and Hives Sulfa (Sulfonamide Antibiotics) Allergy (Intermediate, Verified 04/30/25 09:33) Rash and Hives Biaxin Allergy (Intermediate, Uncoded 03/11/25 15:34) Rash and Hives ivp contrast Allergy (Intermediate, Uncoded 03/11/25 15:34) Rash and Hives flu shot (senior) Allergy (Uncoded 03/11/25 15:34) hives FLU Vaccine Adverse Reaction (Severe, Uncoded 03/11/25 15:34) Anaphylaxis HPI Comments Details: Mr Gunter is a very pleasant . They are a patient of Dr Collins. They are seen in the office today for the following urologic conditions. - prostate cancer - BPH with nocturia Telemedicine Evaluation 15 min Consultation [place] Secure Baldomero Video PSA has fallen Initial plan was for androgen therapy At this point we will hold off as has issues with his shoulder and will need intervention 03/19 PSMA PET scan - Imaging shows activity avid within prostate - left mid anterior apical - No evidence of sakina or bony metastases Combination dutasteride and tamsulosin PSA 05/18 22.9, 12/17 29, 05/19 21 Persistent high FSH and high testosterone Prior MRI shows no joanne mass Prostate cancer: Second biopsy negative Prostate cancer was diagnosed 05/[address] Gomes. Diagnosis was reached by needle biopsy, for elevated PSA, PSA at diagnosis 6.6 , size at TRUS 45cc Feb 2018 , needle biopsy, for elevated PSA, PSA at diagnosis 16.5. The [place] grade is 3+3 = 6 / cores 10% - February 2018 HGPIN / cores - no cancer on directed cores - May 2020 - no cancer seen TNM Classification of Malignant Tumours (TNM) T1c. The [place] (NCCN) risk category is Low Risk (PSA< 10, Gl < 7, T1c). Initial therapy included Primary treatment, Observation, 5AR - Side effect with finasteride - sore testicles - tolerates dutasteride Recent labs included a PSA (prostate-specific antigen) April 2011 3.3, August 2012 5.4, January 2013 5.5, January 2014 6.9, June 2016 12.9 (unsure if on 5AR), Sep 2016 13.28 February 2017 13.5 on 5AR 01/10 , a PSA (prostate-specific antigen) 16.2, 09/11 16, 02/10 18.4, 04/12 20.6, 09/12 28.3, 04/13 28, 11/15 27.8, 05/15 33, 09/14 27, 03/16 35 T 800, 04/15 T 750 FSH 18 Recent imaging included an MRI (magnetic resonance imaging) April 2015 prostate volume 36 cc, area of hypointensity and peripheral zone of the left base without abnormal enhancement kinetics. No evidence of capsular invasion or lymphadenopathy 04/10 MRI (magnetic resonance imaging) prostate volume 34 cc. Peripheral zone left basal focal region Pi-RADS 3. No definitive change since 2014. 03/13 Bone Scan negative 09/12 MRI (magnetic resonance imaging) 2.5cm left anterior transition at base - increase in size - 09/14 Bone Scan NAD [facility] Medical History Pulmonary nodules Diabetes Chronic respiratory failure COPD (chronic obstructive pulmonary disease) Hypertension Chondrocalcinosis of right knee Primary osteoarthritis of right knee ROLA (obstructive sleep apnea) Atelectasis Prostate cancer Elevated PSA Social History Patient Tobacco Use Status: Former Tobacco user Tobacco use type: Cigarette Years Smoked: 20 years Current occupational status: retired Current occupation: Right Handed Review of Systems Const All systems reviewed & are unremarkable except as noted in HPI and below Reports no additional complaints Resp Reports no additional complaints GI Reports no additional complaints Reports as per HPI Musc Reports no additional complaints Physical Exam Telemedicine evaluation Appropriate responses Regular breathing rate and rhythm HEENT Head: Yes normal to inspection Ears: hearing grossly normal bilaterally Eyes General: appearance normal, both eyes and all related structures Neck Neck: Yes normal visual inspection Chest Chest palpation & inspection: normal inspection of the chest Resp Effort & Inspection: normal respiratory effort and able to speak in complete sentences Telehealth Telehealth Telehealth Platform: [facility] Location of provider rendering services: practice address Location of patient: address on file Patient Identification confirmed using: Name, : Yes Telehealth method: video Patient verbally consented to treatment: Yes Patient verbally consented to billing insurance company: Yes Patient informed of any privacy concerns related to visit: Yes Minutes spent on Phone/Video with Pt.: 15 Assessment & Plan Assessment & Plan (1) Prostate cancer: Comment: low volume, high PSA Code(s): C61 - Malignant neoplasm of prostate Category: Medical Plan Six-month follow-up PSA tele Orders: Orders PSA,Total (Free>4and<10) 6 Months C61 - Malignant neoplasm of prostate Patient Instructions: This note is constructed using voice recognition software. While every effort has been made to ensure accuracy assistant professor of anthropology errors may have been included. Imaging studies, laboratory and physical exam results were discussed and reviewed in detail. No major barriers to patient understanding were identified. An opportunity to ask questions regarding the treatment plan was provided. All questions were answered. The patient expressed understanding and agreement with the above treatment plan. The patient is aware they should contact our office by phone for worsening of their current condition or the appearance of new urologic symptoms. Compliance is encouraged with any medications and followup testing that is ordered. It is a privilege to participate in the urologic care of your patient. If you have any questions or concerns regarding treatment for the above conditions, or other urologic issues, please do not hesitate to contact me. The office telephone contact is [phone]. Sincerely, Dr Rommel Gomes MD, TED [employer] - Urology Compassionate Specialist Care for the Genitourinary System Coding Level of Care Code Tele Est Pt Level 3 (44764) Complex EM visit Add On G2211 Diagnoses Prostate cancer C61
--- OUTSIDE RECORDS SUMMARY | 2025-04-30 09:54 | XMS_ITS | Continuity of Care Document ---
Author Organization [facility] Address [address] [place] [address] Phone [phone] Care Team Providers Care Scrap Crusher Name Role Phone Shweta Collins M.D. Care Team Information Receive r [phone] Problems Active Problems Provider Date Essential hypertension [...] SIG Qnty Indications Order ing Provider Date Zyczob902Hnty/ML Solution inject 15 units subcutaneously once daily Zeb Akins M.D. 04/26/2023 Hygkqsqa129lzs Tablets 1 tab by mouth every day Zeb Akins M.D. 04/26/2023 Vitamin [id number] Tablets 1 by mouth every day Zeb Akins M.D. 04/26/2023 Albuterol Sulfate2.5mg/0.5ML Nebulizer Zeb Akins M.D. 04/26/2023 Spiriva Respimat2.5mcg/Act Aerosol take 1 puff daily as needed Zeb Akins M.D. 04/26/2023 Budesonide0.5mg/2M L Suspension inhale contents of 1 vial daily via nebulizer Zeb Akins M.D. 04/26/2023 Qvdlzpq881Odji/ML Solution use sliding scale as directed 70ml Zeb Akins M.D. 04/26/2023 Tamsulosin HCL0.4mg Capsules 1 cap by mouth every night 90caps Zeb Akins M.D. 06/27/2022 Vitamin D (Cholecalciferol)2 5mcg (1000 Ut) Tablets 1 by mouth every day Zeb Akins M.D. 06/27/2022 Vkcl139cr Tablets 1 tab two-three daily Zeb Akins M.D. 06/27/2022 Ngjgdqzu26-879ab Tablets 3 tabs per day 300tabs Zeb Akins M.D. 06/27/2022 Oxycodone SKD63ba Tablets take 2 tablets daily 280tabs Zeb Akins M.D. 06/27/2022 Avodart0.5mg Capsules 1 tab by mouth every night Zeb Akins M.D. 06/27/2022 Eegdgdkztl3yv Tablets 4 tabs by mouth every day Zeb Akins M.D. 06/27/2022 Bumkfrf2ru Tablets 1 by mouth twice a day Zeb Akins M.D. 06/27/2022 Uldjrqncbi174nc Tablets 2-3 tablets daily Zeb Akins M.D. 06/27/2022 Metformin HRX578tl Tablets take 1 tablet by mouth twice a day Zeb Akins M.D. 06/27/2022 Sairaaxni07oh Tablets 1 by mouth every day Zeb Akins M.D. 06/27/2022 Pravastatin Hvsqxe15hb Tablets 1 tab daily Zeb Akins M.D. 06/27/2022 Hqmnhblwff12jc Tablets Take 1 Tablet By Mouth Every Day In The Morning Shweta Collins M.D. Vital Signs Date Vital Result Comment 04/26/2023 11:06am Height 73 inches 6'1 Weight 196.00 lb BMI (Body Mass Index) 25.9 kg/m2 Results Test Acquired Date Facility Test Result H/L Range Note Free Testosterone 04/26/2023 [facility] Testosterone, Total, LC/MS 697.4 1 Percent Free Testosterone 1.41 Low 2 Free Testosterone, Equilibrium 9.83 3 Testosterone 04/26/2023 [facility] Testosterone 771 ng/dL (280-800 ) SHBG 04/26/2023 [facility] SHBG 149.0 nmol/L High (19-76) FSH 04/26/2023 [facility] FSH 37.3 MIU/ML High (1.5-12. 4) 4 LH 04/26/2023 [facility] LH 17.9 MIU/ML High (1.5-12. 4) 5 Prolactin 04/26/2023 [facility] Prolactin 26.0 NG/ML High (4.0-15. 2) Complete Abc With Diff 04/26/2023 [facility] WBC 8.0 K/MM3 (4.0-11. [...] ) Lymph # 1.4 K/MM3 (0.8-3.1 ) [place]# 1.4 K/MM3 High (0.4-1.3 ) Eo # 0.1 K/MM3 (0.0-0.4 ) Baso # 0.1 K/MM3 (0.0-0.1 ) Abs. Imm Gran 0.0 K/MM3 Neut 62.1 % (44-76) Lymph 17.9 % (15-43) Monocyte 17.7 % High (4.5-10. 5) Eo 1.5 % (0-6) Baso 0.6 % (0-2) Imm Gran 0.2 % Free T4 06/27/2022 [facility] Free T4 1.41 ng/dL (0.70-1. 80) TSH 06/27/2022 [facility] TSH 3.98 uIU/mL (0.4-4.2 ) Prolactin 06/27/2022 [facility] Prolactin 30.4 NG/ML High (4.0-15. 2) FSH 06/27/2022 [facility] FSH 18.8 MIU/ML High (1.5-12. 4) 6 LH 06/27/2022 [facility] LH 9.4 MIU/ML (1.5-12. 4) 7 Testosterone,[place] e & Total (Males > 15Yr) 06/27/2022 [facility] Testosterone 1056 ng/dL High (280-800 ) SHBG 122.0 nmol/L High (19-76) Free Testosterone, Estimated 8.96 ng/dL (3.7-14. 7) [place] C 06/27/2022 [facility] [place] C 66 NG/ML 8 Z Score SEE COMMENT 9 1 Reference range: 264 .0 to 916.0 Unit: ng/dL (NOTE) This [facility] LC/MS-MS method is currently certified by the CDC Hormone Standardization Program (HoSt). Adult male reference interval is based on a population of healthy nonobese males (BMI <30) between 19 and 39 years old. Antonieta et.al. JCEM 2017,102;8391-9478. PMID: 93167541. This test was developed and its performance characteristics determined by [facility]. It has not been cleared or approved by the Food and Drug Administration. 2 Reference range: 1.5 0 to 4.20 Unit: % 3 Reference range: 5.0 0 to 21.00 Unit: ng/dL Test performed at [address] [address] 4 Reference Range: Follicular: 3.5-12.5 mIU/mL Ovulation: [...] Unit: S.D. (NOTE) RESULT:-1.5 [place] [address] Medical Devices Description No Information Available Encounters [...]
--- OUTSIDE RECORDS SUMMARY | 2025-04-30 09:54 | XMS_ITS | Clinical Summary ---
Author Organization [facility] Address [address] [place] [address] Care Team Providers Care Curing Bin Operator Name Role Phone Shweta Collins MD Primary Care Provider [phone] Allergies Active Allergy Reactions Criticality Noted Date [...] mg by nebulization daily. 0 Active Tiotropium [place]-Olodaterol (STIOLTO RESPIMAT) 2.5-2.5 MCG/ACT AERS Inhale 2.5 [...] 1-dose 75+ series) 2023 Influenza Vaccine (#1) 2025 Hepatitis B Vaccines Aged Out No long er eligible based on patient's age to complete this topic RSV Ped < 20 months Aged Out No longe r eligible based on patient's age to complete this topic Medical Devices Implanted Type Area Pharmacy Technician Per Diem Device Identifier Shelf Expiration Date Model / Serial / Lot Sponge Surgiflo 8ml Hemostatic Matrix Absorbable Latex Free - [id number] - [id number] Implanted:Qty: 1 on 10/30/2017 by Saad Andujar MD at [facility] Hemostatic Agent Anterior: Spine Cervical [employer] 03/24/2019 2991 / / [id number] Sponge Surgiflo 8ml Hemostatic Matrix Absorbable Latex Free - 968000 - [id number] Implanted:Qty: 2 on 10/30/2017 by Saad Andujar MD at [facility] and Med Hemostatic Agent Posterior: Spine Cervical [employer] 04/24/2019 2991 / / [id number] Spacer Cervical Allofuse 9mm Cortical Cancellous Freeze [facility] - [id number] - [id number] Implanted:Qty: 1 on 10/30/2017 by Saad Andujar MD at [facility] and Med Anterior: Spine Cervical [employer] 01/11/2021 [id number] / [id number] / Screw 14mm Self Drilling - [id number] - [id number] Implanted:Qty: 4 on 10/30/2017 by Saad Andujar MD at [facility] Med Anterior: Spine Cervical [employer] 161.014 / / Plate 20mm Xtend Bone Spnl Strl - 283935 - [id number] Implanted:Qty: 1 on 10/30/2017 by Saad Andujar MD at [facility] and Med Anterior: Spine Cervical [employer] 161.120 / / Plate Canopy Shelf 7mm - [id number] - [id number] Implanted:Qty: 3 on 10/30/2017 by Saad Andujar MD at [facility] and Med Posterior: Spine Cervical [employer] 1102.401 / / Screw Self-Tapping Laminoplasty 2.6mmx6.0mm - [id number] - [id number] Implanted:Qty: 12 on 10/30/2017 by Saad Andujar MD at [facility] and Med Posterior: Spine Cervical [employer] 136.706 / / Advance Directives For more information, please contact: [phone] Documents on File Type Date Recorded Patient Denier Control Operator Expl anation Advance Directive and Living Will 01/02/2019 11:32 AM Latest Code Status on File Code Status Date Activated Date Inactivated Comments Full Code 10/30/2017 4:01 PM 11/03/2017 10:56 PM This c ode status was ascertained in the following way: per living will or healthcare instructions . Care Teams Curing Bin Operator Relationship Specialty Start Date End Date Shweta Collins MD [address] [place] [address] PCP - General Internal Medicine 02/10/17
--- OUTSIDE RECORDS SUMMARY | 2025-04-30 09:54 | XMS_ITS | Clinical Summary ---
Author Organization [address] [place] [address] Address [address] [place] [address] Phone Care Team Providers Care Chlorination Operator Name Role Phone Shweta Collins MD Primary Care Provider [phone] Allergies Active Allergy Reactions Criticality Noted Date Comments Clarithromycin Hives 10/18/2016 Finasteride 10/21/2016 Influenza Virus Vaccines Hives 08/08/2023 High dose Iodine 09/14/2021 Levofloxacin 10/18/2016 Sulfamethoxazole-Trimethoprim 2016 Trimethoprim 09/14/2021 Medications budesonide (PULMICORT) 0.5 mg/2 mL nebulizer solution Take 0.5 mg by nebulization daily. Active carisoprodoL (SOMA) 350 mg tablet 2-3 tablets daily Active dutasteride (AVODART) 0.5 mg capsule Take 0.5 mg by mouth daily. Active ferrous sulfate 325 mg (65 mg elemental iron) tablet 1 tablet (325 mg total). 1 tablet 2 times a week Active furosemide (LASIX) 20 mg tablet Take 1 Tablet by mouth daily. Active gabapentin (NEURONTIN) 600 mg tablet 2-3 tablets daily Active insulin aspart (NovoLOG U-100 Insulin aspart) 100 unit/mL injection Inject into the skin 3 times daily (before meals). Sliding scale Active insulin glargine (LANTUS) 100 unit/mL injection No more than 10 units/PRN Active levalbuterol (XOPENEX) 1.25 mg/3 mL nebulizer solution Take 1 Ampule by nebulization every 4 hours as needed for Wheezing or Shortness of Breath for up to 30 days. 9 Active LEVALBUTEROL HCL INHL Inhale 40 mcg into the lungs daily as needed. Active magnesium 250 mg tablet 2 tablets 1 (one) time each day. Active metFORMIN (GLUCOPHAGE) 500 mg tablet Take [...] mouth every 4 hours as needed. Active predniSONE (DELTASONE) 1 mg tablet 2 tablets (2 mg total) 1 (one) time each day. Active senna (SENOKOT) 8.6 mg tablet 1 tablet (8.6 mg total) 2 (two) times a day. 8 Active tamsulosin (FLOMAX) 0.4 mg 24 hr capsule Take 0.4 mg by mouth daily. Take 30 mins after same meal every day. Active tiotropium-olod ateroL (STIOLTO RESPIMAT) 2.5-2.5 mcg/actuation mist inhaler Inhale 2 Puffs into the lungs daily Active mupirocin (BACTROBAN) 2 % ointmentIndicat ions:wounds Apply topically 3 (three) times a day. 60 g 1 4 Active pantoprazole (PROTONIX) 40 mg EC tablet Take 1 tablet (40 mg total) by mouth every other day. Active cholecalciferol (VITAMIN D-3) 25 mcg (1,000 unit) tablet Take 1 tablet (1,000 Units total) by mouth every other day. Active Oxygen Therapy (O2) gas Inhale 2 L/min continuously. via nasal canula Active Active Problems Problem Noted Date Diagnosed Date Venous insufficiency (chronic) (peripheral) 01/24 Chronic venous hypertension (idiopathic) with ulcer and inflammation of right lower extremity (CMS/HCC V24, CMS/HCC V28) 02/20/2025 Non-pressure chronic ulcer o f other part of right lower leg limited to breakdown of skin (CMS/HCC V24, CMS/HCC V28) 02/20/2025 Non-pressure chronic ulcer l eft lower leg, limited to breakdown skin (CMS/HCC V24, [facility] V28) 02/20/2025 Diabetes mellitus with skin ulcer ([facility] V24, [facility] V28) 09/04/2024 Venous ulcer of right leg ([facility] V24, [facility] V28) 09/04/2024 Venous ulcer of left leg ([facility] V24, [facility] V 28) 09/04/2024 Open scalp wound 09/04/2024 Chronic hypoxemic respirator y failure ([facility] V24, [facility] V28) 08/03/2023 Diastolic heart failure ([facility] V24, [facility] V2 8) 03/13/2023 Overview (08/08/2024): Last Assessment [...] statin at this time. Paroxysmal atrial fibrillation ([facility] V24, [facility] V28) 09/14/2021 Overview (08/08/2024): Last Assessment & [...] mind Orders: ECG 12 lead Hypersensitivity pneumonitis (CMS/HCC V24, CMS/H CC V28) 08/29/2018 Restrictive lung disease 08/29/2018 Depression 08/19/2017 Diabetes mellitus type 2, un complicated (CMS/HCC V24, CMS/HCC V28) 08/19/2017 Hypertension 08/19/2017 Overview (08/08/2024): Last Assessment & Plan: Patient's blood pressure is well-controlled with a reading today 138/70. Lung nodule 08/19/2017 Psoriasis 08/19/2017 Asbestosis ([facility] V24, [facility] V28) 07/17/2017 Chronic obstructive pulmonar y disease ([facility] V24, [facility] V28) 07/17/2017 Encounters Date Type Department Care Team Description 03/26/2025 11:00 AM EDT Office Visit [facility] [place] [address] [place] [phone] Devika Corea MARINE OPERATIONS COORDINATOR Venous insufficiency (chronic) (peripheral) (Primary Dx) 03/17/2025 12:25 PM EDT Ancillary Procedure [facility] - [address] [place] [address] 03/05/2025 10:00 AM EDT Office Visit [facility] [place] [address] [place] [phone] Devika Corea, MARINE OPERATIONS COORDINATOR Chronic venous hypertension (idiopathic) with ulcer and inflammation of left lower extremity ([facility] V24, [facility] V28) (Primary Dx); Chronic venous hypertension (idiopathic) with ulcer and inflammation of right lower extremity ([facility] V24, [facility] V28) 02/27/2025 11:00 AM EDT Office Visit [facility] [place] [address] [place] [phone] Devika Corea, MARINE OPERATIONS COORDINATOR Venous insufficiency (chronic) (peripheral) (Primary Dx); Chronic venous hypertension (idiopathic) with ulcer and inflammation of left lower extremity (CMS/HCC V24, [facility] V28); Chronic venous hypertension (idiopathic) with ulcer and inflammation of right lower extremity (CMS/HCC V24, CMS/HCC V28) 02/20/2025 9:30 AM EDT Office Visit [facility] [place] [address] [place] [phone] Devika Corea, MARINE OPERATIONS COORDINATOR Chronic venous hypertension (idiopathic) with ulcer and inflammation of left lower extremity (CMS/HCC V24, [facility] V28) (Primary Dx); Venous insufficiency (chronic) (peripheral); Chronic venous hypertension (idiopathic) with ulcer and inflammation of right lower extremity ([facility] [place]24, [facility] V28); Non-pressure chronic ulcer of other part of right lower leg limited to breakdown of skin ([facility] V24, [facility] V28); Non-pressure chronic ulcer left lower leg, limited to breakdown skin ([facility] V24, [facility] V28); Diabetes mellitus with skin ulcer ([facility] V24, [facility] V28); Chronic venous hypertension with ulcer and inflammation involving right side ([facility] V24, [facility] V28) from Last 3 Months Surgical History Surgery Date Site/Laterality Comments HERNIA REPAIR PROCEDURE: HISTORICAL HERNIA REPAIR/ING Medical History Medical History Date Comments Lung nodule 08/19/2017 DX:Lung nodule Depression 08/19/2017 DX:Depression Hypertension 08/19/2017 DX:Hypertension Diabetes mellitus type 2, uncomplicated ([facility] V24, [facility] V28) 08/19/2017 DX:Diabetes mellitus type 2, uncomplicated ([facility]) Psoriasis 08/19/2017 DX:Psoriasis History of gastric ulcer 08/19/2017 DX:Hist ory of gastric ulcer Asbestosis ([facility] V24, [facility] V28) 07/17/2017 DX:Asbestosis ([facility]) Chronic obstructive pulmonar y disease ([facility] V24, [facility] V28) 07/17/2017 DX:Chronic obstructive pulm onary disease ([facility]) Hypokalemia DX:Hypokalemia Hypomagnesemia DX:Hypomagnesemi a Chronic anemia DX:Chronic anemi a GERD without esophagitis DX:GERD without esophagitis Overactive bladder DX:Overactive bladder Social History Tobacco Use Types Packs/Day Years Used Date Smoking Tobacco: Former Cigarettes Smokeless Tobacco: Never Tobacco Cessation:Counseling Given: Not Answered Comments:Quit smoking in 1988--- light smoker Alcohol Use Standard Drinks/Week Comments Not Currently 0 (1 standard drink = 0.6 oz pur e alcohol) Sex and Gender Information Value Date Recorded Sex Assigned at Not on file Legal Sex Male 7:19 AM EST Gender Identity Not on file Sexual Orientation Not on file Obstetrics History Last Filed Vital Signs Vital Sign Reading Time Taken Comments Blood Pressure 142/69 03/26/2025 11:18 AM EDT Pulse 70 03/26/2025 11:18 AM EDT Temperature 36.6 C (97.8 F) 03/26/2025 11:18 AM EDT Respiratory Rate 18 03/26/2025 11:18 AM EDT Oxygen Saturation 99% 03/26/2025 11:18 AM EDT Inhaled Oxygen Concentration - - Weight 81.2 kg (179 lb) 01/17/2025 10:45 AM EDT Height 185.4 cm (6' 1 ) 01/17/2025 10:45 AM EDT Body Mass Index 23.62 01/17/2025 10:45 AM EDT Plan of Treatment Upcoming Encounters Date Type Department Care Team (Late st Contact Info) Description 07/25/2025 9:10 AM EDT Office Visit [facility] [address] [place] [phone] Collette Jones NP [address] [place] [address] [address] [place] [address] 09/30/2025 10:30 AM EST Ancillary Procedure [facility] [address] [facility] [address] [place] [phone] Health Maintenance Due Date Last Done Comments Diabetes: Annual Foot Exam 1960 Diabetes: Annual Retina Eye Exam 1960 Hepatitis C Screening 09/03/2022 Medicare Annual Wellness Visit 09/03/2022 Social Influencers of Health Screening 09/03/2022 Diabetes: Annual Urine Albumin-Creatinine Ratio (uACR) 09/07/2022 RSV Immunization Adult Patients (1 - 1-dose 75+ series) 2023 COVID-19 Vaccine ( season) 2024 06/24/2022, 07/02/2021, 11/23/2020, Additional history exists Depression Screening 09/25/2024 Influenza Vaccine (#1) 2025 , 06/09/2022, 06/09/2021, Additional history exists Diabetes: Blood Sugar Control Test (HGBA1C) 08/28/2025 02/26/2025, 11/20/2024, 06/26/2024, Additional history exists Falls Risk Assessment 02/20/2026 02/20/2025 Diabetes: Annual GFR (Glomerular Filtration Rate) 02/26/2026 02/26/2025, 11/03/2017, 11/02/2017, Additional history exists Hypertension/CHF/CAD Annual BMP Blood Test 02/26/2026 02/26/2025, 11/03/2017, 11/02/2017, Additional history exists Cholesterol Screening (Lipid Panel) 02/15/2027 02/15/2022 DTaP,Tdap,and [...] this topic Medical Devices Implanted Type Area Marine Technician Device Identifier Shelf Expiration Date Model / Serial / Lot Enmanuel Lynch 8 Sr-T [id number] Implanted:11/2021 (Quantity not on file) Cardiac Pacemaker [employer] EDORA 8 SR-T / [id number] / Procedures Procedure Name Priority Date/Time Associated Diagnosis Comments CARDIAC DEVICE CHECK- REMOTE- MURJ Routine 03/17/2025 12:23 PM EDT DEBRIDEMENT Routine 02/20/2025 9:30 AM EDT Venous insufficiency (chronic) (peripheral) Chronic venous hypertension (idiopathic) with ulcer and inflammation of left lower extremity (CMS/HCC V24, CMS/HCC V28) Non-pressure chronic ulcer left lower leg, limited to breakdown skin (CMS/HCC V24, CMS/HCC V28) Diabetes mellitus with skin ulcer (CMS/HCC V24, CMS/HCC V28) DEBRIDEMENT Routine 02/20/2025 9:30 AM EDT Venous insufficiency (chronic) (peripheral) Chronic venous hypertension (idiopathic) with ulcer and inflammation of right lower extremity (CMS/HCC V24, CMS/HCC V28) Non-pressure chronic ulcer of other part of right lower leg limited to breakdown of skin (CMS/HCC V24, CMS/HCC V28) Diabetes mellitus with skin ulcer (CMS/HCC V24, CMS/HCC V28) from Last 3 Months Results * Cardiac device check - Remote- MURJ (03/17/2025 12:23 PM EDT) Date Time Interrogation Session [id number] CV DEVICE CHECK Type Interrogation Session RemoteScheduled CV DEVICE CHECK Implantable Pulse Generator Marine Technician BIO CV DEVICE CHECK Implantable Pulse Generator Type IPG CV DEVICE CHECK Implantable Pulse Generator Model Edora 8 SR-T CV DEVICE CHECK Implantable Pulse Generator Serial Number [id number] CV DEVICE CHECK Implantable Pulse Generator Implant Date 20220728 CV DEVICE CHECK Battery Remaining Percentage 75.00 CV DEVICE CHECK Battery Status Middle of Service CV DEVICE CHECK Alvarez Statistic RV Percent Paced 100.00 CV DEVICE CHECK Lead Channel Sensing Intrinsic Amplitude 9.600 CV DEVICE CHECK Lead Channel Impedance Value 390 CV DEVICE CHECK Lead Channel Pacing Threshold Amplitude 0.800 CV DEVICE CHECK Lead Channel Pacing Threshold Pulse Width 0.4 CV DEVICE CHECK Lead Channel RV Pacing Threshold Date 2025-02-27 CV DEVICE CHECK Lead Channel Setting Pacing Amplitude 2.000 CV DEVICE CHECK Lead Channel Setting Pacing Pulse Width 0.4 CV DEVICE CHECK Alvarez Setting Mode (NBG Code) VVIR CV DEVICE CHECK Alvarez Setting Lower Rate Limit 70 CV DEVICE CHECK Alvarez Setting Maximum Sensor Rate 120 CV DEVICE CHECK Date of Service 2025-03-17 CV DEVICE CHECK Anatomical Region Laterality Modality Device Interroga tion 02/27/2025 12:5 2 AM EDT Impressions 03/17/2025 10:50 AM EDT Normal Remote: No Events * Normal Device Function * Alerts or events: None * Battery: Battery is at 75%, * Sensing, impedance and thresholds reviewed * Programmed parameters reviewed * Presenting rhythm reviewed * Heart Rate Histograms reviewed * No significant changes noted Narrative Procedure Note Emil Bee MD - 03/17/2025 IMPRESSION: Normal Remote: No Events * Normal Device Function * Alerts or events: None * Battery: Battery is at 75%, * Sensing, impedance and thresholds reviewed * Programmed parameters reviewed * Presenting rhythm reviewed * Heart Rate Histograms reviewed * No significant changes noted us Emil Bee MD CV IMPLANTABLE CARDIAC DEV ICE PROCEDURES Final Result * Debridement Left Pretibial (02/20/2025 9:30 AM EDT) Narrative Devika Corea NP - 02/20/2025 9:30 AM EDT Devika Corea NP 02/20/2025 12:27 PM Debridement Left Pretibial Performed by: Devika Corea NP Authorized by: Devika Corea NP Associated wounds: Wound 02/20/25 Pretibial Left Consent: Consent obtained: Written Consent given by: Patient Risks discussed: Yes Time out: Immediately prior to the procedure a time out was called Time out performed at: 02/20/2025 12:25 PM Debridement Details: Performed by: MORENO Type: conservative sharp Pain control: Lidocaine 5% Pain control administration: topical anesthesia Severity of Tissue Pre Debridement: Fat layer exposed Severity of Tissue Post Debridement: Fat layer exposed Time taken: 02/20/2025 9:57 AM Length (cm): 26 Width (cm): 8 Depth (cm): 0.1 Area (cm^2): 208 Time taken: 02/20/2025 9:58 AM Length (cm): 26 Width (cm): 8 Depth (cm): 0.1 Percent Debrided (%): 2 Surface Area (cm^2): 208 Area Debrided (cm^2): 4.16 Volume (cm^3): 20.8 Tissue and other material debrided: dermis, epidermis and subcutaneous tissue Devitalized tissue debrided: exudate, fibrin and slough Instrument: Forceps Procedural pain: 0 Post-procedural pain: 0 Response to treatment: Procedure was tolerated well Devika Corea MARINE OPERATIONS COORDINATOR IN CLINIC/BEDSIDE ORDERABLES Final Result * Debridement Right Pretibial (02/20/2025 9:30 AM EDT) Devika Morgan NP - 02/20/2025 9:30 AM EDT Devika Corea NP 02/20/2025 12:27 PM Debridement Right Pretibial Performed by: Devika Corea NP Authorized by: Devika Corea NP Associated wounds: Wound 02/20/25 Pretibial Right Consent: Consent obtained: Written Consent given by: Patient Risks discussed: Yes Time out: Immediately prior to the procedure a time out was called Debridement Details: Performed by: MARINE OPERATIONS COORDINATOR Type: selective Pain control: Lidocaine 5% Pain control administration: topical anesthesia Severity of Tissue Pre Debridement: Limited to breakdown of skin Severity of Tissue Post Debridement: Limited to breakdown of skin Time taken: 02/20/2025 9:57 AM Length (cm): 13 Width (cm): 13 Depth (cm): 0.1 Area (cm^2): 169 Time taken: 02/20/2025 9:58 AM Length (cm): 13 Width (cm): 13 Depth (cm): 0.1 Percent Debrided (%): 2 Surface Area (cm^2): 169 Area Debrided (cm^2): 3.38 Volume (cm^3): 16.9 Tissue and other material debrided: dermis and epidermis Devitalized tissue debrided: exudate, fibrin and slough Instrument: Forceps Amount of bleeding: small Hemostasis obtained with: Pressure Procedural pain: 0 Post-procedural pain: 0 Response to treatment: Procedure was tolerated well Devika Corea MARINE OPERATIONS COORDINATOR IN CLINIC/BEDSIDE ORDERABLES Final Result from Last 3 Months Insurance MEDICARE [facility] Care Teams Chlorination Operator Relationship Specialty Start Date End Date Shweta Collins MD [address] [place] [id number] PCP - General Internal Medicine 09/05/17
--- OUTSIDE RECORDS SUMMARY | 2025-04-30 09:54 | XMS_ITS | Clinical Summary ---
Author Organization [facility] Address [address] [place] [address] Phone Care Team Providers Care Emergency Medical Services Coordinator Name Role Phone Unavailable Primary Care Provider [...] Visual Foot Exam 07/28/2022 Influenza Vaccine (#1) 2025 2, 06/09/2021, 07/29/2019, Additional history exists Pneumococcal Vaccine: 50+ Years Completed 08/12/2019, 06/20/2016 Hepatitis B Vaccine Aged Out No longe r eligible based on patient's age to complete this topic Insurance Medicare [facility] [place] [id number] Medicare [facility]
== END 2025-04-30 09:57 | disposition home or self-care (01) ==
LOC: HO.HUSH 09:31
PROVIDERS: PCP Internal Medicine; Visit Provider Urology
DX: C61 Malignant neoplasm of prostate (principal)
CPT/HCPCS: 99213; G2211